=== PATIENT | female | born 1950 | race American Indian/Alaskan Native ===

== ENCOUNTER 2016-05-05 10:00 | Emergency (ER) | payer MEDICARE ==
[2016-05-05] MEDS ORDERED: ZOFRAN IV ONE (10:46)
[2016-05-05] MEDS ORDERED: MORPHINE IV ONE ×2 (10:46→13:53)
--- NOTE | 2016-05-05 11:06 | Emergency Department Report ---
ED Chest Pain HPI - General Chief Complaint: Chest Pain Stated Complaint: CHEST PAIN Time Seen by Provider: 05/05/16 10:38 Source: patient, EMS Mode of arrival: Stretcher Limitations: No Limitations - History of Present Illness Initial Comments: 65-year-old female with a past medical history of end-stage renal disease on dialysis, hypertension, CAD with stent 1 presents to the hospital complains of chest pain started during dialysis. Patient states first she had a punching sensation chest followed by intermittent crushing sensation lasting for about 5 minutes at a time. Pain rated 7/10 in intensity without aggravating. Some improvement with nitroglycerin prior to arrival. Patient continues to have intermittent chest pain with associated nausea. No complaints of shortness of breath, vomiting, or diaphoresis. Also complains of associated right arm numbness. Patient had 2.5 hours of dialysis and typically goes for 3.5 hours. Similar pain in the past that was not diagnosed as a heart attack as per patient. Previous medical record review. Patient was admitted here October 2015 and had negative serial enzymes and a negative stress test performed by [facility] July 2015. Aspirin given prior to arrival. 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 Complaint: chest pain - Related Data Home Medications Medication Instructions Recorded Confirmed Last Taken ALPRAZolam [Xanax TAB] 0.5 mg PO DAILY 11/10/15 05/05/16 05/04/16 FLUoxetine HCL [PROzac] 60 mg PO QDAY 11/10/15 05/05/16 05/04/16 Ferric Citrate (Nf) [Auryxia (Nf)] 210 mg PO DAILY 11/10/15 05/05/16 05/04/16 Lisinopril [Zestril TAB] 10 mg PO QDAY 11/10/15 05/05/16 05/04/16 Omeprazole [PriLOSEC] 30 mg PO QDAY 11/10/15 05/05/16 05/05/16 traZODone [Desyrel] 100 mg PO QHS 11/10/15 05/05/16 11/09/15 09:00 Previous Rx's Medication Instructions Recorded Last Taken Type Cinacalcet [Sensipar] 30 mg PO QDAY tablet 11/13/15 05/04/16 Rx HYDROcodone/APAP 5-325 [[place]vance 1 each PO Q6HR PRN #20 tablet 05/05/16 Unknown Rx 5/325] ISOSORBIDE MONOnitrate [Imdur ER] 30 mg PO DAILY #30 tab.er.24h 05/05/16 Unknown Rx Allergies Allergy/AdvReac Type Severity Reaction Status Date / Time iodine Allergy Hives Verified 05/18/14 16:07 Sulfa (Sulfonamide Allergy Hives Verified 05/18/14 16:07 Antibiotics) GABRIELLE score - Gabrielle Score Age > 65: (0) No Aspirin use within the Past 7 Days: (0) No 3 or more CAD Risk Factors: (1) Yes 2 or more Angina events in past 24 hrs: (1) Yes Known CAD with more than 50% Stenosis: (1) Yes Elevated Cardiac Markers: (0) No ST Deviation Greater than 0.5mm: (0) No GABRIELLE Score: 3 ED Review of Systems ROS: Stated complaint: CHEST PAIN Other details as noted in HPI Comment: All other systems reviewed and negative Other: Constitutional: No fevers chills Eyes: No eye pain visual changes ENT: No ear pain or throat pain Neck: Denies pain Respiratory: Denies cough wheezing shortness of breath Cardiovascular: Denies chest pain, palpitations, syncope GI: Denies abdominal pain, vomiting, diarrhea : Denies dysuria, urinary frequency, or urgency Musculoskeletal: Denies back pain, joint swelling Skin: Denies rash, lesions, erythema Neurologic: Denies headache, numbness, weakness Psychiatric: Denies suicidal ideation, hallucinations ED Past Medical Hx - Past Medical History Previous Medical History?: Yes Hx Hypertension: Yes Hx Congestive Heart Failure: No Hx Diabetes: No Hx GERD: Yes Hx Renal Disease: Yes (ESRD/dialysis M,W,F) Hx Arthritis: Yes (hands) Hx Psychiatric Treatment: Yes (depression) Hx Asthma: No Hx COPD: No Additional medical history: membreno's palsy-right side - Surgical History Past Surgical History?: Yes Hx Coronary Stent: Yes (1) Additional Surgical History: left A/V graft - Social History Smoking Status: Never Smoker Substance Use Type: None - Medications Home Medications: Home Medications Medication Instructions Recorded Confirmed Last Taken Type ALPRAZolam [Xanax TAB] 0.5 mg PO DAILY 11/10/15 05/05/16 05/04/16 History FLUoxetine HCL [PROzac] 60 mg PO QDAY 07/03/1705/05/16 05/04/16 History Ferric Citrate (Nf) [Auryxia (Nf)] 210 mg PO DAILY 11/10/15 05/05/16 05/04/16 History Lisinopril [Zestril TAB] 10 mg PO QDAY 11/10/15 05/05/16 05/04/16 History Omeprazole [PriLOSEC] 30 mg PO QDAY 11/10/15 05/05/16 05/05/16 History traZODone [Desyrel] 100 mg PO QHS 11/10/15 05/05/16 11/09/15 09:00 History Cinacalcet [Sensipar] 30 mg PO QDAY tablet 11/13/15 05/05/16 05/04/16 Rx HYDROcodone/APAP 5-325 [[place] 1 each PO Q6HR PRN #20 tablet 05/05/16 Unknown Rx 5/325] ISOSORBIDE MONOnitrate [Imdur ER] 30 mg PO DAILY #30 tab.er.24h 05/05/16 Unknown Rx ED Physical Exam - General Limitations: No Limitations - Other Other exam information: General: No limitations, patient is alert in no acute distress Head exam: Atraumatic, normocephalic Eyes exam: Normal appearance, pupils equal reactive to light, extraocular movements intact ENT: Moist mucous membrane, normal oropharynx Neck exam: Normal inspection, full range of motion, no meningismus nontender Respiratory exam: Clear to auscultation bilateral, no wheezes, rales, crackles, sternal chest tenderness Cardiovascular: Normal rate and rhythm Abdomen: Soft, nondistended, and nontender, with normal bowel sounds, no rebound, or guarding Extremity: Full range of motion normal inspection no deformity, no calf tenderness or edema Back: Normal Inspection, full range of motion, no tenderness Neurologic: Alert, oriented x3, cranial nerves intact, no motor or sensory deficit Psychiatric: normal affect, normal mood Skin: Warm, dry, intact ED Course Vital Signs 05/05/16 05/05/16 05/05/16 10:37 10:39 10:41 Temperature Pulse Rate 58 L 59 L Respiratory 14 12 Rate Blood Pressure 131/73 131/73 Blood Pressure [Left] O2 Sat by Pulse 99 95 99 Oximetry 05/05/16 05/05/16 05/05/16 10:45 11:00 11:29 Temperature 98.7 F Pulse Rate 63 Respiratory 13 18 Rate Blood Pressure 141/72 Blood Pressure [Left] O2 Sat by Pulse 98 99 Oximetry 05/05/16 05/05/16 15:31 15:32 Temperature Pulse Rate 80 88 Respiratory 16 Rate Blood Pressure 126/69 Blood Pressure 126/69 [Left] O2 Sat by Pulse 98 Oximetry - Reevaluation(s) Reevaluation #1: 05/05/16 11:06 Morphine and Zofran ordered for pain - Consultations Consultation #1: 05/05/16 11:[address] Floyd cardiology and patient was evaluated in the ED. Negative cardiac cath this past summer and recommended Imdur 30 mg daily and discharge if cardiac enzymes negative 05/05/16 14:49 ED Medical Decision Making - Lab Data Result diagrams: 05/05/16 11:15 05/05/16 11:15 Lab Results 05/05/16 05/05/16 05/05/16 Range/Units 10:54 11:15 11:15 WBC 11.2 H (4.5-11.0) K/mm3 RBC 3.24 L (3.65-5.03) M/mm3 Hgb 10.9 (10.1-14.3) gm/dl Hct 32.6 (30.3-42.9) % MCV 101 H (79-97) fl MCH 34 H (28-32) pg MCHC 33 (30-34) % RDW 14.2 (13.2-15.2) % Plt Count 215 (140-440) K/mm3 Lymph % (Auto) 9.0 L (13.4-35.0) % [place] % (Auto) 10.3 H (0.0-7.3) % Eos % (Auto) 1.1 (0.0-4.3) % Baso % (Auto) 0.6 (0.0-1.8) % Lymph # 1.0 L (1.2-5.4) K/mm3 [place] # 1.1 H (0.0-0.8) K/mm3 Eos # 0.1 (0.0-0.4) K/mm3 Baso # 0.1 (0.0-0.1) K/mm3 Seg Neutrophils % 79.0 H (40.0-70.0) % Seg Neutrophils # 8.8 H (1.8-7.7) K/mm3 Sodium 139 (137-145) mmol/L Potassium 3.6 (3.6-5.0) mmol/L Chloride 97.0 L (98-107) mmol/L Carbon Dioxide 28 (22-30) mmol/L Anion Gap 18 mmol/L BUN 22 H (7-17) mg/dL Creatinine 5.5 H (0.7-1.2) mg/dL Estimated GFR 9 ml/min BUN/Creatinine Ratio 4.00 % Glucose 62 L (65-100) mg/dL POC Glucose 64 L (70-105) Calcium 9.3 (8.4-10.2) mg/dL Troponin T < 0.010 (0.00-0.029) ng/mL 05/05/16 Range/Units 13:27 WBC (4.5-11.0) K/mm3 RBC (3.65-5.03) M/mm3 Hgb (10.1-14.3) gm/dl Hct (30.3-42.9) % MCV (79-97) fl MCH (28-32) pg MCHC (30-34) % RDW (13.2-15.2) % Plt Count (140-440) K/mm3 Lymph % (Auto) (13.4-35.0) % [place] % (Auto) (0.0-7.3) % Eos % (Auto) (0.0-4.3) % Baso % (Auto) (0.0-1.8) % Lymph # (1.2-5.4) K/mm3 [place] # (0.0-0.8) K/mm3 Eos # (0.0-0.4) K/mm3 Baso # (0.0-0.1) K/mm3 Seg Neutrophils % (40.0-70.0) % Seg Neutrophils # (1.8-7.7) K/mm3 Sodium (137-145) mmol/L Potassium (3.6-5.0) mmol/L Chloride (98-107) mmol/L Carbon Dioxide (22-30) mmol/L Anion Gap mmol/L BUN (7-17) mg/dL Creatinine (0.7-1.2) mg/dL Estimated GFR ml/min BUN/Creatinine Ratio % Glucose (65-100) mg/dL POC Glucose (70-105) Calcium (8.4-10.2) mg/dL Troponin T < 0.010 (0.00-0.029) ng/mL - EKG Data -: EKG Interpreted by Me (right bundle branch block sinus bradycardia 57 LAE) - EKG Data When compared to previous EKG there are: no significant change (compared to ) - Radiology Data Radiology results: report reviewed (chest x-ray: No acute findings) - Medical Decision Making Patient got relief in the ED with morphine. Imdur initiated. Patient has 2 negative sets cardiac enzymes with a recent negative cardiac cath summer 2015. We discharged home with Imdur as recommended by cardiology. - Differential Diagnosis AL, unstable angina, atypical chest pain Critical Care Time: No Critical care attestation.: If time is entered above; I have spent that time in minutes in the direct care of this critically ill patient, excluding procedure time. ED Disposition Clinical Impression: Atypical chest pain, ESRD (end stage renal disease) on dialysis HTN (hypertension) Qualifiers: Hypertension type: essential hypertension Qualified Code(s): I10 - Essential ( primary) hypertension Disposition: DISCHARGED TO HOME OR SELFCARE Is pt being admited?: No Condition: Stable Instructions: Chest Pain (ED), Hypertension (ED) Additional Instructions: Tale the medications as prescribed. Follow-up with the informatica. Return if symptoms worsen Prescriptions: HYDROcodone/APAP 5-325 [Advance 5/325] 1 each PO Q6HR PRN #20 tablet PRN Reason: Pain ISOSORBIDE MONOnitrate [Imdur ER] 30 mg PO DAILY #30 tab.er.24h Referrals: [facility] [Provider Group] - 3-5 Days Time of Disposition: 15:39
--- NOTE | 2016-05-05 11:18 | XRay Report ---
PORTABLE CHEST INDICATION: Chest pain. COMPARISON: 11/10/2015 FINDINGS: Portable, frontal chest radiograph demonstrates stable cardiomediastinal silhouette, aortic knob calcifications, slightly elevated right hemidiaphragm, left subclavian/brachiocephalic stent medially and few bony degenerative changes with possible osteopenia. No pleural effusions or CHF. EKG leads. CONCLUSION: No acute disease in the chest, stable. Thank you for the opportunity to participate in this patient's care.
[2016-05-05 11:30] LABS: Basophils % (Auto) 0.6 % (0.0-1.8); Eosinophils % (Auto) 1.1 % (0.0-4.3); Hematocrit 32.6 % (30.3-42.9); Hemoglobin 10.9 gm/dl (10.1-14.3); Mean Corpuscular HGB Conc 33 % (30-34); Mean Corpuscular Hemoglobin 34 pg (28-32); Mean Corpuscular Volume 101 fl (79-97); Platelet Count 215 K/mm3 (140-440); Red Blood Count 3.24 M/mm3 (3.65-5.03); Red Cell Distribution Width 14.2 % (13.2-15.2); White Blood Count 11.2 K/mm3 (4.5-11.0)
[2016-05-05 11:44] LABS: Anion Gap 18 mmol/L; Blood Urea Nitrogen 22 mg/dL (7-17); Calcium 9.3 mg/dL (8.4-10.2); Carbon Dioxide 28 mmol/L (22-30); Glucose 62 mg/dL (65-100); Potassium 3.6 mmol/L (3.6-5.0); Sodium 139 mmol/L (137-145)
--- NOTE | 2016-05-05 12:42 | Consultation ---
History of Present Illness Consult date: 05/05/16 Requesting physician: CARA RIBEIRO Consult reason: chest pain History of present illness: The patient claims that upon arrival at dialysis this morning, she experienced a "crushing" substernal chest pain. After she commenced dialysis, she claims her chest pain became more prominent, feeling like a pressure sensation. Due to persistence of symptoms, she was brought to the emergency department for evaluation. She obtained partial relief with sublingual nitroglycerin. Her initial set of cardiac enzymes are negative for acute myocardial infarction. Notably, she had a negative stress test in June 2015. After presenting with chest pain again in October 2015, she underwent coronary angiography which revealed no significant disease, but mild ectasia in the RCA. Ejection fraction was 50-55 percent. Past History Past Medical History: ESRD, hypertension, other (coronary angiography in October 2015 revealed no significant disease but mild ectasia of the RCA. Ejection fraction was 5055 percent.) Past Surgical History: thyroidectomy, Other (hemorrhoidectomy and creation of AV fistula) Social history: denies: smoking, alcohol abuse Family history: denies: CAD Medications and Allergies Allergies Allergy/AdvReac Type Severity Reaction Status Date / Time iodine Allergy Hives Verified 05/18/14 16:07 Sulfa (Sulfonamide Allergy Hives Verified 05/18/14 16:07 Antibiotics) Home Medications Medication Instructions Recorded Confirmed Last Taken Type ALPRAZolam [Xanax TAB] 0.5 mg PO DAILY 11/10/15 05/05/16 05/04/16 History FLUoxetine HCL [PROzac] 60 mg PO QDAY 11/10/15 05/05/16 05/04/16 History Ferric Citrate (Nf) [Auryxia (Nf)] 210 mg PO DAILY 11/10/15 05/05/16 05/04/16 History Lisinopril [Zestril TAB] 10 mg PO QDAY 11/10/15 05/05/16 05/04/16 History Omeprazole [PriLOSEC] 30 mg PO QDAY 11/10/15 05/05/16 05/05/16 History traZODone [Desyrel] 100 mg PO QHS 11/10/15 05/05/16 11/09/15 09:00 History Cinacalcet [Sensipar] 30 mg PO QDAY tablet 11/13/15 05/05/16 05/04/16 Rx Review of Systems Constitutional: no fever, no chills Ears, nose, mouth and throat: no ear pain, no ear discharge, no sore throat Cardiovascular: chest pain, no palpitations, no lightheadedness, no shortness of breath Respiratory: no cough, no hemoptysis, no shortness of breath Gastrointestinal: no nausea, no vomiting, no diarrhea, no constipation Genitourinary Female: no dysuria, no urinary frequency Rectal: no pain, no bleeding Musculoskeletal: no neck pain, no muscle weakness, no myalgias Integumentary: no rash, no pruritis Neurological: no weakness, no parathesias, no numbness, no tingling, no headaches Endocrine: no cold intolerance, no heat intolerance Hematologic/Lymphatic: no easy bruising, no easy bleeding Allergic/Immunologic: no urticaria, no wheezing Physical Examination Vital Signs Last Vital Signs Temp 98.7 F 05/05/16 10:45 Pulse 63 05/05/16 11:00 Resp 18 05/05/16 11:29 BP 141/72 05/05/16 11:00 Pulse Ox 99 05/05/16 11:29 General appearance: no acute distress HEENT: Positive: EOMI, Normocephaly, Mucus Membranes Moist Neck: Positive: neck supple, trachea midline Cardiac: Positive: Reg Rate and Rhythm, S1/S2 Lungs: Positive: clear to auscultation Neuro: Positive: Grossly Intact Abdomen: Positive: Soft, Active Bowel Sounds. Negative: Tender Skin: Positive: Clear. Negative: Rash Extremities: Present: normal. Absent: edema Results 05/05/16 11:15 05/05/16 11:15 CBC 05/05/16 Range/Units 11:15 WBC 11.2 H (4.5-11.0) K/mm3 RBC 3.24 L (3.65-5.03) M/mm3 Hgb 10.9 (10.1-14.3) gm/dl Hct 32.6 (30.3-42.9) % Plt Count 215 (140-440) K/mm3 Lymph # 1.0 L (1.2-5.4) K/mm3 [place] # 1.1 H (0.0-0.8) K/mm3 Eos # 0.1 (0.0-0.4) K/mm3 Baso # 0.1 (0.0-0.1) K/mm3 Comprehensive Metabolic Panel 05/05/16 Range/Units 11:15 Sodium 139 (137-145) mmol/L Potassium 3.6 (3.6-5.0) mmol/L Chloride 97.0 L (98-107) mmol/L Carbon Dioxide 28 (22-30) mmol/L BUN 22 H (7-17) mg/dL Creatinine 5.5 H (0.7-1.2) mg/dL Glucose 62 L (65-100) mg/dL Calcium 9.3 (8.4-10.2) mg/dL - Imaging and Cardiology EKG: image reviewed EKG interpretations - Telemetry EKG Rhythm: Sinus Bradycardia AV and intraventricular conduction: right bundle branch block Chamber hypertrophy or enlargement: left atrial enlargement Assessment and Plan Initiate Imdur 30 mg daily. If her cardiac enzymes are negative, she may be discharged home on Imdur. She is to follow-up at my office in one week. - Patient Problems (1) Atypical chest pain Current Visit: Yes Status: Acute (2) Normal coronary arteries Current Visit: Yes Status: Chronic (3) HTN (hypertension) Current Visit: Yes Status: Chronic Qualifiers: Hypertension type: essential hypertension Qualified Code(s): I10 - Essential (primary) hypertension (4) ESRD (end stage renal disease) on dialysis Current Visit: Yes Status: Chronic
[2016-05-05] MEDS ORDERED: IMDUR PO SCH (15:00)
[2016-05-05 15:32] VITALS: BP 126/69
== END 2016-05-05 15:54 | disposition home or self-care (01) ==
LOC: ED 10:00
DX: I12.0 Hypertensive chronic kidney disease with stage 5 chronic kidney disease or end stage renal disease (principal); E11.22 Type 2 diabetes mellitus with diabetic chronic kidney disease; N18.6 End stage renal disease; Z99.2 Dependence on renal dialysis; R07.89 Other chest pain; K21.9 Gastro-esophageal reflux disease without esophagitis; M19.90 Unspecified osteoarthritis, unspecified site; Z88.2 Allergy status to sulfonamides
CPT/HCPCS: 36415; 71010; 80048; 82962; 84484; 85025; 93005; 93010; 96374; 96375; 96376; 99285; J2270; J2405

== ENCOUNTER 2019-09-10 19:55 | Inpatient (IN) | payer MEDICARE ==
[2019-09-10 20:25] LABS: Basophils # (Auto) 0.1 K/mm3 (0.0-0.1); Basophils % (Auto) 1.2 % (0.0-1.8); Eosinophils % (Auto) 0.4 % (0.0-4.3); Hematocrit 33.9 % (30.3-42.9); Hemoglobin 11.6 gm/dl (10.1-14.3); Lymphocytes # (Auto) 1.1 K/mm3 (1.2-5.4); Lymphocytes % (Auto) 12.7 % (13.4-35.0); Mean Corpuscular HGB Conc 34 % (30-34); Mean Corpuscular Volume 99 fl (79-97); Monocytes # (Auto) 0.8 K/mm3 (0.0-0.8); Monocytes % (Auto) 8.8 % (0.0-7.3); Platelet Count 193 K/mm3 (140-440); Red Blood Count 3.44 M/mm3 (3.65-5.03); Red Cell Distribution Width 13.8 % (13.2-15.2)
[2019-09-10 20:47] LABS: Calcium 9.5 mg/dL (8.4-10.2)
[2019-09-10] MEDS ORDERED: ASPIRIN 81 MG TAB CHEW PO ONE (20:52)
[2019-09-10] MEDS ORDERED: ONDANSETRON 4 MG/2 ML INJ IV ONE (20:52)
[2019-09-10] MEDS ORDERED: MORPHINE 4 MG/1 ML INJ IV ONE (20:52)
--- NOTE | 2019-09-10 20:55 | XRay Report ---
CHEST 1 VIEW 09/10/2019 7:43 PM INDICATION / CLINICAL INFORMATION: MAIN: Chest Pain; Pseudoanyeurism progressively worse for one week. Tenderness and painful. Denies Bl eeding or dc. Had diaylis today. Nonlabored. chest tightness and cramping. COMPARISON: Chest x-ray 06/12/2018 FINDINGS: SUPPORT DEVICES: None. HEART / MEDIASTINUM: No significant abnormality. LUNGS / PLEURA: No significant pulmonary or pleural abnormality. No pneumothorax. ADDITIONAL FINDINGS: A venous stent left brachiocephalic and subclavian veins IMPRESSION: 1. No acute findings. Signer Name: Jordi Mcgowan MD Signed: 09/10/2019 8:51 PM Workstation Name: [id number]
--- NOTE | 2019-09-10 20:55 | Emergency Department Report ---
ED Chest Pain HPI - General Chief Complaint: Extremity Injury, Upper Stated Complaint: LARGE ABCESS UNDER ARM/PAINFUL Time Seen by Provider: 09/10/19 20:32 Source: patient Mode of arrival: Ambulatory Limitations: No Limitations - History of Present Illness Initial Comments: Patient is 68-year-old female with end-stage renal disease on hemodialysis. Jolie samaniego also had history of hypertension. Patient presented to the ER complaining of left sided chest pain, pressure with radiation to the left arm. Patient stated that her pain started this morning. She stated that she is unable to finish her dialysis session today. She stated that she had approximately 45 minutes left. Patient denied any fever, chills, cough or congestion. Patient also denied any abdominal pain, nausea or vomiting or diarrhea. MD Complaint: chest pain -: This morning Onset: during rest Pain Location: left chest Severity scale (0 -10): 8 Quality: pressure Consistency: constant Worsens With: nothing - Related Data Home Medications Medication Instructions Recorded Confirmed Last Taken ALPRAZolam [Xanax TAB] 0.5 mg PO DAILY 11/10/15 05/05/16 05/04/16 FLUoxetine HCL [PROzac] 60 mg PO QDAY 11/10/15 05/05/16 05/04/16 Ferric Citrate (Nf) [Auryxia] 210 mg PO DAILY 11/10/15 05/05/16 05/04/16 Omeprazole [PriLOSEC] 30 mg PO QDAY 11/10/15 05/05/16 05/05/16 lisinopriL [Zestril TAB] 10 mg PO QDAY 11/10/15 05/05/16 05/04/16 traZODone [Desyrel] 100 mg PO QHS 11/10/15 05/05/16 11/09/15 09:00 Previous Rx's Medication Instructions Recorded Last Taken Type Cinacalcet [Sensipar] 30 mg PO QDAY tablet 11/13/15 05/04/16 Rx HYDROcodone/APAP 5-325 [[place] 1 each PO Q6HR PRN #20 tablet 05/05/16 Unknown Rx 5/325] ISOSORBIDE MONOnitrate [Imdur ER] 30 mg PO DAILY #30 tab.er.24h 05/05/16 Unknown Rx Allergies Allergy/AdvReac Type Severity Reaction Status Date / Time iodine Allergy Hives Verified 05/18/14 16:07 lisinopril Allergy Angioedema Verified 09/10/19 20:05 Sulfa (Sulfonamide Allergy Hives Verified 05/18/14 16:07 Antibiotics) Heart Score - HEART Score History: Moderately suspicious EKG: Non-specific Age: > 65 Risk factors: > 3 risk factors or hx of atherosclerotic disease Troponin: < normal limit HEART Score: 6 - Critical Actions Critical Actions: 4-6 pts:12-16.6% risk of adverse cardiac event. Should be admitted ED Review of Systems ROS: Stated complaint: LARGE ABCESS UNDER ARM/PAINFUL Other details as noted in HPI Comment: All other systems reviewed and negative Constitutional: denies: chills, fever ENT: denies: congestion Respiratory: denies: cough, shortness of breath, SOB with exertion Cardiovascular: chest pain. denies: palpitations Gastrointestinal: denies: abdominal pain, nausea, vomiting Neurological: denies: headache, weakness, numbness, paresthesias, confusion, abnormal gait ED Past Medical Hx - Past Medical History Previous Medical History?: Yes Hx Hypertension: Yes Hx Congestive Heart Failure: No Hx Diabetes: No Hx GERD: Yes Hx Renal Disease: Yes (ESRD/dialysis M,W,F) Hx Arthritis: Yes (hands) Hx Psychiatric Treatment: Yes (depression) Hx Asthma: No Hx COPD: No Additional medical history: membreno's palsy-left side - Surgical History Past Surgical History?: Yes Hx Coronary Stent: Yes (4) Additional Surgical History: left A/V graft - Social History Smoking Status: Never Smoker Substance Use Type: None - Medications Home Medications: Home Medications Medication Instructions Recorded Confirmed Last Taken Type ALPRAZolam [Xanax TAB] 0.5 mg PO DAILY 11/10/15 05/05/16 05/04/16 History FLUoxetine HCL [PROzac] 60 mg PO QDAY 11/10/15 05/05/16 05/04/16 History Ferric Citrate (Nf) [Auryxia] 210 mg PO DAILY 11/10/15 05/05/16 05/04/16 History Omeprazole [PriLOSEC] 30 mg PO QDAY 11/10/15 05/05/16 05/05/16 History lisinopriL [Zestril TAB] 10 mg PO QDAY 07/11/16 01/04/17 01/03/17 History traZODone [Desyrel] 100 mg PO QHS 11/10/15 05/05/16 11/09/15 09:00 History Cinacalcet [Sensipar] 30 mg PO QDAY tablet 11/13/15 05/05/16 05/04/16 Rx HYDROcodone/APAP 5-325 [[place] 1 each PO Q6HR PRN #20 tablet 05/05/16 Unknown Rx 5/325] ISOSORBIDE MONOnitrate [Imdur ER] 30 mg PO DAILY #30 tab.er.24h 05/05/16 Unknown Rx ED Physical Exam - General Limitations: No Limitations General appearance: alert, in no apparent distress - Head Head exam: Present: atraumatic, normocephalic, normal inspection - Eye Eye exam: Present: normal appearance - ENT ENT exam: Present: normal exam, normal orophraynx, mucous membranes moist - Neck Neck exam: Present: normal inspection, full ROM. Absent: tenderness, meningismus, lymphadenopathy, thyromegaly - Respiratory Respiratory exam: Present: normal lung sounds bilaterally - Cardiovascular Cardiovascular Exam: Present: regular rate, normal rhythm, normal heart sounds - GI/Abdominal GI/Abdominal exam: Present: soft, normal bowel sounds. Absent: distended, tenderness, guarding, rebound, rigid, organomegaly, mass, bruit, pulsatile mass, hernia - Extremities Exam Extremities exam: Present: normal inspection, full ROM, normal capillary refill. Absent: tenderness, pedal edema, calf tenderness - Back Exam Back exam: Present: normal inspection, full ROM - Neurological Exam Neurological exam: Present: alert, oriented X3, CN II-XII intact. Absent: motor sensory deficit - Psychiatric Psychiatric exam: Present: normal mood - Skin Skin exam: Present: warm, intact, normal color ED Course Vital Signs 09/10/19 20:34 Respiratory 15 Rate O2 Sat by Pulse 98 Oximetry GABRIELLE score - Gabrielle Score Age > 65: (0) No Aspirin use within the Past 7 Days: (0) No 3 or more CAD Risk Factors: (1) Yes 2 or more Angina events in past 24 hrs: (1) Yes Known CAD with more than 50% Stenosis: (1) Yes Elevated Cardiac Markers: (0) No ST Deviation Greater than 0.5mm: (0) No GABRIELLE Score: 3 ED Medical Decision Making - Lab Data Result diagrams: 09/10/19 20:14 09/10/19 20:14 - EKG Data -: EKG Interpreted by Me EKG shows normal: sinus rhythm Rate: normal - EKG Data Interpretation: no acute changes - Radiology Data Radiology results: report reviewed - Medical Decision Making Patient is 68-year-old female with end-stage renal disease on hemodialysis. Patient also had history of hypertension. Patient presented to the ER complaining of left sided chest pain, pressure with radiation to the left arm. Patient stated that her pain started this morning. She stated that she is un able to finish her dialysis session today. She stated that she had approximately 45 minutes left. Patient denied any fever, chills, cough or congestion. Patient also denied any abdominal pain, nausea or vomiting or diarrhea. EKG showed no ST elevation. Labs reviewed and is unremarkable including the first set of troponin. Chest x-ray is negative for acute finding. Patient received aspirin, morphine and Zofran. I discussed the patient with Dr. Grayson, he agreed to admit the patient to hospital for further management. Critical care attestation.: If time is entered above; I have spent that time in minutes in the direct care of this critically ill patient, excluding procedure time. ED Disposition Clinical Impression: Chest pain, End stage renal disease Disposition: OP ADMIT IP TO THIS HOSP Is pt being admited?: Yes Condition: Stable Instructions: Chest Pain (ED)
[2019-09-10] MEDS ORDERED: ACETAMINOPHEN 325 MG TAB PO PRN (21:58)
[2019-09-10] MEDS ORDERED: ONDANSETRON 4 MG/2 ML INJ IV PRN (21:58)
[2019-09-10] MEDS ORDERED: NITROGLYCERIN 0.4 MG TAB SUBL SL PRN (21:58)
[2019-09-10] MEDS ORDERED: MAGNESIUM HYDROXIDE (MOM) ORAL LIQD UDC PO PRN (21:58)
[2019-09-10 22:41] LABS: Basophils # (Auto) 0.1 K/mm3 (0.0-0.1); Eosinophils # (Auto) 0.1 K/mm3 (0.0-0.4); Eosinophils % (Auto) 0.8 % (0.0-4.3); Hematocrit 34.5 % (30.3-42.9); Hemoglobin 11.7 gm/dl (10.1-14.3); Lymphocytes # (Auto) 1.6 K/mm3 (1.2-5.4); Lymphocytes % (Auto) 17.9 % (13.4-35.0); Mean Corpuscular HGB Conc 34 % (30-34); Mean Corpuscular Volume 98 fl (79-97); Monocytes # (Auto) 0.9 K/mm3 (0.0-0.8); Monocytes % (Auto) 9.8 % (0.0-7.3); Platelet Count 199 K/mm3 (140-440); Red Blood Count 3.52 M/mm3 (3.65-5.03); Red Cell Distribution Width 13.6 % (13.2-15.2)
--- NOTE | 2019-09-10 23:02 | History and Physical Report ---
History of Present Illness Date of examination: 09/10/19 Date of admission: 09/10/19 21:51 Chief complaint: Chest Pain History of present illness: 68-year-old -[place] female with known history of hypertension and end- stage renal disease on dialysis Tuesday and Tuesday presenting to the emergency room today complaining of left-sided chest pain which started during dialysis today. Patient indicates that she had about 45 minutes left for dialysis when she started having left-sided chest pain. On a scale of 10 pain was about 8/10. No known relieving or exacerbating factor. She has had chronic left upper arm pain radiating into her left axilla and indicates pain on the left has been ongoing for several weeks. She has also noticed increased swelling in the left axilla but feels it may be related to AV fistula in the left upper arm. She denies any fever or chills, no nausea vomiting, no shortness of breath, no headache or dizziness. Upon arrival in the emergency room she was given aspirin and some IV morphine with some improvement in her chest pain. Work-up so far in the emergency room has been unremarkable. Past History Past Medical History: ESRD, GERD, hypertension, other (Depression) Past Surgical History: Other (A-V graft on left arm.) Social history: no significant social history Family history: no significant family history Medications and Allergies Allergies Allergy/AdvReac Type Severity Reaction Status Date / Time iodine Allergy Hives Verified 05/18/14 16:07 lisinopril Allergy Angioedema Verified 09/10/19 20:05 Sulfa (Sulfonamide Allergy Hives Verified 05/18/14 16:07 Antibiotics) Home Medications Medication Instructions Recorded Confirmed Last Taken Type ALPRAZolam [Xanax TAB] 0.5 mg PO DAILY 11/10/15 05/05/16 05/04/16 History FLUoxetine HCL [PROzac] 60 mg PO QDAY 11/10/15 05/05/16 05/04/16 History Ferric Citrate (Nf) [Auryxia] 210 mg PO DAILY 11/10/15 05/05/16 05/04/16 History Omeprazole [PriLOSEC] 30 mg PO QDAY 11/10/15 05/05/16 05/05/16 History lisinopriL [Zestril TAB] 10 mg PO QDAY 11/10/15 05/05/1605/04/17 History traZODone [Desyrel] 100 mg PO QHS 11/10/15 05/05/16 11/09/15 09:00 History Cinacalcet [Sensipar] 30 mg PO QDAY tablet 11/13/15 05/05/16 05/04/16 Rx HYDROcodone/APAP 5-325 [[place] 1 each PO Q6HR PRN #20 tablet 05/05/16 Unknown Rx 5/325] ISOSORBIDE MONOnitrate [Imdur ER] 30 mg PO DAILY #30 tab.er.24h 05/05/16 Unknown Rx Active Meds: Active Medications Acetaminophen (Tylenol) 650 mg PO Q4H PRN PRN Reason: Pain MILD(1-3)/Fever >100.5/IZAGUIRRE Aspirin (Ecotrin) 325 mg PO QDAY [facility] Heparin Sodium (Porcine) (Heparin) 5,000 unit SUB-Q Q8HR [facility] Magnesium Hydroxide (Milk Of Magnesia) 30 ml PO Q4H PRN PRN Reason: Constipation Morphine Sulfate (Morphine) 2 mg IV Q5MIN PRN PRN Reason: Chest Pain unrelieved by NTG Nitroglycerin (Nitrostat) 0.4 mg SL Q5M PRN PRN Reason: Chest Pain Ondansetron HCl (Zofran) 4 mg IV Q8H PRN PRN Reason: Nausea And Vomiting Sodium Chloride (Sodium Chloride Flush Syringe 10 Ml) 10 ml IV BID [facility] Last Admin: 09/10/19 22:29 Dose: Not Given Documented by: Sodium Chloride (Sodium Chloride Flush Syringe 10 Ml) 10 ml IV PRN PRN PRN Reason: LINE FLUSH Review of Systems Constitutional: no fever, no chills Ears, nose, mouth and throat: no headache, no vertigo Cardiovascular: chest pain, no palpitations, no lightheadedness Respiratory: no cough, no shortness of breath Gastrointestinal: no abdominal pain, no nausea, no vomiting, no diarrhea Genitourinary Female: no flank pain, no dysuria, no hematuria Musculoskeletal: no neck pain, no low back pain Integumentary: no rash, no pruritis Neurological: no headaches, no change in mentation Exam - Constitutional Vitals: Temp Pulse Resp BP Pulse Ox 67 11 L 161/68 100 09/10/19 22:30 09/10/19 22:30 09/10/19 22:30 09/10/19 22:30 General appearance: Present: no acute distress, well-nourished - EENT Eyes: Present: PERRL, EOM intact ENT: hearing intact, clear oral mucosa, dentition normal - Neck Neck: Present: supple, normal ROM - Respiratory Respiratory effort: normal Respiratory: bilateral: CTA - Cardiovascular Rhythm: regular Heart Sounds: Present: S1 & S2, systolic murmur - Extremities Extremities: no ischemia, pulses intact, pulses symmetrical, No edema, Full ROM, abnormal (AV fistula in the left upper with palpable thrill, mildly tender.) Peripheral Pulses: abnormal (Mildly tender and pulsatile swelling in the left axilla) - Abdominal General gastrointestinal: Present: soft, non-tender, non-distended - Integumentary Integumentary: Present: clear, warm, dry - Musculoskeletal Musculoskeletal: strength equal bilaterally - Psychiatric Psychiatric: appropriate mood/affect, intact judgment & insight, cooperative - Neurologic Neurologic: CNII-XII intact, moves all extremities Results - Labs CBC & Chem 7: 09/10/19 22:28 09/10/19 22:28 Labs: Abnormal lab results 09/10/19 09/10/19 09/10/19 Range/Units 20:14 20:14 22:28 RBC 3.44 L 3.52 L (3.65-5.03) M/mm3 MCV 99 H 98 H (79-97) fl MCH 34 H 33 H (28-32) pg Lymph % (Auto) 12.7 L (13.4-35.0) % [place] % (Auto) 8.8 H 9.8 H (0.0-7.3) % Lymph # 1.1 L (1.2-5.4) K/mm3 [place] # 0.9 H (0.0-0.8) K/mm3 Seg Neutrophils % 76.9 H 70.5 H (40.0-70.0) % Chloride 95.6 L (98-107) mmol/L BUN 27 H (7-17) mg/dL Creatinine 5.1 H (0.7-1.2) mg/dL Assessment and Plan - Patient Problems (1) Chest pain Current Visit: Yes Status: Acute Plan to address problem: Patient admitted and placed on telemetry. Will check serial cardiac enzymes. Patient has been placed on daily aspirin, sublingual nitroglycerin and IV morphine as needed for chest pain. She will be scheduled for stress test in the a.m. (2) End stage renal disease Current Visit: Yes Status: Chronic Plan to address problem: Patient gets dialysis on Tuesday, Tuesday and Fridays. We require nephrology consult during this admission for possible dialysis. (3) Left upper extremity swelling Current Visit: No Status: Acute Plan to address problem: Probably related to the left AV fistula present in the left upper arm. Meanwhile will place on analgesic medication as needed. We will consider ultrasound of the left upper extremity to rule out a DVT if pain and swelling does not subside. We will also appreciate vascular surgery evaluation of AV fistula on left upper extremity. (4) DVT prophylaxis Current Visit: Yes Status: Acute Plan to address problem: Patient placed on subcutaneous heparin. (5) Full code status Current Visit: Yes Status: Acute
[2019-09-10 23:04] LABS: Calcium 9.5 mg/dL (8.4-10.2)
[2019-09-11] MEDS: MORPHINE 2 MG/1 ML INJ IV PRN ×2 (01:50→22:22)
[2019-09-11 02:16] LABS: Chol/HDL Ratio 1.98 %
[2019-09-11 05:04] LABS: Basophils % (Auto) 0.7 % (0.0-1.8); Eosinophils # (Auto) 0.1 K/mm3 (0.0-0.4); Eosinophils % (Auto) 1.3 % (0.0-4.3); Hematocrit 31.8 % (30.3-42.9); Hemoglobin 10.9 gm/dl (10.1-14.3); Lymphocytes # (Auto) 1.5 K/mm3 (1.2-5.4); Lymphocytes % (Auto) 24.5 % (13.4-35.0); Mean Corpuscular HGB Conc 34 % (30-34); Mean Corpuscular Volume 99 fl (79-97); Monocytes # (Auto) 0.7 K/mm3 (0.0-0.8); Monocytes % (Auto) 11.4 % (0.0-7.3); Platelet Count 176 K/mm3 (140-440); Red Blood Count 3.22 M/mm3 (3.65-5.03); Red Cell Distribution Width 13.7 % (13.2-15.2)
[2019-09-11 05:16] LABS: INR 1.06 (0.87-1.13)
[2019-09-11 05:24] LABS: Calcium 9.7 mg/dL (8.4-10.2)
[2019-09-11] MEDS: HEPARIN 5,000 UNIT/1 ML VIAL SUB-Q SCH ×3 (06:36→22:23)
--- NOTE | 2019-09-11 09:05 | Consultation ---
History of Present Illness - Reason for Consult Consult date: 09/11/19 end stage renal disease - History of Present Illness Patient is a 68yo with ESRD on HD MWF who presented to the ED with chest pain and left arm pain. She is followed by Dr. Floyd and is s/p recent stress test which was abnormal. Case discussed with Dr. Floyd on August 30 - as elective procedures were on hold due to COVID-19, plan was to see patient in the office and schedule LHC if patient was symptomatic. Presently, patient reports intermittent substernal pain. She denies SOB, diaphoresis, N/V. She reports that she is more concerned with left arm pain and is worried that her YANN AVF will malfunction in future. She has been seen by her vascular surgeon, Dr. Stiles, but she requests a second opinion. Her last dialysis treatment was yesterday. Past History Past Medical History: ESRD, GERD, hypertension, other (Depression) Past Surgical History: Other (A-V graft on left arm.) Social history: no significant social history Family history: no significant family history Medications and Allergies Allergies Allergy/AdvReac Type Severity Reaction Status Date / Time iodine Allergy Hives Verified 05/18/14 16:07 lisinopril Allergy Angioedema Verified 09/10/19 20:05 Sulfa (Sulfonamide Allergy Hives Verified 05/18/14 16:07 Antibiotics) Home Medications Medication Instructions Recorded Confirmed Last Taken Type ALPRAZolam [Xanax TAB] 0.5 mg PO DAILY 11/10/15 05/05/16 05/04/16 History FLUoxetine HCL [PROzac] 60 mg PO QDAY 11/10/15 05/05/16 05/04/16 History Ferric Citrate (Nf) [Auryxia] 210 mg PO DAILY 11/10/15 05/05/16 05/04/16 History Omeprazole [PriLOSEC] 30 mg PO QDAY 11/10/15 05/05/16 05/05/16 History lisinopriL [Zestril TAB] 10 mg PO QDAY 11/10/15 05/05/16 05/04/16 History traZODone [Desyrel] 100 mg PO QHS 11/10/15 05/05/16 11/09/15 09:00 History Cinacalcet [Sensipar] 30 mg PO QDAY tablet 11/13/15 05/05/16 05/04/16 Rx HYDROcodone/APAP 5-325 [[place] 1 each PO Q6HR PRN #20 tablet 05/05/16 Unknown Rx 5/325] ISOSORBIDE MONOnitrate [Imdur ER] 30 mg PO DAILY #30 tab.er.24h 05/05/16 Unknown Rx Active Meds: Active Medications Acetaminophen (Tylenol) 650 mg PO Q4H PRN PRN Reason: Pain MILD(1-3)/Fever >100.5/IZAGUIRRE Aspirin (Ecotrin) 325 mg PO QDAY [facility] Heparin Sodium (Porcine) (Heparin) 5,000 unit SUB-Q Q8HR [facility] Last Admin: 09/11/19 06:36 Dose: 5,000 unit Documented by: Magnesium Hydroxide (Milk Of Magnesia) 30 ml PO Q4H PRN PRN Reason: Constipation Morphine Sulfate (Morphine) 2 mg IV Q5MIN PRN PRN Reason: Chest Pain unrelieved by NTG Last Admin: 09/11/19 01:50 Dose: 2 mg Documented by: Nitroglycerin (Nitrostat) 0.4 mg SL Q5M PRN PRN Reason: Chest Pain Ondansetron HCl (Zofran) 4 mg IV Q8H PRN PRN Reason: Nausea And Vomiting Sodium Chloride (Sodium Chloride Flush Syringe 10 Ml) 10 ml IV BID [facility] Last Admin: 09/10/19 22:29 Dose: Not Given Documented by: Sodium Chloride (Sodium Chloride Flush Syringe 10 Ml) 10 ml IV PRN PRN PRN Reason: LINE FLUSH Review of Systems All systems: negative Exam - Vital Signs Vital signs: Vital Signs Resp Pulse Ox 15 98 09/10/19 20:34 09/10/19 20:34 - General Appearance General appearance: well-developed, well-nourished EENT: ATNC Heart: regular, S1S2 Gastrointestinal: Present: normal Integumentary: no rash, warm and dry Neurologic: alert and oriented x3 Musculoskeletal: Present: other (no edema) Psychiatric: mood/affect appropriate Results - Lab Results 09/11/19 14:30 09/11/19 04:40 Most recent lab results Calcium 9.7 mg/dL (8.4-10.2) 09/11/19 04:40 Assessment and Plan Impression: * End stage renal disease * Chest pain --Abnormal MPI * Left arm pain - r/o AVF malfunction * Hypertension * Anemia secondary to ESRD * Secondary hyperparathyroidism Plan: * No acute need for dialysis today * Continue TTS schedule * Note plans for [facility] today * Patient has requested second opinion re: AV access evaluation. IR consulted overnight * Epogen TIW prn * Renal diet * Dose medications for renal function
--- NOTE | 2019-09-11 09:37 | Consultation ---
History of Present Illness Consult date: 09/11/19 Requesting physician: ANA BRITTON Consult reason: chest pain History of present illness: The pt is a 68 YO female with a past medical history of ESRD on HD, nonobstructive CAD, recurrent chest pain, HTN, mild aortic stenosis, RBBB, scleroderma. She is followed in our office by Dr. Floyd. She presented with c/o chest pain for the past several days. She describes her chest pain as an intermittent left-sided aching pain with no clear aggravating or alleviating factors. The pain prevented her from finishing dialysis yesterday and thus she decided to seek further evaluation. She states that she has been experiencing this pain intermittently for the past few months. Pt also c/o "aneurysm" with swelling and pain around her LUE dialysis access site. She underwent lexiscan MPI stress test in our office on 07/05/2019 which showed small partially reversible anterior and anteroapical defect suggestive of prior infarction with mild to mod residual ischemia in LAD territory, EF 63%. Her anti-ischemic regimen was optimized in our office and it was recommended by Dr. Floyd that she undergo coronary angiography if chest pain persisted. LHC done 10/2015 showed minimal nonobstructive CAD (mild ectasia in the mid RCA with scattered LI, LAD with scattered LI), EF 50-55%, no evidence of aortic stenosis. Echo done 07/05/2019 showed EF 55-60%, grade I diastolic dysfunction, mild (mean gradient 17mmHg), mod TR. Past History Past Medical History: ESRD, hypertension, other (as per HPI) Past Surgical History: Other (A-V graft on left arm.) Social history: no significant social history Family history: no significant family history Medications and Allergies Allergies Allergy/AdvReac Type Severity Reaction Status Date / Time iodine Allergy Hives Verified 05/18/14 16:07 lisinopril Allergy Angioedema Verified 09/10/19 20:05 Sulfa (Sulfonamide Allergy Hives Verified 05/18/14 16:07 Antibiotics) Home Medications Medication Instructions Recorded Confirmed Last Taken Type ALPRAZolam [Xanax TAB] 0.5 mg PO DAILY 11/10/15 05/05/16 05/04/16 History FLUoxetine HCL [PROzac] 60 mg PO QDAY 11/10/15 05/05/16 05/04/16 History Ferric Citrate (Nf) [Auryxia] 210 mg PO DAILY 11/10/15 05/05/16 05/04/16 History Omeprazole [PriLOSEC] 30 mg PO QDAY 11/10/15 05/05/16 05/05/16 History lisinopriL [Zestril TAB] 10 mg PO QDAY 11/10/15 05/05/16 05/04/16 History traZODone [Desyrel] 100 mg PO QHS 11/10/15 05/05/16 11/09/15 09:00 History Cinacalcet [Sensipar] 30 mg PO QDAY tablet 11/13/15 05/05/16 05/04/16 Rx HYDROcodone/APAP 5-325 [[place] 1 each PO Q6HR PRN #20 tablet 05/05/16 Unknown Rx 5/325] ISOSORBIDE MONOnitrate [Imdur ER] 30 mg PO DAILY #30 tab.er.24h 05/05/16 Unknown Rx Active Meds: Active Medications Acetaminophen (Tylenol) 650 mg PO Q4H PRN PRN Reason: Pain MILD(1-3)/Fever >100.5/IZAGUIRRE Aspirin (Ecotrin) 325 mg PO QDAY [facility] Last Admin: 09/11/19 09:26 Dose: 325 mg Documented by: Heparin Sodium (Porcine) (Heparin) 5,000 unit SUB-Q Q8HR [facility] Last Admin: 09/11/19 06:36 Dose: 5,000 unit Documented by: Sodium Chloride (Nacl 0.9% 500 Ml) 500 mls @ 50 mls/hr IV DIRECT [facility] Stop: 09/11/19 19:59 Magnesium Hydroxide (Milk Of Magnesia) 30 ml PO Q4H PRN PRN Reason: Constipation Morphine Sulfate (Morphine) 2 mg IV Q5MIN PRN PRN Reason: Chest Pain unrelieved by NTG Last Admin: 09/11/19 01:50 Dose: 2 mg Documented by: Nitroglycerin (Nitrostat) 0.4 mg SL Q5M PRN PRN Reason: Chest Pain Ondansetron HCl (Zofran) 4 mg IV Q8H PRN PRN Reason: Nausea And Vomiting Sodium Chloride (Sodium Chloride Flush Syringe 10 Ml) 10 ml IV BID [facility] Last Admin: 09/11/19 09:27 Dose: 10 ml Documented by: Sodium Chloride (Sodium Chloride Flush Syringe 10 Ml) 10 ml IV PRN PRN PRN Reason: LINE FLUSH Review of Systems Constitutional: no weight loss, no weight gain, no fever, no chills, no sweats Ears, nose, mouth and throat: no ear pain, no nose pain, no sinus pressure, no sinus pain Cardiovascular: chest pain, no orthopnea, no palpitations, no rapid/irregular heart beat, no edema, no syncope, no lightheadedness, no shortness of breath, no dyspnea on exertion, no leg edema Respiratory: no cough, no shortness of breath, no dyspnea on exertion, no congestion, no wheezing, no pain on inspiration Gastrointestinal: no abdominal pain, no nausea, no vomiting, no diarrhea, no constipation, no change in bowel habits Genitourinary Female: no pelvic pain, no flank pain, no dysuria, no urinary frequency, no urgency Musculoskeletal: no neck stiffness, no neck pain, no shooting arm pain, no arm numbness/tingling, no low back pain, no shooting leg pain Integumentary: no rash, no pruritis, no redness, no sores, no wounds Neurological: no head injury, no paralysis, no weakness, no parathesias, no n umbness, no tingling, no seizures, no syncope Psychiatric: no anxiety Endocrine: no cold intolerance, no heat intolerance Hematologic/Lymphatic: no easy bruising, no easy bleeding Allergic/Immunologic: no urticaria Physical Examination Vital Signs Resp Pulse Ox 15 98 09/10/19 20:34 09/10/19 20:34 General appearance: no acute distress HEENT: Positive: PERRL, Normocephaly, Mucus Membranes Moist Neck: Positive: neck supple, trachea midline Cardiac: Positive: Reg Rate and Rhythm, S1/S2, Systolic Murmur Lungs: Positive: Decreased Breath Sounds Neuro: Positive: Grossly Intact Abdomen: Negative: Tender Skin: Negative: Rash Musculoskeletal: No Pain Extremities: Present: Other (LUE swelling around HD access site). Absent: edema Results 09/11/19 04:40 09/11/19 04:40 Coagulation 09/11/19 Range/Units 04:40 PT 13.6 (12.2-14.9) Sec. INR 1.06 (0.87-1.13) Lipids 09/10/19 Range/Units 22:28 Triglycerides 96 (2-149) mg/dL Cholesterol 133 (50-199) mg/dL HDL Cholesterol 67 H (40-59) mg/dL Cholesterol/HDL Ratio 1.98 % CBC 09/10/19 09/10/19 09/11/19 Range/Units 20:14 22:28 04:40 WBC 9.0 8.7 6.3 (4.5-11.0) K/mm3 RBC 3.44 L 3.52 L 3.22 L (3.65-5.03) M/mm3 Hgb 11.6 11.7 10.9 (10.1-14.3) gm/dl Hct 33.9 34.5 31.8 (30.3-42.9) % Plt Count 193 199 176 (140-440) K/mm3 Lymph # 1.1 L 1.6 1.5 (1.2-5.4) K/mm3 Price # 0.8 0.9 H 0.7 (0.0-0.8) K/mm3 Eos # 0.0 0.1 0.1 (0.0-0.4) K/mm3 Baso # 0.1 0.1 0.0 (0.0-0.1) K/mm3 Comprehensive Metabolic Panel 09/10/19 09/10/19 09/11/19 Range/Units 20:14 22:28 04:40 Sodium 139 141 140 (137-145) mmol/L Potassium 3.8 4.1 4.7 (3.6-5.0) mmol/L Chloride 95.6 L 96.7 L 96.6 L (98-107) mmol/L Carbon Dioxide 27 26 29 (22-30) mmol/L BUN 27 H 28 H 31 H (7-17) mg/dL Creatinine 5.1 H 5.7 H 6.5 H (0.7-1.2) mg/dL Glucose 92 58 L 68 (65-100) mg/dL Calcium 9.5 9.5 9.7 (8.4-10.2) mg/dL - Imaging and Cardiology Echo: report reviewed ( 07/05/2019 showed EF 55-60%, grade I diastolic dysfunction, mild (mean gradient 17mmHg), mod TR. ) Cardiac cath: report reviewed (10/2015 showed minimal nonobstructive CAD (mild e ctasia in the mid RCA with scattered LI, LAD with scattered LI), EF 50-55%, no evidence of aortic stenosis. ) EKG: report reviewed, image reviewed EKG interpretations - Telemetry EKG Rhythm: Sinus Rhythm - EKG Sinus rhythms and dysrhythmias: sinus rhythm AV and intraventricular conduction: right bundle branch block Assessment and Plan Pt presents with recurrent chest pain. She underwent lexiscan MPI stress test in our office on 07/05/2019 which showed small partially reversible anterior and anteroapical defect suggestive of prior infarction with mild to mod residual ischemia in LAD territory, EF 63%. Recommend coronary angiography for definitive diagnosis. Indications, potential risks and benefits of LHC reviewed with pt and she is agreeable to proceed with LHC today. Await findings. The patient has been seen in conjunction with Dr. Villegas who agrees with the assessment and plan of care. - Patient Problems (1) Recurrent chest pain Current Visit: Yes Status: Chronic (2) Abnormal stress test Current Visit: Yes Status: Chronic (3) ESRD on dialysis Current Visit: Yes Status: Chronic (4) Left upper extremity swelling Current Visit: Yes Status: Acute (5) Mild aortic stenosis Current Visit: Yes Status: Chronic (6) Nonobstructive atherosclerosis of coronary artery Current Visit: Yes Status: Chronic (7) HTN (hypertension) Current Visit: Yes Status: Chronic (8) RBBB Current Visit: Yes Status: Chronic
[2019-09-11] MEDS ORDERED: SODIUM CHLORIDE 0.9% 500 ML 500 ML IV SCH (10:00)
[2019-09-11] MEDS ORDERED: HYDROCORTISONE SOD SUCC 100 MG/2 ML VIAL IV ONE (10:00)
[2019-09-11] MEDS ORDERED: ASPIRIN EC 325 MG TAB PO SCH (10:00)
[2019-09-11] MEDS ORDERED: diphenhydrAMINE 50 MG/ML VIAL IV ONE (10:03)
[2019-09-11] MEDS ORDERED: diphenhydrAMINE 50 MG/ML VIAL ONE (10:03)
[2019-09-11] MEDS ORDERED: HYDROCORTISONE SOD SUCC 100 MG/2 ML VIAL ONE (10:03)
[2019-09-11] MEDS ORDERED: SODIUM CHLORIDE 0.9% 500 ML 500 ML ONE ×2 (10:42→12:48)
[2019-09-11] MEDS ORDERED: MIDAZOLAM 2 MG/2 ML INJ ONE (10:55)
[2019-09-11] MEDS ORDERED: HEPARIN 10,000 UNITS/10 ML VIAL ONE ×2 (10:55→13:18)
[2019-09-11] MEDS ORDERED: fentaNYL 100 MCG/2 ML INJ ONE (10:55)
[2019-09-11] MEDS ORDERED: HEPARIN/NS 5000 UNIT/500ML 1,000 ML IR ONE (10:55)
[2019-09-11] MEDS ORDERED: LIDOCAINE (2%) 20 MG/1 ML VIAL 20 ML MDV INFILTRATI ONE (10:55)
--- NOTE | 2019-09-11 11:52 | Event Note ---
Date: 09/11/19 Went to go see patient, but she was prepped and draped in the [employer]. Discussed with patient that she will need to be n.p.o. after midnight as she may need a fistulogram tomorrow. Further assessment tomorrow. Patient understands.
[2019-09-11] MEDS ORDERED: hydrALAZINE 20 MG/1 ML INJ ONE (12:16)
[2019-09-11] MEDS ORDERED: DOPamine/D5W 800 MG/250 ML 800 MG/250 ML BAG IV ONE (12:59)
[2019-09-11] MEDS ORDERED: SODIUM CHLORIDE 0.9% 500 ML 500 ML IV ONE (13:01)
[2019-09-11] MEDS ORDERED: VERAPAMIL 5 MG/2 ML INJ ONE (13:18)
[2019-09-11] MEDS ORDERED: LIDOCAINE 1%/EPINEPHRINE 1:100,000 VIAL (20 ML) INFILTRATI ONE (13:18)
[2019-09-11] MEDS ORDERED: NITROGLYCERIN SYRINGE 3 ML ONE (13:18)
[2019-09-11] MEDS ORDERED: HEPARIN/NS 5000 UNIT/500ML 500 ML IR ONE (13:23)
[2019-09-11] MEDS ORDERED: SODIUM CHLORIDE 0.9% 1000 ML 1,000 ML ONE ×2 (13:30→15:33)
[2019-09-11] MEDS ORDERED: PROTAMINE SULFATE 50 MG/5 ML INJ ONE (13:54)
[2019-09-11] MEDS ORDERED: DOPamine/D5W 800 MG/250 ML 800 MG/250 ML BAG IV SCH (14:00)
[2019-09-11 14:17] LABS: Hematocrit 29.8 % (30.3-42.9)
--- NOTE | 2019-09-11 14:30 | Consultation ---
History of Present Illness - Reason for Consult Consult date: 09/11/19 Hemodynamic instability after cardiac cath Requesting physician: KINGS OAKLEY - History of Present Illness 68-year-old -Cypriot female with known history of hypertension and end-stage renal disease on dialysis Tuesday and Tuesday presenting to the emergency room today complaining of left-sided chest pain which started during dialysis today. Patient indicates that she had about 45 minutes left for dialysis when she started having left-sided chest pain. On a scale of 10 pain was about 8/10. No known relieving or exacerbating factor. She has had chronic left upper arm pain radiating into her left axilla and indicates pain on the left has been ongoing for several weeks. She has also noticed increased swelling in the left axilla but feels it may be related to AV fistula in the left upper arm. She denies any fever or chills, no nausea vomiting, no shortness of breath, no headache or dizziness. Upon arrival in the emergency room she was given aspirin and some IV morphine with some improvement in her chest pain. Work-up so far in the emergency room has been unremarkable. I was contacted after cardiac catheterization due to prolonged bleeding from the right groin site with pressure held for 40 minutes with hemodynamic instability and pressors requiring initiation. Emergency consent was obtained with Dr. Villegas. Past History Past Medical History: ESRD, hypertension, other (as per HPI) Past Surgical History: Other (A-V graft on left arm.) Social history: no significant social history Family history: no significant family history Medications and Allergies Allergies Allergy/AdvReac Type Severity Reaction Status Date / Time iodine Allergy Hives Verified 05/18/14 16:07 lisinopril Allergy Angioedema Verified 09/10/19 20:05 Sulfa (Sulfonamide Allergy Hives Verified 05/18/14 16:07 Antibiotics) Home Medications Medication Instructions Recorded Confirmed Last Taken Type ALPRAZolam [Xanax TAB] 0.5 mg PO DAILY 11/10/15 05/05/16 05/04/16 History FLUoxetine HCL [PROzac] 60 mg PO QDAY 11/10/15 05/05/16 05/04/16 History Ferric Citrate (Nf) [Auryxia] 210 mg PO DAILY 11/10/15 05/05/16 05/04/16 History Omeprazole [PriLOSEC] 30 mg PO QDAY 11/10/15 05/05/16 05/05/16 History lisinopriL [Zestril TAB] 10 mg PO QDAY 11/10/15 05/05/16 05/04/16 History traZODone [Desyrel] 100 mg PO QHS 11/10/15 05/05/16 11/09/15 09:00 History Cinacalcet [Sensipar] 30 mg PO QDAY tablet 11/13/15 05/05/16 05/04/16 Rx HYDROcodone/APAP 5-325 [[place] 1 each PO Q6HR PRN #20 tablet 05/05/16 Unknown Rx 5/325] ISOSORBIDE MONOnitrate [Imdur ER] 30 mg PO DAILY #30 tab.er.24h 05/05/16 Unknown Rx Active Meds: Active Medications Acetaminophen (Tylenol) 650 mg PO Q4H PRN PRN Reason: Pain MILD(1-3)/Fever >100.5/IZAGUIRRE Aspirin (Ecotrin) 325 mg PO QDAY [facility] Last Admin: 09/11/19 09:26 Dose: 325 mg Documented by: Heparin Sodium (Porcine) (Heparin) 5,000 unit SUB-Q Q8HR MANPREET Last Admin: 09/11/19 06:36 Dose: 5,000 unit Documented by: Sodium Chloride (Nacl 0.9% 500 Ml) 500 mls @ 50 mls/hr IV DIRECT MANPREET Stop: 09/11/19 19:59 Last Admin: 09/11/19 11:10 Dose: 100 mls Documented by: Dopamine HCl/Dextrose (Intropin Drip 800 Mg/D5w 250 Ml) 800 mg in 250 mls @ 2.71 mls/hr IV TITR MANPREET; Protocol Last Admin: 09/11/19 13:04 Dose: 13.5 mls Documented by: Magnesium Hydroxide (Milk Of Magnesia) 30 ml PO Q4H PRN PRN Reason: Constipation Morphine Sulfate (Morphine) 2 mg IV Q5MIN PRN PRN Reason: Chest Pain unrelieved by NTG Last Admin: 09/11/19 01:50 Dose: 2 mg Documented by: Nitroglycerin (Nitrostat) 0.4 mg SL Q5M PRN PRN Reason: Chest Pain Ondansetron HCl (Zofran) 4 mg IV Q8H PRN PRN Reason: Nausea And Vomiting Sodium Chloride (Sodium Chloride Flush Syringe 10 Ml) 10 ml IV BID MANPREET Last Admin: 09/11/19 09:27 Dose: 10 ml Documented by: Sodium Chloride (Sodium Chloride Flush Syringe 10 Ml) 10 ml IV PRN PRN PRN Reason: LINE FLUSH Review of Systems ROS unobtainable: due to mental status Exam - Constitutional Vitals: Temp Pulse Resp BP Pulse Ox 98.6 F 54 L 18 125/59 99 09/11/19 08:36 09/11/19 08:36 09/11/19 08:36 09/11/19 08:36 09/11/19 08:36 General appearance: Present: severe distress (Hemodynamic instability with right groin pain) - EENT Eyes: Present: EOM intact ENT: hearing intact - Respiratory Respiratory effort: normal - Extremities Extremities: abnormal (Right groin painful and pressure was actively being held) - Psychiatric Psychiatric: appropriate mood/affect, cooperative Results - Labs CBC & Chem 7: 09/11/19 13:36 09/11/19 04:40 Labs: Abnormal lab results 09/10/19 09/10/19 09/10/19 Range/Units 20:14 20:14 22:28 RBC 3.44 L (3.65-5.03) M/mm3 Hgb (10.1-14.3) gm/dl Hct (30.3-42.9) % MCV 99 H (79-97) fl MCH 34 H (28-32) pg Lymph % (Auto) 12.7 L (13.4-35.0) % [place] % (Auto) 8.8 H (0.0-7.3) % Lymph # 1.1 L (1.2-5.4) K/mm3 [place] # (0.0-0.8) K/mm3 Seg Neutrophils % 76.9 H (40.0-70.0) % Chloride 95.6 L (98-107) mmol/L BUN 27 H (7-17) mg/dL Creatinine 5.1 H (0.7-1.2) mg/dL Glucose (65-100) mg/dL Troponin T 0.034 H D (0.00-0.029) ng/mL HDL Cholesterol 67 H (40-59) mg/dL Crossmatch 0509/10/19 09/11/19 Range/Units 22:28 22:28 04:40 RBC 3.52 L 3.22 L (3.65-5.03) M/mm3 Hgb (10.1-14.3) gm/dl Hct (30.3-42.9) % MCV 98 H 99 H (79-97) fl MCH 33 H 34 H (28-32) pg Lymph % (Auto) (13.4-35.0) % Dawson % (Auto) 9.8 H 11.4 H (0.0-7.3) % Lymph # (1.2-5.4) K/mm3 Dawson # 0.9 H (0.0-0.8) K/mm3 Seg Neutrophils % 70.5 H (40.0-70.0) % Chloride 96.7 L (98-107) mmol/L BUN 28 H (7-17) mg/dL Creatinine 5.7 H (0.7-1.2) mg/dL Glucose 58 L (65-100) mg/dL Troponin T (0.00-0.029) ng/mL HDL Cholesterol (40-59) mg/dL Crossmatch 09/11/19 09/11/19 09/11/19 Range/Units 04:40 04:40 13:36 RBC (3.65-5.03) M/mm3 Hgb (10.1-14.3) gm/dl Hct (30.3-42.9) % MCV (79-97) fl MCH (28-32) pg Lymph % (Auto) (13.4-35.0) % Dawson % (Auto) (0.0-7.3) % Lymph # (1.2-5.4) K/mm3 [place] # (0.0-0.8) K/mm3 Seg Neutrophils % (40.0-70.0) % Chloride 96.6 L (98-107) mmol/L BUN 31 H (7-17) mg/dL Creatinine 6.5 H (0.7-1.2) mg/dL Glucose (65-100) mg/dL Troponin T 0.033 H (0.00-0.029) ng/mL HDL Cholesterol (40-59) mg/dL Crossmatch See Detail 09/11/19 Range/Units 13:36 RBC (3.65-5.03) M/mm3 Hgb 10.0 L (10.1-14.3) gm/dl Hct 29.8 L (30.3-42.9) % MCV (79-97) fl MCH (28-32) pg Lymph % (Auto) (13.4-35.0) % [place] % (Auto) (0.0-7.3) % Lymph # (1.2-5.4) K/mm3 [place] # (0.0-0.8) K/mm3 Seg Neutrophils % (40.0-70.0) % Chloride (98-107) mmol/L BUN (7-17) mg/dL Creatinine (0.7-1.2) mg/dL Glucose (65-100) mg/dL Troponin T (0.00-0.029) ng/mL HDL Cholesterol (40-59) mg/dL Crossmatch Assessment and Plan 68-year-old female with coronary artery disease status post coronary c atheterization of the right groin complicated by prolonged bleeding from the hematoma with hemodynamic instability requiring pressor support. Emergency consent was obtained and right radial access was obtained with angiography of the right lower extremity and angioplasty was performed of the right common femoral artery for 10 minutes x 2 with resolution of pseudoaneurysm. Hemodynamic instability resolved. Patient was transfused 1 non-crossmatched unit of blood due to the hemodynamic instability. I ordered a CT of the abdomen and pelvis without contrast to assess for retroperitoneal bleeding. Ordered DDAVP. Keep right leg flat for the next 24 hours. Pressure dressing until tomorrow m orning. Arterial Doppler tomorrow morning to reassess right groin. Patient was transferred to the ICU for overnight monitoring.
[2019-09-11] MEDS ORDERED: DESMOPRESSIN ACETATE 20 MCG in SODIUM CHLORIDE 0.9% 50 ML IV ONE (14:33)
--- NOTE | 2019-09-11 14:46 | Progress Note ---
Assessment and Plan /Acute bleeding from right groin -Likely due to right femoral artery pseudoaneurysm following cardiac cath - monitor h/h, vascular consulted -status post right femoral artery angioplasty -Transfused 1 unit of packed RBC /Hypotension, on pressor - developed following cardiac cath due to femoral artery pseudoaneurysm and bleeding -Status post 1 unit packed RBC transfusion and right femoral artery angioplasty - cont to monitor at ICU, patient initiated on dopamine / Chest pain, likely nonspecific Patient admitted and placed on telemetry. Patient has been placed on daily aspirin, sublingual nitroglycerin and IV morphine as needed for chest pain. s/p cardiac cath today showed nonobstructive CAD; normal LVEF Cardiology recommended medical management for now / End stage renal disease Patient gets dialysis on Tuesday, Tuesday and Fridays. Consulted nephrology for dialysis / Left upper extremity swelling Probably related to the left AV fistula present in the left upper arm. Appreciate vascular surgery evaluation of AV fistula on left upper extremity. Plan for fistulogram before discharge / DVT prophylaxis Patient placed on subcutaneous heparin. / Full code status Current Visit: Yes Status: Acute Critical care time 35 minutes Brief history: The pt is a 68 YO female with a past medical history of ESRD on HD, nonobstructive CAD, recurrent chest pain, HTN, mild aortic stenosis, RBBB, s cleroderma. followed by Dr. Floyd presented with c/o chest pain for the past several days. Pt also c/o "aneurysm" with swelling and pain around her LUE dialysis access site. She underwent lexiscan MPI stress test outpt on 07/05/2019 which showed small partially reversible anterior and anteroapical defect suggestive of prior infarction with mild to mod residual ischemia in LAD territory, EF 63%. Echo done 07/05/2019 showed EF 55-60%, grade I diastolic dysfunction, mild (mean gradient 17mmHg), mod TR. cardiology consulted and patient had coronary angiogram today showed nonobstructive coronary artery disease and recommended medical management. Post-procedure, pt developed hypotension and further evaluation showed hematoma with oozing of blood into the thigh, no retroperitoneal hematoma. Balloon angioplasty performed per Dr. Hernandez with resolution of pseudoaneurysm, good hemostasis and improvement of BP. Pt received 1 unit PRBC and was initiated on dopamine gtt and tx to CCU. Physical exam: GENERAL: well-developed and well-nourished -Bangladeshi female lying on bed appeared to be in no discomfort. HEENT: Normocephalic. Atraumatic. No conjunctival congestion or icterus. Patient has moist mucous membranes. NECK: Supple. Trachea midline. CHEST/LUNGS: Clear to auscultated bilaterally, breathing nonlabored. No wheezes crackles or rhonchi. HEART/CARDIOVASCULAR: Regular in rate and rhythm. S1 and S2 positive. ABDOMEN: Abdomen is soft, nontender. Patient has normal bowel sounds. Wound dressing on the right growing area with sandbag SKIN: There is no rash. Warm and dry. NEURO: No focal motor deficit. Follows command. MUSCULOSKELETAL: No joint effusion or tenderness. EXTRIMITY: No edema, no cyanosis or clubbing. PSYCH: Cooperative. Subjective Date of service: 09/11/19 Interval history: Patient seen and examined Status post cardiac cath today followed by bleeding from the right groin access area Status post angioplasty by vascular Patient currently resting at the PACU Denies any chest pain, complains of back pain Objective - Constitutional Vitals: Vital Signs - 12hr 09/11/19 09/11/19 09/11/19 04:25 08:10 08:36 Temperature 98.2 F 98.6 F Pulse Rate 59 L 66 54 L Respiratory 18 18 Rate Blood Pressure 123/60 125/59 O2 Sat by Pulse 96 99 Oximetry - Labs CBC & Chem 7: 09/12/19 04:40 09/13/19 04:23 Labs: Abnormal lab results 09/10/19 09/10/19 09/10/19 Range/Units 20:14 20:14 22:28 RBC 3.44 L (3.65-5.03) M/mm3 Hgb (10.1-14.3) gm/dl Hct (30.3-42.9) % MCV 99 H (79-97) fl MCH 34 H (28-32) pg Lymph % (Auto) 12.7 L (13.4-35.0) % [place] % (Auto) 8.8 H (0.0-7.3) % Lymph # 1.1 L (1.2-5.4) K/mm3 [place] # (0.0-0.8) K/mm3 Seg Neutrophils % 76.9 H (40.0-70.0) % Chloride 95.6 L (98-107) mmol/L BUN 27 H (7-17) mg/dL Creatinine 5.1 H (0.7-1.2) mg/dL Glucose (65-100) mg/dL Troponin T 0.034 H D (0.00-0.029) ng/mL HDL Cholesterol 67 H (40-59) mg/dL Crossmatch 09/10/19 09/10/19 09/11/19 Range/Units 22:28 22:28 04:40 RBC 3.52 L 3.22 L (3.65-5.03) M/mm3 Hgb (10.1-14.3) gm/dl Hct (30.3-42.9) % MCV 98 H 99 H (79-97) fl MCH 33 H 34 H (28-32) pg Lymph % (Auto) (13.4-35.0) % [place] % (Auto) 9.8 H 11.4 H (0.0-7.3) % Lymph # (1.2-5.4) K/mm3 [place] # 0.9 H (0.0-0.8) K/mm3 Seg Neutrophils % 70.5 H (40.0-70.0) % Chloride 96.7 L (98-107) mmol/L BUN 28 H (7-17) mg/dL Creatinine 5.7 H (0.7-1.2) mg/dL Glucose 58 L (65-100) mg/dL Troponin T (0.00-0.029) ng/mL HDL Cholesterol (40-59) mg/dL Crossmatch 09/11/19 09/11/19 09/11/19 Range/Units 04:40 04:40 13:36 RBC (3.65-5.03) M/mm3 Hgb (10.1-14.3) gm/dl Hct (30.3-42.9) % MCV (79-97) fl MCH (28-32) pg Lymph % (Auto) (13.4-35.0) % [place] % (Auto) (0.0-7.3) % Lymph # (1.2-5.4) K/mm3 [place] # (0.0-0.8) K/mm3 Seg Neutrophils % (40.0-70.0) % Chloride 96.6 L (98-107) mmol/L BUN 31 H (7-17) mg/dL Creatinine 6.5 H (0.7-1.2) mg/dL Glucose (65-100) mg/dL Troponin T 0.033 H (0.00-0.029) ng/mL HDL Cholesterol (40-59) mg/dL Crossmatch See Detail 09/11/19 Range/Units 13:36 RBC (3.65-5.03) M/mm3 Hgb 10.0 L (10.1-14.3) gm/dl Hct 29.8 L (30.3-42.9) % MCV (79-97) fl MCH (28-32) pg Lymph % (Auto) (13.4-35.0) % [place] % (Auto) (0.0-7.3) % Lymph # (1.2-5.4) K/mm3 [place] # (0.0-0.8) K/mm3 Seg Neutrophils % (40.0-70.0) % Chloride (98-107) mmol/L BUN (7-17) mg/dL Creatinine (0.7-1.2) mg/dL Glucose (65-100) mg/dL Troponin T (0.00-0.029) ng/mL HDL Cholesterol (40-59) mg/dL Crossmatch
[2019-09-11 14:47] LABS: Hematocrit 34.3 % (30.3-42.9); Hemoglobin 11.5 gm/dl (10.1-14.3)
--- NOTE | 2019-09-11 15:03 | Operative Report ---
Operative Report Operative Report: EXAM: 1. Ultrasound-guided access of the right radial artery. 2. Selection of the ascending aorta, descending thoracic aorta, abdominal aorta, right common iliac artery, and right common femoral artery. 3. Angiography of the right lower extremity. 4. Angioplasty of the right common femoral artery with an 8 mm x 40 mm angioplasty balloon. 5. Ultrasound-guided access of the left common femoral vein. 6. Fluoroscopic guided placement of a left common femoral triple-lumen 7 Israeli non-tunneled non-cuffed catheter. DATE: 09/11/2019 [employer]ER PRINT TENDER: JOSETTE MENDENHALL MD INDICATION: Uncontrolled bleeding of the right groin with hemodynamic instability after cardiac catheterization MEDICATIONS: Please see nursing report for full details. DEVICES: 8 mm x 40 mm angioplasty balloon CONTRAST: Please see Director Of Student Life notes for full details PROCEDURE: I was contacted after 40 minutes of pressure could not control the right groin bleeding with hemodynamic instability starting to ensue and pressors requiring initiation. Emergency consent was obtained and I discussed the procedure preliminarily with the patient and obtained consent with Dr. Villegas. The groins and right wrist were prepped and draped in a sterile fashion. Ultrasound was used to evaluate the right radial artery which was patent. Under direct ultrasound guidance, the right radial artery was accessed with a 21-gauge micropuncture needle. 0.018 inch wire was passed into the radial artery. Needle was exchanged for a 5/6 glide sheath slender. Radial cocktail was administered without heparin. Angled catheter and wire were used to select the ascending aorta, descending thoracic aorta, abdominal aorta, right common iliac artery, right external iliac artery, and right common femoral artery. Digital subtraction angiography was performed demonstrating patency of the right external iliac artery and a focal pseudoaneurysm which was linear and narrow necked at the midportion of the right common femoral artery. No extravasation noted at this point. The right profundofemoral artery was patent. There is a plaque at the distal common femoral artery extending over the superficial femoral artery ostium which was 40 to 50% narrowed. The rest of the superficial femoral artery was patent. 8 mm x 40 mm angioplasty balloon was used to balloon tamponade the midportion of the common femoral artery. This was performed for 10 minutes. After this was performed, the balloon was deflated for a few minutes and pressure was held and then the balloon was reinflated. This was performed for 10 minutes. During the second inflation, the left groin was then evaluated. Ultrasound was used to evaluate the left common femoral vein which was patent. Under sonographic guidance, the left common femoral vein was punctured with a 21-gauge micropuncture needle and a 0.018 inch wire was advanced through the needle. Needle was exchanged for transitional dilator. The inner dilator and wire was removed and a 0.035 inch wire was advanced through the transitional dilator into the inferior vena cava. Over the 0.035 inch wire, serial dilatation was performed. The 7 Israeli triple- lumen catheter was advanced over the wire and positioned centrally under fluoroscopic guidance. 2-0 Ethilon suture was used to secure the catheter. The catheter was charged with heparinized saline The balloon was then exchanged for an angled catheter and digital subtraction angiography was performed in multiple projections demonstrating resolution of the pseudoaneurysm with no extravasation. At this point, the intervention was complete. Pressure dressing was applied to the right groin. All wires, catheters, and sheaths were removed from the right radial access and TR band was applied achieving immediate hemostasis. At the conclusion of the procedure, the patient was hemodynamically stable and without right groin pain. FINDINGS: Please see procedure note above. IMPRESSION: 1. Successful angioplasty of the right common femoral artery. 2. Successful placement of a left common femoral vein 7 Israeli triple-lumen catheter.
--- NOTE | 2019-09-11 16:33 | Cardiac Catherization Report ---
INDICATIONS FOR PROCEDURE: The patient is a 68-year-old -Thai female, being followed in our office by Dr. Floyd with a diagnosis of chest pains, was noted to have abnormal stress test done in June of this year along with the history of nonobstructive disease noted on the cardiac catheterization performed in 2015. Presently, she is on hemodialysis for her end-stage renal disease. The patient is having intermittent chest pains for last 2 days, the troponins are more or less flat; however, because of persistent chest pain and abnormal stress nuclear imaging noted in the office, it was felt that the patient would benefit from diagnostic cardiac catheterization for definitive diagnosis and treatment. The patient is aware of the procedure, potential complications, and alternatives of therapy available. Right femoral artery was used for access considering she is on hemodialysis and has AV fistula in the upper extremity. DESCRIPTION OF PROCEDURE: The patient was brought to the catheterization laboratory in a fasting condition. The patient was prepared in a standard fashion. The patient was evaluated for moderate sedation and she was felt to be appropriate candidate for moderate sedation. However, she has a history of being allergic to IVP DYE and received IV Solu-Medrol and Benadryl preprocedural in the outpatient area. The patient is somewhat drowsy from IV Benadryl and hence the patient was given a small dose of fentanyl and Versed. Subsequently, local anesthesia was given in the right groin area, and under fluoroscopy, right femoral artery puncture was made using 5-Montenegrin micropuncture needle. A 6-Montenegrin sheath was introduced. A 6-Montenegrin multipurpose catheter was used for obtaining the angiograms of the left coronary artery in multiple views followed by left ventriculogram done in RESENDEZ projection. JR4 catheter was used to obtain the angiograms of the right coronary artery. Because of the borderline 50-60% lesion in the ostial proximal circumflex area, it was felt that the patient would benefit from measurement of the IFR. Hence, a setup was made for IFR and received 70 units per kg of heparin as an anticoagulant. Friend Trusted pressure wire was used for obtaining the IFR. It was prepared in the standard fashion. Initially, EBU 3.5 and 3.0 guides were used; however, difficult to direct pressure wire into the left circumflex artery. Hence, 6-Montenegrin JL3.5 guide catheter used for engaging the left coronary artery and advancing the pressure wire into the left circumflex area. Lesion is located at the ostium and proximal part of the circumflex area. IFR was measured in a standard fashion. This was found to be not hemodynamically significant measuring 0.98-0.99. Finally angiograms were obtained and there was no evidence of any injury to the coronary arteries from manipulation of the pressure wire. Subsequently, an angiogram was performed in the right femoral area and it was felt femoral puncture was in the appropriate area. Manual pressure was applied. However, subsequently, the patient became hypotensive even in spite of prolonged pressure. Because of hypotension, the patient was started on dopamine and was given fluids without much response. Subsequently, consult was obtained from Interventional Radiology to Dr. Macario Hernandez who performed the angiograms of the right femoral artery using right radial artery. Oozing of the blood was noted in the right common femoral area. Balloon tamponade was performed for 20 minutes total. Subsequently, there was no more evidence of blood coming out of the common femoral area. The patient received 1 unit of packed red blood cells in addition to IV fluids. While in the catheterization laboratory, the patient's blood pressure improved and dopamine was discontinued. Heart rate came down from 140 to 100 and 100 to 110 beats per minute. Also, Dr. Hernandez inserted a triple-lumen catheter in the left groin. The patient was transferred to the ICU in stable condition. The patient was alert, oriented x3 at the time of transfer to the ICU. The patient's IV sedation initially for cardiac catheterization started at 10:19 a.m. and ended at 12:17 noontime. Following findings were noted. HEMODYNAMICS: 1. Opening aortic pressure 167/27. Left ventricular pressure 162/20. No gradient across the aortic valve. Estimated ejection fraction 50-55%. 2. Right coronary artery dominant vessel, shows diffuse calcification throughout the vessel with mild irregularities 20-30%. Overall, no obstructive lesions noted in the dominant right coronary artery. 3. Left coronary artery arises normally from left coronary artery. Diffuse calcifications noted throughout the LAD and circumflex artery. Left main without significant disease. LAD shows smooth 40-50% long lesion very distally prior to curving around the apex. Rest of the LAD and its diagonal branch without significant disease. Circumflex artery showed a long lesion 50% in diameter stenosis starting at the ostium into the proximal part. Rest of the circumflex artery showed mild irregularities. Collaterals none. As mentioned above, IFR of the proximal circumflex artery was obtained, which was found to be not significant, 0.98-0.99. At this time, considering the above angiographic findings and functional evaluation of the circumflex artery, it was felt that the patient can be continued on medical therapy. FINAL IMPRESSION: 1. Normal-sized left ventricle with normal contractility. Elevated end diastolic pressure of 20 mmHg noted. 2. A 50% smooth lesion in the ostial and proximal circ area and functional evaluation of this lesion with IFR was found to be nonsignificant. Also, 40-50% smooth long lesion was noted in the very distal part of the LAD where it curves around the apex. Right coronary artery shows mild disease. Considering the above, the patient will be continued on medical therapy. Post-procedure, the patient developed hypotension and further evaluation showed hematoma and oozing of blood into the thigh. No retroperitoneal hematoma noted on angiograms of the common femoral artery. Balloon tamponade was performed with good hemostasis and vital signs improved. The patient received 1 unit of packed red blood cells in addition to IV fluids. JOB# [id number] SHABBIR/LAWRENCE PETTY
[2019-09-11] MEDS ORDERED: HYDROcodone/ACETAMINOPHEN 5-325 MG TAB PO ONE (17:11)
[2019-09-11] MEDS ORDERED: HYDROcodone/ACETAMINOPHEN 5-325 MG TAB ONE (17:21)
--- NOTE | 2019-09-11 18:26 | Consultation ---
History of Present Illness Consult date: 09/11/19 Requesting physician: DAKOTA JOSEPH Reason for consult: other (Shock ? hemorhagic; CAD) History of present illness: PULMONARY/CCM CONSULT NOTE (Full dictation # [id number]) Please see dictated notes for full details Past History Past Medical History: ESRD, GERD, hypertension, other (Depression) Past Surgical History: Other (A-V graft on left arm.) Social history: no significant social history Family history: no significant family history Medications and Allergies Allergies Allergy/AdvReac Type Severity Reaction Status Date / Time iodine Allergy Hives Verified 05/18/14 16:07 lisinopril Allergy Angioedema Verified 09/10/19 20:05 Sulfa (Sulfonamide Allergy Hives Verified 05/18/14 16:07 Antibiotics) Home Medications Medication Instructions Recorded Confirmed Last Taken Type ALPRAZolam [Xanax TAB] 0.5 mg PO DAILY 11/10/15 05/05/16 05/04/16 History FLUoxetine HCL [PROzac] 60 mg PO QDAY 11/10/15 05/05/16 05/04/16 History Ferric Citrate (Nf) [Auryxia] 210 mg PO DAILY 11/10/15 05/05/16 05/04/16 History Omeprazole [PriLOSEC] 30 mg PO QDAY 11/10/15 05/05/16 05/05/16 History lisinopriL [Zestril TAB] 10 mg PO QDAY 11/10/15 05/05/16 05/04/16 History traZODone [Desyrel] 100 mg PO QHS 11/10/15 05/05/16 11/09/15 09:00 History Cinacalcet [Sensipar] 30 mg PO QDAY tablet 11/13/15 05/05/16 05/04/16 Rx HYDROcodone/APAP 5-325 [[place] 1 each PO Q6HR PRN #20 tablet 05/05/16 Unknown Rx 5/325] ISOSORBIDE MONOnitrate [Imdur ER] 30 mg PO DAILY #30 tab.er.24h 05/05/16 Unknown Rx Active Meds: Active Medications Acetaminophen (Tylenol) 650 mg PO Q4H PRN PRN Reason: Pain MILD(1-3)/Fever >100.5/IZAGUIRRE Aspirin (Halfprin Ec) 81 mg PO QDAY MANPREET Heparin Sodium (Porcine) (Heparin) 5,000 unit SUB-Q Q8HR MANPREET Last Admin: 09/11/19 06:36 Dose: 5,000 unit Documented by: Sodium Chloride (Nacl 0.9% 500 Ml) 500 mls @ 50 mls/hr IV DIRECT MANPREET Stop: 09/11/19 19:59 Last Admin: 09/11/19 11:10 Dose: 100 mls Documented by: Dopamine HCl/Dextrose (Intropin Drip 800 Mg/D5w 250 Ml) 800 mg in 250 mls @ 2.71 mls/hr IV TITR MANPREET; Protocol Last Admin: 09/11/19 13:04 Dose: 13.5 mls Documented by: Magnesium Hydroxide (Milk Of Magnesia) 30 ml PO Q4H PRN PRN Reason: Constipation Morphine Sulfate (Morphine) 2 mg IV Q5MIN PRN PRN Reason: Chest Pain unrelieved by NTG Last Admin: 09/11/19 01:50 Dose: 2 mg Documented by: Nitroglycerin (Nitrostat) 0.4 mg SL Q5M PRN PRN Reason: Chest Pain Ondansetron HCl (Zofran) 4 mg IV Q8H PRN PRN Reason: Nausea And Vomiting Sodium Chloride (Sodium Chloride Flush Syringe 10 Ml) 10 ml IV BID [facility] Last Admin: 09/11/19 09:27 Dose: 10 ml Documented by: Sodium Chloride (Sodium Chloride Flush Syringe 10 Ml) 10 ml IV PRN PRN PRN Reason: LINE FLUSH Physical Examination Vital signs: Vital Signs Resp Pulse Ox 15 98 09/10/19 20:34 09/10/19 20:34 Results - Laboratory Findings CBC and BMP: 09/12/19 04:40 09/12/19 11:33 PT/INR, D-dimer PT 13.6 Sec. (12.2-14.9) 09/11/19 04:40 INR 1.06 (0.87-1.13) 09/11/19 04:40 Abnormal lab findings: Abnormal Labs 09/10/19 09/10/19 09/10/19 20:14 20:14 22:28 RBC 3.44 L Hgb Hct MCV 99 H MCH 34 H Lymph % (Auto) 12.7 L [place] % (Auto) 8.8 H Lymph # 1.1 L [place] # Seg Neutrophils % 76.9 H Chloride 95.6 L BUN 27 H Creatinine 5.1 H Glucose Troponin T 0.034 H D HDL Cholesterol 67 H Crossmatch 09/10/19 09/10/19 09/11/19 22:28 22:28 04:40 RBC 3.52 L 3.22 L Hgb Hct MCV 98 H 99 H MCH 33 H 34 H Lymph % (Auto) [place] % (Auto) 9.8 H 11.4 H Lymph # [place] # 0.9 H Seg Neutrophils % 70.5 H Chloride 96.7 L BUN 28 H Creatinine 5.7 H Glucose 58 L Troponin T HDL Cholesterol Crossmatch 09/11/19 09/11/19 09/11/19 04:40 04:40 13:36 RBC Hgb Hct MCV MCH Lymph % (Auto) [place] % (Auto) Lymph # [place] # Seg Neutrophils % Chloride 96.6 L BUN 31 H Creatinine 6.5 H Glucose Troponin T 0.033 H HDL Cholesterol Crossmatch See Detail 09/11/19 13:36 RBC Hgb 10.0 L Hct 29.8 L MCV MCH Lymph % (Auto) [place] % (Auto) Lymph # [place] # Seg Neutrophils % Chloride BUN Creatinine Glucose Troponin T HDL Cholesterol Crossmatch
[2019-09-12] MEDS: HEPARIN 5,000 UNIT/1 ML VIAL SUB-Q SCH ×3 (05:28→21:59)
[2019-09-12] MEDS ORDERED: SODIUM CHLORIDE 0.9% 100 ML IV PRN (06:09)
[2019-09-12 06:31] LABS: Hematocrit 27.6 % (30.3-42.9); Hemoglobin 9.5 gm/dl (10.1-14.3); Mean Corpuscular HGB Conc 35 % (30-34); Mean Corpuscular Volume 98 fl (79-97); Red Blood Count 2.82 M/mm3 (3.65-5.03)
[2019-09-12 06:42] LABS: Platelet Count 136 K/mm3 (140-440)
[2019-09-12 06:49] LABS: Calcium 9.3 mg/dL (8.4-10.2)
[2019-09-12] MEDS: MORPHINE 2 MG/1 ML INJ IV PRN ×3 (08:40→22:06)
[2019-09-12] MEDS ORDERED: SODIUM BICARB 8.4% 50 MEQ/50 ML SYRINGE IV ONE (09:15)
[2019-09-12] MEDS ORDERED: SODIUM POLYSTYRENE 15 GM/60 ML ORAL LIQD PO ONE (09:15)
[2019-09-12] MEDS ORDERED: CALCIUM GLUCONATE 1,000 MG in SODIUM CHLORIDE 0.9% 100 ML IV ONE (09:30)
[2019-09-12] MEDS: ASPIRIN EC 81 MG TAB PO SCH (10:10)
--- NOTE | 2019-09-12 10:53 | Cat Scan Report ---
CT ABDOMEN AND PELVIS WITHOUT CONTRAST HISTORY: Right groin pseudoaneurysm. Check for retroperitoneal hematoma. COMPARISON: No relevant comparative imaging. TECHNIQUE: Routine abdominal and pelvic CT exam performed without contrast. Lack of intravenous cont rast limits evaluation of the vascular and solid organs. All CT scans at this location are performed using CT dose reduction for ALARA by means of automated exposure control. FINDINGS: CT ABDOMEN: Lung Bases: No significant abnormality. Liver: No significant abnormality. Biliary: No significant abnormality. The gallbladder is opacified with contrast from recent catheter procedure. Spleen: No significant abnormality. Unenlarged. Pancreas: No significant abnormality. Adrenals: No significant abnormality. Kidneys: The kidneys are small with nondilated renal collecting systems. Residual contrast in bilater al calyces. A 1.4 cm left lower pole exophytic renal cyst versus solid mass measures 57 [place] un its in density. Lymphatics: No lymphadenopathy. Vasculature: Calcifications but otherwise unremarkable. No distinct pseudoaneurysm is identified. Bowel/Peritoneum: No significant abnormality. No free air. No free fluid. Normal appendix. Retroperitoneum: Normal with no hematoma. CT PELVIC: : Small calcified uterine fibroids. The urinary bladder is opacified. Lymphatics: No lymphadenopathy. Osseous Structures: No aggressive appearing osseous lesions. Additional Findings: Stranding in the subcutaneous tissues of the right lower quadrant and right groi n. A 3 cm hematoma of the right suprapubic soft tissues is separate from the vessels. IMPRESSION: 1. No retroperitoneal hematoma. 2. A 3 cm hematoma of the subcutaneous soft tissues of the right suprapubic area. 3. Mild subcutaneous edema of the right lower quadrant and right groin. 4. A 1.4 cm exophytic left lower pole renal cyst versus solid mass. Recommend left renal ultrasound f or further evaluation. Signer Name: Reagan Starr MD Signed: 09/12/2019 10:49 AM Workstation Name: [id number]
--- NOTE | 2019-09-12 10:56 | Progress Note ---
Assessment and Plan S/p LHC yesterday which showed nonobstructive CAD (50% smooth lesion in ostial and prox circ, IFR found to be nonsignificant; 40-50% smooth long lesion in very distal part of LAD; RCA mild disease; normal LVEF). Post-procedure, pt developed hypotension and further evaluation showed hematoma with oozing of blood into the thigh, no retroperitoneal hematoma. Balloon angioplasty performed per Dr. Hernandez with resolution of pseudoaneurysm, good hemostasis and improvement of BP. Pt received 1 unit PRBC and was initiated on dopamine gtt and tx to CCU overnight. She has been weaned off dopamine with stable VS today, no current cardiac complaints. Pressure dressing removed from right groin this morning - site c/d/i, soft, no active bleeding or hematoma noted. Pt for arterial doppler today to reassess right groin per Dr. Hernandez. Pt is also pending fistulogram of LUE dialysis access per vascular team. Cont present cardiac management. The patient has been seen in conjunction with Dr. Villegas who agrees with the assessment and plan of care. - Patient Problems (1) Recurrent chest pain Current Visit: Yes Status: Resolved (2) ESRD on dialysis Current Visit: Yes Status: Chronic (3) Left upper extremity swelling Current Visit: Yes Status: Acute (4) Mild aortic stenosis Current Visit: Yes Status: Chronic (5) Nonobstructive atherosclerosis of coronary artery Current Visit: Yes Status: Chronic (6) HTN (hypertension) Current Visit: Yes Status: Chronic (7) RBBB Current Visit: Yes Status: Chronic Subjective Date of service: 09/12/19 Principal diagnosis: cp Interval history: pt resting comfortably in bed, no current complaints. in SR. Objective Last Vital Signs Temp 98.8 F 09/12/19 08:00 Pulse 75 09/12/19 10:30 Resp 22 09/12/19 10:30 BP 143/55 09/12/19 10:30 Pulse Ox 98 09/12/19 10:30 - Physical Examination General: No Apparent Distress HEENT: Positive: PERRL, Normocephaly, Mucus Membranes Moist Neck: Positive: neck supple, trachea midline Cardiac: Positive: Reg Rate and Rhythm, S1/S2 Lungs: Positive: Decreased Breath Sounds Neuro: Positive: Grossly Intact Abdomen: Negative: Tender Skin: Negative: Rash Incision: Cardiac Cath Site (right groin pressure dressing removed, site c/d/i, site soft with no bleeding or hematoma noted) Musculoskeletal: No Pain Extremities: Present: upper extr. pulses, lower extr. pulses, Other (LUE swelling around HD access site). Absent: edema - Labs and Meds CBC 09/11/19 09/11/19 09/12/19 Range/Units 13:36 14:30 04:40 WBC 9.8 (4.5-11.0) K/mm3 RBC 2.82 L (3.65-5.03) M/mm3 Hgb 10.0 L 11.5 9.5 L (10.1-14.3) gm/dl Hct 29.8 L 34.3 27.6 L D (30.3-42.9) % Plt Count 136 L (140-440) K/mm3 Comprehensive Metabolic Panel 09/12/19 Range/Units 04:40 Sodium 137 (137-145) mmol/L Potassium 6.0 H D (3.6-5.0) mmol/L Chloride 100.0 (98-107) mmol/L Carbon Dioxide 23 (22-30) mmol/L BUN 45 H (7-17) mg/dL Creatinine 8.7 H (0.7-1.2) mg/dL Glucose 70 (65-100) mg/dL Calcium 9.3 (8.4-10.2) mg/dL - Imaging and Cardiology EKG: report reviewed, image reviewed Echo: report reviewed ( 07/05/2019 showed EF 55-60%, grade I diastolic dysfunction, mild (mean gradient 17mmHg), mod TR. ) Cardiac cath: report reviewed (10/2015 showed minimal nonobstructive CAD (mild ectasia in the mid RCA with scattered LI, LAD with scattered LI), EF 50-55%, no evidence of aortic stenosis. ) - EKG Sinus rhythms and dysrhythmias: sinus rhythm AV and intraventricular conduction: right bundle branch block
--- NOTE | 2019-09-12 12:12 | Progress Note ---
Assessment and Plan Impression: * End stage renal disease * CAD --LHC (September 10): 50% smooth lesion in ostial, prox circumflex, 40-50% smooth long lesion in very distal part of LAD; RCA mild disease; normal LVEF * Right groin pseudoaneurysm s/p LHC --s/p balloon angioplasty (September 10) * Left arm pain - r/o AVF malfunction * Hypertension * Anemia secondary to ESRD * Secondary hyperparathyroidism Plan: * Hemodialysis today - UF as tolerated * Continue MWF schedule (TTS schedule in prior nephrology note is an error) * IR following * Epogen TIW prn * Renal diet * Dose medications for renal function Subjective Date of service: 09/12/19 Principal diagnosis: cp Interval history: Patient is s/p LHC yesterday which showed nonobstructive CAD. Patient transferred to ICU overnight. Post-procedure, pt developed hypotension requiring pressor and further evaluation showed hematoma. Balloon angioplasty performed per Dr. Hernandez with resolution of pseudoaneurysm. Pt received 1 unit P RBC. Objective - Vital Signs Vital signs: Vital Signs - 12hr 09/12/19 09/12/19 09/12/19 00:15 00:30 00:45 Temperature Pulse Rate 67 68 64 Pulse Rate [ From Monitor] Respiratory 19 20 19 Rate Blood Pressure 109/55 117/51 125/50 O2 Sat by Pulse Oximetry 09/12/19 09/12/19 09/12/19 01:00 01:16 01:30 Temperature Pulse Rate 64 72 71 Pulse Rate [ From Monitor] Respiratory 19 22 19 Rate Blood Pressure 123/43 132/59 131/54 O2 Sat by Pulse Oximetry 09/12/19 09/12/19 09/12/19 01:45 02:00 02:16 Temperature Pulse Rate 66 69 76 Pulse Rate [ From Monitor] Respiratory 15 18 10 L Rate Blood Pressure 120/55 120/55 108/79 O2 Sat by Pulse Oximetry 09/12/19 09/12/19 09/12/19 02:30 02:37 03:00 Temperature Pulse Rate 70 69 Pulse Rate [ 71 From Monitor] Respiratory 15 17 15 Rate Blood Pressure 132/57 134/56 O2 Sat by Pulse 100 Oximetry 09/12/19 09/12/19 09/12/19 03:30 04:00 04:30 Temperature 99.0 F Pulse Rate 69 70 65 Pulse Rate [ From Monitor] Respiratory 17 14 13 Rate Blood Pressure 139/49 128/50 127/47 O2 Sat by Pulse 100 100 100 Oximetry 09/12/19 09/12/19 09/12/19 05:00 05:30 06:00 Temperature Pulse Rate 73 69 71 Pulse Rate [ From Monitor] Respiratory 18 21 20 Rate Blood Pressure 133/57 140/53 156/65 O2 Sat by Pulse 98 96 99 Oximetry 09/12/19 09/12/19 09/12/19 06:30 07:00 07:30 Temperature Pulse Rate 68 67 76 Pulse Rate [ From Monitor] Respiratory 26 H 17 19 Rate Blood Pressure 137/54 140/53 138/57 O2 Sat by Pulse 98 100 91 Oximetry 09/12/19 09/12/19 09/12/19 08:00 08:27 08:30 Temperature 98.8 F Pulse Rate 68 68 Pulse Rate [ 69 From Monitor] Respiratory 15 12 16 Rate Blood Pressure 137/47 151/71 O2 Sat by Pulse 97 100 99 Oximetry 09/12/19 09/12/19 09/12/19 08:40 09:00 09:30 Temperature Pulse Rate 72 73 Pulse Rate [ From Monitor] Respiratory 16 14 22 Rate Blood Pressure 130/64 169/67 O2 Sat by Pulse 99 94 Oximetry 09/12/19 09/12/19 09/12/19 10:26 10:30 11:00 Temperature Pulse Rate 71 75 75 Pulse Rate [ From Monitor] Respiratory 17 22 18 Rate Blood Pressure 143/55 143/55 143/55 O2 Sat by Pulse 100 98 97 Oximetry 09/12/19 09/12/19 09/12/19 11:08 11:45 12:00 Temperature Pulse Rate 65 63 62 Pulse Rate [ From Monitor] Respiratory Rate Blood Pressure 119/59 144/83 O2 Sat by Pulse Oximetry - General Appearance General appearance: well-developed, well-nourished EENT: ATNC Respiratory: Present: Clear to Ascultation Cardiology: regular, S1S2 Gastrointestinal: normal, no tenderness, no distended Integumentary: no rash, warm and dry Psychiatric: cooperative - Lab 09/12/19 04:40 09/12/19 11:33 Most recent lab results Calcium 9.3 mg/dL (8.4-10.2) 09/12/19 04:40 Medications & Allergies - Medications Allergies/Adverse Reactions: Allergies iodine Allergy (Verified 05/18/14 16:07) Hives lisinopril Allergy (Verified 09/10/19 20:05) Angioedema Sulfa (Sulfonamide Antibiotics) Allergy (Verified 05/18/14 16:07) Hives Home Medications: Home Medications Medication Instructions Recorded Confirmed Last Taken Type ALPRAZolam [Xanax TAB] 0.5 mg PO DAILY 11/10/15 05/05/16 05/04/16 History FLUoxetine HCL [PROzac] 60 mg PO QDAY 11/10/15 05/05/16 05/04/16 History Ferric Citrate (Nf) [Auryxia] 210 mg PO DAILY 11/10/15 05/05/16 05/04/16 History Omeprazole [PriLOSEC] 30 mg PO QDAY 11/10/15 05/05/16 05/05/16 History lisinopriL [Zestril TAB] 10 mg PO QDAY 11/10/15 05/05/16 05/04/16 History traZODone [Desyrel] 100 mg PO QHS 11/10/15 05/05/16 11/09/15 09:00 History Cinacalcet [Sensipar] 30 mg PO QDAY tablet 11/13/15 05/05/16 05/04/16 Rx HYDROcodone/APAP 5-325 [[place] 1 each PO Q6HR PRN #20 tablet 05/05/16 Unknown Rx 5/325] ISOSORBIDE MONOnitrate [Imdur ER] 30 mg PO DAILY #30 tab.er.24h 05/05/16 Unknown Rx Active Medications: Generic Name Dose Route Start Last Admin Trade Name Freq PRN Reason Stop Dose Admin Acetaminophen 650 mg 09/10/19 21:58 Tylenol PO Q4H PRN Pain MILD(1-3)/Fever >100.5/IZAGUIRRE Aspirin 81 mg 09/12/19 10:00 09/12/19 10:10 Halfprin Ec PO 81 mg QDAY MANPREET Administration Atorvastatin Calcium 80 mg 09/12/19 22:00 Lipitor PO QHS [facility] Heparin Sodium (Porcine) 5,000 unit 09/11/19 06:00 09/12/19 05:28 Heparin SUB-Q Not Given Q8HR [facility] Sodium Chloride 100 mls @ 999 mls/hr 09/12/19 06:09 Nacl 0.9% IV BUSTER PRN Hypotension Magnesium Hydroxide 30 ml 09/10/19 21:58 Milk Of Magnesia PO Q4H PRN Constipation Metoprolol Tartrate 25 mg 09/12/19 22:00 Metoprolol PO BID [facility] Morphine Sulfate 2 mg 09/10/19 21:58 09/12/19 08:40 Morphine IV 2 mg Q5MIN PRN Administration Chest Pain unrelieved by NTG Nitroglycerin 0.4 mg 09/10/19 21:58 Nitrostat SL Q5M PRN Chest Pain Ondansetron HCl 4 mg 09/10/19 21:58 Zofran IV Q8H PRN Nausea And Vomiting Sodium Chloride 10 ml 09/10/19 22:00 09/12/19 11:06 Sodium Chloride Flush Syringe 10 Ml IV Not Given BID [facility] Sodium Chloride 10 ml 09/10/19 21:58 Sodium Chloride Flush Syringe 10 Ml IV PRN PRN LINE FLUSH
[2019-09-12 12:32] LABS: Hepatitis B Surface Antigen Non-Reactive (Negative); Hepatitis C Virus Antibody Non-Reactive (NonReactive)
[2019-09-12] MEDS ORDERED: EPOETIN ALFA 10,000 UNIT/1 ML INJ IV PRN (12:35)
--- NOTE | 2019-09-12 13:15 | Event Note ---
Date: 09/12/19 Right groin is stable without evidence of active bleeding. No evidence of retroperitoneal hematoma on CT scan A/P. Will make NPO after midnight for possible Left arm FGA tomorrow if she remains stable.
--- NOTE | 2019-09-12 14:11 | Progress Note ---
Assessment and Plan Acute coronary syndrome, status post left heart catheterization. Hypovolemic shock, probably secondary to right groin bleeding post-cardiac catheterization. Right groin bleeding post-cardiac catheterization. History of hypertension. Obesity. Gastroesophageal reflux disease. End-stage renal disease, on dialysis. -Continue all current care -Supportive transfusions as indicated -HD per renal service -Discharge planning post fistulogram Subjective Date of service: 09/12/19 Principal diagnosis: ACS; Hypovolemic shock; Right groin bleeding; HTN; Obesity; ESRD on Dialysi Interval history: Patient is seen today for: Acute coronary syndrome; Hypovolemic shock; Right groin bleeding post-cardiac catheterization; HTN; Obesity; ESRD on Dialysis Seen and examined at bedside; 24hour events reviewed; nursing and respiratory care staff consulted; no adverse overnight events reported to me; resting peacefully in bed; looks and feels better; no more bleeding Objective Vital Signs - 12hr 09/12/19 09/12/19 09/12/19 02:16 02:30 02:37 Temperature Pulse Rate 76 70 Pulse Rate [ 71 From Monitor] Respiratory 10 L 15 17 Rate Blood Pressure 108/79 132/57 O2 Sat by Pulse Oximetry O2 Sat by Pulse Oximetry [ Anterior Bilateral Throughout] 09/12/19 09/12/19 09/12/19 03:00 03:30 04:00 Temperature 99.0 F Pulse Rate 69 69 70 Pulse Rate [ From Monitor] Respiratory 15 17 14 Rate Blood Pressure 134/56 139/49 128/50 O2 Sat by Pulse 100 100 100 Oximetry O2 Sat by Pulse Oximetry [ Anterior Bilateral Throughout] 09/12/19 09/12/19 09/12/19 04:30 05:00 05:30 Temperature Pulse Rate 65 73 69 Pulse Rate [ From Monitor] Respiratory 13 18 21 Rate Blood Pressure 127/47 133/57 140/53 O2 Sat by Pulse 100 98 96 Oximetry O2 Sat by Pulse Oximetry [ Anterior Bilateral Throughout] 09/12/19 09/12/19 09/12/19 06:00 06:30 07:00 Temperature Pulse Rate 71 68 67 Pulse Rate [ From Monitor] Respiratory 20 26 H 17 Rate Blood Pressure 156/65 137/54 140/53 O2 Sat by Pulse 99 98 100 Oximetry O2 Sat by Pulse Oximetry [ Anterior Bilateral Throughout] 09/12/19 09/12/19 09/12/19 07:30 08:00 08:27 Temperature 98.8 F Pulse Rate 76 68 Pulse Rate [ 69 From Monitor] Respiratory 19 15 12 Rate Blood Pressure 138/57 137/47 O2 Sat by Pulse 91 97 100 Oximetry O2 Sat by Pulse Oximetry [ Anterior Bilateral Throughout] 09/12/19 09/12/19 09/12/19 08:30 08:40 09:00 Temperature Pulse Rate 68 72 Pulse Rate [ From Monitor] Respiratory 16 16 14 Rate Blood Pressure 151/71 130/64 O2 Sat by Pulse 99 99 Oximetry O2 Sat by Pulse Oximetry [ Anterior Bilateral Throughout] 09/12/19 09/12/19 09/12/19 09:30 10:26 10:30 Temperature Pulse Rate 73 71 75 Pulse Rate [ From Monitor] Respiratory 22 17 22 Rate Blood Pressure 169/67 143/55 143/55 O2 Sat by Pulse 94 100 98 Oximetry O2 Sat by Pulse Oximetry [ Anterior Bilateral Throughout] 09/12/19 09/12/19 09/12/19 11:00 11:08 11:30 Temperature Pulse Rate 75 65 72 Pulse Rate [ From Monitor] Respiratory 18 12 Rate Blood Pressure 143/55 145/46 O2 Sat by Pulse 97 99 Oximetry O2 Sat by Pulse Oximetry [ Anterior Bilateral Throughout] 09/12/19 09/12/19 09/12/19 11:31 11:33 11:45 Temperature 98.1 F Pulse Rate 70 68 63 Pulse Rate [ From Monitor] Respiratory 14 Rate Blood Pressure 134/47 121/52 119/59 O2 Sat by Pulse Oximetry O2 Sat by Pulse 98 Oximetry [ Anterior Bilateral Throughout] 09/12/19 09/12/19 09/12/19 12:00 12:15 12:30 Temperature 98.2 F Pulse Rate 63 63 65 Pulse Rate [ 68 From Monitor] Respiratory 12 20 Rate Blood Pressure 144/83 151/61 151/61 O2 Sat by Pulse 100 99 Oximetry O2 Sat by Pulse Oximetry [ Anterior Bilateral Throughout] 09/12/19 09/12/19 09/12/19 12:45 13:00 13:15 Temperature Pulse Rate 67 67 71 Pulse Rate [ From Monitor] Respiratory 18 Rate Blood Pressure 149/55 149/55 136/48 O2 Sat by Pulse 99 Oximetry O2 Sat by Pulse Oximetry [ Anterior Bilateral Throughout] 09/12/19 09/12/19 13:30 13:45 Temperature Pulse Rate 68 73 Pulse Rate [ From Monitor] Respiratory Rate Blood Pressure 132/51 148/63 O2 Sat by Pulse Oximetry O2 Sat by Pulse Oximetry [ Anterior Bilateral Throughout] Constitutional: no acute distress Eyes: non-icteric ENT: oropharynx moist Neck: supple, no lymphadenopathy Effort: mildly labored Ascultation: Bilateral: rales Percussion: Bilateral: not dull Cardiovascular: regular rate and rhythm Gastrointestinal: normoactive bowel sounds, soft, non-tender, non-distended Integumentary: rash Extremities: no cyanosis, pulses normal, no ischemia or petechiae Neurologic: non-focal exam, pupils equal and round, CN II-XII normal Psychiatric: mood appropriate, affect normal CBC and BMP: 09/12/19 04:40 09/13/19 04:23 ABG, PT/INR, D-dimer: PT/INR, D-dimer PT 13.6 Sec. (12.2-14.9) 09/11/19 04:40 INR 1.06 (0.87-1.13) 09/11/19 04:40 Abnormal lab findings: Abnormal Labs 09/10/19 09/10/19 09/10/19 20:14 20:14 22:28 RBC 3.44 L Hgb Hct MCV 99 H MCH 34 H MCHC Plt Count Lymph % (Auto) 12.7 L [place] % (Auto) 8.8 H Lymph # 1.1 L [place] # Seg Neutrophils % 76.9 H Potassium Chloride 95.6 L BUN 27 H Creatinine 5.1 H Glucose POC Glucose Troponin T 0.034 H D HDL Cholesterol 67 H Crossmatch 09/10/19 09/10/19 09/11/19 22:28 22:28 04:40 RBC 3.52 L 3.22 L Hgb Hct MCV 98 H 99 H MCH 33 H 34 H MCHC Plt Count Lymph % (Auto) [place] % (Auto) 9.8 H 11.4 H Lymph # [place] # 0.9 H Seg Neutrophils % 70.5 H Potassium Chloride 96.7 L BUN 28 H Creatinine 5.7 H Glucose 58 L POC Glucose Troponin T HDL Cholesterol Crossmatch 09/11/19 09/11/19 09/11/19 04:40 04:40 13:36 RBC Hgb Hct MCV MCH MCHC Plt Count Lymph % (Auto) [place] % (Auto) Lymph # [place] # Seg Neutrophils % Potassium Chloride 96.6 L BUN 31 H Creatinine 6.5 H Glucose POC Glucose Troponin T 0.033 H HDL Cholesterol Crossmatch See Detail 09/11/19 09/11/19 09/11/19 13:36 21:19 22:27 RBC Hgb 10.0 L Hct 29.8 L MCV MCH MCHC Plt Count Lymph % (Auto) [place] % (Auto) Lymph # [place] # Seg Neutrophils % Potassium Chloride BUN Creatinine Glucose POC Glucose 57 L 130 H Troponin T HDL Cholesterol Crossmatch 09/12/19 09/12/19 09/12/19 02:24 04:40 04:40 RBC 2.82 L Hgb 9.5 L Hct 27.6 L D MCV 98 H MCH 34 H MCHC 35 H Plt Count 136 L Lymph % (Auto) [place] % (Auto) Lymph # [place] # Seg Neutrophils % Potassium 6.0 H D Chloride BUN 45 H Creatinine 8.7 H Glucose POC Glucose 67 L Troponin T HDL Cholesterol Crossmatch Chest x-ray: image reviewed Allied health notes reviewed: nursing
--- NOTE | 2019-09-12 14:20 | Progress Note ---
Assessment and Plan / Chest pain, likely nonspecific Patient admitted and placed on telemetry. Patient has been placed on daily aspirin, sublingual nitroglycerin and IV morphine as needed for chest pain. s/p cardiac cath 09/10 showed nonobstructive CAD; normal LVEF Cardiology recommended medical management for now /Acute bleeding from right groin -resolved -Likely due to right femoral artery pseudoaneurysm following cardiac cath - monitor h/h, vascular consulted -status post right femoral artery angioplasty -Transfused 1 unit of packed RBC /Hypotension, s/p pressor - developed following cardiac cath due to femoral artery pseudoaneurysm and bleeding -Status post 1 unit packed RBC transfusion and right femoral artery angioplasty -Patient weaned off from dopamine. BP currently stable / End stage renal disease Patient gets dialysis on Tuesday, Tuesday and Fridays. Consulted nephrology for dialysis / Left upper extremity swelling Probably related to the left AV fistula present in the left upper arm. Appreciate vascular surgery evaluation of AV fistula on left upper extremity. Plan for fistulogram tomorrow / DVT prophylaxis Patient placed on subcutaneous heparin. / Full code status Current Visit: Yes Status: Acute 09/10: Status post left heart catheterization showed nonobstructive coronary artery disease. Post-procedure, pt developed hypotension and further evaluation showed hematoma with oozing of blood into the thigh, no retroperitoneal hematoma. Balloon angioplasty performed per Dr. Hernandez with resolution of pseudoaneurysm, good hemostasis and improvement of BP. Pt received 1 unit PRBC and was initiated on dopamine gtt and tx to CCU 09/11; getting HD at the bedside, weaned off from dopamine overnight. Transfer to telemetry. Plan for fistulogram tomorrow. Brief history: The pt is a 68 YO female with a past medical history of ESRD on HD, nonobstructive CAD, recurrent chest pain, HTN, mild aortic stenosis, RBBB, scleroderma. followed by Dr. Floyd presented with c/o chest pain for the past several days. Pt also c/o "aneurysm" with swelling and pain around her LUE dialysis access site. She underwent lexiscan MPI stress test outpt on 07/05/2019 which showed small partially reversible anterior and anteroapical defect suggestive of prior infarction with mild to mod residual ischemia in LAD territory, EF 63%. Echo done 07/05/2019 showed EF 55-60%, grade I diastolic dysfunction, mild (mean gradient 17mmHg), mod TR. Cardiology consulted and patient had coronary angiogram 09/10 showed nonobstructive coronary artery disease and recommended medical management. Post-procedure, pt developed hypotension and further evaluation showed hematoma with oozing of blood into the thigh, no retroperitoneal hematoma. Balloon angioplasty performed per Dr. Hernandez with resolution of pseudoaneurysm, good hemostasis and improvement of BP. Pt received 1 unit PRBC and was initiated on dopamine gtt and tx to CCU. Patient now weaned off from the dopamine drip, transfer out to telemetry, plan for fistulogram tomorrow. Physical exam: GENERAL: well-developed and well-nourished -[place] female lying on bed appeared to be in no discomfort. HEENT: Normocephalic. Atraumatic. No conjunctival congestion or icterus. Patient has moist mucous membranes. NECK: Supple. Trachea midline. CHEST/LUNGS: Clear to auscultated bilaterally, breathing nonlabored. No wheezes crackles or rhonchi. HEART/CARDIOVASCULAR: Regular in rate and rhythm. S1 and S2 positive. ABDOMEN: Abdomen is soft, nontender. Patient has normal bowel sounds. Wound dressing on the right growing area intact SKIN: There is no rash. Warm and dry. NEURO: No focal motor deficit. Follows command. MUSCULOSKELETAL: No joint effusion or tenderness. EXTRIMITY: No edema, no cyanosis or clubbing. PSYCH: Cooperative. Subjective Date of service: 09/12/19 Principal diagnosis: cp Interval history: Patient seen and examined Patient getting dialysis at the bedside, weaned off from dopamine Tolerating diet, denies any chest pain Continue to complains of left arm fistula swelling and pain Objective - Constitutional Vitals: Vital Signs - 12hr 09/12/19 09/12/19 09/12/19 02:30 02:37 03:00 Temperature Pulse Rate 70 69 Pulse Rate [ 71 From Monitor] Respiratory 15 17 15 Rate Blood Pressure 132/57 134/56 O2 Sat by Pulse 100 Oximetry O2 Sat by Pulse Oximetry [ Anterior Bilateral Throughout] 09/12/19 09/12/19 09/12/19 03:30 04:00 04:30 Temperature 99.0 F Pulse Rate 69 70 65 Pulse Rate [ From Monitor] Respiratory 17 14 13 Rate Blood Pressure 139/49 128/50 127/47 O2 Sat by Pulse 100 100 100 Oximetry O2 Sat by Pulse Oximetry [ Anterior Bilateral Throughout] 09/12/19 09/12/19 09/12/19 05:00 05:30 06:00 Temperature Pulse Rate 73 69 71 Pulse Rate [ From Monitor] Respiratory 18 21 20 Rate Blood Pressure 133/57 140/53 156/65 O2 Sat by Pulse 98 96 99 Oximetry O2 Sat by Pulse Oximetry [ Anterior Bilateral Throughout] 09/12/19 09/12/19 09/12/19 06:30 07:00 07:30 Temperature Pulse Rate 68 67 76 Pulse Rate [ From Monitor] Respiratory 26 H 17 19 Rate Blood Pressure 137/54 140/53 138/57 O2 Sat by Pulse 98 100 91 Oximetry O2 Sat by Pulse Oximetry [ Anterior Bilateral Throughout] 09/12/19 09/12/19 09/12/19 08:00 08:27 08:30 Temperature 98.8 F Pulse Rate 68 68 Pulse Rate [ 69 From Monitor] Respiratory 15 12 16 Rate Blood Pressure 137/47 151/71 O2 Sat by Pulse 97 100 99 Oximetry O2 Sat by Pulse Oximetry [ Anterior Bilateral Throughout] 09/12/19 09/12/19 09/12/19 08:40 09:00 09:30 Temperature Pulse Rate 72 73 Pulse Rate [ From Monitor] Respiratory 16 14 22 Rate Blood Pressure 130/64 169/67 O2 Sat by Pulse 99 94 Oximetry O2 Sat by Pulse Oximetry [ Anterior Bilateral Throughout] 09/12/19 09/12/19 09/12/19 10:26 10:30 11:00 Temperature Pulse Rate 71 75 75 Pulse Rate [ From Monitor] Respiratory 17 22 18 Rate Blood Pressure 143/55 143/55 143/55 O2 Sat by Pulse 100 98 97 Oximetry O2 Sat by Pulse Oximetry [ Anterior Bilateral Throughout] 09/12/19 09/12/19 09/12/19 11:08 11:30 11:31 Temperature 98.1 F Pulse Rate 65 72 70 Pulse Rate [ From Monitor] Respiratory 12 14 Rate Blood Pressure 145/46 134/47 O2 Sat by Pulse 99 Oximetry O2 Sat by Pulse 98 Oximetry [ Anterior Bilateral Throughout] 09/12/19 09/12/19 09/12/19 11:33 11:45 12:00 Temperature 98.2 F Pulse Rate 68 63 63 Pulse Rate [ 68 From Monitor] Respiratory 12 Rate Blood Pressure 121/52 119/59 144/83 O2 Sat by Pulse 100 Oximetry O2 Sat by Pulse Oximetry [ Anterior Bilateral Throughout] 09/12/19 09/12/19 09/12/19 12:15 12:30 12:45 Temperature Pulse Rate 63 65 67 Pulse Rate [ From Monitor] Respiratory 20 Rate Blood Pressure 151/61 151/61 149/55 O2 Sat by Pulse 99 Oximetry O2 Sat by Pulse Oximetry [ Anterior Bilateral Throughout] 09/12/19 09/12/19 09/12/19 13:00 13:15 13:30 Temperature Pulse Rate 67 71 68 Pulse Rate [ From Monitor] Respiratory 18 Rate Blood Pressure 149/55 136/48 132/51 O2 Sat by Pulse 99 Oximetry O2 Sat by Pulse Oximetry [ Anterior Bilateral Throughout] 09/12/19 09/12/19 09/12/19 13:45 14:00 14:15 Temperature Pulse Rate 73 71 77 Pulse Rate [ From Monitor] Respiratory Rate Blood Pressure 148/63 134/41 138/57 O2 Sat by Pulse Oximetry O2 Sat by Pulse Oximetry [ Anterior Bilateral Throughout] - Labs CBC & Chem 7: 09/12/19 04:40 09/13/19 04:23 Labs: Abnormal lab results 09/11/19 09/11/19 09/11/19 Range/Units 13:36 21:19 22:27 RBC (3.65-5.03) M/mm3 Hgb (10.1-14.3) gm/dl Hct (30.3-42.9) % MCV (79-97) fl MCH (28-32) pg MCHC (30-34) % Plt Count (140-440) K/mm3 Potassium (3.6-5.0) mmol/L BUN (7-17) mg/dL Creatinine (0.7-1.2) mg/dL POC Glucose 57 L 130 H (70-105) Crossmatch See Detail 09/12/19 09/12/19 09/12/19 Range/Units 02:24 04:40 04:40 RBC 2.82 L (3.65-5.03) M/mm3 Hgb 9.5 L (10.1-14.3) gm/dl Hct 27.6 L D (30.3-42.9) % MCV 98 H (79-97) fl MCH 34 H (28-32) pg MCHC 35 H (30-34) % Plt Count 136 L (140-440) K/mm3 Potassium 6.0 H D (3.6-5.0) mmol/L BUN 45 H (7-17) mg/dL Creatinine 8.7 H (0.7-1.2) mg/dL POC Glucose 67 L (70-105) Crossmatch
[2019-09-12] MEDS: PANTOPRAZOLE 40 MG TAB PO SCH (15:25)
--- NOTE | 2019-09-12 16:47 | Consultation ---
PULMONARY CRITICAL CARE CONSULTATION NOTE CONSULTING PHYSICIAN: Dr. Macario Hernandez. REASON FOR CONSULTATION: Need for ICU transfer status post right groin pseudoaneurysm intervention. 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 According to the records, the patient underwent a Lexiscan MPI stress test at the office in 07/05/2019. It showed a small partially reversible anterior and anterior apical defect suggestive of a prior infarction with [id number] residual ischemia in the left anterior descending territory. EF was 63% at that time. When she came into the Emergency Room this time, she was complaining of chest pain radiating to her left shoulder and some shortness of breath. She denied any vomiting or overt aspiration. She had some nausea. She denied any cough. She denied any hemoptysis. She denied abdominal pain. She was evaluated in the Emergency Room and after Cardiology evaluation, it was felt that proceeding to a left heart catheterization was the appropriate thing to do. Alicja-procedurally, it seems like the patient developed uncontrolled bleeding of the right groin with hemodynamic instability, requiring dopamine and volume resuscitation. This was post-cardiac catheterization. Interventional Radiology was consulted. They did an ultrasound-guided access of the right radial artery. They selected the ascending aorta, descending thoracic aorta, abdominal aorta, right common femoral artery. Angiography was done of the right lower extremity then they had angioplasty of the right common femoral artery with 8 mm x 40 mm angioplasty balloon. That was then ultrasound-guided access of the left common femoral vein and femoral triple lumen catheter was placed. Post-procedurally, ICU admission was requested for observation and to continue dopamine drip. When I stopped by to see her, she was resting in bed. She denied any acute chest pains at that time, just complaint of groin pains. With regard to tobacco use/abuse history, she describes a less than 5-pack-year tobacco smoking history and tells me she quit smoking many years ago. This really is as much of the history of presentation as I have. PAST MEDICAL HISTORY: Again, significant for end-stage renal disease on dialysis, history of hypertension, history of coronary artery disease. She is obese. History of gastroesophageal reflux disease, and depression. PAST SURGICAL HISTORY: She has an AV graft to the left upper extremity. MEDICATIONS: She was on at the time I stopped by to see were reviewed, pertinent medications include the following: Tylenol 650 mg p.o. q.4 hours p.r.n. mild pain or fevers, aspirin 81 mg p.o. daily, heparin 5000 units subcutaneous q.8 hours, dopamine drip was going at 5 mcg per kilogram per minute, morphine 2 mg IV q.4 hours p.r.n., Zofran 4 mg IV q.8 hours p.r.n. nausea and vomiting. ALLERGIES: IODINE, TO LISINOPRIL, TO SULFA ANTIBIOTICS, NATURE OF THIS ALLERGY IS UNKNOWN. DIET: Obese lady. Denies acute weight loss or gain in the preceding few weeks to months. FAMILY AND SOCIAL HISTORY: Lives in the community. Denies current alcohol, tobacco, or illicit drug use or abuse. Family history, otherwise significant for hypertension. REVIEW OF SYSTEMS: No loss of consciousness. No new onset seizures. No new onset focal weakness. Denies gross hematochezia or melena. Denies gross hematuria or dysuria. No hematemesis. No hemoptysis. Denies heat or cold intolerance. Denies polydipsia or polyuria. Complete 13-system review of systems was obtained. Pertinent positives and/or negatives as in body of history above, otherwise are noncontributory. PHYSICAL EXAMINATION: VITAL SIGNS: On examination at presentation in the Emergency Room revealed vital signs shows that she was afebrile. Temperature at presentation was 98.3 degrees Fahrenheit, pulse was 59, respiratory rate was 18, blood pressure was 139/70, O2 sats were 98%, inspired oxygen concentration at that time was not recorded. When I stopped by to see her, O2 sats were 97% that was on room air. GENERAL: She is an elderly looking, slightly obese -[place] female, normocephalic, atraumatic, talking to me with slightly interrupted sentences with mildly increased respiratory effort at rest. HEAD, EYES, EARS, NOSE AND THROAT: She was anicteric, no conjunctival erythema. Oropharynx is moist. Mallampati #3 oropharynx. No gross jugular venous distention, no thyromegaly. NECK: Grossly, there were no palpable lymph nodes in the supraclavicular or submandibular lymph node chains. LUNGS: Auscultation of both lung carpenter, slightly diminished breath sounds, but clear otherwise no wheezing. HEART: Heart sounds 1 and 2 are heard at the time of my evaluation, regular rate and rhythm without overt rubs or murmurs. ABDOMEN: Soft, full, bowel sounds are positive, nontender, no palpable hepatosplenomegaly. She had a dressing to the right groin. She was tender to palpation around the dressing. There was no obvious hematoma formation that I could see over there. She had a left groin triple lumen CVL. EXTREMITIES: Without overt digital clubbing or cyanosis and no pedal edema. Pedal pulses are 2+ bilaterally. NEUROLOGIC: Pupils are equal, round about 4 mm, reactive to light. Extraocular muscle movements were intact. She moves all 4 extremities spontaneously. SKIN: Normal turgor. She had the post-procedure changes to the right and left groin and she had a left upper extremity AV graft. PSYCHIATRIC: Her mood was depressed. Affect was a little anxious. LABORATORY DATA: From my review as follows: Admission white cell count 8700, hemoglobin was 11.7, hematocrit 34.5, platelet count was 199. No manual differential. INR 1.06. Serum sodium was 141, potassium 4.1, chloride 97, bicarbonate 26, BUN 28, creatinine 5.7, glucose 58. Troponin was 0.034 at presentation. LDL 57. Hemoglobin at the time of my evaluation was still 11.5. No microbiology studies. IMAGING: A chest x-ray was done. I have reviewed the chest x-ray as well as the radiographic interpretation. I agree no acute findings, just gross cardiomegaly. A CT of the abdomen and pelvis has been ordered. She also had a left heart catheterization done, I should say. She had an echocardiogram, limited views, excellent left ventricular systolic function. I do not have the catheterization report. ASSESSMENT: 1. Acute coronary syndrome, status post left heart catheterization. 2. Hypovolemic shock, probably secondary to right groin bleeding post-cardiac catheterization. 3. Right groin bleeding post-cardiac catheterization. 4. History of hypertension. 5. Obesity. 6. Gastroesophageal reflux disease. 7. End-stage renal disease, on dialysis. PLAN: I will follow the interventional radiologists recommendations with regard to further intervention to the groin. No obvious pseudoaneurysm as far as I could tell from the records. Oxygen will be offered as necessary to keep sats greater than or equal to about 92%. Aspiration precautions will be maintained. P.r.n. analgesia will be given to control the pain in the groin. She will be weaned off the dopamine drip as long as mean arterial pressures are greater than or equal to about 65 mmHg. She is going to be continued on DVT prophylaxis while we will watch her H and H. I will also be continuing her on GI prophylaxis with Protonix. Hopefully, she does not decompensate. She will be observed in the intensive care unit, continuous telemetry and continuous hemodynamic monitoring. Nephrology consultation will be placed. We will defer to them in terms of hemodialysis prescription, but we will look to them for control of toxins and volume. Flu and pneumonia vaccination will be addressed per protocol. Continued tobacco abstinence has been counseled. Thank you very much for the consult Dr. Hernandez. We will follow along and make further recommendations as picture progresses/becomes clearer. She is critically ill on life-sustaining interventions including the vasopressor support at risk of from cardiopulmonary and vascular system decompensation. At this time, I spent about 35-40 minutes of critical care time without overlap and excluding any procedural time that may be necessary. JOB# [id number] JUAN/LAWRENCE PETTY
--- NOTE | 2019-09-12 18:05 | Vascular Lab Report ---
Bilateral lower extremity arterial Doppler. HISTORY: Right groin pain. Recent heart catheterization. Findings: Duplex Doppler evaluation of the arterial system of both lower extremities was performed wi th spectral waveform analysis. Evaluation of the right groin demonstrates no pseudoaneurysm or large hematoma. The arterial systems of both lower extremities are patent throughout. Negative for signific ant waveform for velocity abnormality. IMPRESSION: 1. Negative for pseudoaneurysm. 2. No flow limiting stenosis identified.. Signer Name: Roland Phillips MD Signed: 09/12/2019 6:00 PM Workstation Name: [id number]
[2019-09-12] MEDS: METOPROLOL TARTRATE 25 MG TAB PO SCH (21:59)
[2019-09-13 05:05] LABS: Calcium 8.9 mg/dL (8.4-10.2)
[2019-09-13] MEDS: HEPARIN 5,000 UNIT/1 ML VIAL SUB-Q SCH ×2 (06:06→15:00)
[2019-09-13] MEDS: MORPHINE 2 MG/1 ML INJ IV PRN (06:09)
--- NOTE | 2019-09-13 09:09 | Progress Note ---
Assessment and Plan Hemorrhagic shock s/p cardiac cath required vasopressor support CAD s/p LHC (September 10): 50% smooth lesion in ostial, prox circumflex, 40-50% smooth long lesion in very distal part of LAD; RCA mild disease; normal LVEF Right groin pseudoaneurysm s/p C--s/p balloon angioplasty (September 10) Acute bleeding from right groin Hypotension,s/p vasopressor support Chest pain End stage renal disease Left upper extremity swelling -Continue all current care -Supportive transfusions as indicated -HD per renal service -Discharge planning post fistulogram today Subjective Date of service: 09/13/19 Principal diagnosis: cp Interval history: Brief history: The pt is a 68 YO female with a past medical history of ESRD on HD, nonobstructive CAD, recurrent chest pain, HTN, mild aortic stenosis, RBBB, scleroderma. followed by Dr. Floyd presented with c/o chest pain for the past several days. Pt also c/o "aneurysm" with swelling and pain around her LUE dialysis access site. She underwent lexiscan MPI stress test outpt on 07/05/2019 which showed small partially reversible anterior and anteroapical defect suggestive of prior infarction with mild to mod residual ischemia in LAD territory, EF 63%. Echo done 07/05/2019 showed EF 55-60%, grade I diastolic dysfunction, mild (mean gradient 17mmHg), mod TR. Cardiology consulted and patient had coronary angiogram 09/10 showed nonobstructive coronary artery disease and recommended medical management. Post-procedure, pt developed hypotension and further evaluation showed hematoma with oozing of blood into the thigh, no retroperitoneal hematoma. Balloon angioplasty performed per Dr. Hernandez with resolution of pseudoaneurysm, good hemostasis and improvement of BP. Pt r eceived 1 unit PRBC and was initiated on dopamine gtt and tx to CCU. Patient now weaned off from the dopamine drip, transfer out to telemetry, plan for fistulogram tomorrow. Patient is seen today for: hemorrhagic shock Seen and examined at bedside; 24hour events reviewed; nursing and respiratory care staff consulted; no adverse overnight events reported to me;off vasopressor support, s/p PRBC with acceptable hemodynamics No fevers, no nausea or vomiting, no active bleeding Plan for Left upper extremity fistulogram, central and peripheral venoplasty by vascular today Objective - Exam Narrative Exam: Physical exam: GENERAL: well-developed and well-nourished -[place] female lying on bed appeared to be in no discomfort. HEENT: Normocephalic. Atraumatic. No conjunctival congestion or icterus. Patient has moist mucous membranes. NECK: Supple. Trachea midline. CHEST/LUNGS: Clear to auscultated bilaterally, breathing nonlabored. No wheezes crackles or rhonchi. HEART/CARDIOVASCULAR: Regular in rate and rhythm. S1 and S2 positive. ABDOMEN: Abdomen is soft, nontender. Patient has normal bowel sounds. Wound dressing on the right growing area intact SKIN: There is no rash. Warm and dry. NEURO: No focal motor deficit. Follows command. MUSCULOSKELETAL: No joint effusion or tenderness. EXTRIMITY: No edema, no cyanosis or clubbing. PSYCH: Cooperative. Vital Signs - 12hr 09/12/19 09/13/19 09/13/19 23:41 00:00 03:16 Temperature 99.4 F 99.7 F H Pulse Rate 72 Pulse Rate [ 68 From Monitor] Respiratory 18 17 18 Rate Blood Pressure 122/43 103/28 O2 Sat by Pulse 98 100 Oximetry 09/13/19 09/13/19 04:00 08:21 Temperature 99.5 F Pulse Rate 86 63 Pulse Rate [ From Monitor] Respiratory 22 Rate Blood Pressure 115/58 O2 Sat by Pulse 98 96 Oximetry CBC and BMP: 09/12/19 04:40 09/13/19 04:23 ABG, PT/INR, D-dimer: PT/INR, D-dimer PT 13.6 Sec. (12.2-14.9) 09/11/19 04:40 INR 1.06 (0.87-1.13) 09/11/19 04:40 Abnormal lab findings: Abnormal Labs 09/10/19 09/10/19 09/10/19 20:14 20:14 22:28 RBC 3.44 L Hgb Hct MCV 99 H MCH 34 H MCHC Plt Count Lymph % (Auto) 12.7 L [place] % (Auto) 8.8 H Lymph # 1.1 L [place] # Seg Neutrophils % 76.9 H Potassium Chloride 95.6 L BUN 27 H Creatinine 5.1 H Glucose POC Glucose Troponin T 0.034 H D HDL Cholesterol 67 H Crossmatch 09/10/19 09/10/19 09/11/19 22:28 22:28 04:40 RBC 3.52 L 3.22 L Hgb Hct MCV 98 H 99 H MCH 33 H 34 H MCHC Plt Count Lymph % (Auto) [place] % (Auto) 9.8 H 11.4 H Lymph # [place] # 0.9 H Seg Neutrophils % 70.5 H Potassium Chloride 96.7 L BUN 28 H Creatinine 5.7 H Glucose 58 L POC Glucose Troponin T HDL Cholesterol Crossmatch 09/11/19 09/11/19 09/11/19 04:40 04:40 13:36 RBC Hgb Hct MCV MCH MCHC Plt Count Lymph % (Auto) [place] % (Auto) Lymph # [place] # Seg Neutrophils % Potassium Chloride 96.6 L BUN 31 H Creatinine 6.5 H Glucose POC Glucose Troponin T 0.033 H HDL Cholesterol Crossmatch See Detail 09/11/19 09/11/19 09/11/19 13:36 21:19 22:27 RBC Hgb 10.0 L Hct 29.8 L MCV MCH MCHC Plt Count Lymph % (Auto) [place] % (Auto) Lymph # [place] # Seg Neutrophils % Potassium Chloride BUN Creatinine Glucose POC Glucose 57 L 130 H Troponin T HDL Cholesterol Crossmatch 09/12/19 09/12/19 09/12/19 02:24 04:40 04:40 RBC 2.82 L Hgb 9.5 L Hct 27.6 L D MCV 98 H MCH 34 H MCHC 35 H Plt Count 136 L Lymph % (Auto) [place] % (Auto) Lymph # [place] # Seg Neutrophils % Potassium 6.0 H D Chloride BUN 45 H Creatinine 8.7 H Glucose POC Glucose 67 L Troponin T HDL Cholesterol Crossmatch 09/13/19 04:23 RBC Hgb Hct MCV MCH MCHC Plt Count Lymph % (Auto) [place] % (Auto) Lymph # [place] # Seg Neutrophils % Potassium Chloride 96.5 L BUN 18 H Creatinine 5.4 H Glucose POC Glucose Troponin T HDL Cholesterol Crossmatch Allied health notes reviewed: nursing
[2019-09-13] MEDS: ASPIRIN EC 81 MG TAB PO SCH (09:57)
[2019-09-13] MEDS: PANTOPRAZOLE 40 MG TAB PO SCH (09:57)
[2019-09-13] MEDS: METOPROLOL TARTRATE 25 MG TAB PO SCH (09:58)
--- NOTE | 2019-09-13 10:40 | Progress Note ---
Assessment and Plan Pt is for fistulogram of LUE dialysis access per vascular team. Currently stable cardiac status. Cont present cardiac management. Pt may discharge from cardiology standpoint. Follow up telehealth appt with Dr. Floyd on 09/27/2019 @ 1:00PM. The patient has been seen in conjunction with Dr. Villegas who agrees with the assessment and plan of care. - Patient Problems (1) Recurrent chest pain Current Visit: Yes Status: Resolved (2) ESRD on dialysis Current Visit: Yes Status: Chronic (3) Left upper extremity swelling Current Visit: Yes Status: Acute (4) Mild aortic stenosis Current Visit: Yes Status: Chronic (5) Nonobstructive atherosclerosis of coronary artery Current Visit: Yes Status: Chronic (6) HTN (hypertension) Current Visit: Yes Status: Chronic (7) RBBB Current Visit: Yes Status: Chronic Subjective Date of service: 09/13/19 Principal diagnosis: cp Interval history: pt resting up in chair, no current complaints. in SR. Objective Last Vital Signs Temp 99.5 F 09/13/19 08:21 Pulse 63 09/13/19 09:58 Resp 22 09/13/19 08:21 BP 115/58 09/13/19 09:58 Pulse Ox 96 09/13/19 08:21 - Physical Examination General: No Apparent Distress HEENT: Positive: PERRL, Normocephaly, Mucus Membranes Moist Neck: Positive: neck supple, trachea midline Cardiac: Positive: Reg Rate and Rhythm, S1/S2 Lungs: Positive: Decreased Breath Sounds Neuro: Positive: Grossly Intact Abdomen: Negative: Tender Skin: Negative: Rash Incision: Cardiac Cath Site (right groin site c/d/i, soft with no bleeding or hematoma noted) Musculoskeletal: No Pain Extremities: Present: upper extr. pulses, lower extr. pulses, Other (LUE swelling around HD access site). Absent: edema - Labs and Meds Comprehensive Metabolic Panel 09/12/19 09/13/19 Range/Units 11:33 04:23 Sodium 139 (137-145) mmol/L Potassium 4.6 D 4.5 (3.6-5.0) mmol/L Chloride 96.5 L (98-107) mmol/L Carbon Dioxide 28 (22-30) mmol/L BUN 18 H (7-17) mg/dL Creatinine 5.4 H (0.7-1.2) mg/dL Glucose 82 (65-100) mg/dL Calcium 8.9 (8.4-10.2) mg/dL - Imaging and Cardiology EKG: report reviewed, image reviewed Echo: report reviewed ( 07/05/2019 showed EF 55-60%, grade I diastolic dysfunction, mild (mean gradient 17mmHg), mod TR. ) Cardiac cath: report reviewed (10/2015 showed minimal nonobstructive CAD (mild ectasia in the mid RCA with scattered LI, LAD with scattered LI), EF 50-55%, no evidence of aortic stenosis. ) - EKG Sinus rhythms and dysrhythmias: sinus rhythm AV and intraventricular conduction: right bundle branch block
--- NOTE | 2019-09-13 12:23 | Progress Note ---
Assessment and Plan Impression: * End stage renal disease * CAD --LHC (September 10): 50% smooth lesion in ostial, prox circumflex, 40-50% smooth long lesion in very distal part of LAD; RCA mild disease; normal LVEF * Right groin pseudoaneurysm s/p LHC --s/p balloon angioplasty (September 10) * Left arm pain - r/o AVF malfunction * Hypertension * Anemia secondary to ESRD * Secondary hyperparathyroidism Plan: * Patient is s/p HD yesterday. No acute need for HD today * Continue hemodialysis MWF * UF as tolerated * IR following * Epogen TIW prn * Renal diet * Dose medications for renal function Subjective Date of service: 09/13/19 Principal diagnosis: cp Interval history: Patient reports left arm pain continues - concerned about her access Objective - Vital Signs Vital signs: Vital Signs - 12hr 09/13/19 09/13/19 09/13/19 03:16 04:00 08:21 Temperature 99.7 F H 99.5 F Pulse Rate 86 63 Respiratory 18 22 Rate Blood Pressure 103/28 115/58 O2 Sat by Pulse 98 96 Oximetry 09/13/19 09:58 Temperature Pulse Rate 63 Respiratory Rate Blood Pressure 115/58 O2 Sat by Pulse Oximetry - General Appearance General appearance: well-developed, well-nourished EENT: ATNC Respiratory: Present: Clear to Ascultation Cardiology: regular, S1S2 Gastrointestinal: normal Integumentary: no rash, warm and dry Musculoskeletal: other (no edema) Psychiatric: cooperative - Lab 09/12/19 04:40 09/13/19 04:23 Most recent lab results Calcium 8.9 mg/dL (8.4-10.2) 09/13/19 04:23 Medications & Allergies - Medications Allergies/Adverse Reactions: Allergies iodine Allergy (Verified 05/18/14 16:07) Hives lisinopril Allergy (Verified 09/10/19 20:05) Angioedema Sulfa (Sulfonamide Antibiotics) Allergy (Verified 05/18/14 16:07) Hives Home Medications: Home Medications Medication Instructions Recorded Confirmed Last Taken Type ALPRAZolam [Xanax TAB] 0.5 mg PO DAILY 11/10/15 05/05/16 05/04/16 History FLUoxetine HCL [PROzac] 60 mg PO QDAY 11/10/15 05/05/16 05/04/16 History Ferric Citrate (Nf) [Auryxia] 210 mg PO DAILY 11/10/15 05/05/16 05/04/16 History Omeprazole [PriLOSEC] 30 mg PO QDAY 11/10/15 05/05/16 05/05/16 History lisinopriL [Zestril TAB] 10 mg PO QDAY 11/10/15 05/05/16 05/04/16 History traZODone [Desyrel] 100 mg PO QHS 11/10/15 05/05/16 11/09/15 09:00 History Cinacalcet [Sensipar] 30 mg PO QDAY tablet 11/13/15 05/05/16 05/04/16 Rx HYDROcodone/APAP 5-325 [[place] 1 each PO Q6HR PRN #20 tablet 05/05/16 Unknown Rx 5/325] ISOSORBIDE MONOnitrate [Imdur ER] 30 mg PO DAILY #30 tab.er.24h 05/05/16 Unknown Rx Active Medications: Generic Name Dose Route Start Last Admin Trade Name Freq PRN Reason Stop Dose Admin Acetaminophen 650 mg 09/10/19 21:58 Tylenol PO Q4H PRN Pain MILD(1-3)/Fever >100.5/IZAGUIRRE Aspirin 81 mg 09/12/19 10:00 09/13/19 09:57 Halfprin Ec PO 81 mg QDAY MANPREET Administration Atorvastatin Calcium 80 mg 09/12/19 22:00 09/12/19 21:59 Lipitor PO 80 mg QHS MANPREET Administration Epoetin Shubham 10,000 unit 09/12/19 12:35 Procrit IV BUSTER PRN hemodialysis Heparin Sodium (Porcine) 5,000 unit 09/11/19 06:00 09/13/19 06:06 Heparin SUB-Q 5,000 unit Q8HR MANPREET Administration Sodium Chloride 100 mls @ 999 mls/hr 09/12/19 06:09 Nacl 0.9% IV BUSTER PRN Hypotension Magnesium Hydroxide 30 ml 09/10/19 21:58 Milk Of Magnesia PO Q4H PRN Constipation Metoprolol Tartrate 25 mg 09/12/19 22:00 09/13/19 09:58 Metoprolol PO 25 mg BID MANPREET Administration Morphine Sulfate 2 mg 09/10/19 21:58 09/13/19 06:09 Morphine IV 2 mg Q5MIN PRN Administration Chest Pain unrelieved by NTG Nitroglycerin 0.4 mg 09/10/19 21:58 Nitrostat SL Q5M PRN Chest Pain Ondansetron HCl 4 mg 09/10/19 21:58 09/12/19 22:06 Zofran IV 4 mg Q8H PRN Administration Nausea And Vomiting Pantoprazole Sodium 40 mg 09/12/19 15:00 09/13/19 09:57 Protonix PO 40 mg QDAY MANPREET Administration Sodium Chloride 10 ml 09/10/19 22:00 09/13/19 09:58 Sodium Chloride Flush Syringe 10 Ml IV 10 ml BID MANPREET Administration Sodium Chloride 10 ml 09/10/19 21:58 Sodium Chloride Flush Syringe 10 Ml IV PRN PRN LINE FLUSH
[2019-09-13] MEDS ORDERED: SODIUM CHLORIDE 0.9% 500 ML 500 ML ONE (12:27)
[2019-09-13] MEDS ORDERED: methylPREDNISolone Sod Succinate 125 MG/2 ML INJ IV ONE (12:32)
[2019-09-13] MEDS ORDERED: diphenhydrAMINE 50 MG/ML VIAL IV ONE (12:32)
[2019-09-13] MEDS ORDERED: HEPARIN/NS 5000 UNIT/500ML 1,000 ML IR ONE (12:35)
[2019-09-13] MEDS ORDERED: HEPARIN 10,000 UNITS/10 ML VIAL ONE (12:35)
[2019-09-13] MEDS: fentaNYL 100 MCG/2 ML INJ ONE ×2 (13:26→13:33)
[2019-09-13] MEDS: LIDOCAINE 1%/EPINEPHRINE 1:100,000 VIAL (20 ML) INFILTRATI ONE ×2 (13:27→13:35)
[2019-09-13] MEDS: MIDAZOLAM 2 MG/2 ML INJ ONE ×2 (13:27→13:33)
--- NOTE | 2019-09-13 13:58 | Operative Report ---
Operative Report Operative Report: Exam: Left upper extremity fistulogram, central and peripheral venoplasty Clinical indication: Patient with a history of left upper extremity graft with pseudoaneurysmal degeneration and a 7 mm area of scabbing along the lateral aspect of the pseudoaneurysm. Patient also describes pain in her arm. Date: 09/13/2019 Procedure: Following an explanation of the risks, benefits and alternatives; written informed consent was obtained. The patient was brought to the angiographic suite and placed in supine position on the examination table. Initial ultrasound evaluation of the graft demonstrated multifocal areas of stenosis with a large pseudoaneurysm with mural thrombus. The patient's left upper arm was prepped and draped in the usual sterile fashion. 1% lidocaine was used for anesthesia. Under ultrasound guidance, the graft was cannulated towards the venous outflow using a 7 cm 21-gauge needle. A 0.018 guidewire was advanced centrally. The needle was removed and a micro-sheath placed. The 0.018 guidewire was exchanged for a 0.035 guidewire and the micro sheath exchanged for a 7 Persian vascular sheath. Contrast was injected through the sheath and imaging obtained at multiple locations. There is a focal area of 70% stenosis in the venous outflow just distal to the sheath insertion site. Distal to the pseudoaneurysm, there is an additional focal 80% stenosis. Centrally, there is a stent in the innominate vein on the left with inflow and outflow stenoses of approximately 50%. Venoplasty was initially performed of the innominate vein and subclavian vein using an 8 mm x 80 mm balloon insufflated to 7 ciera for 30 seconds. Venoplasty of the peripheral stenoses were was performed using an 8 mm x 80 mm balloon insufflated to 7 ciera for 30 seconds. The peripheral stenoses would not reduce and additional venoplasty was performed using an 8 mm x 40 mm conquest balloon insufflated to 24 ciera for 30 seconds at multiple locations. Post venoplasty imaging demonstrated reduction of the venous outflow stenoses to 30 to 40%. Brisk flow was present throughout the graft. The guidewire and sheath was removed and hemostasis achieved using 4-0 Vicryl suture and Dermabond. A sterile dressing was applied. The patient tolerated the procedure well. There were no immediate postprocedure complications. A minimal amount of sedation was utilized. Continuous cardiopulmonary monitoring was utilized. Impression: !) Left upper extremity fistulogram demonstrating multifocal peripheral and central stenoses. 2) Venoplasty as described with reduction of the peripheral and central stenoses and brisk flow throughout the graft. 3) Given the large pseudoaneurysm and small area of scabbing along the lateral aspect, patient will need to be evaluated for possible surgical revision/placement of an interposition graft.
--- NOTE | 2019-09-13 14:00 | Progress Note ---
Assessment and Plan Patient with pseudoaneurysm following cardiac catheterization now resolved. Patient with end-stage renal disease on hemodialysis with left upper arm AV graft malfunction. The patient was taken to the [facility] for venoplasty of peripheral and central venous stenoses. The patient does have a stent in her innominate vein. There is pseudoaneurysmal degeneration of the peripheral aspect of the graft with multifocal areas of stenosis. From a vascular standpoint, the patient may be discharged home however, she will need outpatient surgical evaluation for possible graft revision versus placement of an interposition graft. Subjective Date of service: 09/13/19 Principal diagnosis: cp Interval history: Patient with a history of end-stage renal disease on hemodialysis and chest pain who underwent a cardiac cath with postprocedure pseudoaneurysm which is now been treated and resolved. The patient is now complaining of left arm pain. On exa mination, the patient has a left upper arm AV graft with pseudoaneurysmal degeneration and scabbing along the lateral aspect. Patient has prominent chest wall collaterals. There is asymmetric enlargement of the left arm. Objective - Constitutional Vitals: Vital Signs - 12hr 09/13/19 09/13/19 09/13/19 03:16 04:00 08:21 Temperature 99.7 F H 99.5 F Pulse Rate 86 63 Respiratory 18 22 Rate Blood Pressure 103/28 115/58 O2 Sat by Pulse 98 96 Oximetry 09/13/19 09/13/19 09:58 11:44 Temperature 99.5 F Pulse Rate 63 60 Respiratory 20 Rate Blood Pressure 115/58 101/47 O2 Sat by Pulse 97 Oximetry General appearance: Present: no acute distress - EENT Eyes: EOM intact ENT: hearing intact - Neck Neck: supple, normal ROM - Respiratory Respiratory effort: normal Extremities: abnormal Extremity abnormal: edema - Gastrointestinal General gastrointestinal: Present: deferred Rectal Exam: deferred - Genitourinary Female genitourinary: deferred - Psychiatric Psychiatric: appropriate mood/affect, cooperative - Labs CBC & Chem 7: 09/12/19 04:40 09/13/19 04:23 Labs: Abnormal lab results 09/13/19 Range/Units 04:23 Chloride 96.5 L (98-107) mmol/L BUN 18 H (7-17) mg/dL Creatinine 5.4 H (0.7-1.2) mg/dL Medications & Allergies - Medications Allergies/Adverse Reactions: Allergies iodine Allergy (Verified 05/18/14 16:07) Hives lisinopril Allergy (Verified 09/10/19 20:05) Angioedema Sulfa (Sulfonamide Antibiotics) Allergy (Verified 05/18/14 16:07) Hives Home Medications: Home Medications Medication Instructions Recorded Confirmed Last Taken Type ALPRAZolam [Xanax TAB] 0.5 mg PO DAILY 11/10/15 05/05/16 05/04/16 History FLUoxetine HCL [PROzac] 60 mg PO QDAY 11/10/15 05/05/16 05/04/16 History Ferric Citrate (Nf) [Auryxia] 210 mg PO DAILY 11/10/15 05/05/16 05/04/16 History Omeprazole [PriLOSEC] 30 mg PO QDAY 11/10/15 05/05/16 05/05/16 History lisinopriL [Zestril TAB] 10 mg PO QDAY 11/10/15 05/05/16 05/04/16 History traZODone [Desyrel] 100 mg PO QHS 11/10/15 05/05/16 11/09/15 09:00 History Cinacalcet [Sensipar] 30 mg PO QDAY tablet 11/13/15 05/05/16 05/04/16 Rx HYDROcodone/APAP 5-325 [[place] 1 each PO Q6HR PRN #20 tablet 05/05/16 Unknown Rx 5/325] ISOSORBIDE MONOnitrate [Imdur ER] 30 mg PO DAILY #30 tab.er.24h 05/05/16 Unknown Rx Active Medications: Generic Name Dose Route Start Last Admin Trade Name Freq PRN Reason Stop Dose Admin Acetaminophen 650 mg 09/10/19 21:58 Tylenol PO Q4H PRN Pain MILD(1-3)/Fever >100.5/IZAGUIRRE Aspirin 81 mg 09/12/19 10:00 09/13/19 09:57 Halfprin Ec PO 81 mg QDAY MANPREET Administration Atorvastatin Calcium 80 mg 09/12/19 22:00 09/12/19 21:59 Lipitor PO 80 mg QHS MANPREET Administration Epoetin Shubham 10,000 unit 09/12/19 12:35 Procrit IV BUSTER PRN hemodialysis Heparin Sodium (Porcine) 5,000 unit 09/11/19 06:00 09/13/19 06:06 Heparin SUB-Q 5,000 unit Q8HR MANPREET Administration Sodium Chloride 100 mls @ 999 mls/hr 09/12/19 06:09 Nacl 0.9% IV BUSTER PRN Hypotension Magnesium Hydroxide 30 ml 09/10/19 21:58 Milk Of Magnesia PO Q4H PRN Constipation Metoprolol Tartrate 25 mg 09/12/19 22:00 09/13/19 09:58 Metoprolol PO 25 mg BID MANPREET Administration Morphine Sulfate 2 mg 09/10/19 21:58 09/13/19 06:09 Morphine IV 2 mg Q5MIN PRN Administration Chest Pain unrelieved by NTG Nitroglycerin 0.4 mg 09/10/19 21:58 Nitrostat SL Q5M PRN Chest Pain Ondansetron HCl 4 mg 09/10/19 21:58 09/12/19 22:06 Zofran IV 4 mg Q8H PRN Administration Nausea And Vomiting Pantoprazole Sodium 40 mg 09/12/19 15:00 09/13/19 09:57 Protonix PO 40 mg QDAY MANPREET Administration Sodium Chloride 10 ml 09/10/19 22:00 09/13/19 09:58 Sodium Chloride Flush Syringe 10 Ml IV 10 ml BID MANPREET Administration Sodium Chloride 10 ml 09/10/19 21:58 Sodium Chloride Flush Syringe 10 Ml IV PRN PRN LINE FLUSH HEART Score - HEART Score EKG: Non-specific Age: > 65 Risk factors: > 3 risk factors or hx of atherosclerotic disease Troponin: Troponin T 0.033 ng/mL (0.00-0.029) H 09/11/19 04:40 Troponin: < normal limit - Critical Actions Critical Actions: 4-6 pts:12-16.6% risk of adverse cardiac event. Should be admitted
--- NOTE | 2019-09-13 15:07 | Discharge Summary ---
Providers - Providers Date of Admission: 09/10/19 21:51 Date of discharge: 09/13/19 Attending physician: DAKOTA JOSEPH 09/10/19 Consult to Cardiac Rehabilitation [CONS] Routine Reason For Exam: Phase I 09/11/19 01:37 Consult to Physician [CONS] Routine Comment: Consulting Provider: WES HILL Physician Instructions: Reason For Exam: Swelling/pain on left upper extremity AV fistula 09/11/19 07:06 Consult to Physician [CONS] Routine Comment: Consulting Provider: DENNY MENG Physician Instructions: Reason For Exam: chest pain 09/11/19 16:40 Consult to Physician [CONS] Routine Comment: Consulting Provider: STORM GIMENEZ Physician Instructions: Reason For Exam: transfer to ICU 09/11/19 16:42 Consult to Physician [CONS] Urgent Comment: Consulting Provider: STORM GIMENEZ Physician Instructions: Reason For Exam: critical care management 09/11/19 18:35 Consult to Physician [CONS] Routine Comment: Consulting Provider: STORM GIMENEZ Physician Instructions: Reason For Exam: hypotension Primary care physician: [facility] [employer] Hospitalization Condition: Stable Pertinent studies: Chest x-ray Abdominal pelvis CT Lower extremity arterial Doppler/angiogram Cardiac cath Fistulogram Hospital course: The pt is a 68 YO female with a past medical history of ESRD on HD, nonobstructive CAD, recurrent chest pain, HTN, mild aortic stenosis, RBBB, scleroderma. followed by Dr. Meng presented with c/o chest pain for the past several days. Pt also c/o "aneurysm" with swelling and pain around her LUE dialysis access site. She underwent lexiscan MPI stress test outpt on 07/05/2019 which showed small partially reversible anterior and anteroapical defect suggestive of prior infarction with mild to mod residual ischemia in LAD territory, EF 63%. Echo done 07/05/2019 showed EF 55-60%, grade I diastolic dysfunction, mild (mean gradient 17mmHg), mod TR. Cardiology consulted and patient had coronary angiogram 09/10 showed nonobstructive coronary artery disease and recommended medical management. Post-procedure, pt developed hypote nsion and further evaluation showed hematoma with oozing of blood into the thigh, no retroperitoneal hematoma. Balloon angioplasty performed per Dr. Mendenhall with resolution of pseudoaneurysm, good hemostasis and improvement of BP. Pt received 1 unit PRBC and was initiated on dopamine gtt and tx to CCU. Patient now weaned off from the dopamine drip, transfer out to telemetry. S/p fistulogram today with venoplasty of peripheral and central venous stenoses. Per vascular there is pseudoaneurysmal degeneration of the peripheral aspect of the graft with multifocal areas of stenosis. Patient was recommended to discharge home however, she will need outpatient surgical evaluation for possible graft revision versus placement of an interposition graft. 09/10: Status post left heart catheterization showed nonobstructive coronary artery disease. Post-procedure, pt developed hypotension and further evaluation showed hematoma with oozing of blood into the thigh, no retroperitoneal hematoma. Balloon angioplasty performed per Dr. Mendenhall with resolution of pseudoaneurysm, good hemostasis and improvement of BP. Pt received 1 unit PRBC and was initiated on dopamine gtt and tx to CCU 09/11; getting HD at the bedside, weaned off from dopamine overnight. Transfer to telemetry. Plan for fistulogram tomorrow. 09/12: S/p fistulogram today with venoplasty of peripheral and central venous stenoses. Patient cleared for discharge, but will need further follow-up outpatient with the vascular surgeon and cardiology. Discharge diagnosis and management / Chest pain, likely nonspecific Patient admitted and placed on telemetry. Patient has been placed on daily aspirin, sublingual nitroglycerin and IV morphine as needed for chest pain. s/p cardiac cath 09/10 showed nonobstructive CAD; normal LVEF Cardiology recommended medical management for now /Elevated troponin, likely NSTEMI type 2 from ESRD - cardiac cath negative for any obstructive CAD /Acute bleeding from right groin -resolved -Likely due to right femoral artery pseudoaneurysm following cardiac cath - monitor h/h, vascular consulted -status post right femoral artery angioplasty -Transfused 1 unit of packed RBC /Hypotension, s/p pressor - developed following cardiac cath due to femoral artery pseudoaneurysm and bleeding -Status post 1 unit packed RBC transfusion and right femoral artery angioplasty -Patient weaned off from dopamine. BP currently stable / End stage renal disease Patient gets dialysis on Tuesday, Tuesday and Fridays. Consulted nephrology for dialysis / Left upper extremity swelling Probably related to the left AV fistula present in the left upper arm. Appreciate vascular surgery evaluation of AV fistula on left upper extremity. s/p fistulogram with venoplasty of the peripheral and central venous stenosis Need further outpatient follow-up for graft revision / DVT prophylaxis Patient placed on subcutaneous heparin. / Full code status Current Visit: Yes Status: Acute Physical exam: GENERAL: well-developed and well-nourished -[place] female lying on bed appeared to be in no discomfort. HEENT: Normocephalic. Atraumatic. No conjunctival congestion or icterus. Patient has moist mucous membranes. NECK: Supple. Trachea midline. CHEST/LUNGS: Clear to auscultated bilaterally, breathing nonlabored. No wheezes crackles or rhonchi. HEART/CARDIOVASCULAR: Regular in rate and rhythm. S1 and S2 positive. ABDOMEN: Abdomen is soft, nontender. Patient has normal bowel sounds. Wound dressing on the right growing area intact SKIN: There is no rash. Warm and dry. NEURO: No focal motor deficit. Follows command. MUSCULOSKELETAL: No joint effusion or tenderness. EXTRIMITY: No edema, no cyanosis or clubbing. PSYCH: Cooperative. Disposition: - TO HOME OR SELFCARE Time spent for discharge: 34 minutes Core Measure Documentation - Palliative Care Palliative Care/ Comfort Measures: Not Applicable - Core Measures Any of the following diagnoses?: none Exam - Constitutional Vitals: Temp Pulse Resp BP Pulse Ox 99.5 F 60 20 101/47 97 09/13/19 11:44 09/13/19 11:44 09/13/19 11:44 09/13/19 11:44 09/13/19 11:44 Plan Activity: advance as tolerated Weight Bearing Status: Non-Weight Bearing Diet: renal Special Instructions: restrict fluid intake to (1.2L per day) Follow up with: DENNY MENG MD [Staff Physician] - 7 Days (Follow up telehealth appt with Dr. Meng on 09/27/2019 @ 1:00PM. ) PRIMARY CAREMD [Primary Care Provider] - 3-5 Days JOSETTE MENDENHALL MD [Staff Physician] - 7 Days Prescriptions: AtorvaSTATin [Lipitor] 40 mg PO QHS #30 tablet Aspirin EC [Halfprin EC] 81 mg PO QDAY #30 tablet Metoprolol [Lopressor TAB] 25 mg PO BID #60 tablet
[2019-09-13 18:15] VITALS: BP 116/51
== END 2019-09-13 19:11 | disposition home or self-care (01) | DRG 252 ==
LOC: ED 19:55 → 4A 21:51 → CC1 09-11 17:14 → 4A 09-12 18:11
PROVIDERS: ADMIT Internal Medicine Geriatric Medicine; ATTEND Internal Medicine
PROC: 047K3ZZ Dilation of Right Femoral Artery, Percutaneous Approach (ICD-10-PCS; principal; 2019-09-11)
PROC: 30233N1 Transfusion of Nonautologous Red Blood Cells into Peripheral Vein, Percutaneous Approach (ICD-10-PCS; 2019-09-11)
PROC: 4A023N7 Measurement of Cardiac Sampling and Pressure, Left Heart, Percutaneous Approach (ICD-10-PCS; 2019-09-11)
PROC: B2111ZZ Fluoroscopy of Multiple Coronary Arteries using Low Osmolar Contrast (ICD-10-PCS; 2019-09-11)
PROC: B2151ZZ Fluoroscopy of Left Heart using Low Osmolar Contrast (ICD-10-PCS; 2019-09-11)
PROC: B41F1ZZ Fluoroscopy of Right Lower Extremity Arteries using Low Osmolar Contrast (ICD-10-PCS; 2019-09-11)
PROC: B51N1ZZ Fluoroscopy of Left Upper Extremity Veins using Low Osmolar Contrast (ICD-10-PCS; 2019-09-11)
PROC: 06HY33Z Insertion of Infusion Device into Lower Vein, Percutaneous Approach (ICD-10-PCS; 2019-09-11)
PROC: 5A1D70Z Performance of Urinary Filtration, Intermittent, Less than 6 Hours Per Day (ICD-10-PCS; 2019-09-12)
PROC: 05743ZZ Dilation of Left Innominate Vein, Percutaneous Approach (ICD-10-PCS; 2019-09-13)
PROC: 027V3ZZ Dilation of Superior Vena Cava, Percutaneous Approach (ICD-10-PCS; 2019-09-13)
DX: R07.9 Chest pain, unspecified (principal); N18.6 End stage renal disease; I13.2 Hypertensive heart and chronic kidney disease with heart failure and with stage 5 chronic kidney disease, or end stage renal disease; N25.81 Secondary hyperparathyroidism of renal origin; I95.9 Hypotension, unspecified; Z88.2 Allergy status to sulfonamides; Z91.041 Radiographic dye allergy status; Z88.8 Allergy status to other drugs, medicaments and biological substances; M19.90 Unspecified osteoarthritis, unspecified site; Z79.4 Long term (current) use of insulin; K21.9 Gastro-esophageal reflux disease without esophagitis; F32.9 Major depressive disorder, single episode, unspecified; G51.0 Bell's palsy; Z95.5 Presence of coronary angioplasty implant and graft; D63.1 Anemia in chronic kidney disease; I25.10 Atherosclerotic heart disease of native coronary artery without angina pectoris; I45.10 Unspecified right bundle-branch block; I35.0 Nonrheumatic aortic (valve) stenosis; I50.9 Heart failure, unspecified; Z99.2 Dependence on renal dialysis; R22.32 Localized swelling, mass and lump, left upper limb
CPT/HCPCS: 36415; 36556; 36902; 37224; 71045; 74176; 75710; 80048; 80061; 80074; 82962; 84132; 84484; 85014; 85018; 85025; 85027; 85347; 85610; 86850; 86900; 86901; 86920; 93005; 93308; 93321; 93325; 93458; 93571; 93925; 96374; 96375; G0378; A9270-GY; C1725; C1751; C1769; C1887; C1894; J0360; J0610; J0885; J1200; J1265; J1644; J1720; J2250; J2270; J2405; J2597; J2720; J2930; J3010; J7030; J7040; P9016; Q9967

== ENCOUNTER 2020-02-27 09:52 | Emergency (ER) | payer MEDICARE ==
--- NOTE | 2020-02-27 11:36 | Emergency Department Report ---
ED General Adult HPI - General Chief complaint: Weakness Stated complaint: GENERAL WEAKNESS/LHR Time Seen by Provider: 02/27/20 11:04 Source: patient, EMS Mode of arrival: Stretcher Limitations: No Limitations - History of Present Illness Initial comments: This is a 69-year-old female who was sent from her dialysis clinic for evaluation of a heart rate (53-57) and a low blood pressure (100/60). Patient told the nurse that she has been feeling weak for several days. She states that she has had some fluid buildup but does not complain of shortness of breath. Her last dialysis was 2 days ago on Tuesday. She does not complain of fever or chills. 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 She does not describe any acute numbness or weakness on a focal basis. -: Gradual, days(s) Location: left, upper extremity (Chronic left hand left arm pain) Severity scale (0 -10): 0 Associated Symptoms: denies other symptoms - Related Data Home Medications Medication Instructions Recorded Confirmed Last Taken ALPRAZolam [Xanax TAB] 0.5 mg PO DAILY 11/10/15 05/05/16 05/04/16 FLUoxetine HCL [PROzac] 60 mg PO QDAY 11/10/15 05/05/16 05/04/16 Ferric Citrate (Nf) [Auryxia] 210 mg PO DAILY 11/10/15 05/05/16 05/04/16 Omeprazole [PriLOSEC] 30 mg PO QDAY 11/10/15 05/05/16 05/05/16 traZODone [Desyrel] 100 mg PO QHS 11/10/15 05/05/16 11/09/15 09:00 Previous Rx's Medication Instructions Recorded Last Taken Type Cinacalcet [Sensipar] 30 mg PO QDAY tablet 11/13/15 05/04/16 Rx HYDROcodone/APAP 5-325 [[place] 1 each PO Q6HR PRN #20 tablet 05/05/16 Unknown Rx 5-325 mg TAB] ISOSORBIDE MONOnitrate [Imdur ER] 30 mg PO DAILY #30 tab.er.24h 05/05/16 Unknown Rx Aspirin EC [Halfprin EC] 81 mg PO QDAY #30 tablet 09/13/19 Unknown Rx AtorvaSTATin [Lipitor] 40 mg PO QHS #30 tablet 09/13/19 Unknown Rx Metoprolol [Lopressor TAB] 25 mg PO BID #60 tablet 09/13/19 Unknown Rx Allergies Allergy/AdvReac Type Severity Reaction Status Date / Time iodine Allergy Hives Verified 05/18/14 16:07 lisinopril Allergy Angioedema Verified 09/10/19 20:05 Sulfa (Sulfonamide Allergy Hives Verified 05/18/14 16:07 Antibiotics) ED Review of Systems ROS: Stated complaint: GENERAL WEAKNESS/LHR Other details as noted in HPI Constitutional: denies: chills, fever Eyes: denies: eye pain, vision change ENT: denies: ear pain, throat pain Respiratory: denies: cough, shortness of breath Cardiovascular: denies: chest pain, palpitations Endocrine: no symptoms reported Gastrointestinal: denies: abdominal pain, nausea Genitourinary: denies: urgency, dysuria, discharge Musculoskeletal: denies: back pain, arthralgia Skin: denies: rash, lesions Neurological: denies: headache, weakness, paresthesias Psychiatric: denies: anxiety, depression Hematological/Lymphatic: denies: easy bleeding, easy bruising ED Past Medical Hx - Past Medical History Previous Medical History?: Yes Hx Hypertension: Yes Hx Congestive Heart Failure: No Hx Diabetes: No Hx GERD: Yes Hx Renal Disease: Yes (ESRD/dialysis M,W,F) Hx Arthritis: Yes (hands) Hx Psychiatric Treatment: Yes (depression) Hx Asthma: No Hx COPD: No Additional medical history: membreno's palsy-right side - Surgical History Past Surgical History?: Yes Hx Coronary Stent: Yes (1) Additional Surgical History: left A/V graft - Social History Smoking Status: Never Smoker Substance Use Type: None - Medications Home Medications: Home Medications Medication Instructions Recorded Confirmed Last Taken Type ALPRAZolam [Xanax TAB] 0.5 mg PO DAILY 11/10/15 05/05/16 05/04/16 History FLUoxetine HCL [PROzac] 60 mg PO QDAY 11/10/15 05/05/16 05/04/16 History Ferric Citrate (Nf) [Auryxia] 210 mg PO DAILY 11/10/15 05/05/16 05/04/16 History Omeprazole [PriLOSEC] 30 mg PO QDAY 11/10/15 05/05/1605/05/17 History traZODone [Desyrel] 100 mg PO QHS 11/10/15 05/05/16 11/09/15 09:00 History Cinacalcet [Sensipar] 30 mg PO QDAY tablet 11/13/15 05/05/16 05/04/16 Rx HYDROcodone/APAP 5-325 [[place] 1 each PO Q6HR PRN #20 tablet 05/05/16 Unknown Rx 5-325 mg TAB] ISOSORBIDE MONOnitrate [Imdur ER] 30 mg PO DAILY #30 tab.er.24h 05/05/16 Unknown Rx Aspirin EC [Halfprin EC] 81 mg PO QDAY #30 tablet 09/13/19 Unknown Rx AtorvaSTATin [Lipitor] 40 mg PO QHS #30 tablet 09/13/19 Unknown Rx Metoprolol [Lopressor TAB] 25 mg PO BID #60 tablet 09/13/19 Unknown Rx ED Physical Exam - General Limitations: No Limitations General appearance: alert, in no apparent distress - Head Head exam: Present: atraumatic, normocephalic - Eye Eye exam: Present: normal appearance. Absent: scleral icterus - ENT ENT exam: Present: mucous membranes moist - Neck Neck exam: Present: normal inspection - Respiratory Respiratory exam: Present: normal lung sounds bilaterally. Absent: respiratory distress - Cardiovascular Cardiovascular Exam: Present: regular rate, normal rhythm. Absent: systolic murmur, diastolic murmur, rubs, gallop - GI/Abdominal GI/Abdominal exam: Present: soft, normal bowel sounds. Absent: distended, tenderness, guarding, rebound - Extremities Exam Extremities exam: Present: normal inspection - Back Exam Back exam: Present: normal inspection - Neurological Exam Neurological exam: Present: CN II-XII intact. Absent: motor sensory deficit - Psychiatric Psychiatric exam: Present: normal affect, normal mood - Skin Skin exam: Present: warm, dry, intact, normal color. Absent: rash ED Course Vital Signs 02/27/20 02/27/20 02/27/20 10:06 10:30 10:52 Temperature 97.7 F Pulse Rate 55 L Respiratory 14 14 Rate Blood Pressure 123/75 123/75 O2 Sat by Pulse 98 100 Oximetry 02/27/20 11:00 Temperature Pulse Rate 53 L Respiratory 14 Rate Blood Pressure 112/61 O2 Sat by Pulse 97 Oximetry - Reevaluation(s) Reevaluation #1: Patient complains of chronic left hand tingling. Otherwise she is without complaint. Her heart rate is in the mid 50s. She is normotensive. Blood pressure was 110/70 when I just took it. She does not meet criteria for emerge ncy dialysis. Her medications are listed as including metoprolol twice daily. I will instruct her to discontinue that for now pending monitoring and dialysis. She should be able to go to dialysis tomorrow. She is appropriate for outpatient disposition. 02/27/20 14:23 ED Medical Decision Making - Lab Data Result diagrams: 02/27/20 11:25 02/27/20 11:25 Laboratory Results - last 24 hr 02/27/20 02/27/20 02/27/20 11:25 11:25 11:25 WBC 6.3 RBC 3.24 L Hgb 11.4 Hct 33.3 MCV 103 H MCH 35 H MCHC 34 RDW 14.3 Plt Count 165 Lymph % (Auto) 22.3 [place] % (Auto) 13.5 H Eos % (Auto) 2.2 Baso % (Auto) 0.7 Lymph # (Auto) 1.4 [place] # (Auto) 0.8 Eos # (Auto) 0.1 Baso # (Auto) 0.0 Seg Neutrophils % 61.3 Seg Neutrophils # 3.8 Sodium 141 Potassium 4.8 Chloride 98.0 Carbon Dioxide 22 Anion Gap 26 BUN 74 H Creatinine 10.5 H Estimated GFR 4 BUN/Creatinine Ratio 7 Glucose 69 Calcium 9.1 Phosphorus 5.40 H Total Bilirubin 0.30 Direct Bilirubin < 0.2 Indirect Bilirubin 0.1 AST 12 ALT 8 Alkaline Phosphatase 85 NT-Pro-B Natriuret Pep 911.8 H Total Protein 6.9 Albumin 3.7 L Albumin/Globulin Ratio 1.2 Critical care attestation.: If time is entered above; I have spent that time in minutes in the direct care of this critically ill patient, excluding procedure time. ED Disposition Clinical Impression: Bradycardia, End stage renal disease on dialysis, Hyperphosphatemia Adverse effects of medication Qualifiers: Encounter type: initial encounter Qualified Code(s): T50.905A - Adverse effect of unspecified drugs, medicaments and biological substances, initial encounter Disposition: -01 TO HOME OR SELFCARE Is pt being admited?: No Does the pt Need Aspirin: No Condition: Stable Instructions: Chronic Kidney Disease (ED) Additional Instructions: See your paper cutter at dialysis tomorrow. Call the dialysis center today. Return any acute change or problem. For now hold your metoprolol medicine. Do not take it until advised otherwise by the paper cutter or slurry blender. Referrals: PRIMARY CARE, [Primary Care Provider] - 3-5 Days [facility] [Provider Group] - 24 Hours Time of Disposition: 14:26
[2020-02-27 11:49] LABS: Basophils % (Auto) 0.7 % (0.0-1.8); Eosinophils # (Auto) 0.1 K/mm3 (0.0-0.4); Eosinophils % (Auto) 2.2 % (0.0-4.3); Hematocrit 33.3 % (30.3-42.9); Hemoglobin 11.4 gm/dl (10.1-14.3); Lymphocytes # (Auto) 1.4 K/mm3 (1.2-5.4); Lymphocytes % (Auto) 22.3 % (13.4-35.0); Mean Corpuscular HGB Conc 34 % (30-34); Mean Corpuscular Volume 103 fl (79-97); Monocytes # (Auto) 0.8 K/mm3 (0.0-0.8); Monocytes % (Auto) 13.5 % (0.0-7.3); Platelet Count 165 K/mm3 (140-440); Red Blood Count 3.24 M/mm3 (3.65-5.03); Red Cell Distribution Width 14.3 % (13.2-15.2)
--- NOTE | 2020-02-27 11:52 | XRay Report ---
CHEST 1 VIEW 02/27/2020 11:08 AM INDICATION / CLINICAL INFORMATION: hypertension. COMPARISON: 09/10/19 FINDINGS: SUPPORT DEVICES: None. HEART / MEDIASTINUM: Heart is upper normal size and stable. Left brachiocephalic/subclavian vein sten ts are unchanged. LUNGS / PLEURA: No significant pulmonary or pleural abnormality. No pneumothorax. ADDITIONAL FINDINGS: No significant additional findings. IMPRESSION: 1. No acute findings. No change. Signer Name: Alexander Vazquez MD Signed: 02/27/2020 11:47 AM Workstation Name: [id number]
[2020-02-27 12:00] LABS: Alanine Aminotransferase 8 units/L (7-56); Albumin 3.7 g/dL (3.9-5); BUN/Creatinine Ratio 7; Bilirubin,Direct < 0.2 mg/dL (0-0.2); Blood Urea Nitrogen 74 mg/dL (7-17); Calcium 9.1 mg/dL (8.4-10.2); Hemolysis Index 5
[2020-02-27] MEDS ORDERED: traMADol 50 MG TAB PO ONE (14:27)
[2020-02-27 14:38] VITALS: BP 110/55
== END 2020-02-27 15:06 | disposition home or self-care (01) ==
LOC: ED 09:52
DX: R00.1 Bradycardia, unspecified (principal); T50.905A Adverse effect of unspecified drugs, medicaments and biological substances, initial encounter; E83.39 Other disorders of phosphorus metabolism; I12.0 Hypertensive chronic kidney disease with stage 5 chronic kidney disease or end stage renal disease; N18.6 End stage renal disease; Z99.2 Dependence on renal dialysis; K21.9 Gastro-esophageal reflux disease without esophagitis; M19.91 Primary osteoarthritis, unspecified site; F32.9 Major depressive disorder, single episode, unspecified; Z98.890 Other specified postprocedural states; Z79.899 Other long term (current) drug therapy; Z88.2 Allergy status to sulfonamides; Z88.8 Allergy status to other drugs, medicaments and biological substances; Y92.89 Other specified places as the place of occurrence of the external cause
CPT/HCPCS: 36415; 71045; 80048; 80076; 83880; 84100; 85025; 93005

== ENCOUNTER 2020-03-28 11:02 | Emergency (ER) | payer MEDICARE ==
[2020-03-28 14:12] LABS: Basophils # (Auto) 0.1 K/mm3 (0.0-0.1); Basophils % (Auto) 0.6 % (0.0-1.8); Eosinophils # (Auto) 0.1 K/mm3 (0.0-0.4); Eosinophils % (Auto) 0.6 % (0.0-4.3); Hematocrit 32.5 % (30.3-42.9); Hemoglobin 11.7 gm/dl (10.1-14.3); Lymphocytes # (Auto) 1.6 K/mm3 (1.2-5.4); Lymphocytes % (Auto) 16.3 % (13.4-35.0); Mean Corpuscular HGB Conc 36 % (30-34); Mean Corpuscular Volume 102 fl (79-97); Monocytes # (Auto) 1.4 K/mm3 (0.0-0.8); Monocytes % (Auto) 14.7 % (0.0-7.3); Platelet Count 181 K/mm3 (140-440); Red Cell Distribution Width 13.7 % (13.2-15.2)
--- NOTE | 2020-03-28 14:20 | Emergency Department Report ---
ED Chest Pain HPI - General Chief Complaint: Dizziness Stated Complaint: SHOULDER/HAND PAIN/BLURRY VISION Time Seen by Provider: 03/28/20 13:12 Source: EMS Mode of arrival: Wheelchair Limitations: No Limitations - History of Present Illness Initial Comments: Chief complaint "something has to be done. My blood pressure keeps going low with dialysis." HPI: This is a 69-year-old female with history of end-stage renal disease on hemodialysis for 9 years. She receives dialysis Tuesday. Nephrology group [facility]. Patient also has a history of depression, GERD, hypertension, Strange's palsy. For several weeks patient has had hypotension during dialysis. She has been unable to have complete dialysis sessions due to hypotension. She has not had any changes in her medication. She takes amlodipine daily. She does not take any other antihypertensive medications. She was asked to stop her mood stabilizing medications. She stopped taking mirtazapine and Lexapro 2 weeks ago. Consequently she has had worsening depression. She has developed foggy blurry vision when the blood pressure occurs. She also has cramping in her chest during these moments. Chest cramping mild in nature. Persist for several minutes. No radiation. No associated palpitations shortness of breath nausea. Patient denies paralysis in arms or legs. She denies trouble with speech. Patient is extremely upset frustrated. She feels as if she has too much fluid on her body. She states that she will feel much better she could complete dialy sis. Patient denies suicidal ideation MD Complaint: chest pain -: Gradual (During dialysis) Onset: other (During dialysis) Pain Location: substernal Pain Radiation: none Severity: mild Quality: other (Crampy pain during dialysis) Consistency: now resolved Improves With: nothing, other (Time) Worsens With: nothing (Nothing) Context: other (Patient has had hypotension dizziness blurry vision chest pain over the past several weeks during dialysis) re: other (Hypotension dizziness blurry vision for several weeks during dialysis) Treatments Prior to Arrival: other (Patient received 2 hours of dialysis treatment today) - Related Data Home Medications Medication Instructions Recorded Confirmed Last Taken ALPRAZolam [Xanax TAB] 0.5 mg PO DAILY 11/10/15 05/05/16 05/04/16 FLUoxetine HCL [PROzac] 60 mg PO QDAY 07/03/1705/05/16 05/04/16 Ferric Citrate (Nf) [Auryxia] 210 mg PO DAILY 11/10/15 05/05/16 05/04/16 Omeprazole [PriLOSEC] 30 mg PO QDAY 11/10/15 05/05/16 05/05/16 traZODone [Desyrel] 100 mg PO QHS 11/10/15 05/05/16 11/09/15 09:00 Previous Rx's Medication Instructions Recorded Last Taken Type Cinacalcet [Sensipar] 30 mg PO QDAY tablet 11/13/15 05/04/16 Rx HYDROcodone/APAP 5-325 [[place] 1 each PO Q6HR PRN #20 tablet 05/05/16 Unknown Rx 5-325 mg TAB] ISOSORBIDE MONOnitrate [Imdur ER] 30 mg PO DAILY #30 tab.er.24h 05/05/16 Unknown Rx Aspirin EC [Halfprin EC] 81 mg PO QDAY #30 tablet 09/13/19 Unknown Rx AtorvaSTATin [Lipitor] 40 mg PO QHS #30 tablet 09/13/19 Unknown Rx Metoprolol [Lopressor TAB] 25 mg PO BID #60 tablet 09/13/19 Unknown Rx Allergies Allergy/AdvReac Type Severity Reaction Status Date / Time iodine Allergy Hives Verified 03/28/20 11:04 lisinopril Allergy Angioedema Verified 03/28/20 11:04 Sulfa (Sulfonamide Allergy Hives Verified 03/28/20 11:04 Antibiotics) Heart Score - HEART Score History: Slightly suspicious EKG: Non-specific Age: > 65 Risk factors: No known risk factors Troponin: 1-3x normal limit HEART Score: 4 ED Review of Systems ROS: Stated complaint: SHOULDER/HAND PAIN/BLURRY VISION Other details as noted in HPI Comment: All other systems reviewed and negative Constitutional: denies: fever, malaise Eyes: vision change Respiratory: denies: cough, shortness of breath Cardiovascular: chest pain Neurological: numbness. denies: headache ED Past Medical Hx - Past Medical History Previous Medical History?: Yes Hx Hypertension: Yes Hx Congestive Heart Failure: No Hx Diabetes: No Hx GERD: Yes Hx Renal Disease: Yes (ESRD/dialysis M,W,F) Hx Arthritis: Yes (hands) Hx Psychiatric Treatment: Yes (depression) Hx Asthma: No Hx COPD: No Additional medical history: strange's palsy-right side - Surgical History Past Surgical History?: Yes Hx Coronary Stent: Yes (1) Additional Surgical History: left A/V graft - Social History Smoking Status: Never Smoker Substance Use Type: None - Medications Home Medications: Home Medications Medication Instructions Recorded Confirmed Last Taken Type ALPRAZolam [Xanax TAB] 0.5 mg PO DAILY 11/10/15 05/05/16 05/04/16 History FLUoxetine HCL [PROzac] 60 mg PO QDAY 11/10/15 05/05/16 05/04/16 History Ferric Citrate (Nf) [Auryxia] 210 mg PO DAILY 11/10/15 05/05/16 05/04/16 History Omeprazole [PriLOSEC] 30 mg PO QDAY 11/10/15 05/05/16 05/05/16 History traZODone [Desyrel] 100 mg PO QHS 11/10/15 05/05/16 11/09/15 09:00 History Cinacalcet [Sensipar] 30 mg PO QDAY tablet 11/13/15 05/05/16 05/04/16 Rx HYDROcodone/APAP 5-325 [[place] 1 each PO Q6HR PRN #20 tablet 05/05/16 Unknown Rx 5-325 mg TAB] ISOSORBIDE MONOnitrate [Imdur ER] 30 mg PO DAILY #30 tab.er.24h 05/05/16 Unknown Rx Aspirin EC [Halfprin EC] 81 mg PO QDAY #30 tablet 09/13/19 Unknown Rx AtorvaSTATin [Lipitor] 40 mg PO QHS #30 tablet 09/13/19 Unknown Rx Metoprolol [Lopressor TAB] 25 mg PO BID #60 tablet 09/13/19 Unknown Rx ED Physical Exam - General Limitations: No Limitations General appearance: alert, in no apparent distress, other (Tearful obviously upset, no acute distress) - Head Head exam: Present: atraumatic, normocephalic - Eye Eye exam: Present: normal appearance - ENT ENT exam: Present: mucous membranes moist - Neck Neck exam: Present: normal inspection, full ROM - Respiratory Respiratory exam: Present: normal lung sounds bilaterally. Absent: respiratory distress, wheezes, rales, rhonchi - Cardiovascular Cardiovascular Exam: Present: regular rate, normal rhythm, normal heart sounds. Absent: systolic murmur, diastolic murmur, rubs, gallop - GI/Abdominal GI/Abdominal exam: Present: soft, normal bowel sounds. Absent: distended, tenderness, guarding, rebound - Extremities Exam Extremities exam: Present: other (Left bicep AV fistula present positive thrill positive bruit) - Neurological Exam Neurological exam: Present: alert, oriented X3 - Psychiatric Psychiatric exam: Present: normal affect, depressed, other (Tearful upset) - Skin Skin exam: Present: warm, dry, intact, normal color. Absent: rash ED Course Vital Signs 03/28/20 11:07 Temperature 98.5 F Pulse Rate 66 Respiratory 18 Rate Blood Pressure 138/68 O2 Sat by Pulse 97 Oximetry GABRIELLE score - Gabrielle Score Age > 65: (0) No Aspirin use within the Past 7 Days: (0) No 3 or more CAD Risk Factors: (1) Yes 2 or more Angina events in past 24 hrs: (1) Yes Known CAD with more than 50% Stenosis: (1) Yes Elevated Cardiac Markers: (0) No ST Deviation Greater than 0.5mm: (0) No GABRIELLE Score: 3 ED Medical Decision Making - Lab Data Result diagrams: 03/28/20 13:24 03/28/20 13:24 - EKG Data When compared to previous EKG there are: no significant change 03/28/20 14:29 EKG obtained 1407 EKG interpreted by me Normal sinus rhythm rate 70 bpm rightward axis deviation right bundle branch block no ST elevation normal QTC for gender EKG unchanged from 09/10/2019 - Radiology Data Radiology results: report reviewed Radiology impressions: CT head without contrast: No acute intracranial abnormality, no evidence of recent infarct, no intracranial hemorrhage. There is chronic small vessel ischemic changes in the white matter Chest radiograph: No acute findings, - Medical Decision Making 1. Hypotension during dialysis: Medication changes have been made by dyeing machine tender. I have spoken with Dr. Ge who is well aware of the phenomenon. Dr. Ge recommended holding morning amlodipine unless blood pressure systolic is over 160 mmHg 2. Blurry vision, foggy vision: I do not suspect acute CVA. Patient has recurrent symptoms associated with hypotension. 3. Recurrent chest pain: Patient has had previous normal cardiac evaluation at this hospital. Recently august 2019: Patient has mild disease of the right coronary artery, nonsignificant stenosis of LAD circumflex mild coronary artery disease, according to cardiology patient has nonobstructive coronary artery disease. She is followed by . Heart score 4. Patient has had recent left heart catheterization. She has nonobstructive CAD. Troponin equivocal levels in setting of end-stage renal disease I do not suspect acute HI. 4. Depression: No current SI, I have asked patient to resume taking Lexapro mirtazapine Critical care attestation.: If time is entered above; I have spent that time in minutes in the direct care of this critically ill patient, excluding procedure time. ED Disposition Clinical Impression: Hypotension, Chest pain, End stage renal disease Disposition: - TO HOME OR SELFCARE Is pt being admited?: No Does the pt Need Aspirin: No Condition: Stable Instructions: Chest Pain (ED) Additional Instructions: Please do not take your blood pressure medicine before dialysis unless the top number is greater than 160. Referrals: CHITO GE MD [Staff Physician] - 3-5 Days
[2020-03-28 14:34] LABS: Albumin 3.8 g/dL (3.9-5); Calcium 9.3 mg/dL (8.4-10.2)
--- NOTE | 2020-03-28 14:35 | XRay Report ---
XR chest 1V ap INDICATION / CLINICAL INFORMATION: Lightheadedness/Dizziness. COMPARISON: 02/27/2020 FINDINGS: SUPPORT DEVICES: None. HEART /PULMONARY VASCULATURE: Heart is upper normal in size, unchanged. Left brachiocephalic/subclavi an vein stents again noted. LUNGS / PLEURA: No significant pulmonary or pleural abnormality. No pneumothorax. ADDITIONAL FINDINGS: No significant additional findings. IMPRESSION: 1. No acute findings. No change Signer Name: Delmer Gardner MD Signed: 03/28/2020 2:31 PM Workstation Name: [id number]
--- NOTE | 2020-03-28 14:37 | Cat Scan Report ---
CT HEAD WITHOUT CONTRAST INDICATION / CLINICAL INFORMATION: Blurry vision. TECHNIQUE: All CT scans at this location are performed using CT dose reduction for ALARA by means of automated exposure control. COMPARISON: CT head from 06/12/2018. FINDINGS: BRAIN PARENCHYMA: No acute intracranial hemorrhage. No evidence of recent infarct. No mass effect or midline shift. White matter chronic small vessel ischemic changes. VENTRICULAR SYSTEM/EXTRA-AXIAL SPACES: Ventricles are normal for age. No extra-axial fluid collection . ORBITS: Left lens is absent. Right orbit is unremarkable. SKELETAL SYSTEM/SOFT TISSUES: Normal bones and soft tissues. PARANASAL SINUSES/MASTOID AIR CELLS: No significant abnormality. ADDITIONAL FINDINGS: None. IMPRESSION: No acute intracranial abnormality. Signer Name: Delmer Gardner MD Signed: 03/28/2020 2:33 PM Workstation Name: [id number]
[2020-03-28 16:26] LABS: Chol/HDL Ratio 2.61 %
[2020-03-28 17:24] VITALS: BP 104/68
== END 2020-03-28 17:24 | disposition home or self-care (01) ==
LOC: ED 11:02
DX: I95.9 Hypotension, unspecified (principal); I12.0 Hypertensive chronic kidney disease with stage 5 chronic kidney disease or end stage renal disease; N18.6 End stage renal disease; K21.9 Gastro-esophageal reflux disease without esophagitis; F32.9 Major depressive disorder, single episode, unspecified; M19.90 Unspecified osteoarthritis, unspecified site; Z98.890 Other specified postprocedural states; Z79.899 Other long term (current) drug therapy; Z88.2 Allergy status to sulfonamides; Z88.8 Allergy status to other drugs, medicaments and biological substances
CPT/HCPCS: 36415; 70450; 71045; 80053; 80061; 84484; 85025; 93005

== ENCOUNTER 2020-10-07 10:58 | Outpatient (CLI) | payer MEDICARE ==
--- NOTE | 2020-10-07 14:32 | Vascular Lab Report ---
VL hemodialysis access INDICATION: Left shoulder pain. Evaluate left upper extremity AV fistula. COMPARISON: None available. FINDINGS: A left upper extremity AV fistula is patent with volume flow ranging from 732-988 mL/m. Peak systolic velocity at the arterial inflow measures 456 cm/s. Venous outflow peak systolic velocity measures 29 9 cm/s. Generalized atherosclerosis is noted without visualization of an associated site of significa nt obstruction. The included surrounding soft tissues are unremarkable. IMPRESSION: Patent left upper extremity AV fistula as above without identification of an acute sonographic abnorm ality. Signer Name: Jay Raya MD Signed: 10/07/2020 2:27 PM Workstation Name: [id number]
== END 2020-10-07 10:59 | disposition home or self-care (01) ==
LOC: VAS 10:58
PROVIDERS: ATTEND Radiology Diagnostic Radiology
DX: M25.512 Pain in left shoulder (principal); Z99.2 Dependence on renal dialysis
CPT/HCPCS: 93990

== ENCOUNTER 2020-12-20 12:23 | Emergency (ER) | payer MEDICARE ==
--- NOTE | 2020-12-20 15:41 | Emergency Department Report ---
Upper Extremity - HPI Upper Extremity: Left Shoulder, Left Arm Occurred When: 2 Days Severity: moderate Symptoms: Yes Pain with Movement, Yes Swelling, No Deformity, No Limited Range of Movement, No Numbness, No Weakness Other History: 70-year-old -Eth[place] female presents to the emergency room complaining of left upper arm shoulder and forearm pain and swelling for the last 2 days. Patient is a dialysis patient and reports that she was not able to complete her dialysis yesterday secondary to pain and swelling. Patient states that she was able to get access at dialysis. Patient reports she had about 45 minutes left on the machine. 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 Patient reports that she has increased swelling and pain from her normal. Patient states that she has pain in her left shoulder and feels like her left breast is swollen as well. Patient is followed by Dr. Bismark lentz nephrology and Dr. Josette Hernandez vascular. <CHARLI COVARRUBIAS - Last Filed: 12/20/20 19:44> <CARA HAQUE - Last Filed: 12/21/20 06:26> - HPI Chief Complaint: Extremity Problem,Nontraumatic Stated Complaint: LT ARM PAIN/SWELLING ON LT SIDE ED Review of Systems ROS: Stated complaint: LT ARM PAIN/SWELLING ON LT SIDE Other details as noted in HPI Comment: All other systems reviewed and negative <CHARLI COVARRUBIAS - Last Filed: 12/20/20 19:44> ROS: Stated complaint: LT ARM PAIN/SWELLING ON LT SIDE Other details as noted in HPI <CARA HAQUE - Last Filed: 12/21/20 06:26> ED Past Medical Hx - Past Medical History Previous Medical History?: Yes Hx Hypertension: Yes Hx Congestive Heart Failure: No Hx Diabetes: No Hx GERD: Yes Hx Renal Disease: Yes (ESRD/dialysis M,W,F) Hx Arthritis: Yes (hands) Hx Psychiatric Treatment: Yes (depression) Hx Asthma: No Hx COPD: No Additional medical history: membreno's palsy-right side - Surgical History Past Surgical History?: Yes Hx Coronary Stent: Yes (1) Additional Surgical History: left A/V graft - Social History Smoking Status: Never Smoker Substance Use Type: None <CHARLI COVARRUBIAS - Last Filed: 12/20/20 19:44> <CARA HAQUE Last Filed: 12/21/20 06:26> - Medications Home Medications: Home Medications Medication Instructions Recorded Confirmed Last Taken Type ALPRAZolam [Xanax TAB] 0.5 mg PO DAILY 11/10/15 05/05/16 05/04/16 History FLUoxetine HCL [PROzac] 60 mg PO QDAY 11/10/15 05/05/16 05/04/16 History Ferric Citrate (Nf) [Auryxia] 210 mg PO DAILY 11/10/15 05/05/16 05/04/16 History Omeprazole [PriLOSEC] 30 mg PO QDAY 11/10/15 05/05/16 05/05/16 History traZODone [Desyrel] 100 mg PO QHS 11/10/15 05/05/16 11/09/15 09:00 History Cinacalcet [Sensipar] 30 mg PO QDAY tablet 11/13/15 05/05/16 05/04/16 Rx HYDROcodone/APAP 5-325 [[place] 1 each PO Q6HR PRN #20 tablet 05/05/16 Unknown Rx 5-325 mg TAB] ISOSORBIDE MONOnitrate [Imdur ER] 30 mg PO DAILY #30 tab.er.24h 05/05/16 Unknown Rx Aspirin EC [Halfprin EC] 81 mg PO QDAY #30 tablet 09/13/19 Unknown Rx AtorvaSTATin [Lipitor] 40 mg PO QHS #30 tablet 09/13/19 Unknown Rx Metoprolol [Lopressor TAB] 25 mg PO BID #60 tablet 09/13/19 Unknown Rx traMADoL [Ultram 50 MG tab] 50 mg PO Q6HR PRN #12 tablet 12/20/20 Unknown Rx Upper Extremity Exam - Exam General: Vital signs noted. No distress. Alert and acting appropriately. Head and Torso: No HEENT Abnormality, No Neck Tenderness, No Chest/Lungs Abnormality, No Abdominal Tenderness, No Back Tenderness Shoulder Exam: Yes Shoulder Tenderness (Sternocleidomastoid), Yes Normal Range of Motion in Shoulder, No Clavicle Tenderness, No Shoulder Deformity, No AC Joint Tenderness Arm Exam: Yes Arm/Humerus Tenderness (Left Swelling graft has a thrill) Elbow: No Elbow Tenderness (Mild swelling), No Normal Range of Motion in Elbow, No Elbow Deformity Forearm: No Forearm Tenderness (Mild swelling), No Forearm Deformity, No Pain with Pronation, No Pain with Supination Wrist: Yes Normal ROM in Wrist, No Wrist Tenderness, No Wrist Deformity, No Snuffbox Tenderness, No Pain with Axial Thumb Compression Hand: Yes Normal ROM in Digit(s), No Hand Tenderness, No Hand Deformity, No Digit Tenderness, No Digit(s) Deformity, No Tendon Dysfunction CMS Exam: No Broken Skin, No Normal Distal Pulses, No Normal Capillary Refill, No Normal Distal Sensation <CHARLI COVARRUBIAS - Last Filed: 12/20/20 19:44> - Exam General: Vital signs noted. No distress. Alert and acting appropriately. <CARA HAQUE - Last Filed: 12/21/20 06:26> ED Course Vital Signs 12/20/20 12/20/20 14:51 14:52 Temperature 98.2 F Pulse Rate 68 Respiratory 18 Rate Blood Pressure 185/80 [Right] O2 Sat by Pulse 98 Oximetry - Consultations Consultation #1: 12/20/20 19:00 Call was made out to ultrasound for vascular study they report that they have no one in house to do study. [place] called conversion developer biosolids management technician they told they are not on-call and they will not come in until tomorrow afternoon noon. supervisor blooming mill was notified regards to needing vascular to come in to do study she states that she would get in contact with their refuse collector supervisor 3 hours later statistical secretary called back to clinical nursing director and they informed her that there is no one conversion developer today and that they will be in tomorrow evening. Refined Syrup Operator informed oil house attendant that we already knew that and that we were having her to inform the need for vascular. Consultation #2: 12/20/20 19:15 Dr. Oneil from vascular call back informed him of the case states that he will call back after he reviews her file. Consultation #3: 12/20/20 19:[address] Oneil vascular surgeon. He recommends that the patient elevate arm above heart. He would like for patient to be seen in his clinic at 830 on Tuesday morning. Patient is to be n.p.o. after midnight on Tuesday night. <CHARLI COVARRUBIAS - Last Filed: 12/20/20 19:44> Vital Signs 12/20/20 12/20/20 12/20/20 14:51 14:52 18:34 Temperature 98.2 F Pulse Rate 68 Respiratory 18 18 Rate Blood Pressure 185/80 [Right] O2 Sat by Pulse 98 100 Oximetry 12/20/20 12/20/20 18:59 20:09 Temperature 98.1 F Pulse Rate 96 H Respiratory 16 14 Rate Blood Pressure 163/89 [Right] O2 Sat by Pulse 96 Oximetry <CARA HAQUE - Last Filed: 12/21/20 06:26> ED Medical Decision Making - Lab Data Result diagrams: 12/20/20 17:09 12/20/20 17:09 - Medical Decision Making 70-year-old -Eth[place]ian female presents to the emergency room complaining of left upper arm shoulder and forearm pain and swelling for the last 2 days. Patient is a dialysis patient and reports that she was not able to complete her dialysis yesterday secondary to pain and swelling. Patient states that she was able to get access at dialysis. Patient reports she had about 45 minutes left on the machine. 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 Patient reports that she has increased swelling and pain from her normal. Patient states that she has pain in her left shoulder and feels like her left breast is swollen as well. Patient is followed by Dr. Ge nephrology and Dr. Josette Hernandez vascular. Dodge 7.5 mg for pain management. Discussed case with Dr. Stephanie Haque ER attending. We have called vascular ultrasound in 4 upper extremity arterial versus venous Doppler. Dr. 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 Spoke to Dr. Oneil vascular surgeon. He recommends that the patient elevate arm above heart. He would like for patient to be seen in his clinic at 830 on Tuesday morning. Patient is to be n.p.o. after midnight on Tuesday night. Patient be discharged home with tramadol instructions not to operate heavy machinery. <CHARLI COVARRUBIAS - Last Filed: 12/20/20 19:44> - Lab Data Result diagrams: 12/20/20 17:09 12/20/20 17:09 <CARA HAQUE - Last Filed: 12/21/20 06:26> Critical care attestation.: If time is entered above; I have spent that time in minutes in the direct care of this critically ill patient, excluding procedure time. <CHARLI COVARRUBIAS - Last Filed: 12/20/20 19:44> Critical care attestation.: If time is entered above; I have spent that time in minutes in the direct care of this critically ill patient, excluding procedure time. <CARA HAQUE - Last Filed: 12/21/20 06:26> ED Disposition Is pt being admited?: No Does the pt Need Aspirin: No <CHARLI COVARRUBIAS - Last Filed: 12/20/20 19:44> <CARA HAQUE - Last Filed: 12/21/20 06:26> Clinical Impression: Left upper extremity swelling, Aneurysm of arteriovenous fistula Disposition: 01 HOME / SELF CARE / HOMELESS Condition: Stable Additional Instructions: Please elevated arm above heart. Please report to Dr. Oneil or Dr. Hernandez on Tuesday 0830 am. You are not able to eat after midnight on Tuesday. Take pain medication as needed. Do not operate heavy machinery while taking pain medicine. Prescriptions: traMADoL [Ultram 50 MG tab] 50 mg PO Q6HR PRN #12 tablet PRN Reason: Pain Referrals: PRIMARY CAREMD [Primary Care Provider] - 3-5 Days JOSETTE ONEIL MD [Staff Physician] - 3-5 Days
[2020-12-20 17:44] LABS: Basophils # (Auto) 0.1 K/mm3 (0.0-0.1); Basophils % (Auto) 0.7 % (0.0-1.8); Calcium 8.7 mg/dL (8.4-10.2); Eosinophils # (Auto) 0.1 K/mm3 (0.0-0.4); Eosinophils % (Auto) 0.8 % (0.0-4.3); Hematocrit 32.5 % (30.3-42.9); Hemoglobin 11.2 gm/dl (10.1-14.3); Lymphocytes # (Auto) 1.9 K/mm3 (1.2-5.4); Lymphocytes % (Auto) 23.2 % (13.4-35.0); Mean Corpuscular HGB Conc 35 % (30-34); Mean Corpuscular Volume 102 fl (79-97); Monocytes # (Auto) 0.7 K/mm3 (0.0-0.8); Monocytes % (Auto) 8.3 % (0.0-7.3); Platelet Count 154 K/mm3 (140-440); Red Blood Count 3.19 M/mm3 (3.65-5.03); Red Cell Distribution Width 13.8 % (13.2-15.2)
[2020-12-20] MEDS: HYDROcodone/ACETAMINOPHEN 7.5-325MG TAB PO ONE ×2 (18:04→18:59)
[2020-12-20] MEDS ORDERED: HYDROcodone/ACETAMINOPHEN 7.5-325MG TAB PO ONE (18:41)
[2020-12-20 20:10] VITALS: BP 163/89
== END 2020-12-20 20:10 | disposition home or self-care (01) ==
LOC: ED 12:23
DX: Q27.30 Arteriovenous malformation, site unspecified (principal); R22.31 Localized swelling, mass and lump, right upper limb; I10 Essential (primary) hypertension; K21.9 Gastro-esophageal reflux disease without esophagitis; M19.90 Unspecified osteoarthritis, unspecified site; F32.9 Major depressive disorder, single episode, unspecified; Z88.6 Allergy status to analgesic agent; Z88.2 Allergy status to sulfonamides; Z88.8 Allergy status to other drugs, medicaments and biological substances; Z79.899 Other long term (current) drug therapy
CPT/HCPCS: 36415; 80048; 85025; 99283

== ENCOUNTER 2021-01-06 10:20 | Day surgery (SDC) | payer MEDICARE ==
[~2021-01-06 10:20] MED LIST: ceFAZolin/STERILE WATER 2 GM/20 ML SYRINGE IV NR
[2021-01-06] MEDS ORDERED: SODIUM CHLORIDE 0.9% 1000 ML 1,000 ML IV SCH (12:00)
--- NOTE | 2021-01-06 12:16 | Anesthesia Day of Surgery ---
Anesthesia Day of Surgery - Day of Surgery Patient Examined: Yes Patient H&P Reviewed: Yes Patient is NPO: Yes Beta Blockers: Yes
--- NOTE | 2021-01-06 12:20 | Anesthesia Consultation ---
Anesthesia Consult and Med Hx Date of service: 01/06/21 - Airway Anesthetic Teeth Evaluation: Poor (Missing) ROM Head & Neck: Adequate Mental/Hyoid Distance: Adequate Mallampati Class: Class III Intubation Access Assessment: Probably Good - Pre-Operative Health Status ASA Pre-Surgery Classification: ASA3 Proposed Anesthetic Plan: General - Pulmonary Hx Smoking: Yes (QUIT 2008) Hx Asthma: No Hx Respiratory Symptoms: No (+2FS) COPD: No Hx Pneumonia: No Hx Sleep Apnea: No (HIGH RADHA ON PRESCREEN- SNORES) - Cardiovascular System Hx Hypertension: Yes Hx Heart Attack/AMI: No Hx Cardia Arrhythmia: Yes (RBBB) Hx Valvular Heart Disease: Yes (Mild ) Hx Heart Murmur: Yes - Central Nervous System Hx Neuromuscular Disorder: Yes (Strange's palsy) Hx Back Pain: Yes Hx Psychiatric Problems: Yes (Anxiety/Depression) - Gastrointestinal Hx Ulcer: Yes Hx Gastroesophageal Reflux Disease: Yes - Endocrine Hx Renal Disease: Yes (ESRD/dialysis M,W,F; last HD yesterday) Hx End Stage Renal Disease: Yes (ON H-DIALYSIS SINCE 2009) Hx Hyperthyroidism: Yes - Hematic Hx Anemia: Yes Hx Sickle Cell Disease: No - Other Systems Hx Alcohol Use: No Hx Substance Use: No Hx Cancer: No - Additional Comments Anesthesia Medical History Comments: Echo: ( 07/05/2019 showed EF 55-60%, grade I diastolic dysfunction, mild (mean gradient 17mmHg), mod TR. ). Cardiac cath: report reviewed (10/2015 showed minimal nonobstructive CAD (mild ectasia in the mid RCA with scattered LI, LAD with scattered LI), EF 50-55%, no evidence of aortic stenosis. ). CAD s/p LHC (September 11, 2019): 50% smooth lesion in ostial, prox circumflex, 40-50% smooth long lesion in very distal part of LAD; RCA mild disease; normal LVEF
[2021-01-06 12:24] LABS: Calcium 9.1 mg/dL (8.4-10.2)
[2021-01-06] MEDS ORDERED: MIDAZOLAM 2 MG/2 ML INJ IV NR (12:31)
[2021-01-06 12:38] LABS: Hematocrit 30.4 % (30.3-42.9); Hemoglobin 10.3 gm/dl (10.1-14.3); Mean Corpuscular HGB Conc 34 % (30-34); Mean Corpuscular Volume 101 fl (79-97); Red Blood Count 3.01 M/mm3 (3.65-5.03); Red Cell Distribution Width 13.5 % (13.2-15.2)
[2021-01-06] MEDS ORDERED: fentaNYL 100 MCG/2 ML INJ ONE ×2 (13:37→16:37)
[2021-01-06] MEDS ORDERED: propofoL 200 MG/20 ML VIAL IV ONE (13:37)
[2021-01-06] MEDS ORDERED: ROCURONIUM 50 MG/5 ML INJ IV ONE (13:37)
[2021-01-06] MEDS ORDERED: LIDOCAINE PF 100 MG/5 ML (CARDIAC SYRINGE) IV ONE (13:37)
[2021-01-06] MEDS ORDERED: HEPARIN 10,000 UNITS/10 ML VIAL ONE ×2 (13:41→14:20)
[2021-01-06] MEDS ORDERED: BUPIVACAINE/PF (0.5%) 5 MG/1 ML 30 ML VIAL INFILTRATI ONE ×2 (13:41→15:54)
[2021-01-06] MEDS ORDERED: SODIUM CHLORIDE 0.9% 250ML 250 ML ONE (13:41)
[2021-01-06] MEDS ORDERED: LIDOCAINE (1%) 10 MG/1 ML VIAL 20 ML MDV ONE (13:41)
[2021-01-06 13:44] LABS: Platelet Count 192 K/mm3 (140-440)
--- NOTE | 2021-01-06 13:54 | Short Stay Summary ---
Short Stay Documentation Date of service: 01/06/21 Narrative H&P: The patient is a 70-year old female with a history of end-stage renal disease who is on hemodialysis through a left arm AVG. She has a known central stenosis that has been treated with stenting. She developed a pseudoaneurysm of the cannulation zone of the graft that has thin skin overlying. I am concerned that this may ulcerate and bleed at some point so I offered her a revision with an interposition graft. She will also require a femoral permacath until the graft has healed for 2 weeks and is ready for use. She was given the risk, benefits, and alternative procedures and consented to the procedure. - History Past Medical History: anemia, arthritis, ESRD, hypertension, hyperlipidemia, pulmonary embolism Past Surgical History: Other (creation of left arm AVG, fistulagrams) - Allergies and Medications Current Medications: Allergies iodine Allergy (Verified 03/28/20 11:04) Hives lisinopril Allergy (Verified 03/28/20 11:04) Angioedema Sulfa (Sulfonamide Antibiotics) Allergy (Verified 03/28/20 11:04) Hives Home Medications Medication Instructions Recorded Confirmed Last Taken Type ALPRAZolam [Xanax TAB] 0.5 mg PO 3XW 11/10/15 01/06/21 01/05/21 History Omeprazole [PriLOSEC] 30 mg PO QDAY 11/10/15 01/06/21 01/05/21 History Cinacalcet [Sensipar] 30 mg PO QDAY tablet 11/13/15 01/06/21 01/05/21 Rx AtorvaSTATin [Lipitor] 40 mg PO QHS #30 tablet 09/13/19 01/06/21 01/05/21 Rx Metoprolol [Lopressor TAB] 25 mg PO BID #60 tablet 09/13/19 01/06/21 01/06/21 07:00 Rx Renvela 1 tab PO DAILY 12/29/20 12/29/20 01/05/21 History Vitamin D (Nf) 1 dose PO DAILY 12/29/20 12/29/20 01/05/21 History amLODIPine [Norvasc] 10 mg PO DAILY 01/06/21 01/06/21 01/06/21 07:00 History Active Medications Cefazolin Sodium (Cefazolin/Sterile Water 2 Gm/20 Ml Syringe) 2 gm IV PREOP NR Stop: 01/06/21 21:00 Sodium Chloride (Nacl 0.9% 1000 Ml) 1,000 mls @ 42 mls/hr IV DIRECT MANPREET Last Admin: 01/06/21 11:55 Dose: 42 mls/hr Documented by: Midazolam HCl (Midazolam 2 Mg/2 Ml Inj) 1 mg IV PREOP NR Stop: 01/06/21 16:00 Last Admin: 01/06/21 12:41 Dose: 1 mg Documented by: - Physical exam General appearance: no acute distress Lungs: Normal air movement Breasts: deferred Heart: Regular rate Extremities: abnormal (left arm AVG with with palpable thrill, pseudoaneurysm without bleeding) - Brief post op/procedure progress note Date of procedure: 01/06/21 Pre-op diagnosis: Complications of Dialysis Access Post-op diagnosis: same Procedure: 1. Revision of Left Arm Arteriovenous Access with Excision of Pseudoaneurysm and Repair with Interposition 7 mm Bovine Artegraft 2. Ultrasound-Guided Access Right Common Femoral Vein 3. Placement of 44 cm Palindrome Permacath 4. Radiologic Supervision with Interpretation Anesthesia: LIN Surgeon: MATEUS LEZAMA Estimated blood loss: 50-100ml Pathology: list (Left arm AV access pseudoaneurysm was sent to pathology) Condition: stable - Disposition Condition at discharge: Good Disposition: 01 HOME / SELF CARE / HOMELESS Short Stay Discharge Plan Activity: other (No heavy lifting with left arm for 2 weeks. Do not use left arm AV access until cleared by vascular surgery.) Wound: open to air, keep clean and dry, other (Okay to wash the left arm wound with soap and water but do not soak in water for 2 weeks.) Follow up with: MATEUS LEZAMA MD [Staff Physician] - 14 Days Prescriptions: HYDROcodone/APAP 5-325 [[place] 5/325] 1 each PO Q4HR PRN #40 tablet PRN Reason: Pain
[2021-01-06] MEDS ORDERED: rifAMPin 600 MG VIAL ONE (14:20)
[2021-01-06] MEDS ORDERED: BUPIVACAINE/PF (0.5%) 5 MG/1 ML 10 ML VIAL INFILTRATI ONE (14:20)
[2021-01-06] MEDS ORDERED: SODIUM CHLORIDE 0.9% 500 ML 500 ML ONE ×3 (14:21→15:44)
[2021-01-06] MEDS ORDERED: SODIUM CHLORIDE P/F VIAL 10 ML 10 ML ONE (14:21)
[2021-01-06] MEDS ORDERED: dexAMETHasone 20 MG/5 ML VIAL ONE (15:03)
[2021-01-06] MEDS ORDERED: ONDANSETRON 4 MG/2 ML INJ ONE ×2 (15:03→18:34)
[2021-01-06] MEDS ORDERED: HEPARIN 10,000 UNIT/1 ML VIAL ONE (15:21)
[2021-01-06] MEDS ORDERED: HEPARIN 5,000 UNIT/1 ML VIAL ONE (15:21)
[2021-01-06] MEDS ORDERED: HEPARIN 1,000 UNIT in SODIUM CHLORIDE 0.9% 250ML 250 ML IR ONE (15:54)
[2021-01-06] MEDS ORDERED: SODIUM CHLORIDE 0.9% IRR 1,000 ML BOTTLE IR ONE (15:54)
[2021-01-06] MEDS ORDERED: SODIUM CHLORIDE 0.9% IR ONE ×2 (15:55)
[2021-01-06] MEDS ORDERED: HEPARIN IR ONE ×2 (15:55)
[2021-01-06] MEDS ORDERED: rifAMPin 600 MG in SODIUM CHLORIDE 0.9% 50 ML IR ONE (15:55)
[2021-01-06] MEDS ORDERED: GLYCOPYRROLATE 0.4 MG/2 ML INJ ONE (17:30)
[2021-01-06] MEDS ORDERED: PHENYLEPHRINE/NS 1,000 MCG/10 ML SYRINGE (OR USE) IV ONE (17:30)
[2021-01-06] MEDS ORDERED: NEOSTIGMINE 10MG/10 ML INJ MDV ONE (17:30)
--- NOTE | 2021-01-06 18:30 | Operative Report ---
Operative Report Operative Report: Date of Procedure: 01/06/2021 Pre-operative Diagnosis: Complications of Dialysis Access Post-operative Diagnosis: Same Procedure(s): 1. Revision of Left Arm Arteriovenous Access with Excision of Pseudoaneurysm and Repair with Interposition 7 mm Bovine Artegraft 2. Ultrasound-Guided Access Right Common Femoral Vein 3. Placement of 44 cm Palindrome Permacath 4. Radiologic Supervision with Interpretation Surgeon: Ty Kim M.D. Densitometrist: None Anesthesia: General Endotracheal Anesthesia EBL: 75 mL Counts: Correct Complications: None Condition: Stable Findings: Left arm AV access Had a palpable thrill at the completion of the case. Specimen: Left arm AV access pseudoaneurysm was sent to pathology. Indication: The patient is a 70-year-old female with a history of end-stage renal disease who is on hemodialysis through a left arm AV graft. She has a history of central venous stenosis that has been treated with stents. She has developed a large pseudoaneurysm on the AV graft with thinning of the skin that is concerning for possible ulceration and hemorrhage. She is in need of revision of the graft to prevent hemorrhage. She has been given the risk, benefits, and alternative procedures and consented to the procedure. Description of Procedure: The patient was brought to the operating room and laid in supine position. After general endotracheal anesthesia was achieved her left arm was prepped and draped in normal sterile fashion. A longitudinal incision was created just medial to the normal part of the venous outflow of the graft and continued over the pseudoaneurysm and continued distally to just medial of the normal transition of the arterial inflow the graft. Sharp dissection was then used to carry the incision down to the arterial inflow graft and the graft was dissected circumferentially controlled with a vessel loop. I then used sharp dissection to dissect the venous outflow of the graft circumferentially and controlled with a vessel loop. I then used curved Mayos to dissect around the pseudoaneurysm circumferentially. Once I had the entire length of the diseased portion of the graft dissected circumferentially I used a Niharika-Wick tunneler to tunnel along the lateral aspect of the incision and then pull a 7 mm Bovine Artegraft through the tunnel. I infused with heparinized saline to ensure that it was not kinked or twisted. I then systemically heparinized the patient with 3000 units of heparin IV and then used an angled DeBakey clamp to clamp both the arterial inflow of the graft as well as the venous outflow of the graft and then transected the diseased portion of the graft and passed this off the specimen. I beveled the inflow the graft as well as the inflow of the new graft and created an end-to-end anastomosis using two 5-0 Prolene's in running fashion. I placed an angled DeBakey clamp just distal to the arterial anastomosis and released the clamp from the arterial inflow of the indwelling graft. There was adequate hemostasis at the anastomosis so I cut the graft to length and beveled the venous outflow end of the graft and created an end-to-end anastomosis between the new graft and the indwelling graft using two 5-0 Prolene's in running fashion. Prior to completing the anastomosis I flashed the venous outflow of the indwelling graft as well as the arterial inflow and reclamped both grafts. I flushed the graft with heparinized saline to remove any thrombus and then completed the anastomosis. I removed all clamps allowing flow in the graft which had a palpable thrill. I then achieved hemostasis within the wound with a combination of quick clot and cautery. Once hemostasis had been achieved I trimmed the excess skin that had been overlying the pseudoaneurysm and then anesthetized the wound using 0.5% Marcaine. I then closed the wound in 2 layers using 3-0 Vicryl running fashion the deep dermal layer and 4-0 Monocryl in running fashion the subcuticular layer and then dressed the wound with Dermabond. I then brought the sterile field and evaluated the patient is right femoral vein with ultrasound. This confirmed that the right femoral vein was patent. The right leg was then prepped and draped in normal sterile fashion. We made a small stab incision with an 11 blade I then used an 18-gauge access needle with ultrasound guidance to enter the right femoral vein. A 0.035 J-wire was advanced into the vein and the tract was serially dilated. I then advanced the peel-away SafeSheath into the vein by Seldinger technique. I advanced the 44 cm Palindrome Permacath into the peel-away SafeSheath and into position with the distal tip in the right atrium. Once this was in position I peeled away the SafeSheath. I then made a small stab incision with an 11 blade in the proximal thigh and then used a tunneler to tunnel from the stab incision to the entry site near the femoral access site. I clamped the catheter and then cut the permacath and connected it to the tunnel. I pulled the catheter through the tunnel after removing the clamp and then reclamped the distal catheter and cut the catheter position to and connected the hub. I removed the clamp and then aspirated both ports which easily aspirated. I then flushed both ports which easily flushed. I then primed both ports with 5000 units of heparin. I closed the groin incision with 4-0 Monocryl in interrupted fashion and then dressed with Dermabond. I secured the catheter in position with a 2-0 Ethilon and then dressed with a sterile dressing. The final fluoroscopy demonstrated the catheter was in adequate position with the distal tip in the right atrium. The patient tolerated both procedures well. All sponge, needle, and instrument counts were correct. The patient was transported to the recovery area in stable condition.
--- NOTE | 2021-01-06 18:32 | Fluoroscopy Report ---
Abdominal fluoroscopy INDICATION: Abdominal pain IMPRESSION: Right femoral PermCath placement terminates just below the right atrium. Fluoroscopy time: 23 seconds. Fluoroscopic images: 4. Signer Name: Georges Barrientos MD Signed: 01/06/2021 6:28 PM Workstation Name: [id number]
[2021-01-06] MEDS ORDERED: HYDROmorphone 1 MG/1 ML INJ ONE (18:34)
[2021-01-06] MEDS ORDERED: HYDROmorphone 1 MG/1 ML INJ IV PRN (19:00)
[2021-01-06] MEDS ORDERED: ONDANSETRON 4 MG/2 ML INJ IV PRN (19:00)
[2021-01-06] MEDS ORDERED: HYDROcodone/ACETAMINOPHEN 5-325 MG TAB ONE (19:38)
[2021-01-06] MEDS ORDERED: HYDROcodone/ACETAMINOPHEN 5-325 MG TAB PO ONE (19:47)
--- NOTE | 2021-01-06 20:17 | Post Anesthesia Evaluation ---
- Post Anesthesia Evaluation Patient Participated: Yes Airway Patent: Yes Stable Respiratory Function: Yes Nausea/Vomiting: No Temp > 96.8F: Yes Pain Manageable: Yes Adequeate Hydration: Yes Anesthesia Complications: No Block Receding Appropriately: Not Applicable Patient on Ventilator: No
[2021-01-06 20:34] VITALS: BP 157/65
== END 2021-01-06 10:21 | disposition home or self-care (01) ==
LOC: OR 10:20
PROVIDERS: ATTEND Surgery Vascular Surgery
DX: I12.0 Hypertensive chronic kidney disease with stage 5 chronic kidney disease or end stage renal disease (principal); N18.6 End stage renal disease; I25.10 Atherosclerotic heart disease of native coronary artery without angina pectoris; I45.10 Unspecified right bundle-branch block; E78.00 Pure hypercholesterolemia, unspecified; G47.30 Sleep apnea, unspecified; K21.9 Gastro-esophageal reflux disease without esophagitis; E03.9 Hypothyroidism, unspecified; M19.90 Unspecified osteoarthritis, unspecified site; F41.9 Anxiety disorder, unspecified; F32.9 Major depressive disorder, single episode, unspecified; Z87.891 Personal history of nicotine dependence; Z79.899 Other long term (current) drug therapy; Z98.890 Other specified postprocedural states; Z91.041 Radiographic dye allergy status; Z88.8 Allergy status to other drugs, medicaments and biological substances
CPT/HCPCS: 36415; 36832; 77001; 80048; 84132; 85027; 88304; C1750; C1768; J0690; J1100; J1170; J1644; J2001; J2250; J2370; J2405; J2704; J2710; J3010; J3490; J7030; J7040; J7050

== ENCOUNTER 2021-02-13 12:51 | Inpatient (IN) | payer MEDICARE ==
--- NOTE | 2021-02-13 13:21 | Event Note ---
ED Screening Note Date of service: 02/13/21 Time: 13:20 ED Screening Note: Patient presents for weakness x3 weeks and possible infection to her dialysis access in the left arm States was sent here from [facility] to assess for possible infection Last dialysis was Tuesday Denies fever This initial assessment/diagnostic orders/clinical plan/treatment(s) is/are subject to change based on patients health status, clinical progression and re- assessment by fellow clinical providers in the ED. Further treatment and workup at subsequent clinical providers discretion. Patient/guardian urged not to elope from the ED as their condition may be serious if not clinically assessed and managed. Initial orders include: Labs EKG
[2021-02-13 16:03] LABS: Calcium 8.9 mg/dL (8.4-10.2)
[2021-02-13 17:32] LABS: Basophils # (Auto) 0.1 K/mm3 (0.0-0.1); Eosinophils % (Auto) 0.5 % (0.0-4.3); Hematocrit 24.6 % (30.3-42.9); Hemoglobin 8.4 gm/dl (10.1-14.3); Lymphocytes # (Auto) 1.4 K/mm3 (1.2-5.4); Lymphocytes % (Auto) 14.7 % (13.4-35.0); Mean Corpuscular HGB Conc 34 % (30-34); Mean Corpuscular Volume 101 fl (79-97); Monocytes # (Auto) 0.8 K/mm3 (0.0-0.8); Monocytes % (Auto) 8.9 % (0.0-7.3); Platelet Count 185 K/mm3 (140-440); Red Blood Count 2.43 M/mm3 (3.65-5.03); Red Cell Distribution Width 14.4 % (13.2-15.2)
[2021-02-13] MEDS ORDERED: CLINDAMYCIN 600 MG/50 mL 600 MG/50 ML BAG IV ONE ×2 (17:54→20:15)
--- NOTE | 2021-02-13 18:05 | Emergency Department Report ---
ED General Adult HPI - General Chief complaint: Weakness Stated complaint: SOB/POSS INFECTED LFT ARM Time Seen by Provider: 02/13/21 13:09 Source: patient Mode of arrival: Ambulatory Limitations: No Limitations - History of Present Illness Initial comments: Patient is a 70-year-old F F[place]ian female with a past medical history of end- stage renal disease who is presenting with issue with her AV graft. Patient recently had a surgery to revise her left AV graft secondary to a pseudoaneurysm.on 01/06/[address] Kim. Please see note below. Patient's last dialysis was 4 days ago. The femoral line that she had been receiving her dialysis through came out and there was an attempt to use her AV graft today and the dialysis clinic stated that there was some purulent drainage at the wound before they accessed the graft. Stitches are still in place. The area surrounding the AV graft is swollen warm and tender. Patient denies any fevers chills nausea vomiting diarrhea. Patient has no access for dialysis at this time. Operative Report Operative Report: Date of Procedure: 01/06/2021 Pre-operative Diagnosis: Complications of Dialysis Access Post-operative Diagnosis: Same Procedure(s): 1. Revision of Left Arm Arteriovenous Access with Excision of Pseudoaneurysm and Repair with Interposition 7 mm Bovine Artegraft 2. Ultrasound-Guided Access Right Common Femoral Vein 3. Placement of 44 cm Palindrome Permacath 4. Radiologic Supervision with Interpretation Surgeon: Ty Kim M.D. - Related Data Home Medications Medication Instructions Recorded Confirmed Last Taken ALPRAZolam [Xanax TAB] 0.5 mg PO 3XW 11/10/15 01/06/21 01/05/21 Omeprazole [PriLOSEC] 30 mg PO QDAY 11/10/15 01/06/21 01/05/21 Renvela 1 tab PO DAILY 12/29/20 12/29/20 01/05/21 Vitamin D (Nf) 1 dose PO DAILY 12/29/20 12/29/20 01/05/21 amLODIPine 10 mg PO DAILY 01/06/21 01/06/21 01/06/21 07:00 Previous Rx's Medication Instructions Recorded Last Taken Type Cinacalcet [Sensipar] 30 mg PO QDAY tablet 11/13/15 01/05/21 Rx AtorvaSTATin [Lipitor] 40 mg PO QHS #30 tablet 09/13/19 01/05/21 Rx Metoprolol [Lopressor TAB] 25 mg PO BID #60 tablet 09/13/19 01/06/21 07:00 Rx HYDROcodone/APAP 5-325 [[place] 1 each PO Q4HR PRN #40 tablet 01/06/21 Unknown Rx 5/325] Allergies Allergy/AdvReac Type Severity Reaction Status Date / Time iodine Allergy Hives Verified 03/28/20 11:04 lisinopril Allergy Angioedema Verified 03/28/20 11:04 Sulfa (Sulfonamide Allergy Hives Verified 03/28/20 11:04 Antibiotics) ED Review of Systems ROS: Stated complaint: SOB/POSS INFECTED LFT ARM Other details as noted in HPI Comment: All other systems reviewed and negative ED Past Medical Hx - Past Medical History Previous Medical History?: Yes Hx Hypertension: Yes Hx Heart Attack/AMI: No Hx Congestive Heart Failure: No Hx Diabetes: No Hx GERD: Yes Hx Renal Disease: Yes (ESRD/dialysis M,W,F; last HD yesterday) Hx Sickle Cell Disease: No Hx Arthritis: Yes (hands) Hx Headaches / Migraines: Yes (MIGRAINES) Hx Psychiatric Treatment: Yes (depression) Hx Asthma: No Hx COPD: No Hx HIV: No Additional medical history: membreno's palsy-right side - Surgical History Past Surgical History?: Yes Hx Coronary Stent: Yes (1 ? PT SAID NO) Additional Surgical History: left A/V graft - Social History Smoking Status: Former Smoker - Medications Home Medications: Home Medications Medication Instructions Recorded Confirmed Last Taken Type ALPRAZolam [Xanax TAB] 0.5 mg PO 3XW 11/10/15 01/06/21 01/05/21 History Omeprazole [PriLOSEC] 30 mg PO QDAY 11/10/15 01/06/21 01/05/21 History Cinacalcet [Sensipar] 30 mg PO QDAY tablet 11/13/15 01/06/21 01/05/21 Rx AtorvaSTATin [Lipitor] 40 mg PO QHS #30 tablet 09/13/19 01/06/21 01/05/21 Rx Metoprolol [Lopressor TAB] 25 mg PO BID #60 tablet 09/13/19 01/06/21 01/06/21 07:00 Rx Renvela 1 tab PO DAILY 12/29/20 12/29/20 01/05/21 History Vitamin D (Nf) 1 dose PO DAILY 12/29/20 12/29/20 01/05/21 History HYDROcodone/APAP 5-325 [[place] 1 each PO Q4HR PRN #40 tablet 01/06/21 Unknown Rx 5/325] amLODIPine 10 mg PO DAILY 01/06/21 01/06/21 01/06/21 07:00 History ED Physical Exam - General Limitations: No Limitations General appearance: alert, in no apparent distress - Head Head exam: Present: atraumatic, normocephalic - Eye Eye exam: Present: normal appearance - ENT ENT exam: Present: mucous membranes moist - Neck Neck exam: Present: normal inspection - Respiratory Respiratory exam: Present: normal lung sounds bilaterally. Absent: respiratory distress, wheezes, rales, rhonchi - Cardiovascular Cardiovascular Exam: Present: regular rate, normal rhythm, normal heart sounds. Absent: systolic murmur, diastolic murmur, rubs, gallop - GI/Abdominal GI/Abdominal exam: Present: soft, normal bowel sounds. Absent: distended, tenderness, guarding, rebound - Extremities Exam Extremities exam: Present: normal inspection, other (Patient is left upper arm has a wound with some drainage covered in the gauze. Does not appear to be a foul odor or any obvious purulence on the gauze. The surrounding area around the wound is warm erythematous and tender consistent with cellulitis.) - Back Exam Back exam: Present: normal inspection - Neurological Exam Neurological exam: Present: alert, oriented X3 - Psychiatric Psychiatric exam: Present: normal affect, normal mood - Skin Skin exam: Present: warm, dry, intact, normal color. Absent: rash ED Course Vital Signs 02/13/21 02/13/21 12:59 15:40 Temperature 98.2 F Pulse Rate 77 70 Respiratory 16 Rate Blood Pressure 187/69 [Left] O2 Sat by Pulse 99 Oximetry ED Medical Decision Making - Lab Data Result diagrams: 02/13/21 15:15 02/13/21 15:15 Lab Results 02/13/21 02/13/21 Range/Units 15:15 15:15 WBC 9.5 (4.5-11.0) K/mm3 RBC 2.43 L (3.65-5.03) M/mm3 Hgb 8.4 L (10.1-14.3) gm/dl Hct 24.6 L (30.3-42.9) % MCV 101 H (79-97) fl MCH 35 H (28-32) pg MCHC 34 (30-34) % RDW 14.4 (13.2-15.2) % Plt Count 185 (140-440) K/mm3 Lymph % (Auto) 14.7 (13.4-35.0) % [place] % (Auto) 8.9 H (0.0-7.3) % Eos % (Auto) 0.5 (0.0-4.3) % Baso % (Auto) Ops Manager Lymph # (Auto) 1.4 (1.2-5.4) K/mm3 [place] # (Auto) 0.8 (0.0-0.8) K/mm3 Eos # (Auto) 0.0 (0.0-0.4) K/mm3 Baso # (Auto) 0.1 (0.0-0.1) K/mm3 Seg Neutrophils % 75.3 H (40.0-70.0) % Seg Neutrophils # 7.2 (1.8-7.7) K/mm3 Sodium 147 H (137-145) mmol/L Potassium 4.7 (3.6-5.0) mmol/L Chloride 108.1 H (98-107) mmol/L Carbon Dioxide 21 L (22-30) mmol/L Anion Gap 23 mmol/L BUN 61 H (7-17) mg/dL Creatinine 12.6 H (0.6-1.2) mg/dL Estimated GFR 4 ml/min BUN/Creatinine Ratio 5 % Glucose 81 (65-100) mg/dL Calcium 8.9 (8.4-10.2) mg/dL - Medical Decision Making Patient is a 70-year-old F F[place]ian female who is presenting with need for access for dialysis. It appears as though her AV graft which had a revision several weeks ago is infected. Patient is afebrile and white count is within normal limits. Patient is not meeting sepsis criteria however with does appear to be significant infection. Patient started on IV antibiotics. Patient will be admitted. Vascular surgeons been consulted. Critical care attestation.: If time is entered above; I have spent that time in minutes in the direct care of this critically ill patient, excluding procedure time. ED Disposition Clinical Impression: ESRD needing dialysis Dialysis AV fistula infection Qualifiers: Encounter type: initial encounter Qualified Code(s): T82.7XXA - Infection and inflammatory reaction due to other cardiac and vascular devices, implants and grafts, initial encounter Cellulitis Qualifiers: Site of cellulitis: extremity Site of cellulitis of extremity: upper extremity Disposition: 09 ADMITTED INPATIENT Is pt being admited?: No Does the pt Need Aspirin: No Condition: Stable Time of Disposition: 18:10
--- NOTE | 2021-02-13 18:24 | History and Physical Report ---
History of Present Illness Chief complaint: I need dialysis History of present illness: 70 YO Female with ESRD on HD(M,W,F) patient last dialyzed 4 days ago, CAD S/P Stent Placement, HTN, GERD, HLD, Obesity presents to ED for evaluation. Patient states that she was in her usual state of health and presented to her routine outpatient dialysis clinic today for dialysis. Patient dialysis access was found to have purulent discharge as well as being nonfunctional and unable to access. Patient transported to [facility] via private vehicle for further care and evaluation of the aforementioned symptoms. The patient was seen and evaluated in the emergency department. All lab and imaging studies reviewed. Patient found to have left upper extremity cellulitis in the area of the AV graft, end- stage renal disease in need of dialysis. Patient admitted to medical floor and initiated on IV antibiotic therapy due to increased risk of worsening symptoms. Nephrology team consulted in ED. Vascular surgery service consulted in ED. Patient denies fever, chills, chest pain, palpitation, productive cough, skin rash, recent contact, or known exposure to COVID-19. Prior admission on 09/10/2019 reviewed. All medication listed at time of admission has been reconciled. Advanced care planning conducted in ED. Past History Past Medical History: CAD, ESRD, GERD, hypertension, hyperlipidemia Past Surgical History: Other (Dialysis access, cardiac stent placement) Social history: . denies: smoking, alcohol abuse Family history: diabetes, hypertension Medications and Allergies Allergies Allergy/AdvReac Type Severity Reaction Status Date / Time iodine Allergy Hives Verified 03/28/20 11:04 lisinopril Allergy Angioedema Verified 03/28/20 11:04 Sulfa (Sulfonamide Allergy Hives Verified 03/28/20 11:04 Antibiotics) Home Medications Medication Instructions Recorded Confirmed Last Taken Type ALPRAZolam [Xanax TAB] 0.5 mg PO 3XW 11/10/15 01/06/21 01/05/21 History Omeprazole [PriLOSEC] 30 mg PO QDAY 11/10/15 01/06/21 01/05/21 History Cinacalcet [Sensipar] 30 mg PO QDAY tablet 11/13/15 01/06/21 01/05/21 Rx AtorvaSTATin [Lipitor] 40 mg PO QHS #30 tablet 09/13/19 01/06/21 01/05/21 Rx Metoprolol [Lopressor TAB] 25 mg PO BID #60 tablet 09/13/19 01/06/21 01/06/21 07:00 Rx Renvela 1 tab PO DAILY 12/29/20 12/29/20 01/05/21 History Vitamin D (Nf) 1 dose PO DAILY 12/29/20 12/29/20 01/05/21 History HYDROcodone/APAP 5-325 [[place] 1 each PO Q4HR PRN #40 tablet 01/06/21 Unknown Rx 5/325] amLODIPine 10 mg PO DAILY 01/06/21 01/06/21 01/06/21 07:00 History Review of Systems Constitutional: no weight loss, no weight gain, no chills, no sweats Ears, nose, mouth and throat: no ear pain, no tinnitis, no decreased hearing, no nasal congestion, no nasal discharge Breasts: no change in shape, no swelling, no mass Cardiovascular: no chest pain, no orthopnea, no palpitations, no edema, no lightheadedness Respiratory: no cough, no excessive sputum, no shortness of breath Gastrointestinal: no abdominal pain, no nausea, no vomiting, no constipation, no coffee ground emesis Genitourinary Female: no pelvic pain, no flank pain Musculoskeletal: no neck stiffness, no neck pain, no shooting arm pain, no low back pain, no shooting leg pain Integumentary: redness, other (Left upper extremity) Neurological: no head injury, no paralysis, no parathesias, no numbness, no tingling, no seizures Psychiatric: no anxiety, no change in sleep habits, no insomnia, no suicidal ideation Endocrine: no cold intolerance, no excessive thirst, no polydipsia, no polyuria Hematologic/Lymphatic: no easy bruising, no easy bleeding Allergic/Immunologic: no urticaria, no allergic rhinitis, no wheezing Exam - Constitutional Vitals: Temp Pulse Resp BP Pulse Ox 98.2 F 70 16 187/69 99 02/13/21 12:59 02/13/21 15:40 02/13/21 12:59 02/13/21 12:59 02/13/21 12:59 General appearance: Present: mild distress, obese - EENT Eyes: Present: PERRL ENT: hearing intact, clear oral mucosa - Neck Neck: Present: supple, normal ROM - Respiratory Respiratory effort: normal Respiratory: bilateral: CTA - Cardiovascular Heart Sounds: Present: S1 & S2. Absent: rub, click - Extremities Extremities: pulses symmetrical, No edema Extremity abnormal: erythema (Left upper extremity) Peripheral Pulses: within normal limits - Abdominal General gastrointestinal: Present: soft, non-tender, non-distended, normal bowel sounds Female genitourinary: Present: normal - Integumentary Integumentary: Present: clear, warm, dry - Musculoskeletal Musculoskeletal: gait normal, strength equal bilaterally - Psychiatric Psychiatric: appropriate mood/affect, intact judgment & insight - Neurologic Neurologic: CNII-XII intact, moves all extremities Results - Labs CBC & Chem 7: 02/13/21 15:15 10 15:15 Labs: Abnormal lab results 02/13/21 02/13/21 Range/Units 15:15 15:15 RBC 2.43 L (3.65-5.03) M/mm3 Hgb 8.4 L (10.1-14.3) gm/dl Hct 24.6 L (30.3-42.9) % MCV 101 H (79-97) fl MCH 35 H (28-32) pg [place] % (Auto) 8.9 H (0.0-7.3) % Seg Neutrophils % 75.3 H (40.0-70.0) % Sodium 147 H (137-145) mmol/L Chloride 108.1 H (98-107) mmol/L Carbon Dioxide 21 L (22-30) mmol/L BUN 61 H (7-17) mg/dL Creatinine 12.6 H (0.6-1.2) mg/dL Assessment and Plan - Patient Problems (1) Dialysis AV fistula infection Status: Acute Qualifiers: Encounter type: initial encounter Qualified Code(s): T82.7XXA - Infection and inflammatory reaction due to other cardiac and vascular devices, implants and grafts, initial encounter Plan to address problem: CBC, CMP, IV antibiotic therapy,'s pain control, vascular surgery service consulted. Surgical intervention as per vascular surgery team. (2) ESRD needing dialysis Status: Acute Plan to address problem: Nephrology consulted in ED. (3) Cellulitis Status: Acute Qualifiers: Site of cellulitis: extremity Site of cellulitis of extremity: upper extremity Plan to address problem: CBC, CMP, IV antibiotic therapy, wound evaluation. (4) DVT prophylaxis Status: Acute Plan to address problem: SCD to bilateral lower extremities while in bed, patient is ambulatory (5) Advance care planning Status: Acute Plan to address problem: Disease education conducted, care plan discussed, diagnoses discussed, care plan discussed, patient is full code, patient knowledges understanding and agreement with care plan, +30 minutes.
[2021-02-14] MEDS ORDERED: SENNOSIDES 8.6 MG TAB PO PRN (00:22)
[2021-02-14] MEDS ORDERED: MAGNESIUM HYDROXIDE (MOM) ORAL LIQD UDC PO PRN (00:22)
[2021-02-14] MEDS ORDERED: oxyCODONE /ACETAMINOPHEN 5-325MG TAB PO PRN (00:22)
[2021-02-14] MEDS ORDERED: ALUM-MAG HYDROXIDE-SIMETHICONE 200-200-20MG/5ML ORAL LIQD 30 ML PO PRN (00:22)
[2021-02-14] MEDS ORDERED: METOCLOPRAMIDE 10 MG/2 ML INJ IV PRN (00:22)
[2021-02-14] MEDS ORDERED: ONDANSETRON 4 MG/2 ML INJ IV PRN (00:22)
[2021-02-14] MEDS ORDERED: ACETAMINOPHEN 325 MG TAB PO PRN (00:22)
[2021-02-14] MEDS ORDERED: MORPHINE 4 MG/1 ML INJ IV PRN (00:22)
[2021-02-14] MEDS: CLINDAMYCIN 600 MG/50 mL 600 MG/50 ML BAG IV SCH ×3 (04:59→21:55)
[2021-02-14] MEDS: SEVELAMER CARBONATE 800 MG TAB PO SCH ×4 (08:00→17:00)
--- NOTE | 2021-02-14 08:08 | Progress Note ---
Assessment and Plan Assessment and plan: 70-year-old female history of ESRD on HD, CAD, hypertension and obesity who presented after having discharge from her AV fistula at outpatient dialysis. Currently being treated for left upper extremity cellulitis. Vascular surgery has been consulted for intervention on AV fistula. #ESRD on HD -MWF schedule, last dialyzed Sunday 02/11 -Nephrology following, assistance appreciated -Plan for HD after PermCath insertion #AV fistula complication -Management per Vascular surgery -Plan for fistulogram and permacath placement tomorrow #Cellulitis -Continue clindamycin for now #Hypertension -Continue home blood pressure meds #Coronary artery disease -Continue statin and beta-guillermo Disposition Plan: Home Total Time Spent with Patient (Minutes): 20 minutes History Interval history: No acute events overnight. No complaints at this time. Hospitalist Physical - Physical exam Narrative exam: GENERAL: Well-developed well-nourished. Sitting on the side of the bed in no acute distress. HEENT: Normocephalic. Atraumatic. NECK: Supple. CHEST/LUNGS: CTAB on room air HEART/CARDIOVASCULAR: RRR. No murmur, rubs or gallops appreciated. ABDOMEN: +BS. NT/ND. NEURO: No focal motor deficit. Follows all commands and is ambulatory. EXTREMITIES: Left AV fistula dressed with drainage. PSYCH: Cooperative. - Constitutional Vitals: Temp Pulse Resp BP Pulse Ox 98.5 F 68 25 H 168/70 94 02/13/21 19:40 02/14/21 06:00 02/14/21 06:00 02/14/21 07:30 02/14/21 07:30 General appearance: Present: mild distress, obese Results - Labs CBC & Chem 7: 02/15/21 03:43 02/15/21 03:43 Labs: Laboratory Last Values WBC 9.5 K/mm3 (4.5-11.0) 02/13/21 15:15 RBC 2.43 M/mm3 (3.65-5.03) L 02/13/21 15:15 Hgb 8.4 gm/dl (10.1-14.3) L 02/13/21 15:15 Hct 24.6 % (30.3-42.9) L 02/13/21 15:15 MCV 101 fl (79-97) H 02/13/21 15:15 MCH 35 pg (28-32) H 02/13/21 15:15 MCHC 34 % (30-34) 02/13/21 15:15 RDW 14.4 % (13.2-15.2) 02/13/21 15:15 Plt Count 185 K/mm3 (140-440) 02/13/21 15:15 Lymph % (Auto) 14.7 % (13.4-35.0) 02/13/21 15:15 [place] % (Auto) 8.9 % (0.0-7.3) H 02/13/21 15:15 Eos % (Auto) 0.5 % (0.0-4.3) 02/13/21 15:15 Baso % (Auto) Professional Development Instructor 02/13/21 15:15 Lymph # (Auto) 1.4 K/mm3 (1.2-5.4) 02/13/21 15:15 [place] # (Auto) 0.8 K/mm3 (0.0-0.8) 02/13/21 15:15 Eos # (Auto) 0.0 K/mm3 (0.0-0.4) 02/13/21 15:15 Baso # (Auto) 0.1 K/mm3 (0.0-0.1) 02/13/21 15:15 Seg Neutrophils % 75.3 % (40.0-70.0) H 02/13/21 15:15 Seg Neutrophils # 7.2 K/mm3 (1.8-7.7) 02/13/21 15:15 Sodium 147 mmol/L (137-145) H 02/13/21 15:15 Potassium 4.7 mmol/L (3.6-5.0) 02/13/21 15:15 Chloride 108.1 mmol/L (98-107) H 02/13/21 15:15 Carbon Dioxide 21 mmol/L (22-30) L 02/13/21 15:15 Anion Gap 23 mmol/L 02/13/21 15:15 BUN 61 mg/dL (7-17) H 02/13/21 15:15 Creatinine 12.6 mg/dL (0.6-1.2) H 02/13/21 15:15 Estimated GFR 4 ml/min 02/13/21 15:15 BUN/Creatinine Ratio 5 % 02/13/21 15:15 Glucose 81 mg/dL (65-100) 02/13/21 15:15 Calcium 8.9 mg/dL (8.4-10.2) 02/13/21 15:15 Microbiology: Microbiology 02/13/21 15:52 Peripheral/Venous Blood Culture - Preliminary Culture in Progress 02/13/21 15:52 Peripheral/Venous Blood Culture - Preliminary Culture in Progress Active Medications - Current Medications Current Medications: Generic Name Dose Route Start Last Admin Trade Name Freq PRN Reason Stop Dose Admin Acetaminophen 650 mg 02/14/21 00:22 Acetaminophen 325 Mg Tab PO Q4H PRN Pain MILD(1-3)/Fever >100.5/IZAGUIRRE Al Hydrox/Mg Hydrox/Simethicone 30 ml 02/14/21 00:22 Alum-Mag Hydroxide-Simethicone [id number]/5ml Oral Liqd 30 Ml PO Q4H PRN Indigestion Alprazolam 0.5 mg 02/20/21 08:00 Alprazolam 0.5 Mg Tab PO Fr MANPREET Alprazolam 0.5 mg 02/18/21 08:00 Alprazolam 0.5 Mg Tab PO We MANPREET Alprazolam 0.5 mg 02/16/21 08:00 Alprazolam 0.5 Mg Tab PO Mo MANPREET Amlodipine Besylate 10 mg 02/14/21 10:00 Amlodipine 10 Mg Tab PO DAILY MANPREET Atorvastatin Calcium 40 mg 02/14/21 22:00 Atorvastatin 40 Mg Tab PO QHS MANPREET Cinacalcet 30 mg 02/14/21 10:00 Cinacalcet 30 Mg Tab PO QDAY MANRPEET Famotidine 20 mg 02/14/21 10:00 Famotidine 20 Mg/2 Ml Inj IV QAM [facility] Heparin Sodium (Porcine) 5,000 unit 02/14/21 10:00 Heparin 5,000 Unit/1 Ml Vial SUB-Q Q12HR MANPREET Clindamycin HCl 600 mg in 50 mls @ 100 mls/hr 02/14/21 04:00 02/14/21 04:59 Cleocin 600 Mg/50 Ml IV 100 mls/hr Q8H MANPREET Administration Protocol Magnesium Hydroxide 30 ml 02/14/21 00:22 Magnesium Hydroxide (Mom) Oral Liqd Udc PO Q4H PRN Constipation Metoclopramide HCl 5 mg 02/14/21 00:22 Metoclopramide 10 Mg/2 Ml Inj IV Q6H PRN Nausea And Vomiting Metoprolol Tartrate 25 mg 02/14/21 08:00 Metoprolol Tartrate 25 Mg Tab PO BID@0800,1700 [facility] Miscellaneous Medication 1 dose 02/14/21 10:00 Vitamin D (Nf) PO DAILY [facility] Morphine Sulfate 2 mg 02/14/21 00:22 Morphine 2 Mg/1 Ml Inj IV Q4H PRN Pain, Moderate (4-6) Morphine Sulfate 4 mg 02/14/21 00:22 Morphine 4 Mg/1 Ml Inj IV Q4H PRN Pain , Severe (7-10) Ondansetron HCl 4 mg 02/14/21 00:22 Ondansetron 4 Mg/2 Ml Inj IV Q8H PRN Nausea And Vomiting Oxycodone/Acetaminophen 1 tab 02/14/21 00:22 Oxycodone /Acetaminophen 5-325mg Tab PO Q6H PRN Pain, Moderate (4-6) Senna 8.6 mg 02/14/21 00:22 Sennosides 8.6 Mg Tab PO Q12HR PRN Constipation Sevelamer Carbonate 800 mg 02/14/21 08:00 Sevelamer Carbonate 800 Mg Tab PO TIDWM [facility] Sodium Chloride 10 ml 02/14/21 10:00 Sodium Chloride 0.9% 10 Ml Flush Syringe IV BID [facility]
[2021-02-14] MEDS ORDERED: VITAMIN D PO SCH (10:00)
[2021-02-14 10:18] LABS: Hematocrit 23.9 % (30.3-42.9); Hemoglobin 8.2 gm/dl (10.1-14.3); Mean Corpuscular HGB Conc 35 % (30-34); Mean Corpuscular Volume 101 fl (79-97); Platelet Count 190 K/mm3 (140-440); Red Blood Count 2.37 M/mm3 (3.65-5.03); Red Cell Distribution Width 14.5 % (13.2-15.2)
[2021-02-14 10:33] LABS: Calcium 9.1 mg/dL (8.4-10.2)
[2021-02-14] MEDS: HEPARIN 5,000 UNIT/1 ML VIAL SUB-Q SCH ×2 (10:33→21:54)
[2021-02-14] MEDS: FAMOTIDINE 20 MG/2 ML INJ IV SCH (10:33)
[2021-02-14] MEDS ORDERED: EPOETIN ALFA-EPBX 20,000 UNIT/1 ML VIAL IV PRN (11:25)
[2021-02-14] MEDS ORDERED: SODIUM CHLORIDE 0.9% 100 ML IV PRN (11:25)
--- NOTE | 2021-02-14 11:25 | Consultation ---
History of Present Illness - Reason for Consult Consult date: 02/14/21 end stage renal disease Requesting physician: KAREN DIAS - History of Present Illness 70 YO Female with ESRD on HD(M,W,F) patient last dialyzed 5 days ago, CAD S/P Stent Placement, HTN, GERD, HLD, Obesity presents to ED for evaluation. Patient states that she was in her usual state of health and presented to her routine outpatient dialysis clinic today for dialysis. Patient dialysis access was found to have purulent discharge as well as being nonfunctional and unable to access. Patient transported to [facility] via private vehicle for further care and evaluation of the aforementioned symptoms. The patient was seen and evaluated in the emergency department. All lab and imaging studies reviewed. Patient found to have left upper extremity cellulitis in the area of the AV graft, end- stage renal disease in need of dialysis. Patient admitted to medical floor and initiated on IV antibiotic therapy due to increased risk of worsening symptoms. Nephrology team consulted in ED. Vascular surgery service consulted in ED. Patient denies fever, chills, chest pain, palpitation, productive cough, skin rash, recent contact, or known exposure to COVID-19. Prior admission on 09/10/2019 reviewed. All medication listed at time of admission has been reconciled. Advanced care planning conducted in ED. Patient states that she had a femoral PermCath in place which fell out on Tuesday. Her AV access could not be used on Tuesday. She was noted to have drainage from her AV access site yesterday and was sent over to the emergency room. She undergoes dialysis at [facility] under our care on MWF schedule Past History Past Medical History: CAD, ESRD, GERD, hypertension, hyperlipidemia Past Surgical History: Other (Dialysis access, cardiac stent placement) Social history: . denies: smoking, alcohol abuse Family history: diabetes, hypertension Medications and Allergies Allergies Allergy/AdvReac Type Severity Reaction Status Date / Time iodine Allergy Hives Verified 03/28/20 11:04 lisinopril Allergy Angioedema Verified 03/28/20 11:04 Sulfa (Sulfonamide Allergy Hives Verified 03/28/20 11:04 Antibiotics) Home Medications Medication Instructions Recorded Confirmed Last Taken Type ALPRAZolam [Xanax TAB] 0.5 mg PO 3XW 11/10/15 02/14/21 01/05/21 History Omeprazole [PriLOSEC] 30 mg PO QDAY 11/10/15 02/14/21 01/05/21 History Cinacalcet [Sensipar] 30 mg PO QDAY tablet 11/13/15 02/14/21 01/05/21 Rx Metoprolol [Lopressor TAB] 25 mg PO BID #60 tablet 09/13/19 02/14/21 01/06/21 07:00 Rx amLODIPine 10 mg PO DAILY 01/06/21 02/14/21 01/06/21 07:00 History Escitalopram [Lexapro] 10 mg PO DAILY 02/14/21 02/14/21 Unknown History Active Meds: Active Medications Acetaminophen (Acetaminophen 325 Mg Tab) 650 mg PO Q4H PRN PRN Reason: Pain MILD(1-3)/Fever >100.5/IZAGUIRRE Al Hydrox/Mg Hydrox/Simethicone (Alum-Mag Hydroxide-Simethicone [phone]/5ml Oral Liqd 30 Ml) 30 ml PO Q4H PRN PRN Reason: Indigestion Alprazolam (Alprazolam 0.5 Mg Tab) 0.5 mg PO Fr MANPREET Alprazolam (Alprazolam 0.5 Mg Tab) 0.5 mg PO We MANPREET Alprazolam (Alprazolam 0.5 Mg Tab) 0.5 mg PO Mo MANPREET Amlodipine Besylate (Amlodipine 10 Mg Tab) 10 mg PO DAILY MANPREET Atorvastatin Calcium (Atorvastatin 40 Mg Tab) 40 mg PO QHS MANPREET Cinacalcet (Cinacalcet 30 Mg Tab) 30 mg PO QDAY MANPREET Famotidine (Famotidine 20 Mg/2 Ml Inj) 20 mg IV QAM MANPREET Last Admin: 02/14/21 10:33 Dose: 20 mg Documented by: Heparin Sodium (Porcine) (Heparin 5,000 Unit/1 Ml Vial) 5,000 unit SUB-Q Q12HR MANPREET Last Admin: 02/14/21 10:33 Dose: 5,000 unit Documented by: Clindamycin HCl (Cleocin 600 Mg/50 Ml) 600 mg in 50 mls @ 100 mls/hr IV Q8H MANPREET; Protocol Last Admin: 02/14/21 04:59 Dose: 100 mls/hr Documented by: Magnesium Hydroxide (Magnesium Hydroxide (Mom) Oral Liqd Udc) 30 ml PO Q4H PRN PRN Reason: Constipation Metoclopramide HCl (Metoclopramide 10 Mg/2 Ml Inj) 5 mg IV Q6H PRN PRN Reason: Nausea And Vomiting Metoprolol Tartrate (Metoprolol Tartrate 25 Mg Tab) 25 mg PO BID@0800,1700 [facility] Miscellaneous Medication (Vitamin D (Nf)) 1 dose PO DAILY [facility] Morphine Sulfate (Morphine 2 Mg/1 Ml Inj) 2 mg IV Q4H PRN PRN Reason: Pain, Moderate (4-6) Morphine Sulfate (Morphine 4 Mg/1 Ml Inj) 4 mg IV Q4H PRN PRN Reason: Pain , Severe (7-10) Ondansetron HCl (Ondansetron 4 Mg/2 Ml Inj) 4 mg IV Q8H PRN PRN Reason: Nausea And Vomiting Oxycodone/Acetaminophen (Oxycodone /Acetaminophen 5-325mg Tab) 1 tab PO Q6H PRN PRN Reason: Pain, Moderate (4-6) Senna (Sennosides 8.6 Mg Tab) 8.6 mg PO Q12HR PRN PRN Reason: Constipation Sevelamer Carbonate (Sevelamer Carbonate 800 Mg Tab) 800 mg PO TIDWM [facility] Sodium Chloride (Sodium Chloride 0.9% 10 Ml Flush Syringe) 10 ml IV BID [facility] Review of Systems All systems: negative (Negative except as noted above) Exam - Vital Signs Vital signs: Vital Signs Temp Pulse Resp BP Pulse Ox 98.2 F 77 16 187/69 99 02/13/21 12:59 02/13/21 12:59 02/13/21 12:59 02/13/21 12:59 02/13/21 12:59 - General Appearance General appearance: well-developed, well-nourished, appears stated age EENT: PERRL, mucous membranes moist Neck: Present: neck supple, trachea midline. Absent: JVD/HJR, Masses Respiratory: Clear to Ascultation Heart: regular, normal heart rate Gastrointestinal: Present: normal, normoactive bowel sounds Integumentary: no rash, other (No edema. AV fistula left upper arm. Covered with dressing. Dressing noted to be saturated with some brownish material) Results - Lab Results 02/14/21 09:36 02/14/21 09:36 Most recent lab results Calcium 9.1 mg/dL (8.4-10.2) 02/14/21 09:36 Assessment and Plan Impression * End-stage renal disease on maintenance hemodialysis * Drainage from AV fistula site * Hypertension * Anemia secondary to ESRD * Hyperparathyroidism Recommendations * Vascular surgery has been consulted for evaluation for AV fistula * Shall plan to dialyze her today after vascular surgery evaluation. Discussed with Dr. Kim. Patient had surgery for aneurysm recently. She was seen by Dr. Kim earlier this week and apparently the drainage is serosanguineous. Patient had a femoral PermCath which fell out on Tuesday. Her last dialysis treatment was on Tuesday * Epogen with dialysis * Continue Sensipar * Binders with meals * Adjust diet and meds for ESRD state * No IV, BP or venipuncture in access arm * Thank you very much for the consultation. Shall follow along with you
[2021-02-14] MEDS: CINACALCET 30 MG TAB PO SCH (11:46)
[2021-02-14] MEDS: amLODIPine 10 MG TAB PO SCH (11:46)
[2021-02-14] MEDS: METOPROLOL TARTRATE 25 MG TAB PO SCH ×2 (11:47→16:37)
--- NOTE | 2021-02-14 16:46 | Consultation ---
History of Present Illness - Reason for Consult Consult date: 02/14/21 Evaluate Left Arm AV Access Requesting physician: SHAYLEE NUNEZ - History of Present Illness The patient is a 70 year old female with a history of end-stage renal disease who recently underwent a revision of her left arm arteriovenous access secondary to pseudoaneurysm formation. She had a right femoral permacath that has been replaced once since its initial placement, secondary to dislodgement. She was recently evaluated in the office, by myself, for partial wound dehiscence with serous drainage. At that time I evaluated the incision and determined that the access was not infected as the incision involved the previous area of the pseudoaneurysm however the graft was tunnelled lateral to the incision. I cleaned the area with Betadine and reapproximated the incision to prevent fu rther drainage. She was sent to her dialysis center where they refused to cannulate the access stating that the incision may be infected and accessing the graft may make the infection spread throughout her body. She was sent to the emergency department for further evaluation. She has no new complaints at this time. Past History Past Medical History: CAD, dialysis, ESRD, GERD, hypertension, hyperlipidemia Past Surgical History: Other (Dialysis access, cardiac stent placement, revision of left arm AV Access) Social history: . denies: smoking, alcohol abuse Family history: diabetes, hypertension Medications and Allergies Allergies Allergy/AdvReac Type Severity Reaction Status Date / Time iodine Allergy Hives Verified 03/28/20 11:04 lisinopril Allergy Angioedema Verified 03/28/20 11:04 Sulfa (Sulfonamide Allergy Hives Verified 03/28/20 11:04 Antibiotics) Home Medications Medication Instructions Recorded Confirmed Last Taken Type ALPRAZolam [Xanax TAB] 0.5 mg PO 3XW 11/10/15 02/14/21 01/05/21 History Omeprazole [PriLOSEC] 30 mg PO QDAY 11/10/15 02/14/21 01/05/21 History Cinacalcet [Sensipar] 30 mg PO QDAY tablet 11/13/15 02/14/21 01/05/21 Rx Metoprolol [Lopressor TAB] 25 mg PO BID #60 tablet 09/13/19 02/14/21 01/06/21 07:00 Rx amLODIPine 10 mg PO DAILY 09/11/1902/14/21 01/06/21 07:00 History Escitalopram [Lexapro] 10 mg PO DAILY 02/14/21 02/14/21 Unknown History Active Meds: Active Medications Acetaminophen (Acetaminophen 325 Mg Tab) 650 mg PO Q4H PRN PRN Reason: Pain MILD(1-3)/Fever >100.5/IZAGUIRRE Al Hydrox/Mg Hydrox/Simethicone (Alum-Mag Hydroxide-Simethicone [phone]/5ml Oral Liqd 30 Ml) 30 ml PO Q4H PRN PRN Reason: Indigestion Alprazolam (Alprazolam 0.5 Mg Tab) 0.5 mg PO Fr MANPREET Alprazolam (Alprazolam 0.5 Mg Tab) 0.5 mg PO We MANPREET Alprazolam (Alprazolam 0.5 Mg Tab) 0.5 mg PO Mo MANPREET Amlodipine Besylate (Amlodipine 10 Mg Tab) 10 mg PO DAILY [facility] Last Admin: 02/14/21 11:46 Dose: 10 mg Documented by: Atorvastatin Calcium (Atorvastatin 40 Mg Tab) 40 mg PO QHS MANPREET Cinacalcet (Cinacalcet 30 Mg Tab) 30 mg PO QDAY [facility] Last Admin: 02/14/21 11:46 Dose: 30 mg Documented by: Famotidine (Famotidine 20 Mg/2 Ml Inj) 20 mg IV QAM [facility] Last Admin: 02/14/21 10:33 Dose: 20 mg Documented by: Heparin Sodium (Porcine) (Heparin 5,000 Unit/1 Ml Vial) 5,000 unit SUB-Q Q12HR [facility] Last Admin: 02/14/21 10:33 Dose: 5,000 unit Documented by: Clindamycin HCl (Cleocin 600 Mg/50 Ml) 600 mg in 50 mls @ 100 mls/hr IV Q8H MANPREET; Protocol Last Admin: 02/14/21 13:56 Dose: 100 mls/hr Documented by: Sodium Chloride (Nacl 0.9%) 100 mls @ 999 mls/hr IV BUSTER PRN PRN Reason: Hypotension Magnesium Hydroxide (Magnesium Hydroxide (Mom) Oral Liqd Udc) 30 ml PO Q4H PRN PRN Reason: Constipation Metoclopramide HCl (Metoclopramide 10 Mg/2 Ml Inj) 5 mg IV Q6H PRN PRN Reason: Nausea And Vomiting Metoprolol Tartrate (Metoprolol Tartrate 25 Mg Tab) 25 mg PO BID@0800,1700 [facility] Last Admin: 02/14/21 11:47 Dose: 25 mg Documented by: Morphine Sulfate (Morphine 2 Mg/1 Ml Inj) 2 mg IV Q4H PRN PRN Reason: Pain, Moderate (4-6) Morphine Sulfate (Morphine 4 Mg/1 Ml Inj) 4 mg IV Q4H PRN PRN Reason: Pain , Severe (7-10) Ondansetron HCl (Ondansetron 4 Mg/2 Ml Inj) 4 mg IV Q8H PRN PRN Reason: Nausea And Vomiting Oxycodone/Acetaminophen (Oxycodone /Acetaminophen 5-325mg Tab) 1 tab PO Q6H PRN PRN Reason: Pain, Moderate (4-6) Senna (Sennosides 8.6 Mg Tab) 8.6 mg PO Q12HR PRN PRN Reason: Constipation Sevelamer Carbonate (Sevelamer Carbonate 800 Mg Tab) 800 mg PO TIDWM [facility] Last Admin: 02/14/21 11:46 Dose: 800 mg Documented by: Sodium Chloride (Sodium Chloride 0.9% 10 Ml Flush Syringe) 10 ml IV BID [facility] Last Admin: 02/14/21 13:56 Dose: 10 ml Documented by: Review of Systems All systems: negative Exam - Constitutional Vitals: Temp Pulse Resp BP Pulse Ox 97.9 F 63 18 136/63 99 02/14/21 15:45 02/14/21 15:45 02/14/21 15:45 02/14/21 15:45 02/14/21 15:45 General appearance: Present: no acute distress - Respiratory Respiratory effort: normal - Extremities Extremities: abnormal (left arm AV Access with palpable thrill, minimal serous drainage from upper portion of incision, no erythema or purulence noted, some edema of arm) Results - Labs CBC & Chem 7: 02/14/21 09:36 02/14/21 09:36 Labs: Abnormal lab results 02/13/21 02/14/21 02/14/21 Range/Units 15:15 09:36 09:36 RBC 2.43 L 2.37 L (3.65-5.03) M/mm3 Hgb 8.4 L 8.2 L (10.1-14.3) gm/dl Hct 24.6 L 23.9 L (30.3-42.9) % MCV 101 H 101 H (79-97) fl MCH 35 H 35 H (28-32) pg MCHC 35 H (30-34) % [place] % (Auto) 8.9 H (0.0-7.3) % Seg Neutrophils % 75.3 H (40.0-70.0) % Carbon Dioxide 21 L (22-30) mmol/L BUN 66 H (7-17) mg/dL Creatinine 14.5 H (0.6-1.2) mg/dL Assessment and Plan The patient is a 70 year old female with a partial dehiscence of her left arm incision. She has serous drainage from the wound without purulence or overt signs of infection. The graft has been tunneled lateral to the incision and is not involved with the area. I removed the sutures and packed the wound with Iodoform gauze to decrease the drainage and assist with wound healing. The patient will require replacement of her right femoral permacath for dialysis access. She has a known central occlusion, with stents, and liban has stenosis requiring a fistulagram with angioplasty to reduce her left arm swelling. I plan to perform the procedures tomorrow as she does not require emergent dialysis at this time. I discussed this with the patient who expressed understanding and agrees with the plan.
[2021-02-15 04:11] LABS: Basophils # (Auto) 0.1 K/mm3 (0.0-0.1); Basophils % (Auto) 1.1 % (0.0-1.8); Eosinophils # (Auto) 0.2 K/mm3 (0.0-0.4); Eosinophils % (Auto) 2.9 % (0.0-4.3); Hematocrit 23.4 % (30.3-42.9); Hemoglobin 8.1 gm/dl (10.1-14.3); Lymphocytes # (Auto) 1.4 K/mm3 (1.2-5.4); Mean Corpuscular HGB Conc 35 % (30-34); Mean Corpuscular Volume 101 fl (79-97); Monocytes # (Auto) 0.9 K/mm3 (0.0-0.8); Platelet Count 172 K/mm3 (140-440); Red Blood Count 2.32 M/mm3 (3.65-5.03); Red Cell Distribution Width 14.1 % (13.2-15.2)
[2021-02-15 04:35] LABS: Albumin 3.5 g/dL (3.9-5); Calcium 8.5 mg/dL (8.4-10.2)
[2021-02-15] MEDS: CLINDAMYCIN 600 MG/50 mL 600 MG/50 ML BAG IV SCH ×2 (05:30→13:50)
[2021-02-15] MEDS: SEVELAMER CARBONATE 800 MG TAB PO SCH ×3 (09:35→17:42)
[2021-02-15] MEDS: METOPROLOL TARTRATE 25 MG TAB PO SCH ×2 (09:35→17:43)
[2021-02-15] MEDS: FAMOTIDINE 20 MG/2 ML INJ IV SCH ×2 (09:42→10:00)
[2021-02-15] MEDS ORDERED: methylPREDNISolone Sod Succinate 125 MG/2 ML INJ ONE (09:47)
[2021-02-15] MEDS ORDERED: HEPARIN 10,000 UNITS/10 ML VIAL ONE (09:47)
[2021-02-15] MEDS ORDERED: diphenhydrAMINE 50 MG/ML VIAL ONE (09:47)
[2021-02-15] MEDS ORDERED: HEPARIN/NS 5000 UNIT/500ML 1,000 ML IR ONE (09:47)
[2021-02-15] MEDS ORDERED: SODIUM CHLORIDE 0.9% 250ML 250 ML ONE (09:48)
[2021-02-15] MEDS ORDERED: ceFAZolin/Water 2 GM/20 ML 2 GM/20 ML SYRINGE IV ONE (09:49)
[2021-02-15] MEDS: fentaNYL 100 MCG/2 ML INJ ONE ×2 (09:52→10:23)
[2021-02-15] MEDS: MIDAZOLAM 2 MG/2 ML INJ ONE ×2 (09:52→10:23)
[2021-02-15] MEDS: LIDOCAINE (2%) 20 MG/1 ML VIAL 20 ML MDV INFILTRATI ONE ×2 (09:55→10:23)
[2021-02-15] MEDS ORDERED: LIDOCAINE (2%) 20 MG/1 ML VIAL 20 ML MDV INFILTRATI ONE (10:44)
--- NOTE | 2021-02-15 11:28 | Operative Report ---
Operative Report Operative Report: Date of Procedure: 02/15/2021 Pre-operative Diagnosis: Complications of Dialysis Access Post-operative Diagnosis: Same Procedure(s): 1. Ultrasound-Guided Access Right Common Femoral Vein 2. Placement of 44 cm Palindrome Permacath 3. Left Arm Diagnostic Fistulogram with Central Venogram 4. Angioplasty of Left Arm AV Graft with 8 x 10 cm [place] Balloon 5. Radiologic Supervision with Interpretation 6. Monitored Moderate Sedation (Total Anesthesia Time: 70 Minutes) Surgeon: Ty Kim M.D. Component Inspector: None Anesthesia: Local/Monitored Moderate Sedation Total Anesthesia Time: 70 Minutes EBL: Minimal Counts: Correct Complications: None Condition: Stable Specimen: None Indication: The patient is a 70-year-old female with a history of end-stage renal disease who underwent revision of her left arm arteriovenous access. She also had placement of a right femoral permacath however that was inadvertently dislodged. Her dialysis center refused to access her left arm AV graft secondary to partial dehiscence of her left arm incision so she will require replacement of her right femoral permacath for dialysis access. In addition to replacement of the permacath the patient has swelling in her left arm with a known history of central stenosis. She is in need of a left arm fistulogram with possible intervention to reduce swelling. She has been given the risk, benefits, and alternative procedures and consented to the procedure. Angiographic Findings: The right femoral permacath was placed with the distal tip at the cavoatrial junction. The diagnostic fistulogram revealed 80% stenosis of the venous anastomosis. The axillary vein and the central venous system were patent without significant flow-limiting stenosis. After intervention there was less than 20% residual stenosis. Description of Procedure: The patient was brought to the [facility] and laid in supine position. After timeout was performed she was adequately sedated and her right groin and left arm were prepped and draped in normal sterile fashion. Ultrasound was used to identify the right common femoral vein and confirm patency. Once patency was confirmed the overlying skin and soft tissue were anesthetized with lidocaine. An 11 blade was used to make a small stab incision and an 18-gauge access needle was used with ultrasound guidance to access the right common femoral vein. A 0.035 J-wire was advanced to the central venous system under fluoroscopy. The needle was removed and the tract was serially dilated until the 15 Nepali peel- away SafeSheath was able to be advanced into the vein by Seldinger technique. The dilator and wire were removed and a 44 cm Palindrome Permacath was advanced into the SafeSheath. The SafeSheath was then peeled away while applying for pressure on the catheter. An exit site was then chosen on the lateral right thigh and anesthetized with lidocaine. The tract was then left-sided lidocaine. A small stab incision was made with an 11 blade and the tunneler was used to tunnel from the exit site on the thigh to the entry site near the groin. The permacath was clamped and then cut at position #1. The permacath was connected to the tunneler and pulled through the tunnel, after removing the clamp. The permacath was then reclamped and cut at position #2. The hub and ports were then connected and the permacath was positioned with the distal tip at the cavoatrial junction. Both ports easily aspirated and flushed and were then primed with the appropriate amount heparin. The entry site was then closed with 4-0 Monocryl and dressed with Dermabond. The catheter was secured in position with 2-0 Ethilon in interrupted fashion. The catheter was then dressed with a sterile dressing. My attention was then turned to the fistulogram. Lidocaine was used to anesthetize the skin and soft tissue overlying the graft near the arterial inflow. A 21-gauge micropuncture needle was used access the graft towards the venous outflow and a 0.018 micropuncture wire was advanced to the graft. The needle was removed and a 7 Nepali sheath was placed by Seldinger technique. A diagnostic fistulogram with central venogram was performed with the previously described findings. I advanced a 0.035 J-wire into the central venous system and then performed angioplasty of the area of stenosis using an 8 x 10 cm [place] Balloon which resulted in less than 20% residual stenosis. At that point the balloon and wire were removed and a 2-0 Ethilon in slipknot fashion was used to close the entry site after removing the sheath. A sterile dressing was then applied to the entry site and the patient was transported back to her room in stable condition.
--- NOTE | 2021-02-15 13:28 | Progress Note ---
Assessment and Plan Assessment and plan: 70-year-old female history of ESRD on HD, CAD, hypertension and obesity who presented after having discharge from her AV fistula at outpatient dialysis. Currently being treated for left upper extremity cellulitis. Vascular surgery has been consulted for intervention on AV fistula. #ESRD on HD -MWF schedule, last dialyzed Sunday 02/11 -Nephrology following, assistance appreciated -Permacath placed today in right femoral area -Plan for HD today or tomorrow #AV fistula complication -Management per Vascular surgery -Fistulogram performed #Cellulitis -Clindamycin discontinued, vancomycin started -ID following, recs appreciated #Hypertension -Continue home blood pressure meds #Coronary artery disease -Continue statin and beta-guillermo Disposition Plan: Home Total Time Spent with Patient (Minutes): 20 minutes History Interval history: No acute meds overnight. Patient returned from fistulogram and femoral Vas-Cath placement. No complaints at this time. Hospitalist Physical - Physical exam Narrative exam: GENERAL: Well-developed well-nourished. Sitting on the side of the bed in no acute distress. CHEST/LUNGS: CTAB on room air HEART/CARDIOVASCULAR: RRR. No murmur, rubs or gallops appreciated. ABDOMEN: +BS. NT/ND. : Right femoral permacath. EXTREMITIES: Left AV fistula with bandages C/D/I PSYCH: Cooperative. - Constitutional Vitals: Temp Pulse Resp BP Pulse Ox 99.1 F 60 20 143/70 94 02/15/21 08:12 02/15/21 08:12 02/15/21 08:12 02/15/21 08:12 02/15/21 08:12 General appearance: Present: no acute distress Results - Labs CBC & Chem 7: 02/15/21 03:43 02/15/21 03:43 Labs: Laboratory Last Values WBC 5.9 K/mm3 (4.5-11.0) 02/15/21 03:43 RBC 2.32 M/mm3 (3.65-5.03) L 02/15/21 03:43 Hgb 8.1 gm/dl (10.1-14.3) L 02/15/21 03:43 Hct 23.4 % (30.3-42.9) L 02/15/21 03:43 MCV 101 fl (79-97) H 02/15/21 03:43 MCH 35 pg (28-32) H 02/15/21 03:43 MCHC 35 % (30-34) H 02/15/21 03:43 RDW 14.1 % (13.2-15.2) 02/15/21 03:43 Plt Count 172 K/mm3 (140-440) 02/15/21 03:43 Lymph % (Auto) 23.0 % (13.4-35.0) 02/15/21 03:43 [place] % (Auto) 15.0 % (0.0-7.3) H 02/15/21 03:43 Eos % (Auto) 2.9 % (0.0-4.3) 02/15/21 03:43 Baso % (Auto) 1.1 % (0.0-1.8) 02/15/21 03:43 Lymph # (Auto) 1.4 K/mm3 (1.2-5.4) 02/15/21 03:43 [place] # (Auto) 0.9 K/mm3 (0.0-0.8) H 02/15/21 03:43 Eos # (Auto) 0.2 K/mm3 (0.0-0.4) 02/15/21 03:43 Baso # (Auto) 0.1 K/mm3 (0.0-0.1) 02/15/21 03:43 Seg Neutrophils % 58.0 % (40.0-70.0) 02/15/21 03:43 Seg Neutrophils # 3.4 K/mm3 (1.8-7.7) 02/15/21 03:43 Sodium 141 mmol/L (137-145) 02/15/21 03:43 Potassium 4.7 mmol/L (3.6-5.0) 02/15/21 03:43 Chloride 104.2 mmol/L (98-107) 02/15/21 03:43 Carbon Dioxide 19 mmol/L (22-30) L 02/15/21 03:43 Anion Gap 23 mmol/L 02/15/21 03:43 BUN 71 mg/dL (7-17) H 02/15/21 03:43 Creatinine 15.8 mg/dL (0.6-1.2) H 02/15/21 03:43 Estimated GFR 3 ml/min 02/15/21 03:43 BUN/Creatinine Ratio 4 % 02/15/21 03:43 Glucose 79 mg/dL (65-100) 02/15/21 03:43 Calcium 8.5 mg/dL (8.4-10.2) 02/15/21 03:43 Total Bilirubin 0.30 mg/dL (0.1-1.2) 02/15/21 03:43 AST 13 units/L (5-40) 02/15/21 03:43 ALT 9 units/L (7-56) 02/15/21 03:43 Alkaline Phosphatase 86 units/L (35-129) 02/15/21 03:43 Total Protein 6.8 g/dL (6.3-8.2) 02/15/21 03:43 Albumin 3.5 g/dL (3.9-5) L 02/15/21 03:43 Albumin/Globulin Ratio 1.1 % 02/15/21 03:43 Microbiology: Microbiology 02/13/21 15:52 Peripheral/Venous Blood Culture - Preliminary NO GROWTH AFTER 24 HOURS 02/13/21 15:52 Peripheral/Venous Blood Culture - Preliminary NO GROWTH AFTER 24 HOURS [place]/IV: Voiding Method Toilet Active Medications - Current Medications Current Medications: Generic Name Dose Route Start Last Admin Trade Name Freq PRN Reason Stop Dose Admin Acetaminophen 650 mg 02/14/21 00:22 Acetaminophen 325 Mg Tab PO Q4H PRN Pain MILD(1-3)/Fever >100.5/IZAGUIRRE Al Hydrox/Mg Hydrox/Simethicone 30 ml 02/14/21 00:22 Alum-Mag Hydroxide-Simethicone [phone]/5ml Oral Liqd 30 Ml PO Q4H PRN Indigestion Alprazolam 0.5 mg 02/20/21 08:00 Alprazolam 0.5 Mg Tab PO Fr MANPREET Alprazolam 0.5 mg 02/18/21 08:00 Alprazolam 0.5 Mg Tab PO We MANPREET Alprazolam 0.5 mg 02/16/21 08:00 Alprazolam 0.5 Mg Tab PO Mo MANPREET Amlodipine Besylate 10 mg 02/14/21 10:00 02/14/21 11:46 Amlodipine 10 Mg Tab PO 10 mg DAILY MANPREET Administration Atorvastatin Calcium 40 mg 02/14/21 22:00 02/14/21 21:54 Atorvastatin 40 Mg Tab PO 40 mg QHS MANPREET Administration Cinacalcet 30 mg 02/14/21 10:00 02/14/21 11:46 Cinacalcet 30 Mg Tab PO 30 mg QDAY MANPREET Administration Famotidine 20 mg 02/14/21 10:00 02/15/21 09:42 Famotidine 20 Mg/2 Ml Inj IV 20 mg QAM MANPREET Administration Heparin Sodium (Porcine) 5,000 unit 02/14/21 10:00 02/14/21 21:54 Heparin 5,000 Unit/1 Ml Vial SUB-Q 5,000 unit Q12HR MANPREET Administration Clindamycin HCl 600 mg in 50 mls @ 100 mls/hr 02/14/21 04:00 02/15/21 05:30 Cleocin 600 Mg/50 Ml IV 100 mls/hr Q8H MANPREET Administration Protocol Sodium Chloride 100 mls @ 999 mls/hr 02/14/21 11:25 Nacl 0.9% IV BUTSER PRN Hypotension Magnesium Hydroxide 30 ml 02/14/21 00:22 Magnesium Hydroxide (Mom) Oral Liqd Udc PO Q4H PRN Constipation Metoclopramide HCl 5 mg 02/14/21 00:22 Metoclopramide 10 Mg/2 Ml Inj IV Q6H PRN Nausea And Vomiting Metoprolol Tartrate 25 mg 02/14/21 08:00 02/15/21 09:35 Metoprolol Tartrate 25 Mg Tab PO Not Given BID@0800,1700 [facility] Morphine Sulfate 2 mg 02/14/21 00:22 Morphine 2 Mg/1 Ml Inj IV Q4H PRN Pain, Moderate (4-6) Morphine Sulfate 4 mg 02/14/21 00:22 Morphine 4 Mg/1 Ml Inj IV Q4H PRN Pain , Severe (7-10) Ondansetron HCl 4 mg 02/14/21 00:22 02/14/21 16:37 Ondansetron 4 Mg/2 Ml Inj IV 4 mg Q8H PRN Administration Nausea And Vomiting Oxycodone/Acetaminophen 1 tab 02/14/21 00:22 Oxycodone /Acetaminophen 5-325mg Tab PO Q6H PRN Pain, Moderate (4-6) Senna 8.6 mg 02/14/21 00:22 Sennosides 8.6 Mg Tab PO Q12HR PRN Constipation Sevelamer Carbonate 800 mg 02/14/21 08:00 02/15/21 09:35 Sevelamer Carbonate 800 Mg Tab PO Not Given TIDWM MANPREET Sodium Chloride 10 ml 02/14/21 10:00 02/14/21 22:30 Sodium Chloride 0.9% 10 Ml Flush Syringe IV 10 ml BID MANPREET Administration Nutrition/Malnutrition Assess - Dietary Evaluation Nutrition/Malnutrition Findings: Nutrition Notes Start: 02/14/21 13:36 Freq: Status: Active Protocol: Document 02/14/21 13:37 CHRISTIAN (Rec: 02/14/21 13:37 NHSHAMAR [id number]) Nutrition Notes Need for Assessment generated from: sisal picker,MST Initial or Follow up Brief Note Current Diagnosis CKD (stage V CKD),Coronary Artery Disease,Hypertension, Hyperlipidemia Other Pertinent Diagnosis Infected dialysis AV fistula, Cellulitis Current Diet Renal Labs/Tests BUN 66 Cr 14.5 Pertinent Medications Sensipar, Renvela Height 5 ft 3 in Weight 81 kg [place] Body Weight (kg) 52.27 BMI 31.6 Weight Status Obese Subjective/Other Information Pt screened for malnutrition risk. She was admitted for dialysis and placement of a new dialysis access; she hadn' t received HD since 02/16. Pt sleeping soundly at time of visit (14:12). Burn Absent Trauma Absent Minimum of two criteria No Is patient on ventilator? No Is Patient Ambulatory and/or Out of Bed Yes [facility] [ 1701.869 NUTR.MSJOOB] Kcal/Kg value to use for calculation 15 Approximate Energy Requirements Using 1215 kcal/Kg Calculation Used for Recommendations Kcal/kg Additional Notes Pro needs >1.2g/kg adjBW: >80g /day Fluid needs 1-1.5L/day Nutrition Intervention Follow-Up By: 02/17/21 Additional Comments F/U: wt assessment, intakes
[2021-02-15] MEDS: amLODIPine 10 MG TAB PO SCH (13:36)
[2021-02-15] MEDS: CINACALCET 30 MG TAB PO SCH (13:36)
--- NOTE | 2021-02-15 13:42 | Progress Note ---
Assessment and Plan Impression * End-stage renal disease on maintenance hemodialysis * Drainage from AV fistula site * Hypertension * Anemia secondary to ESRD * Hyperparathyroidism Recommendations * Vascular surgery consultation appreciated. * Patient had a femoral PermCath placed this morning. * Her electrolytes and volume status are acceptable. No urgent need for dialysis today. She will plan to dialyze her tomorrow morning * Epogen with dialysis * Continue Sensipar * Binders with meals * Adjust diet and meds for ESRD state * No IV, BP or venipuncture in access arm * Awaiting ID evaluation Subjective Date of service: 02/15/21 Interval history: Patient is comfortable this morning. Femoral PermCath placed by Dr. Kim this morning. Patient denies any shortness of breath. No nausea vomiting or diarrhea. Objective - Vital Signs Vital signs: Vital Signs - 12hr 02/15/21 02/15/21 02/15/21 03:29 06:00 08:12 Temperature 98.3 F 99.1 F Pulse Rate 59 L 59 L 60 Respiratory 18 20 Rate Blood Pressure 134/60 Blood Pressure 143/70 [Left] O2 Sat by Pulse 93 94 Oximetry 02/15/21 13:36 Temperature Pulse Rate 58 L Respiratory Rate Blood Pressure 155/64 Blood Pressure [Left] O2 Sat by Pulse Oximetry - General Appearance General appearance: well-developed, well-nourished, appears stated age EENT: PERRL, mucous membranes moist Neck: no JVD, no thyromegaly, no carotid bruit, supple Respiratory: Present: Clear to Ascultation Cardiology: regular, normal heart rate, S1S2, no murmurs Gastrointestinal: normal, normoactive bowel sounds Integumentary: no rash, other (Femoral PermCath in place. AV fistula in her upper arm. Good bruit and thrill. Covered with dressing.) - Lab 02/15/21 03:43 02/15/21 03:43 Most recent lab results Calcium 8.5 mg/dL (8.4-10.2) 02/15/21 03:43 Medications & Allergies - Medications Allergies/Adverse Reactions: Allergies iodine Allergy (Verified 03/28/20 11:04) Hives lisinopril Allergy (Verified 03/28/20 11:04) Angioedema Sulfa (Sulfonamide Antibiotics) Allergy (Verified 03/28/20 11:04) Hives Home Medications: Home Medications Medication Instructions Recorded Confirmed Last Taken Type ALPRAZolam [Xanax TAB] 0.5 mg PO 3XW 11/10/15 02/14/21 01/05/21 History Omeprazole [PriLOSEC] 30 mg PO QDAY 11/10/15 02/14/21 01/05/21 History Cinacalcet [Sensipar] 30 mg PO QDAY tablet 11/13/15 02/14/21 01/05/21 Rx Metoprolol [Lopressor TAB] 25 mg PO BID #60 tablet 09/13/19 02/14/21 01/06/21 07:00 Rx amLODIPine 10 mg PO DAILY 01/06/21 02/14/21 01/06/21 07:00 History Escitalopram [Lexapro] 10 mg PO DAILY 02/14/21 02/14/21 Unknown History Active Medications: Generic Name Dose Route Start Last Admin Trade Name Freq PRN Reason Stop Dose Admin Acetaminophen 650 mg 02/14/21 00:22 Acetaminophen 325 Mg Tab PO Q4H PRN Pain MILD(1-3)/Fever >100.5/IZAGUIRRE Al Hydrox/Mg Hydrox/Simethicone 30 ml 02/14/21 00:22 Alum-Mag Hydroxide-Simethicone [phone]/5ml Oral Liqd 30 Ml PO Q4H PRN Indigestion Alprazolam 0.5 mg 02/20/21 08:00 Alprazolam 0.5 Mg Tab PO Fr MANPREET Alprazolam 0.5 mg 02/18/21 08:00 Alprazolam 0.5 Mg Tab PO We MANPREET Alprazolam 0.5 mg 02/16/21 08:00 Alprazolam 0.5 Mg Tab PO Mo MANPREET Amlodipine Besylate 10 mg 02/14/21 10:00 02/15/21 13:36 Amlodipine 10 Mg Tab PO 10 mg DAILY MANPREET Administration Atorvastatin Calcium 40 mg 02/14/21 22:00 02/14/21 21:54 Atorvastatin 40 Mg Tab PO 40 mg QHS MANPREET Administration Cinacalcet 30 mg 02/14/21 10:00 02/15/21 13:36 Cinacalcet 30 Mg Tab PO 30 mg QDAY MANPREET Administration Famotidine 20 mg 02/14/21 10:00 02/15/21 09:42 Famotidine 20 Mg/2 Ml Inj IV 20 mg QAM MANPREET Administration Heparin Sodium (Porcine) 5,000 unit 02/14/21 10:00 02/14/21 21:54 Heparin 5,000 Unit/1 Ml Vial SUB-Q 5,000 unit Q12HR MANPREET Administration Clindamycin HCl 600 mg in 50 mls @ 100 mls/hr 02/14/21 04:00 02/15/21 05:30 Cleocin 600 Mg/50 Ml IV 100 mls/hr Q8H MANPREET Administration Protocol Sodium Chloride 100 mls @ 999 mls/hr 02/14/21 11:25 Nacl 0.9% IV BUSTER PRN Hypotension Magnesium Hydroxide 30 ml 02/14/21 00:22 Magnesium Hydroxide (Mom) Oral Liqd Udc PO Q4H PRN Constipation Metoclopramide HCl 5 mg 02/14/21 00:22 Metoclopramide 10 Mg/2 Ml Inj IV Q6H PRN Nausea And Vomiting Metoprolol Tartrate 25 mg 02/14/21 08:00 02/15/21 09:35 Metoprolol Tartrate 25 Mg Tab PO Not Given BID@0800,1700 [facility] Morphine Sulfate 2 mg 02/14/21 00:22 Morphine 2 Mg/1 Ml Inj IV Q4H PRN Pain, Moderate (4-6) Morphine Sulfate 4 mg 02/14/21 00:22 Morphine 4 Mg/1 Ml Inj IV Q4H PRN Pain , Severe (7-10) Ondansetron HCl 4 mg 02/14/21 00:22 02/14/21 16:37 Ondansetron 4 Mg/2 Ml Inj IV 4 mg Q8H PRN Administration Nausea And Vomiting Oxycodone/Acetaminophen 1 tab 02/14/21 00:22 Oxycodone /Acetaminophen 5-325mg Tab PO Q6H PRN Pain, Moderate (4-6) Senna 8.6 mg 02/14/21 00:22 Sennosides 8.6 Mg Tab PO Q12HR PRN Constipation Sevelamer Carbonate 800 mg 02/14/21 08:00 02/15/21 13:36 Sevelamer Carbonate 800 Mg Tab PO 800 mg TIDWM MANPREET Administration Sodium Chloride 10 ml 02/14/21 10:00 02/14/21 22:30 Sodium Chloride 0.9% 10 Ml Flush Syringe IV 10 ml BID MANPREET Administration
[2021-02-15] MEDS: MORPHINE 2 MG/1 ML INJ IV PRN ×2 (13:44→20:28)
[2021-02-15] MEDS: HEPARIN 5,000 UNIT/1 ML VIAL SUB-Q SCH ×2 (13:48→21:56)
--- NOTE | 2021-02-15 15:53 | Consultation ---
History of Present Illness - Reason for Consult Consult date: 02/15/21 - History of Present Illness 70-year-old female past medical history ESRD on HD, CAD, hypertension, GERD, obesity presented to the hospital after being found to have purulent discharge from her dialysis access. She was found to have cellulitis in the area of the left arm AV graft. She was taken to the OR yesterday for angioplasty of the AV graft. Afebrile since admission with a white count of 5.9. Blood cultures no growth so far. Currently on clindamycin. Review of Systems: Bold if positive, otherwise negative General: fevers, chills, rigors HEENT: visual disturbance, diplopia, eye pain Respiratory: cough, sputum, hemoptysis, shortness of breath Cardiovascular: chest pain, syncope Gastrointestinal: nausea, vomiting, diarrhea, abdominal pain Genitourinary: dysuria, hematuria, flank pain Musculoskeletal: neck pain, back pain, joint pain, edema Neurologic: headaches, seizures Hematologic: easy bruising or bleeding Endocrine: night sweats, acute weight loss Skin: rash, jaundice, redness Psychiatric: suicidal, homicidal ideation Past History Past Medical History: CAD, dialysis, ESRD, GERD, hypertension, hyperlipidemia Past Surgical History: Other (Dialysis access, cardiac stent placement, revision of left arm AV Access) Social history: . denies: smoking, alcohol abuse Family history: diabetes, hypertension Medications and Allergies Allergies Allergy/AdvReac Type Severity Reaction Status Date / Time iodine Allergy Hives Verified 03/28/20 11:04 lisinopril Allergy Angioedema Verified 03/28/20 11:04 Sulfa (Sulfonamide Allergy Hives Verified 03/28/20 11:04 Antibiotics) Home Medications Medication Instructions Recorded Confirmed Last Taken Type ALPRAZolam [Xanax TAB] 0.5 mg PO 3XW 11/10/15 02/14/21 01/05/21 History Omeprazole [PriLOSEC] 30 mg PO QDAY 11/10/15 02/14/21 01/05/21 History Cinacalcet [Sensipar] 30 mg PO QDAY tablet 11/13/15 02/14/21 01/05/21 Rx Metoprolol [Lopressor TAB] 25 mg PO BID #60 tablet 09/13/19 02/14/21 01/06/21 07:00 Rx amLODIPine 10 mg PO DAILY 01/06/21 02/14/21 01/06/21 07:00 History Escitalopram [Lexapro] 10 mg PO DAILY 02/14/21 02/14/21 Unknown History Active Meds: Active Medications Acetaminophen (Acetaminophen 325 Mg Tab) 650 mg PO Q4H PRN PRN Reason: Pain MILD(1-3)/Fever >100.5/IZAGUIRRE Al Hydrox/Mg Hydrox/Simethicone (Alum-Mag Hydroxide-Simethicone [phone]/5ml Oral Liqd 30 Ml) 30 ml PO Q4H PRN PRN Reason: Indigestion Alprazolam (Alprazolam 0.5 Mg Tab) 0.5 mg PO Fr MANPREET Alprazolam (Alprazolam 0.5 Mg Tab) 0.5 mg PO We MANPREET Alprazolam (Alprazolam 0.5 Mg Tab) 0.5 mg PO Mo MANPREET Amlodipine Besylate (Amlodipine 10 Mg Tab) 10 mg PO DAILY [facility]END[facility] S[facility] TO [facility] Last Admin: 02/15/21 13:36 Dose: 10 mg Documented by: Atorvastatin Calcium (Atorvastatin 40 Mg Tab) 40 mg PO QHS [facility]END[facility] S[facility] Last Admin: 02/14/21 21:54 Dose: 40 mg Documented by: Cinacalcet (Cinacalcet 30 Mg Tab) 30 mg PO QDAY [facility]ENDING S[facility] Last Admin: 02/15/21 13:36 Dose: 30 mg Documented by: Famotidine (Famotidine 20 Mg/2 Ml Inj) 20 mg IV QAM [facility]END[facility] S[facility] Last Admin: 02/15/21 10:00 Dose: Not Given Documented by: Heparin Sodium (Porcine) (Heparin 5,000 Unit/1 Ml Vial) 5,000 unit SUB-Q Q12HR PENDING S[facility] TO [facility] Last Admin: 02/15/21 13:48 Dose: 5,000 unit Documented by: Clindamycin HCl (Cleocin 600 Mg/50 Ml) 600 mg in 50 mls @ 100 mls/hr IV Q8H PENDING SALE TO [facility]; Protocol Last Admin: 02/15/21 13:50 Dose: 100 mls/hr Documented by: Sodium Chloride (Nacl 0.9%) 100 mls @ 999 mls/hr IV BUSTER PRN PRN Reason: Hypotension Magnesium Hydroxide (Magnesium Hydroxide (Mom) Oral Liqd Udc) 30 ml PO Q4H PRN PRN Reason: Constipation Metoclopramide HCl (Metoclopramide 10 Mg/2 Ml Inj) 5 mg IV Q6H PRN PRN Reason: Nausea And Vomiting Metoprolol Tartrate (Metoprolol Tartrate 25 Mg Tab) 25 mg PO BID@0800,1700 [facility] Last Admin: 02/15/21 09:35 Dose: Not Given Documented by: Morphine Sulfate (Morphine 2 Mg/1 Ml Inj) 2 mg IV Q4H PRN PRN Reason: Pain, Moderate (4-6) Last Admin: 02/15/21 13:44 Dose: 2 mg Documented by: Morphine Sulfate (Morphine 4 Mg/1 Ml Inj) 4 mg IV Q4H PRN PRN Reason: Pain , Severe (7-10) Ondansetron HCl (Ondansetron 4 Mg/2 Ml Inj) 4 mg IV Q8H PRN PRN Reason: Nausea And Vomiting Last Admin: 02/14/21 16:37 Dose: 4 mg Documented by: Oxycodone/Acetaminophen (Oxycodone /Acetaminophen 5-325mg Tab) 1 tab PO Q6H PRN PRN Reason: Pain, Moderate (4-6) Senna (Sennosides 8.6 Mg Tab) 8.6 mg PO Q12HR PRN PRN Reason: Constipation Sevelamer Carbonate (Sevelamer Carbonate 800 Mg Tab) 800 mg PO TIDWM PENDING SALE [facility] Last Admin: 02/15/21 13:36 Dose: 800 mg Documented by: Sodium Chloride (Sodium Chloride 0.9% 10 Ml Flush Syringe) 10 ml IV BID [facility]END[facility] Last Admin: 02/15/21 13:45 Dose: 10 ml Documented by: Physical Examination - Physical Exam Narrative exam: Physical Exam: Constitutional: Alert, cooperative. No acute distress Head, Ears, Nose: Normocephalic, atraumatic. External ears, nose normal Eyes: Conjunctivae/corneas clear. No icterus. No ptosis. Neck: Supple, no meningeal signs Oral: dentition fair, no thrush Cardiovascular: S1, S2 normal. Respiratory: Good air entry, clear to auscultation bilaterally GI: Soft, non-tender; bowel sounds normal. No peritoneal signs. Musculoskeletal: Left arm AV graft dressed Skin: No rash or abscess Hem/Lymphatic: No palpable cervical or supraclavicular nodes. No lymphangitis Psych: Mood ok. Affect normal Neurological: Awake, alert, oriented. No gross abnormality - Constitutional Vitals: Vital Signs Temp Pulse Resp BP Pulse Ox 99.1 F 58 L 20 155/64 95 02/15/21 08:12 02/15/21 13:36 02/15/21 08:12 02/15/21 13:36 02/15/21 13:12 Temperature -Last 24 Hours Temperature 99.1 F Temperature 98.3 F Temperature 98.4 F Temperature 98.2 F Results - Labs CBC & Chem 7: 02/15/21 03:43 02/15/21 03:43 Labs: Abnormal lab results 02/15/21 02/15/21 Range/Units 03:43 03:43 RBC 2.32 L (3.65-5.03) M/mm3 Hgb 8.1 L (10.1-14.3) gm/dl Hct 23.4 L (30.3-42.9) % MCV 101 H (79-97) fl MCH 35 H (28-32) pg MCHC 35 H (30-34) % [place] % (Auto) 15.0 H (0.0-7.3) % [place] # (Auto) 0.9 H (0.0-0.8) K/mm3 Carbon Dioxide 19 L (22-30) mmol/L BUN 71 H (7-17) mg/dL Creatinine 15.8 H (0.6-1.2) mg/dL Albumin 3.5 L (3.9-5) g/dL Assessment and Plan Cultures: Blood culture no growth so far A/P: 70-year-old female past medical history ESRD on HD, CAD, hypertension, GERD, obesity admitted with cellulitis of the left AVG #Left arm cellulitis: Reportedly with drainage during dialysis. No purulence seen during revision of graft. Blood cultures no growth so far. Afebrile with a normal white count. #ESRD on HD: Renally dose antibiotics. Recs: -Stop clindamycin -Started vancomycin dosed per pharmacy, goal trough 10-20 -Follow blood cultures to ensure no bacteremia Thank you for the consult, we will continue to follow. Dr. Kim taking over tomorrow MD Sab[facility] O: [phone] F: [phone]
[2021-02-15] MEDS ORDERED: VANCOMYCIN PHARMACY TO DOSE IV SCH (16:00)
[2021-02-15] MEDS ORDERED: VANCOMYCIN 1,250 MG in SODIUM CHLORIDE 0.9% 250ML 250 ML IV ONE (18:00)
[2021-02-16] MEDS ORDERED: ALPRAZolam 0.5 MG TAB PO SCH (08:00)
[2021-02-16] MEDS: CINACALCET 30 MG TAB PO SCH (10:00)
[2021-02-16] MEDS: METOPROLOL TARTRATE 25 MG TAB PO SCH (10:00)
[2021-02-16] MEDS: amLODIPine 10 MG TAB PO SCH (10:00)
[2021-02-16] MEDS: FAMOTIDINE 20 MG/2 ML INJ IV SCH (10:01)
[2021-02-16] MEDS: SEVELAMER CARBONATE 800 MG TAB PO SCH ×2 (10:01→14:04)
[2021-02-16] MEDS: HEPARIN 5,000 UNIT/1 ML VIAL SUB-Q SCH (10:01)
[2021-02-16 11:26] LABS: Hepatitis C Virus Antibody Non-Reactive (NonReactive)
[2021-02-16 11:50] LABS: Hepatitis B Surface Antigen Nonreactive (Negative)
--- NOTE | 2021-02-16 12:01 | Progress Note ---
Assessment and Plan Cultures: Blood culture no growth so far A/P: 70-year-old female past medical history ESRD on HD, CAD, hypertension, GERD, obesity admitted with cellulitis of the left AVG #Left arm cellulitis: Reportedly with ?drainage during dialysis. No purulence seen during revision of graft. Blood cultures no growth so far. Afebrile with a normal white count. #ESRD on HD: Renally dose antibiotics. Recs: -continue IV vancomycin while inpatient, upon discharge, can switch to PO Keflex 500 mg BID + PO doxycycline 100 mg BID (end date: 02/22/2021) Cristal Kim MD, FACP [facility] O: [phone] F: [phone] Subjective Date of service: 02/16/21 Interval history: No fever. No new complaints. No left arm pain. Objective - Exam Narrative Exam: Physical Exam: Constitutional: Alert, cooperative. No acute distress Head, Ears, Nose: Normocephalic, atraumatic. External ears, nose normal Eyes: Conjunctivae/corneas clear. No icterus. No ptosis. Neck: Supple, no meningeal signs Cardiovascular: S1, S2 + Respiratory: Good air entry, clear to auscultation bilaterally GI: Soft, non-tender; bowel sounds normal. No peritoneal signs Musculoskeletal: No pedal edema, no cyanosis. Left arm dressing, no tenderness or warmth Skin: No rash or abscess Hem/Lymphatic: No palpable cervical or supraclavicular nodes. No lymphangitis Psych: Mood ok. Affect normal Neurological: Awake, alert, oriented. No gross abnormality - Constitutional Vitals: Vital Signs Temp Pulse Resp BP Pulse Ox 98.4 F 58 L 18 122/59 95 02/16/21 04:09 02/16/21 04:09 02/16/21 04:09 02/16/21 04:09 02/16/21 07:34 Temperature -Last 24 Hours Temperature 98.4 F Temperature 98.2 F Temperature 98.5 F Temperature 98.2 F - Labs CBC & Chem 7: 02/15/21 03:43 02/15/21 03:43
--- NOTE | 2021-02-16 13:18 | Discharge Summary ---
Providers - Providers Date of Admission: 02/14/21 02:14 Date of discharge: 02/16/21 Attending physician: KAREN DIAS MD 02/14/21 00:22 Consult to Physician [CONS] Stat Comment: Consulting Provider: CLINTON LEGER Physician Instructions: Reason For Exam: cellulites Consult to Physician [CONS] Stat Comment: Consulting Provider: MALKA MURRY Physician Instructions: Reason For Exam: renal failure 02/14/21 10:56 Consult to Physician [CONS] Urgent Comment: Consulting Provider: MATEUS LEZAMA Physician Instructions: Reason For Exam: evaluate AVF 02/14/21 16:58 Consult to Case Management [CONS] Routine Services Needed at Discharge: Home Health Services Notified:: CASE MANAGEMENT Additional Physician Instructions: For dressing changes to left arm wound Primary care physician: SHAKIRA NELSON Hospitalization Reason for admission: AV fistula infection Condition: Stable Hospital course: 62-year-old female history of ESRD on HD, coronary artery disease status post stent placement and hypertension who presented to the ED with AV fistula infection. Vascular surgery was consulted and permacath was placed. She was started on empiric antibiotics. Nephrology was consulted for dialysis. She was discharged after dialysis. Disposition: 01 HOME / SELF CARE / HOMELESS Final Discharge Diagnosis (Prints w/discharge instructions): AV fistula dehiscence. Cellulitis. ESRD Time spent for discharge: 10 minutes Core Measure Documentation - Palliative Care Palliative Care/ Comfort Measures: Not Applicable - Core Measures Any of the following diagnoses?: none Exam - Physical Exam Narrative exam: GENERAL: Well-developed well-nourished. Sitting on the side of the bed in no acute distress. CHEST/LUNGS: CTAB on room air HEART/CARDIOVASCULAR: RRR. No murmur, rubs or gallops appreciated. ABDOMEN: +BS. NT/ND. : Right femoral permacath. EXTREMITIES: Left AV fistula with bandages C/D/I PSYCH: Cooperative. - Constitutional Vitals: Temp Pulse Resp BP Pulse Ox 98.4 F 58 L 18 122/59 95 02/16/21 04:09 02/16/21 04:09 02/16/21 04:09 02/16/21 04:09 02/16/21 07:34 Plan Care Plan Goals: Please follow-up with vascular surgery at discharge. Resume hemodialysis on Tuesday,Tuesday, Tuesday schedule. Assessment: Clinically improved. Patient underwent fistulogram and angioplasty of left AV fistula. Permacath was placed as temporary access. Infectious disease changed antibiotic from clindamycin to vancomycin. After dialysis, the patient was discharged home with a total 7-day course of antibiotics. Follow up with: SHAKIRA NELSON MD [Primary Care Provider] - 7 Days Prescriptions: Doxycycline Monohydrate 100 mg PO Q12H 7 Days #14 tablet cephALEXin [Keflex] 500 mg PO Q12HR 7 Days #14 cap
--- NOTE | 2021-02-16 14:39 | Progress Note ---
Assessment and Plan 70-year-old female with end-stage renal disease and left upper extremity AV graft with a dehiscence of an adjacent incision (not at new AV graft site, but at old AV access site which was explanted) Needs home health with home wound care. If she will be staying then she will also need wound care consult while inpatient. Needs to be dialyzed before discharge to ensure catheter is functioning well. Discussed with hospitalist taking care of patient. Subjective Date of service: 02/16/21 Interval history: Doing well. Thrill in left upper extremity. Some serous drainage on the bandage on the right groin PermCath. Not had dialysis. Objective - Constitutional Vitals: Vital Signs - 12hr 02/16/21 02/16/21 04:09 07:34 Temperature 98.4 F Pulse Rate 58 L Respiratory 18 Rate Blood Pressure 122/59 O2 Sat by Pulse 90 95 Oximetry General appearance: Present: no acute distress - EENT Eyes: EOM intact ENT: hearing intact - Respiratory Respiratory effort: normal Extremities: normal temperature, normal color, abnormal (see subjective) - Gastrointestinal General gastrointestinal: Present: soft, non-tender - Psychiatric Psychiatric: appropriate mood/affect, cooperative - Labs CBC & Chem 7: 02/15/21 03:43 02/15/21 03:43 Medications & Allergies - Medications Allergies/Adverse Reactions: Allergies iodine Allergy (Verified 02/16/21 09:43) HIVES AND VOMITING lisinopril Allergy (Verified 02/16/21 09:44) Angioedema Sulfa (Sulfonamide Antibiotics) Allergy (Verified 02/16/21 09:43) HIVES AND FACIAL SWELLING Home Medications: Home Medications Medication Instructions Recorded Confirmed Last Taken Type ALPRAZolam [Xanax TAB] 0.5 mg PO 3XW 11/10/15 02/16/21 02/13/21 History Omeprazole [PriLOSEC] 40 mg PO QDAY 11/10/15 02/16/21 02/13/21 History Cinacalcet [Sensipar] 30 mg PO QDAY tablet 11/13/15 02/16/21 02/13/21 Rx Metoprolol [Lopressor TAB] 25 mg PO BID #60 tablet 09/13/19 02/16/21 02/13/21 Rx amLODIPine 10 mg PO DAILY 01/06/21 02/16/21 02/13/21 History Escitalopram [Lexapro] 10 mg PO DAILY 02/14/21 02/16/21 02/13/21 History AtorvaSTATin [Lipitor] 40 mg PO QHS 02/16/21 02/16/21 02/13/21 History Doxycycline Monohydrate 100 mg PO Q12H 7 Days #14 tablet 02/16/21 Unknown Rx Neomy/Polymy/Dexa Opth Oint(Nf 1 inch OP BID 02/16/21 02/16/21 02/13/21 History [Maxitrol (Nf)] Sevelamer Carbonate [Renvela] 2,400 mg PO TIDWM 02/16/21 02/16/21 02/13/21 History Sevelamer Carbonate [Renvela] 800 mg PO TIDWM tablet 02/16/21 Unknown Rx cephALEXin [Keflex] 500 mg PO Q12HR 7 Days #14 cap 02/16/21 Unknown Rx Active Medications: Generic Name Dose Route Start Last Admin Trade Name Freq PRN Reason Stop Dose Admin Acetaminophen 650 mg 02/14/21 00:22 Acetaminophen 325 Mg Tab PO Q4H PRN Pain MILD(1-3)/Fever >100.5/IZAGUIRRE Al Hydrox/Mg Hydrox/Simethicone 30 ml 02/14/21 00:22 Alum-Mag Hydroxide-Simethicone [id number]/5ml Oral Liqd 30 Ml PO Q4H PRN Indigestion Alprazolam 0.5 mg 02/20/21 08:00 Alprazolam 0.5 Mg Tab PO Fr MANPREET Alprazolam 0.5 mg 02/18/21 08:00 Alprazolam 0.5 Mg Tab PO We MANPREET Alprazolam 0.5 mg 02/16/21 08:00 02/16/21 10:00 Alprazolam 0.5 Mg Tab PO 0.5 mg Mo MANPREET Administration Amlodipine Besylate 10 mg 02/14/21 10:00 02/16/21 10:00 Amlodipine 10 Mg Tab PO 10 mg DAILY MANPREET Administration Atorvastatin Calcium 40 mg 02/14/21 22:00 02/15/21 21:56 Atorvastatin 40 Mg Tab PO 40 mg QHS MANPREET Administration Cinacalcet 30 mg 02/14/21 10:00 02/16/21 10:00 Cinacalcet 30 Mg Tab PO 30 mg QDAY MANPREET Administration Famotidine 10 mg 02/17/21 10:00 Famotidine 10 Mg Tab PO BID [facility] Heparin Sodium (Porcine) 5,000 unit 02/14/21 10:00 02/16/21 10:01 Heparin 5,000 Unit/1 Ml Vial SUB-Q 5,000 unit Q12HR MANPREET Administration Sodium Chloride 100 mls @ 999 mls/hr 02/14/21 11:25 Nacl 0.9% IV BUSTER PRN Hypotension Magnesium Hydroxide 30 ml 02/14/21 00:22 Magnesium Hydroxide (Mom) Oral Liqd Udc PO Q4H PRN Constipation Metoclopramide HCl 5 mg 02/14/21 00:22 Metoclopramide 10 Mg/2 Ml Inj IV Q6H PRN Nausea And Vomiting Metoprolol Tartrate 25 mg 02/14/21 08:00 02/16/21 10:00 Metoprolol Tartrate 25 Mg Tab PO 25 mg BID@0800,1700 MANPREET Administration Morphine Sulfate 2 mg 02/14/21 00:22 02/15/21 20:28 Morphine 2 Mg/1 Ml Inj IV 2 mg Q4H PRN Administration Pain, Moderate (4-6) Morphine Sulfate 4 mg 02/14/21 00:22 Morphine 4 Mg/1 Ml Inj IV Q4H PRN Pain , Severe (7-10) Ondansetron HCl 4 mg 02/14/21 00:22 02/14/21 16:37 Ondansetron 4 Mg/2 Ml Inj IV 4 mg Q8H PRN Administration Nausea And Vomiting Oxycodone/Acetaminophen 1 tab 02/14/21 00:22 Oxycodone /Acetaminophen 5-325mg Tab PO Q6H PRN Pain, Moderate (4-6) Senna 8.6 mg 02/14/21 00:22 Sennosides 8.6 Mg Tab PO Q12HR PRN Constipation Sevelamer Carbonate 800 mg 02/14/21 08:00 02/16/21 14:04 Sevelamer Carbonate 800 Mg Tab PO Not Given TIDWM MANPREET Sodium Chloride 10 ml 02/14/21 10:00 02/16/21 10:01 Sodium Chloride 0.9% 10 Ml Flush Syringe IV 10 ml BID MANPREET Administration
--- NOTE | 2021-02-16 17:52 | Progress Note ---
Assessment and Plan Impression * End-stage renal disease on maintenance hemodialysis * Drainage from AV fistula site * Hypertension * Anemia secondary to ESRD * Hyperparathyroidism * Recommendations * Continue HD MWF * Epogen with dialysis * Continue Sensipar * Binders with meals * Adjust diet and meds for ESRD state * No IV, BP or venipuncture in access arm * ID evaluation noted Subjective Date of service: 02/16/21 Principal diagnosis: Left arm cellulitis Interval history: Sitting up in chair in room Waiting for dialysis today Objective - Vital Signs Vital signs: Vital Signs - 12hr 02/16/21 02/16/21 02/16/21 07:34 14:30 14:45 Temperature 98.4 F Pulse Rate 57 L 53 L Respiratory 18 Rate Blood Pressure 128/71 127/58 O2 Sat by Pulse 95 Oximetry O2 Sat by Pulse 100 Oximetry [ Throughout] 02/16/21 02/16/21 02/16/21 15:00 15:15 15:30 Temperature Pulse Rate 52 L 50 L 51 L Respiratory Rate Blood Pressure 105/55 104/53 99/52 O2 Sat by Pulse Oximetry O2 Sat by Pulse Oximetry [ Throughout] - Lab 02/15/21 03:43 02/15/21 03:43 Most recent lab results Calcium 8.5 mg/dL (8.4-10.2) 02/15/21 03:43 Medications & Allergies - Medications Allergies/Adverse Reactions: Allergies iodine Allergy (Verified 02/16/21 09:43) HIVES AND VOMITING lisinopril Allergy (Verified 02/16/21 09:44) Angioedema Sulfa (Sulfonamide Antibiotics) Allergy (Verified 02/16/21 09:43) HIVES AND FACIAL SWELLING Home Medications: Home Medications Medication Instructions Recorded Confirmed Last Taken Type ALPRAZolam [Xanax TAB] 0.5 mg PO 3XW 11/10/15 02/16/21 02/13/21 History Omeprazole [PriLOSEC] 40 mg PO QDAY 11/10/15 02/16/21 02/13/21 History Cinacalcet [Sensipar] 30 mg PO QDAY tablet 11/13/15 02/16/21 02/13/21 Rx Metoprolol [Lopressor TAB] 25 mg PO BID #60 tablet 09/13/19 02/16/21 02/13/21 Rx amLODIPine 10 mg PO DAILY 09/11/1902/16/21 02/13/21 History Escitalopram [Lexapro] 10 mg PO DAILY 02/14/21 02/16/21 02/13/21 History AtorvaSTATin [Lipitor] 40 mg PO QHS 02/16/21 02/16/21 02/13/21 History Doxycycline Monohydrate 100 mg PO Q12H 7 Days #14 tablet 02/16/21 Unknown Rx Neomy/Polymy/Dexa Opth Oint(Nf 1 inch OP BID 02/16/21 02/16/21 02/13/21 History [Maxitrol (Nf)] Sevelamer Carbonate [Renvela] 2,400 mg PO TIDWM 02/16/21 02/16/21 02/13/21 Hi story Sevelamer Carbonate [Renvela] 800 mg PO TIDWM tablet 02/16/21 Unknown Rx cephALEXin [Keflex] 500 mg PO Q12HR 7 Days #14 cap 02/16/21 Unknown Rx Active Medications: Generic Name Dose Route Start Last Admin Trade Name Freq PRN Reason Stop Dose Admin Acetaminophen 650 mg 02/14/21 00:22 Acetaminophen 325 Mg Tab PO Q4H PRN Pain MILD(1-3)/Fever >100.5/IZAGUIRRE Al Hydrox/Mg Hydrox/Simethicone 30 ml 02/14/21 00:22 Alum-Mag Hydroxide-Simethicone 165-266-67bk/5ml Oral Liqd 30 Ml PO Q4H PRN Indigestion Alprazolam 0.5 mg 02/20/21 08:00 Alprazolam 0.5 Mg Tab PO Fr MANPREET Alprazolam 0.5 mg 02/18/21 08:00 Alprazolam 0.5 Mg Tab PO We MANPREET Alprazolam 0.5 mg 02/16/21 08:00 02/16/21 10:00 Alprazolam 0.5 Mg Tab PO 0.5 mg Mo MANPREET Administration Amlodipine Besylate 10 mg 02/14/21 10:00 02/16/21 10:00 Amlodipine 10 Mg Tab PO 10 mg DAILY MANPREET Administration Atorvastatin Calcium 40 mg 02/14/21 22:00 02/15/21 21:56 Atorvastatin 40 Mg Tab PO 40 mg QHS MANPREET Administration Cinacalcet 30 mg 02/14/21 10:00 02/16/21 10:00 Cinacalcet 30 Mg Tab PO 30 mg QDAY MANPREET Administration Famotidine 10 mg 02/17/21 10:00 Famotidine 10 Mg Tab PO BID REPLACED BY [facility] Heparin Sodium (Porcine) 5,000 unit 02/14/21 10:00 02/16/21 10:01 Heparin 5,000 Unit/1 Ml Vial SUB-Q 5,000 unit Q12HR MANPREET Administration Sodium Chloride 100 mls @ 999 mls/hr 02/14/21 11:25 Nacl 0.9% IV BUSTER PRN Hypotension Magnesium Hydroxide 30 ml 02/14/21 00:22 Magnesium Hydroxide (Mom) Oral Liqd Udc PO Q4H PRN Constipation Metoclopramide HCl 5 mg 02/14/21 00:22 Metoclopramide 10 Mg/2 Ml Inj IV Q6H PRN Nausea And Vomiting Metoprolol Tartrate 25 mg 02/14/21 08:00 02/16/21 10:00 Metoprolol Tartrate 25 Mg Tab PO 25 mg BID@0800,1700 MANPREET Administration Morphine Sulfate 2 mg 02/14/21 00:22 02/15/21 20:28 Morphine 2 Mg/1 Ml Inj IV 2 mg Q4H PRN Administration Pain, Moderate (4-6) Morphine Sulfate 4 mg 02/14/21 00:22 Morphine 4 Mg/1 Ml Inj IV Q4H PRN Pain , Severe (7-10) Ondansetron HCl 4 mg 02/14/21 00:22 02/14/21 16:37 Ondansetron 4 Mg/2 Ml Inj IV 4 mg Q8H PRN Administration Nausea And Vomiting Oxycodone/Acetaminophen 1 tab 02/14/21 00:22 Oxycodone /Acetaminophen 5-325mg Tab PO Q6H PRN Pain, Moderate (4-6) Senna 8.6 mg 02/14/21 00:22 Sennosides 8.6 Mg Tab PO Q12HR PRN Constipation Sevelamer Carbonate 800 mg 02/14/21 08:00 02/16/21 14:04 Sevelamer Carbonate 800 Mg Tab PO Not Given TIDWM REPLACED BY [facility] Sodium Chloride 10 ml 02/14/21 10:00 02/16/21 10:01 Sodium Chloride 0.9% 10 Ml Flush Syringe IV 10 ml BID MANPREET Administration
[2021-02-16 18:34] VITALS: BP 139/53
[2021-02-17] MEDS ORDERED: FAMOTIDINE 10 MG TAB PO SCH (10:00)
[2021-02-18] MEDS ORDERED: ALPRAZolam 0.5 MG TAB PO SCH (08:00)
--- NOTE | 2021-02-19 09:50 | Electrocardiograph Report ---
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
--- NOTE | 2021-02-19 09:53 | Electrocardiograph Report ---
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
[2021-02-20] MEDS ORDERED: ALPRAZolam 0.5 MG TAB PO SCH (08:00)
== END 2021-02-16 20:26 | disposition home health service (06) | DRG 252 ==
LOC: ED 12:51 → 4A 02-14 02:14 → OBSVTOIN 02-14 02:14 → 4A 02-14 07:09
PROVIDERS: ADMIT Internal Medicine; ATTEND Student in an Organized Health Care Education/Training Program
PROC: 05783ZZ Dilation of Left Axillary Vein, Percutaneous Approach (ICD-10-PCS; principal; 2021-02-15)
PROC: B51W1ZZ Fluoroscopy of Dialysis Shunt/Fistula using Low Osmolar Contrast (ICD-10-PCS; 2021-02-15)
PROC: 5A1D70Z Performance of Urinary Filtration, Intermittent, Less than 6 Hours Per Day (ICD-10-PCS; 2021-02-16)
DX: T82.7XXA Infection and inflammatory reaction due to other cardiac and vascular devices, implants and grafts, initial encounter (principal); N18.6 End stage renal disease; L03.114 Cellulitis of left upper limb; I12.0 Hypertensive chronic kidney disease with stage 5 chronic kidney disease or end stage renal disease; D63.1 Anemia in chronic kidney disease; Z20.822 Contact with and (suspected) exposure to COVID-19; K21.9 Gastro-esophageal reflux disease without esophagitis; M19.90 Unspecified osteoarthritis, unspecified site; G43.909 Migraine, unspecified, not intractable, without status migrainosus; F32.9 Major depressive disorder, single episode, unspecified; Z87.891 Personal history of nicotine dependence; Y83.8 Other surgical procedures as the cause of abnormal reaction of the patient, or of later complication, without mention of misadventure at the time of the procedure; Y92.89 Other specified places as the place of occurrence of the external cause; Z88.3 Allergy status to other anti-infective agents; Z88.2 Allergy status to sulfonamides; Z88.8 Allergy status to other drugs, medicaments and biological substances; E78.5 Hyperlipidemia, unspecified; E66.9 Obesity, unspecified; Z68.30 Body mass index [BMI] 30.0-30.9, adult; Z83.3 Family history of diabetes mellitus; Z82.49 Family history of ischemic heart disease and other diseases of the circulatory system; I25.10 Atherosclerotic heart disease of native coronary artery without angina pectoris; E21.3 Hyperparathyroidism, unspecified
CPT/HCPCS: 36415; 36558; 36902; 76937; 77001; 80048; 80053; 80074; 85025; 85027; 87040; 93005; G0378; C1725; C1750; C1751; C1769; C1894; J0690; J0885; J1200; J1644; J2250; J2270; J2405; J2930; J3010; J3370; J7050; Q9967; U0003

== ENCOUNTER 2021-04-03 09:48 | Emergency (ER) | payer MEDICARE ==
--- NOTE | 2021-04-03 12:10 | Event Note ---
ED Screening Note Date of service: 04/03/21 Time: 12:10 ED Screening Note: This initial assessment/diagnostic orders/clinical plan/treatment(s) is/are subject to change based on patients health status, clinical progression and re- assessment by fellow clinical providers in the ED. Further treatment and workup at subsequent clinical providers discretion. Patient/guardian urged not to elope from the ED as their condition may be serious if not clinically assessed and managed. Initial orders include:
[2021-04-03] MEDS ORDERED: MORPHINE 4 MG/1 ML INJ IV ONE (12:20)
--- NOTE | 2021-04-03 12:26 | Emergency Department Report ---
HPI - General Chief Complaint: Pain General Time Seen by Provider: 04/03/21 12:09 - HPI HPI: 70-year-old -[place] female presents to the emergency department with a complaint of chills, left-sided body pain, abdominal pain, generalized back pain. The patient was getting dialysis today and started getting chills and all of these pains just before completing about half of her dialysis session. Patient has a past medical history of end-stage renal disease on hemodialysis on Tuesday/Tuesday/Tuesday, tricuspid regurgitation, mild aortic stenosis, hypertension. She did not take anything, nor was given anything, for her symptoms prior to presentation today. Her earth observations chief scientist is Dr. Murry. No recent travel or sick contacts at home. ED Past Medical Hx - Past Medical History Previous Medical History?: Yes Hx Hypertension: Yes Hx Heart Attack/AMI: No Hx Congestive Heart Failure: Yes Hx Diabetes: No Hx GERD: Yes Hx Renal Disease: Yes (ESRD/dialysis M,W,F; last HD yesterday) Hx Sickle Cell Disease: No Hx Arthritis: Yes (hands) Hx Headaches / Migraines: Yes (MIGRAINES) Hx Psychiatric Treatment: Yes (depression) Hx Asthma: No Hx COPD: No Hx HIV: No Additional medical history: membreno's palsy-right side - Surgical History Hx Coronary Stent: Yes (1) Additional Surgical History: left A/V graft - Social History Smoking Status: Never Smoker - Medications Home Medications: Home Medications Medication Instructions Recorded Confirmed Last Taken Type ALPRAZolam [Xanax TAB] 0.5 mg PO DAILY 11/10/15 03/09/21 03/08/21 History Omeprazole [PriLOSEC] 40 mg PO QDAY 11/10/15 03/09/21 03/08/21 History Cinacalcet [Sensipar] 30 mg PO QDAY tablet 11/13/15 03/09/21 03/08/21 Rx Metoprolol [Lopressor TAB] 25 mg PO BID #60 tablet 09/13/19 03/09/21 03/08/21 Rx amLODIPine 10 mg PO DAILY 01/06/21 03/09/21 03/08/21 History AtorvaSTATin [Lipitor] 40 mg PO QHS 02/16/21 03/09/21 03/08/21 History Sevelamer Carbonate [Renvela] 2,400 mg PO TIDWM 02/16/21 03/09/21 03/06/21 History Sevelamer Carbonate [Renvela] 800 mg PO DAILY PRN 03/12/21 03/12/21 03/06/21 History HYDROcodone/APAP 5-325 [[place] 1 each PO Q6HR PRN #10 tablet 04/03/21 Unknown Rx 5/325] ED Review of Systems ROS: Stated complaint: Chills Other details as noted in HPI Comment: All other systems reviewed and negative Constitutional: chills. denies: fever Eyes: denies: eye pain, vision change ENT: denies: ear pain, throat pain Respiratory: denies: cough, shortness of breath Cardiovascular: denies: chest pain, palpitations Gastrointestinal: abdominal pain. denies: vomiting Genitourinary: denies: dysuria, discharge Musculoskeletal: back pain. denies: joint swelling Skin: denies: rash, lesions Neurological: denies: headache, numbness Physical Exam - Physical Exam Vital Signs: Vital Signs 04/03/21 09:50 Temperature 98.0 F Pulse Rate 78 Respiratory 18 Rate Blood Pressure 140/79 [Right] O2 Sat by Pulse 98 Oximetry Physical Exam: GENERAL: The patient is well-developed well-nourished. HENT: Normocephalic. Atraumatic. Patient has moist mucous membranes. EYES: Extraocular motions are intact. NECK: Supple. Trachea is midline. CHEST/LUNGS: Clear to auscultation. There is no respiratory distress noted. HEART/CARDIOVASCULAR: Regular. There is no tachycardia. There is no murmur. ABDOMEN: Abdomen is soft. Mild generalized abdominal tenderness to palpation. Patient has normal bowel sounds. There is no abdominal distention. SKIN: Skin is warm and dry. NEURO: The patient is awake, alert, and oriented. The patient is cooperative. The patient has no focal neurologic deficits. Normal speech. MUSCULOSKELETAL: There is no tenderness or deformity. There is no limitation range of motion. BACK: No midline thoracic or lumbar tenderness to palpation. There is bilateral lumbar paraspinal tenderness to palpation. ED Course Vital Signs 04/03/21 09:50 Temperature 98.0 F Pulse Rate 78 Respiratory 18 Rate Blood Pressure 140/79 [Right] O2 Sat by Pulse 98 Oximetry - Consultations Consultation #1: 04/03/21 15:[address] Murry, on-call for the patient's nephrology group. We discussed the patient's presentation, lab and imaging results. She is asked for the patient to receive a gram of vancomycin and blood cultures. She does not feel that the patient requires admission and she will follow up over the weekend with the blood culture results. The patient can otherwise follow-up at her next dialysis appointment. ED Medical Decision Making - Lab Data Result diagrams: 04/03/21 12:56 04/03/21 12:56 Lab Results 04/03/21 04/03/21 04/03/21 Range/Units 12:56 12:56 12:56 WBC 6.5 (4.5-11.0) K/mm3 RBC 3.41 L (3.65-5.03) M/mm3 Hgb 11.1 (10.1-14.3) gm/dl Hct 34.1 (30.3-42.9) % MCV 100 H (79-97) fl MCH 33 H (28-32) pg MCHC 33 (30-34) % RDW 15.6 H (13.2-15.2) % Plt Count 163 (140-440) K/mm3 Add Manual Diff Complete Total Counted 100 Seg Neutrophils % Reordering Clerk Seg Neuts % (Manual) 76.0 H (40.0-70.0) % Band Neutrophils % 18.0 % Eosinophils % (Manual) 1.0 (0.0-4.3) % Myelocytes % 5.0 % Nucleated RBC % Not Reportable Seg Neutrophils # Man 4.9 (1.8-7.7) K/mm3 Band Neutrophils # 1.2 K/mm3 Lymphocytes # (Manual) 0.0 L (1.2-5.4) K/mm3 Abs React Lymphs (Man) 0.0 K/mm3 Monocytes # (Manual) 0.0 (0.0-0.8) K/mm3 Eosinophils # (Manual) 0.1 (0.0-0.4) K/mm3 Basophils # (Manual) 0.0 (0.0-0.1) K/mm3 Metamyelocytes # 0.0 K/mm3 Myelocytes # 0.3 K/mm3 Promyelocytes # 0.0 K/mm3 Blast Cells # 0.0 K/mm3 WBC Morphology Not Reportable Hypersegmented Neuts Not Reportable Hyposegmented Neuts Not Reportable Hypogranular Neuts Not Reportable Smudge Cells Not Reportable Toxic Granulation Not Reportable Toxic Vacuolation Not Reportable Dohle Bodies Not Reportable Pelger-Huet Anomaly Not Reportable Bobby Rods Not Reportable Platelet Estimate Consistent w auto Clumped Platelets Not Reportable Plt Clumps, EDTA Not Reportable Large Platelets Not Reportable Giant Platelets Not Reportable Platelet Satelliting Not Reportable Plt Morphology Comment Not Reportable RBC Morphology Not Reportable Dimorphic RBCs Not Reportable Polychromasia Not Reportable Hypochromasia Not Reportable Poikilocytosis Not Reportable Anisocytosis Not Reportable Microcytosis Not Reportable Macrocytosis Not Reportable Spherocytes Not Reportable Pappenheimer Bodies Not Reportable Sickle Cells Not Reportable Target Cells Not Reportable Tear Drop Cells Not Reportable Ovalocytes Not Reportable Helmet Cells Not Reportable [place] Bodies Not Reportable [place] Rings Not Reportable Stephane Cells Not Reportable Bite Cells Not Reportable Crenated Cell Not Reportable Elliptocytes Not Reportable Acanthocytes (Spur) Not Reportable Rouleaux Not Reportable Hemoglobin C Crystals Not Reportable Schistocytes Not Reportable Malaria parasites Not Reportable Shawn Bodies Not Reportable Hem Pathologist Commnt No Sodium 139 (137-145) mmol/L Potassium 4.8 (3.6-5.0) mmol/L Chloride 98.2 (98-107) mmol/L Carbon Dioxide 22 (22-30) mmol/L Anion Gap 24 mmol/L BUN 28 H (7-17) mg/dL Creatinine 6.0 H (0.6-1.2) mg/dL Estimated GFR 8 ml/min BUN/Creatinine Ratio 5 % Glucose 71 (65-100) mg/dL Calcium 8.7 (8.4-10.2) mg/dL Total Bilirubin 0.50 (0.1-1.2) mg/dL AST 25 (5-40) units/L ALT 19 (7-56) units/L Alkaline Phosphatase 114 (35-129) units/L Total Protein 7.1 (6.3-8.2) g/dL Albumin 4.2 (3.9-5) g/dL Albumin/Globulin Ratio 1.4 % Lipase 25 (13-60) units/L - Radiology Data Radiology results: report reviewed, image reviewed interpreted by me: Chest x-ray does not show any acute process. There are no pleural effusions, obvious pneumonia and there is no pneumothorax. No widened mediastinum. Abdominal x-ray shows nonspecific nonobstructive bowel gas. CT ABDOMEN AND PELVIS WITHOUT CONTRAST INDICATION / CLINICAL INFORMATION: Abd pain. TECHNIQUE: Axial CT images were obtained through the abdomen and pelvis without IV contrast. All CT scans at this location are performed using CT dose reduction for ALARA by means of automated exposure control. COMPARISON: CT abdomen and pelvis 09/12/2019 FINDINGS: LOWER CHEST: No significant abnormality. LIVER: No significant abnormality. GALLBLADDER: No significant abnormality. BILE DUCTS: No significant abnormality. PANCREAS: No significant abnormality. SPLEEN: No significant abnormality. ADRENALS: No significant abnormality. RIGHT KIDNEY / URETER: Chronic atrophy. LEFT KIDNEY / URETER: Chronic atrophy. Posterior lesion measuring 1.3 cm without significant change. STOMACH / SMALL BOWEL: No significant abnormality. COLON: No significant abnormality. APPENDIX: No significant abnormality. PERITONEUM: No free fluid. No free air. No fluid collection. LYMPH NODES: No significant adenopathy. VASCULAR STRUCTURES: Dense atherosclerotic calcification. Right groin dialysis catheter has its tip at the intrahepatic IVC. URINARY BLADDER: No significant abnormality. REPRODUCTIVE ORGANS: Calcified uterine fibroid. ADDITIONAL FINDINGS: Mild soft tissue edema. SKELETAL SYSTEM: No significant abnormality. IMPRESSION: 1. Changes of chronic renal failure including renal atrophy indents after cirrhotic vascular calcification. Indeterminate left renal lesion without significant change. 2. IVC dialysis catheter. 3. Increasing soft tissue edema. - Medical Decision Making This patient presents to the emergency department with complaint of left-sided body pain, abdominal pain, low back pain, and chills that started about 2 hours into her dialysis session today. On examination she has some generalized abdominal tenderness to palpation but the abdomen is soft and nondistended. She has some lumbar paraspinal tenderness to palpation but no midline thoracic or lumbar tenderness to palpation. Patient does not appear in any respiratory or acute distress. Patient's labs have been unremarkable including CBC and metabolic panel other than renal insufficiency consistent with her end-stage renal disease on hemodialysis. Chest x-ray does not show any pneumonia, pleural effusions, pneumothorax, widened mediastinum, or any other acute process. Abdominal x-ray shows nonspecific nonobstructive bowel gas. No free air. CT scan of the abdomen and pelvis without contrast did not show any acute process or etiology of the patient's discomfort. She was given a dose of IM analgesia with some improvement of her Abdominal pain. Spoke to the patient's earth observations chief scientist to set that the patient was safe for discharge home in regards to missing some of her dialysis today. She did request that the patient receive a dose of vancomycin and have blood cultures. This was done. The patient did develop a low-grade fever of 101 F. I do not see any focus of infection on physical examination including the patient's right groin dialysis catheter. No signs of infection were seen on chest x-ray or CT scan of the abdomen and pelvis. The patient does not have any leukocytosis. She does not make urine. Patient continues to have some low back pain. However she does not have any problems with bowel movements, numbness or paresthesias, focal or lateralizing weakness, inability to ambulate. She does not appear to have any of the emergent back condition such as cauda equina, epidural abscess or cord compression syndrome. As a shared decision-making process, the patient has decided that she would like to be discharged home to follow-up with primary care and nephrology. She will return to the emergency department with any worsening of her symptoms or with any acute distress. Critical Care Time: No Critical care attestation.: If time is entered above; I have spent that time in minutes in the direct care of this critically ill patient, excluding procedure time. ED Disposition Clinical Impression: Back pain, Fever, ESRD on dialysis Abdominal pain Qualifiers: Abdominal location: generalized Qualified Code(s): R10.84 - Generalized abdominal pain Disposition: 01 HOME / SELF CARE / HOMELESS Is pt being admited?: No Condition: Stable Instructions: Fever, Adult, Abdominal Pain, Adult, Acute Back Pain, Adult Additional Instructions: Please follow-up with your primary care physician and earth observations chief scientist. Continue with your normal dialysis schedule. You have been prescribed a medication that is sedating and therefore should not be taken prior to driving, working, and responsible for children and in no way should be mixed with alcohol of any quantity. Return to the emergency department with any worsening of your symptoms, new or concerning symptoms not addressed during this current emergency department visit, or with any acute distress. Prescriptions: HYDROcodone/APAP 5-325 [[place] 5/325] 1 each PO Q6HR PRN #10 tablet PRN Reason: Pain Referrals: MALKA MURRY MD [Staff Physician] - 3-5 Days Time of Disposition: 20:42
--- NOTE | 2021-04-03 13:28 | XRay Report ---
ABDOMEN 3 VIEW(S) INDICATION / CLINICAL INFORMATION: Abd pain. COMPARISON: Chest radiograph dated 03/09/2021 FINDINGS: TUBES / LINES: Stents are noted in the left subclavian and brachycephalic veins. There is a perm cath eter with the tip at the level the superior aspect of the IVC near the junction with the right ventri loly. BOWEL GAS PATTERN: There is a paucity of gas in the abdomen. No acute abnormality is identified. FREE AIR / EXTRALUMINAL GAS: None seen. ADDITIONAL FINDINGS: No significant additional findings. CHEST: Visualized chest shows no significant abnormality. The previously noted nodular density projec ting over the left midlung zone is no longer seen. I suspect this was artifact from oxygen tubing. IMPRESSION: 1. No acute abnormality. Signer Name: Ananda Sanchez MD Signed: 04/03/2021 1:24 PM Workstation Name: [id number]
[2021-04-03 13:43] LABS: Hematocrit 34.1 % (30.3-42.9); Hemoglobin 11.1 gm/dl (10.1-14.3); Mean Corpuscular HGB Conc 33 % (30-34); Mean Corpuscular Volume 100 fl (79-97); Platelet Count 163 K/mm3 (140-440); Red Blood Count 3.41 M/mm3 (3.65-5.03); Red Cell Distribution Width 15.6 % (13.2-15.2)
[2021-04-03 13:59] LABS: Albumin 4.2 g/dL (3.9-5); Calcium 8.7 mg/dL (8.4-10.2)
[2021-04-03] MEDS ORDERED: VANCOMYCIN/NS 1 GM/250 ML 1 GM/250 ML BAG IV ONE (15:22)
[2021-04-03 16:11] LABS: Band Neutrophils # (Manual) 1.2 K/mm3; Myelocytes # (Manual) 0.3 K/mm3; Platelet Estimate Consistent w Auto; Total Cells Counted 100
--- NOTE | 2021-04-03 16:41 | Cat Scan Report ---
CT ABDOMEN AND PELVIS WITHOUT CONTRAST INDICATION / CLINICAL INFORMATION: Abd pain. TECHNIQUE: Axial CT images were obtained through the abdomen and pelvis without IV contrast. All CT scans at this location are performed using CT dose reduction for ALARA by means of automated exposure control. COMPARISON: CT abdomen and pelvis 09/12/2019 FINDINGS: LOWER CHEST: No significant abnormality. LIVER: No significant abnormality. GALLBLADDER: No significant abnormality. BILE DUCTS: No significant abnormality. PANCREAS: No significant abnormality. SPLEEN: No significant abnormality. ADRENALS: No significant abnormality. RIGHT KIDNEY / URETER: Chronic atrophy. LEFT KIDNEY / URETER: Chronic atrophy. Posterior lesion measuring 1.3 cm without significant change. STOMACH / SMALL BOWEL: No significant abnormality. COLON: No significant abnormality. APPENDIX: No significant abnormality. PERITONEUM: No free fluid. No free air. No fluid collection. LYMPH NODES: No significant adenopathy. VASCULAR STRUCTURES: Dense atherosclerotic calcification. Right groin dialysis catheter has its tip a t the intrahepatic IVC. URINARY BLADDER: No significant abnormality. REPRODUCTIVE ORGANS: Calcified uterine fibroid. ADDITIONAL FINDINGS: Mild soft tissue edema. SKELETAL SYSTEM: No significant abnormality. IMPRESSION: 1. Changes of chronic renal failure including renal atrophy indents after cirrhotic vascular calcific ation. Indeterminate left renal lesion without significant change. 2. IVC dialysis catheter. 3. Increasing soft tissue edema. Signer Name: Roland Phillips MD Signed: 04/03/2021 4:37 PM Workstation Name: [id number]
[2021-04-03] MEDS ORDERED: VANCOMYCIN 250 MG/10 ML ORAL LIQD PO ONE (18:50)
[2021-04-03] MEDS ORDERED: ACETAMINOPHEN 325 MG TAB PO ONE (19:56)
[2021-04-03] MEDS ORDERED: oxyCODONE /ACETAMINOPHEN 5-325MG TAB PO ONE (19:56)
[2021-04-03 20:54] VITALS: BP 128/68
--- NOTE | 2021-04-05 11:20 | Event Note ---
Received critical value from nurse that patient has blood cultures that are positive for gram-negative rods. Discussed case with Dr. Nguyen who agrees patient needs to be called back to the hospital for admission and IV antibiotics. I attempted to call the number on file which is not in service. I called patient's next of kin contact which is her Sister Selma Guerrero and left a message. I requested that she have her sister call the ER to discuss her need to come to the ER to continue her treatment. I will also recontact Dr. Nguyen to inform her that we were unable to get a hold. She will also attempt to reach out to the patient
== END 2021-04-03 21:15 | disposition home or self-care (01) ==
LOC: ED 09:48
DX: I12.0 Hypertensive chronic kidney disease with stage 5 chronic kidney disease or end stage renal disease (principal); N18.6 End stage renal disease; Z99.2 Dependence on renal dialysis; K21.9 Gastro-esophageal reflux disease without esophagitis; G43.909 Migraine, unspecified, not intractable, without status migrainosus; F32.9 Major depressive disorder, single episode, unspecified
CPT/HCPCS: 36415; 74022; 74176; 80053; 83690; 85007; 85025; 87040; 87076; 87186; 96374; 99285; J2270; J3370

== ENCOUNTER 2021-07-02 10:40 | Inpatient (IN) | payer MEDICARE ==
--- NOTE | 2021-07-02 11:18 | Event Note ---
ED Screening Note ED Screening Note: LAST HD 1 WEEK AGO DUE TO MIX UP AT CLINIC CO SOB This initial assessment/diagnostic orders/clinical plan/treatment(s) is/are subject to change based on patients health status, clinical progression and re- assessment by fellow clinical providers in the ED. Further treatment and workup at subsequent clinical providers discretion. Patient/guardian urged not to elope from the ED as their condition may be serious if not clinically assessed and managed. Initial orders include: LABS EKG XRAY [facility]
[2021-07-02 11:24] LABS: Hematocrit 24.6 % (30.3-42.9); Hemoglobin 8.4 gm/dl (10.1-14.3); Mean Corpuscular HGB Conc 34 % (30-34); Mean Corpuscular Volume 97 fl (79-97); Platelet Count 196 K/mm3 (140-440); Red Blood Count 2.54 M/mm3 (3.65-5.03)
[2021-07-02 11:49] LABS: Calcium 7.6 mg/dL (8.4-10.2)
--- NOTE | 2021-07-02 11:50 | XRay Report ---
CHEST 2 VIEWS INDICATION: SOB. COMPARISON: 06/06/2021 FINDINGS: Support devices: None. Heart: Within normal limits. Lungs/pleura: Bilateral pulmonary opacities have decreased by at least 50%. No consolidation, pleural effusion or pneumothorax. No pneumothorax. Additional findings: Stent in the left brachiocephalic and left subclavian veins is again noted. IMPRESSION: Improvement in the bilateral lung opacities or congestive changes. Signer Name: Carlos Muller Jr, MD Signed: 07/02/2021 11:45 AM Workstation Name: [id number]
--- NOTE | 2021-07-02 12:16 | Emergency Department Report ---
ED General Adult HPI - General Chief complaint: Dyspnea/Respdistress Stated complaint: DAILYSIS PUI?: No Time Seen by Provider: 07/02/21 11:17 Source: patient Mode of arrival: Ambulatory Limitations: No Limitations - History of Present Illness Initial comments: 70 YO COMES TO ER WITH SOB. SENT BY DR MURRY DUE TO CONFUSION AT HER HD CLINIC AND HER NOT BEING DIALYZED SINCE LAST WEEK. AMBULATORY AND IN NAD ON TRIAGE EXAM DENIES CP ENDORSES INC SOB BUT VS ARE STABLE AND SAT ON ROOM AIR IS 99 -: Gradual, days(s) Associated Symptoms: denies other symptoms, shortness of breath, other. denies: confusion, chest pain, cough, diaphoresis, fever/chills, headaches, loss of appetite, malaise, nausea/vomiting, rash, seizure, syncope, weakness Treatments Prior to Arrival: none - Related Data Home Medications Medication Instructions Recorded Confirmed Last Taken ALPRAZolam [Xanax TAB] 0.5 mg PO TID 11/10/15 06/08/21 03/08/21 Omeprazole [PriLOSEC] 40 mg PO QDAY 11/10/15 06/08/21 03/08/21 amLODIPine 10 mg PO DAILY 01/06/21 06/08/21 03/08/21 Meclizine [Antivert] 12.5 mg PO BID PRN 06/08/21 06/08/21 Unknown Previous Rx's Medication Instructions Recorded Last Taken Type Ascorbic Acid [Vitamin C] 500 mg PO BID #30 tablet 06/11/21 Unknown Rx AtorvaSTATin [Lipitor] 40 mg PO QHS #30 tablet 06/11/21 Unknown Rx Cholecalciferol Vit D3 [Vitamin D3 1,000 unit PO QDAY #15 tablet 06/11/21 Unknown Rx 400 UNIT TAB] Cinacalcet [Sensipar] 30 mg PO QDAY #60 tablet 06/11/21 Unknown Rx Sevelamer Carbonate [Renvela] 800 mg PO DAILY PRN #30 tablet 06/11/21 Unknown Rx Zinc Sulfate 220 mg PO BID #30 capsule 06/11/21 Unknown Rx guaiFENesin/CODEINE [Robitussin AC] 10 ml PO Q6H PRN #1 bottle 06/11/21 Unknown Rx Prednisone [predniSONE 10 mg 10 mg PO .TAPER #1 06/12/21 Unknown Rx (6-Day Pack, 21 Tabs)] Allergies Allergy/AdvReac Type Severity Reaction Status Date / Time iodine Allergy HIVES AND Verified 07/02/21 11:15 VOMITING lisinopril Allergy Angioedema Verified 07/02/21 11:15 shrimp Allergy Itching Verified 07/02/21 11:15 Sulfa (Sulfonamide Allergy HIVES AND Verified 07/02/21 11:15 Antibiotics) FACIAL SWELLING ED Review of Systems ROS: Stated complaint: DAILYSIS Other details as noted in HPI Comment: All other systems reviewed and negative ED Past Medical Hx - Past Medical History Previous Medical History?: Yes Hx Hypertension: Yes Hx Heart Attack/AMI: No Hx Congestive Heart Failure: Yes Hx Diabetes: No Hx GERD: Yes Hx Renal Disease: Yes Hx Sickle Cell Disease: No Hx Arthritis: Yes Hx Headaches / Migraines: Yes (MIGRAINES) Hx Psychiatric Treatment: Yes (depression) Hx Asthma: No Hx COPD: No Hx HIV: No Additional medical history: membreno's palsy-right side - Surgical History Past Surgical History?: Yes Hx Coronary Stent: Yes Additional Surgical History: left A/V graft - Family History Family history: no significant - Social History Smoking Status: Never Smoker Substance Use Type: None - Medications Home Medications: Home Medications Medication Instructions Recorded Confirmed Last Taken Type ALPRAZolam [Xanax TAB] 0.5 mg PO TID 11/10/15 06/08/21 03/08/21 History Omeprazole [PriLOSEC] 40 mg PO QDAY 11/10/15 06/08/21 03/08/21 History amLODIPine 10 mg PO DAILY 01/06/21 06/08/21 03/08/21 History Meclizine [Antivert] 12.5 mg PO BID PRN 06/08/21 06/08/21 Unknown History Ascorbic Acid [Vitamin C] 500 mg PO BID #30 tablet 06/11/21 Unknown Rx AtorvaSTATin [Lipitor] 40 mg PO QHS #30 tablet 06/11/21 Unknown Rx Cholecalciferol Vit D3 [Vitamin D3 1,000 unit PO QDAY #15 tablet 06/11/21 Unknown Rx 400 UNIT TAB] Cinacalcet [Sensipar] 30 mg PO QDAY #60 tablet 06/11/21 Unknown Rx Sevelamer Carbonate [Renvela] 800 mg PO DAILY PRN #30 tablet 06/11/21 Unknown Rx Zinc Sulfate 220 mg PO BID #30 capsule 06/11/21 Unknown Rx guaiFENesin/CODEINE [Robitussin AC] 10 ml PO Q6H PRN #1 bottle 06/11/21 Unknown Rx Prednisone [predniSONE 10 mg 10 mg PO .TAPER #1 06/12/21 Unknown Rx (6-Day Pack, 21 Tabs)] ED Physical Exam - General Limitations: No Limitations General appearance: alert, in no apparent distress - Head Head exam: Present: atraumatic, normocephalic - Eye Eye exam: Present: normal appearance - ENT ENT exam: Present: mucous membranes moist - Neck Neck exam: Present: normal inspection - Respiratory Respiratory exam: Present: normal lung sounds bilaterally. Absent: respiratory distress - Cardiovascular Cardiovascular Exam: Present: regular rate, normal rhythm. Absent: systolic murmur, diastolic murmur, rubs, gallop - GI/Abdominal GI/Abdominal exam: Present: soft, normal bowel sounds - Extremities Exam Extremities exam: Present: normal inspection - Back Exam Back exam: Present: normal inspection - Neurological Exam Neurological exam: Present: alert, oriented X3 - Psychiatric Psychiatric exam: Present: normal affect, normal mood - Skin Skin exam: Present: warm, dry, intact, normal color. Absent: rash ED Course Vital Signs 07/02/21 11:20 Temperature 98.8 F Pulse Rate 66 Respiratory 24 Rate Blood Pressure 179/80 O2 Sat by Pulse 99 Oximetry - Reevaluation(s) Reevaluation #1: 07/02/21 12:00 LABS RESULTED IN TRIAGE NEPHROLOGY CONSULTED ED Medical Decision Making - Lab Data Result diagrams: 07/02/21 11:00 07/02/21 11:00 - EKG Data EKG shows normal: sinus rhythm Rate: normal - EKG Data When compared to previous EKG there are: no significant change Interpretation: no acute changes - Radiology Data Radiology results: report reviewed, image reviewed - Medical Decision Making Lab Results 07/02/21 07/02/21 Range/Units 11:00 11:00 WBC 5.2 (4.5-11.0) K/mm3 RBC 2.54 L (3.65-5.03) M/mm3 Hgb 8.4 L (10.1-14.3) gm/dl Hct 24.6 L (30.3-42.9) % MCV 97 (79-97) fl MCH 33 H (28-32) pg MCHC 34 (30-34) % RDW 17.0 H (13.2-15.2) % Plt Count 196 (140-440) K/mm3 Sodium 145 (137-145) mmol/L Potassium 6.3 H* (3.6-5.0) mmol/L Chloride 104.2 (98-107) mmol/L Carbon Dioxide 16 L (22-30) mmol/L Anion Gap 31 mmol/L BUN 116 H (7-17) mg/dL Creatinine 14.4 H (0.6-1.2) mg/dL Estimated GFR 3 ml/min BUN/Creatinine Ratio 8 % Glucose 70 (65-100) mg/dL Calcium 7.6 L (8.4-10.2) mg/dL Phosphorus 10.80 H (2.5-4.5) mg/dL Magnesium 2.20 (1.7-2.3) mg/dL NT-Pro-B Natriuret Pep 57493 H (0-900) pg/mL Vital Signs 07/02/21 11:20 Temperature 98.8 F Pulse Rate 66 Respiratory 24 Rate Blood Pressure 179/80 O2 Sat by Pulse 99 Oximetry [address] HARRISON ALVAREZ WITH DR MURRY AWARE OF PT PRESENTATION AND WOULD LIKE HER ADMITTED TO [facility] AND THEY WILL PUT HD ORDERS IN. PT UPDATED [address] NICHOLSON; ADMIT ORDERS PLACED SO THAT HD ORDERS COULD BE INITIATED PER NEPHROLOGY. - Differential Diagnosis ? HD Critical care attestation.: If time is entered above; I have spent that time in minutes in the direct care of this critically ill patient, excluding procedure time. ED Disposition Clinical Impression: ESRD on dialysis Disposition: 02 [facility] Is pt being admited?: Yes Does the pt Need Aspirin: No Condition: Stable Time of Disposition: 12:26
--- NOTE | 2021-07-02 12:36 | History and Physical Report ---
History of Present Illness Chief complaint: It is hard to breathe and this does not feel good History of present illness: 70 YO Female with ESRD on HD(M,W,F), CAD S/P Stent Placement, HTN, GERD, HLD, MDD, Migraine Headache, Diastolic CHF presents to ED for evaluation. Patient exhibits cognitive slowing and provides minimal history. Patient reports "it is hard to breathe when I do not feel good". Patient states that she has experienced generalized weakness, and shortness of breath over the past 10 days with persistent and worsening symptoms over the same timeframe. Patient presented to her outpatient dialysis clinic for her routine dialysis. Patient was found to have confusion at her dialysis center. Patient was unable to undergo dialysis. Patient transported to [facility] via private vehicle for further care and evaluation of the aforementioned symptoms. The patient was seen and evaluated in the emergency department. All lab and imaging studies reviewed. Patient found to have end-stage renal disease and need of urgent dialysis. Patient last dialyzed 1 week ago. Patient found to have metabolic acidosis, metabolic encephalopathy, hyperkalemia, fluid overload complicated by CHF decompensation. Patient admitted to medical floor due to increased risk of worsening symptoms. Nephrology team consulted in ED for urgent dialysis. Patient denies fever, chills, chest pain, palpitation, productive cough, skin rash, recent ill contacts, or known exposure to COVID-19. Prior admission on 06/06/2021 reviewed. All medication listed at time of admission has been reconciled. Advanced care planning conducted in ED. Past History Past Medical History: CAD, ESRD, GERD, heart failure, hypertension, migraines, other (See HPI) Past Surgical History: Other (Dialysis access, cardiac stent placement) Social history: . denies: smoking, alcohol abuse, prescription drug abuse Family history: diabetes, hypertension Medications and Allergies Allergies Allergy/AdvReac Type Severity Reaction Status Date / Time iodine Allergy HIVES AND Verified 07/02/21 11:15 VOMITING lisinopril Allergy Angioedema Verified 07/02/21 11:15 shrimp Allergy Itching Verified 07/02/21 11:15 Sulfa (Sulfonamide Allergy HIVES AND Verified 07/02/21 11:15 Antibiotics) FACIAL SWELLING Home Medications Medication Instructions Recorded Confirmed Last Taken Type ALPRAZolam [Xanax TAB] 0.5 mg PO TID 11/10/15 06/08/21 03/08/21 History Omeprazole [PriLOSEC] 40 mg PO QDAY 11/10/15 06/08/21 03/08/21 History amLODIPine 10 mg PO DAILY 01/06/21 06/08/21 03/08/21 History Meclizine [Antivert] 12.5 mg PO BID PRN 06/08/21 06/08/21 Unknown History Ascorbic Acid [Vitamin C] 500 mg PO BID #30 tablet 06/11/21 Unknown Rx AtorvaSTATin [Lipitor] 40 mg PO QHS #30 tablet 06/11/21 Unknown Rx Cholecalciferol Vit D3 [Vitamin D3 1,000 unit PO QDAY #15 tablet 06/11/21 Unknown Rx 400 UNIT TAB] Cinacalcet [Sensipar] 30 mg PO QDAY #60 tablet 06/11/21 Unknown Rx Sevelamer Carbonate [Renvela] 800 mg PO DAILY PRN #30 tablet 06/11/21 Unknown Rx Zinc Sulfate 220 mg PO BID #30 capsule 06/11/21 Unknown Rx guaiFENesin/CODEINE [Robitussin AC] 10 ml PO Q6H PRN #1 bottle 06/11/21 Unknown Rx Prednisone [predniSONE 10 mg 10 mg PO .TAPER #1 06/12/21 Unknown Rx (6-Day Pack, 21 Tabs)] Review of Systems ROS unobtainable: due to mental status Exam - Constitutional Vitals: Temp Pulse Resp BP Pulse Ox 98.8 F 66 24 179/80 99 07/02/21 11:20 07/02/21 11:20 07/02/21 11:20 07/02/21 11:20 07/02/21 11:20 General appearance: Present: mild distress - EENT Eyes: Present: PERRL ENT: hearing intact, clear oral mucosa - Neck Neck: Present: supple, normal ROM - Respiratory Respiratory effort: normal Respiratory: bilateral: CTA - Cardiovascular Heart Sounds: Present: S1 & S2. Absent: rub, click - Extremities Extremities: pulses symmetrical, No edema Peripheral Pulses: within normal limits - Abdominal General gastrointestinal: Present: soft, non-tender, non-distended, normal bowel sounds Female genitourinary: Present: normal - Integumentary Integumentary: Present: clear, warm, dry - Musculoskeletal Musculoskeletal: generalized weakness - Psychiatric Psychiatric: no intact judgment & insight, memory intact - Neurologic Neurologic: CNII-XII intact, moves all extremities Results - Labs CBC & Chem 7: 07/02/21 11:00 07/02/21 11:00 Labs: Abnormal lab results 07/02/21 07/02/21 Range/Units 11:00 11:00 RBC 2.54 L (3.65-5.03) M/mm3 Hgb 8.4 L (10.1-14.3) gm/dl Hct 24.6 L (30.3-42.9) % MCH 33 H (28-32) pg RDW 17.0 H (13.2-15.2) % Potassium 6.3 H* (3.6-5.0) mmol/L Carbon Dioxide 16 L (22-30) mmol/L BUN 116 H (7-17) mg/dL Creatinine 14.4 H (0.6-1.2) mg/dL Calcium 7.6 L (8.4-10.2) mg/dL Phosphorus 10.80 H (2.5-4.5) mg/dL NT-Pro-B Natriuret Pep 53684 H (0-900) pg/mL Assessment and Plan - Patient Problems (1) End stage renal disease Current Visit: Yes Status: Acute Plan to address problem: Nephrology team consulted in ED, strict I's/O, monitor urine output every shift, monitor fluid balance, avoid nephrotoxic agents, dialysis as per renal team. (2) Diastolic CHF Current Visit: Yes Status: Acute Qualifiers: Heart failure chronicity: acute on chronic Qualified Code(s): I50.33 - Acute on chronic diastolic (congestive) heart failure Plan to address problem: Strict I/O, renal output every shift, daily weight, afterload reduction, urgent dialysis. Echocardiogram 1121 reviewed. (3) Metabolic encephalopathy Current Visit: Yes Status: Acute Plan to address problem: Neuro check, seizure precautions, fall precautions, supportive care. (4) Metabolic acidosis Current Visit: Yes Status: Acute Plan to address problem: BMP, urgent dialysis, repeat BMP in a.m., supportive care. (5) Hyperkalemia Current Visit: Yes Status: Acute Plan to address problem: No EKG changes, urgent dialysis, repeat BMP in a.m. (6) Fluid overload Current Visit: Yes Status: Acute Plan to address problem: Supportive care, monitor fluid balance, urgent dialysis, (7) DVT prophylaxis Current Visit: Yes Status: Acute Plan to address problem: SCD to bilateral lower extremities while in bed (8) Advance care planning Current Visit: Yes Status: Acute Plan to address problem: Disease education conducted, care plan discussed, diagnoses discussed, prognosis discussed, patient is full code, +30 minutes.
[2021-07-02] MEDS ORDERED: ACETAMINOPHEN 325 MG TAB PO PRN (12:56)
[2021-07-02] MEDS ORDERED: HYDROmorphone 1 MG/1 ML INJ IV PRN (12:56)
[2021-07-02] MEDS ORDERED: ONDANSETRON 4 MG/2 ML INJ IV PRN (12:56)
[2021-07-02] MEDS ORDERED: ALBUTEROL 2.5 MG/3 ML NEBU IH PRN (12:56)
--- NOTE | 2021-07-02 13:33 | Electrocardiograph Report ---
[facility] Test Date: 2021-07-02 Test Time: 11:26:42 Pat Name: PATRICIO HADLEY Department: Room: Gender: F Director Asset: AMY : 1950 Requested By: MICAH ARCOS Order Number: [id number] Reading MD: Phill Pichardo Measurements Intervals [place] Rate: 58 P: 73 UT: 172 QRS: 92 QRSD: 127 T: -4 QT: 460 QTc: 453 Interpretive Statements Sinus bradycardia Right bundle branch block Low voltage QRS Compared to ECG 06/06/2021 12:50:13 No significant change Electronically Signed On 07-02-2021 13:32:52 EST by Phill Pichardo
[2021-07-03 06:00] LABS: Calcium 7.7 mg/dL (8.4-10.2)
[2021-07-03] MEDS: oxyCODONE /ACETAMINOPHEN 5-325MG TAB PO PRN ×2 (06:29→21:03)
--- NOTE | 2021-07-03 15:59 | Progress Note ---
Assessment and Plan Assessment and plan: (1) End stage renal disease Current Visit: Yes Status: Acute Plan to address problem: Nephrology team consulted in ED, strict I's/O, monitor urine output every shift, monitor fluid balance, avoid nephrotoxic agents, dialysis as per renal team. (2) Diastolic CHF Current Visit: Yes Status: Acute Qualifiers: Heart failure chronicity: acute on chronic Qualified Code(s): I50.33 - Acute on chronic diastolic (congestive) heart failure Plan to address problem: Strict I/O, renal output every shift, daily weight, afterload reduction, urgent dialysis. Echocardiogram 1121 reviewed. (3) Metabolic encephalopathy Current Visit: Yes Status: Acute Plan to address problem: Neuro check, seizure precautions, fall precautions, supportive care. (4) Metabolic acidosis Current Visit: Yes Status: Acute Plan to address problem: BMP, urgent dialysis, repeat BMP in a.m., supportive care. (5) Hyperkalemia Current Visit: Yes Status: Acute Plan to address problem: No EKG changes, urgent dialysis, repeat BMP in a.m. (6) Fluid overload Current Visit: Yes Status: Acute Plan to address problem: Supportive care, monitor fluid balance, urgent dialysis, (7) DVT prophylaxis Current Visit: Yes Status: Acute Plan to address problem: SCD to bilateral lower extremities while in bed (8) Advance care planning Current Visit: Yes Status: Acute Plan to address problem: Disease education conducted, care plan discussed, diagnoses discussed, prognosis discussed, patient is full code, +30 minutes. Hospitalist Physical - Physical exam Narrative exam: GENERAL: Well-developed well-nourished. Sitting on the side of the bed in no acute distress. HEENT: Normocephalic. Atraumatic. NECK: Supple. CHEST/LUNGS: CTAB on room air HEART/CARDIOVASCULAR: RRR. No murmur, rubs or gallops appreciated. ABDOMEN: +BS. NT/ND. SKIN: No rashes noted. NEURO: No focal motor deficit. Follows all commands and is ambulatory. MUSCULOSKELETAL: No joint effusion noted. EXTREMITIES: Left upper extremity AV fistula with thrill. Left shoulder mildly tender to palpation. PSYCH: Cooperative. - Constitutional Vitals: Temp Pulse Resp BP Pulse Ox 350 F H 68 170 H 149/80 98 07/03/21 13:50 07/03/21 13:50 07/03/21 13:50 07/03/21 13:50 07/03/21 13:50 General appearance: Present: mild distress Results - Labs CBC & Chem 7: 07/02/21 11:00 07/03/21 05:15 Labs: Laboratory Last Values WBC 5.2 K/mm3 (4.5-11.0) 07/02/21 11:00 RBC 2.54 M/mm3 (3.65-5.03) L 07/02/21 11:00 Hgb 8.4 gm/dl (10.1-14.3) L 07/02/21 11:00 Hct 24.6 % (30.3-42.9) L 07/02/21 11:00 MCV 97 fl (79-97) 07/02/21 11:00 MCH 33 pg (28-32) H 07/02/21 11:00 MCHC 34 % (30-34) 07/02/21 11:00 RDW 17.0 % (13.2-15.2) H 07/02/21 11:00 Plt Count 196 K/mm3 (140-440) 07/02/21 11:00 Sodium 142 mmol/L (137-145) 07/03/21 05:15 Potassium 5.0 mmol/L (3.6-5.0) D 07/03/21 05:15 Chloride 100.1 mmol/L (98-107) 07/03/21 05:15 Carbon Dioxide 25 mmol/L (22-30) D 07/03/21 05:15 Anion Gap 22 mmol/L 07/03/21 05:15 BUN 57 mg/dL (7-17) H 07/03/21 05:15 Creatinine 9.4 mg/dL (0.6-1.2) H 07/03/21 05:15 Estimated GFR 5 ml/min 07/03/21 05:15 BUN/Creatinine Ratio 6 % 07/03/21 05:15 Glucose 73 mg/dL (65-100) 07/03/21 05:15 Calcium 7.7 mg/dL (8.4-10.2) L 07/03/21 05:15 Phosphorus 10.80 mg/dL (2.5-4.5) H 07/02/21 11:00 Magnesium 2.20 mg/dL (1.7-2.3) 07/02/21 11:00 NT-Pro-B Natriuret Pep 71344 pg/mL (0-900) H 07/02/21 11:00 [place]/IV: Voiding Method Toilet Active Medications - Current Medications Current Medications: Generic Name Dose Route Start Last Admin Trade Name Freq PRN Reason Stop Dose Admin Acetaminophen 650 mg 07/02/21 12:56 Acetaminophen 325 Mg Tab PO Q4H PRN Pain MILD(1-3)/Fever >100.5/IZAGUIRRE Albuterol 2.5 mg 07/02/21 12:56 Albuterol 2.5 Mg/3 Ml Nebu IH Q4HRT PRN Shortness Of Breath Hydromorphone HCl 0.5 mg 07/02/21 12:56 Hydromorphone 1 Mg/1 Ml Inj IV Q23H PRN Pain , Severe (7-10) Ondansetron HCl 4 mg 07/02/21 12:56 Ondansetron 4 Mg/2 Ml Inj IV Q8H PRN Nausea And Vomiting Oxycodone/Acetaminophen 1 tab 07/02/21 12:56 07/03/21 06:29 Oxycodone /Acetaminophen 5-325mg Tab PO 1 tab Q6H PRN Administration Pain, Moderate (4-6) Sodium Chloride 10 ml 07/02/21 22:00 07/02/21 22:00 Sodium Chloride 0.9% 10 Ml Flush Syringe IV Not Given BID MANPREET Sodium Chloride 10 ml 07/02/21 12:56 Sodium Chloride 0.9% 10 Ml Flush Syringe IV PRN PRN LINE FLUSH Nutrition/Malnutrition Assess - Dietary Evaluation Nutrition/Malnutrition Findings: Nutrition Notes Start: 07/03/21 12:39 Freq: Status: Active Protocol: Document 07/03/21 12:39 ORTIZ (Rec: 07/03/21 12:57 [email or web address] [id number]) Nutrition Notes 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 Current Diet Renal Diet (since D 07/02). Labs/Tests 07/03: BUN 57, Crea 14.4, Ca 7 .6, Phos 10.8. Pertinent Medications 03/04: Nutritionally unremarkable. Height 5 ft 3 in Weight 74 kg [place] Body Weight (kg) 52.27 BMI 28.9 Intake Prior to Admission Poor Weight change and time frame Pt states having loss unintentionally between 2 and 13 lb recently. Weight Status Overweight Subjective/Other Information RD consult for risk of malnutrition assessment. No reports available on Pt's PO intake of meals at the time . Pt missed HD for 1 week. Pt showqs no signs of concern for risk of malnutrition at the time, according to Physical Assessment History notes. Percent of energy/protein needs met: Prescribed Renal Diet provides for energy/protein needs (2, 072 Kcal/77 g) during LOS. Burn Absent Trauma Absent GI Symptoms None Food Allergy No Skin Integrity/Comment Assessment WNL. Minimum of two criteria No #1 Nutrition Diagnosis No nutrition diagnosis at this time Comments: Will reassess for PO intake of meals at F/U. Is patient on ventilator? No Is Patient Ambulatory and/or Out of Bed Yes REE-([facility]-ambulatory/OOB) [ 1610.869 [id number]] Calculation Used for Recommendations [facility] Additional Notes Protein: >1.2 g/Kg; >89 g/day. Fluids: 1 ml/Kcal, or as per MD. Nutrition Intervention Follow-Up By: 07/10/21 Additional Comments Continue monitoring food tolerance, %PO intake of meals , and BM.
[2021-07-03] MEDS ORDERED: SODIUM CHLORIDE 0.9% 100 ML IV PRN (17:23)
--- NOTE | 2021-07-03 17:25 | Consultation ---
History of Present Illness - Reason for Consult Consult date: 07/03/21 end stage renal disease Requesting physician: GLYNN MAYFIELD - History of Present Illness 70 YO Female with ESRD on HD(M,W,F), CAD S/P Stent Placement, HTN, GERD, HLD, MDD, Migraine Headache, Diastolic CHF presents to ED for evaluation. Patient exhibits cognitive slowing and provides minimal history. Patient reports "it is hard to breathe when I do not feel good". Patient states that she has experienced generalized weakness, and shortness of breath over the past 10 days with persistent and worsening symptoms over the same timeframe. Patient presented to her outpatient dialysis clinic for her routine dialysis. Patient was found to have confusion at her dialysis center. Patient was unable to undergo dialysis. Patient transported to [facility] via private vehicle for further care and evaluation of the aforementioned symptoms. The patient was seen and evaluated in the emergency department. All lab and imaging studies reviewed. Patient found to have end-stage renal disease and need of urgent dialysis. Patient last dialyzed 1 week ago. Patient found to have metabolic acidosis, metabolic encephalopathy, hyperkalemia, fluid overload complicated by CHF decompensation. Patient admitted to medical floor due to increased risk of worsening symptoms. Nephrology team consulted in ED for urgent dialysis. Patient denies fever, chills, chest pain, palpitation, productive cough, skin ra sh, recent ill contacts, or known exposure to COVID-19. Prior admission on 06/06/2021 reviewed. All medication listed at time of admission has been reconciled. Advanced care planning conducted in ED. Past History Past Medical History: CAD, ESRD, GERD, heart failure, hypertension, migraines, other (See HPI) Past Surgical History: Other (Dialysis access, cardiac stent placement) Social history: . denies: smoking, alcohol abuse, prescription drug abuse Family history: diabetes, hypertension Review of Systems ROS unobtainable: due to mental status Past History Past Medical History: CAD, ESRD, GERD, heart failure, hypertension, migraines, other (See HPI) Past Surgical History: Other (Dialysis access, cardiac stent placement) Social history: . denies: smoking, alcohol abuse, prescription drug abuse Family history: diabetes, hypertension Medications and Allergies Allergies Allergy/AdvReac Type Severity Reaction Status Date / Time iodine Allergy HIVES AND Verified 07/02/21 11:15 VOMITING lisinopril Allergy Angioedema Verified 07/02/21 11:15 shrimp Allergy Itching Verified 07/02/21 11:15 Sulfa (Sulfonamide Allergy HIVES AND Verified 07/02/21 11:15 Antibiotics) FACIAL SWELLING Home Medications Medication Instructions Recorded Confirmed Last Taken Type ALPRAZolam [Xanax TAB] 0.5 mg PO TID 11/10/15 06/08/21 03/08/21 History Omeprazole [PriLOSEC] 40 mg PO QDAY 11/10/15 06/08/21 03/08/21 History amLODIPine 10 mg PO DAILY 01/06/21 06/08/21 03/08/21 History Meclizine [Antivert] 12.5 mg PO BID PRN 06/08/21 06/08/21 Unknown History Ascorbic Acid [Vitamin C] 500 mg PO BID #30 tablet 06/11/21 Unknown Rx AtorvaSTATin [Lipitor] 40 mg PO QHS #30 tablet 06/11/21 Unknown Rx Cholecalciferol Vit D3 [Vitamin D3 1,000 unit PO QDAY #15 tablet 06/11/21 Unknown Rx 400 UNIT TAB] Cinacalcet [Sensipar] 30 mg PO QDAY #60 tablet 06/11/21 Unknown Rx Sevelamer Carbonate [Renvela] 800 mg PO DAILY PRN #30 tablet 06/11/21 Unknown Rx Zinc Sulfate 220 mg PO BID #30 capsule 06/11/21 Unknown Rx guaiFENesin/CODEINE [Robitussin AC] 10 ml PO Q6H PRN #1 bottle 06/11/21 Unknown Rx Prednisone [predniSONE 10 mg 10 mg PO .TAPER #1 06/12/21 Unknown Rx (6-Day Pack, 21 Tabs)] Active Meds: Active Medications Acetaminophen (Acetaminophen 325 Mg Tab) 650 mg PO Q4H PRN PRN Reason: Pain MILD(1-3)/Fever >100.5/IZAGUIRRE Albuterol (Albuterol 2.5 Mg/3 Ml Nebu) 2.5 mg IH Q4HRT PRN PRN Reason: Shortness Of Breath Hydromorphone HCl (Hydromorphone 1 Mg/1 Ml Inj) 0.5 mg IV Q23H PRN PRN Reason: Pain , Severe (7-10) Sodium Chloride (Nacl 0.9%) 100 mls @ 999 mls/hr IV BUSTER PRN PRN Reason: Hypotension Ondansetron HCl (Ondansetron 4 Mg/2 Ml Inj) 4 mg IV Q8H PRN PRN Reason: Nausea And Vomiting Oxycodone/Acetaminophen (Oxycodone /Acetaminophen 5-325mg Tab) 1 tab PO Q6H PRN PRN Reason: Pain, Moderate (4-6) Last Admin: 07/03/21 06:29 Dose: 1 tab Sodium Chloride (Sodium Chloride 0.9% 10 Ml Flush Syringe) 10 ml IV BID MANPREET Last Admin: 07/02/21 22:00 Dose: Not Given Sodium Chloride (Sodium Chloride 0.9% 10 Ml Flush Syringe) 10 ml IV PRN PRN PRN Reason: LINE FLUSH Exam - Vital Signs Vital signs: Vital Signs Temp Pulse Resp BP Pulse Ox 98.8 F 66 24 179/80 99 07/02/21 11:20 07/02/21 11:20 07/02/21 11:20 07/02/21 11:20 07/02/21 11:20 - Physical Exam Narrative exam: General appearance: Present: mild distress - EENT Eyes: Present: PERRL ENT: hearing intact, clear oral mucosa - Neck Neck: Present: supple, normal ROM - Respiratory Respiratory effort: normal Respiratory: bilateral: CTA - Cardiovascular Heart Sounds: Present: S1 & S2. Absent: rub, click - Extremities Extremities: pulses symmetrical, No edema Peripheral Pulses: within normal limits - Abdominal General gastrointestinal: Present: soft, non-tender, non-distended, normal bowel sounds Female genitourinary: Present: normal - Integumentary Integumentary: Present: clear, warm, dry - Musculoskeletal Musculoskeletal: generalized weakness - Psychiatric Psychiatric: no intact judgment & insight, memory intact - Neurologic Neurologic: CNII-XII intact, moves all extremities Results - Lab Results 07/02/21 11:00 07/03/21 05:15 Most recent lab results Calcium 7.7 mg/dL (8.4-10.2) L 07/03/21 05:15 Phosphorus 10.80 mg/dL (2.5-4.5) H 07/02/21 11:00 Magnesium 2.20 mg/dL (1.7-2.3) 07/02/21 11:00 Assessment and Plan Assessment * End-stage renal disease on maintenance hemodialysis * uremia * recent COVID-19 pneumonia * Anemia secondary to ESRD * Metabolic acidosis * Hyperparathyroidism * Accelerated hypertension * Noncompliance with dialysis Recommendations * Continue HD in am and qWMF starting first of week * Monitor labs and volume status daily and assess need for additional dialysis session * Epogen with HD * Continue phosphorus binders * ESRD diet with 1.4 g/kg per day protein * Renally dose medication for creatinine clearance less than 15 cc/min * outpatient dialysis [facility] [place] [facility], ok to dc once mentation improves
[2021-07-04 07:13] LABS: Calcium 8.2 mg/dL (8.4-10.2)
--- NOTE | 2021-07-04 08:46 | Discharge Summary ---
Providers - Providers Date of Admission: 07/02/21 12:56 Attending physician: KAREN DIAS MD 07/02/21 12:28 Consult to Physician [CONS] Stat Comment: Consulting Provider: MALKA MURRY Physician Instructions: Reason For Exam: HD Primary care physician: SHAWNA METZGER MD Hospitalization Condition: Stable Disposition: 30 STILL A PATIENT Exam - Constitutional Vitals: Temp Pulse Resp BP Pulse Ox 99.1 F 83 18 141/66 99 07/03/21 22:03 07/03/21 22:03 07/03/21 22:03 07/03/21 22:03 07/04/21 07:05 Plan Care Plan Goals: Please follow-up with your primary care provider. Make sure you are not over consuming fluids and salt in between dialysis sessions. Follow up with: SHAWNA METZGER MD [Primary Care Provider] - 7 Days
--- NOTE | 2021-07-04 11:18 | Progress Note ---
Assessment and Plan Assessment * End-stage renal disease on maintenance hemodialysis * uremia * recent COVID-19 pneumonia * Anemia secondary to ESRD * Metabolic acidosis * Hyperparathyroidism * Accelerated hypertension * Noncompliance with dialysis Recommendations * Continue HD today and qWMF starting first of week * Monitor labs and volume status daily and assess need for additional dialysis session * Epogen with HD * Continue phosphorus binders * ESRD diet with 1.4 g/kg per day protein * Renally dose medication for creatinine clearance less than 15 cc/min * outpatient dialysis [facility], [place] to ri after hd today Subjective Date of service: 07/04/21 Principal diagnosis: esrd Interval history: labs and chart reviewed no acute events Objective - Exam Narrative Exam: General appearance: Present: mild distress - EENT Eyes: Present: PERRL ENT: hearing intact, clear oral mucosa - Neck Neck: Present: supple, normal ROM - Respiratory Respiratory effort: normal Respiratory: bilateral: CTA - Cardiovascular Heart Sounds: Present: S1 & S2. Absent: rub, click - Extremities Extremities: pulses symmetrical, No edema Peripheral Pulses: within normal limits - Abdominal General gastrointestinal: Present: soft, non-tender, non-distended, normal bowel sounds Female genitourinary: Present: normal - Integumentary Integumentary: Present: clear, warm, dry - Musculoskeletal Musculoskeletal: generalized weakness - Psychiatric Psychiatric: no intact judgment & insight, memory intact - Neurologic Neurologic: CNII-XII intact, moves all extremities - Vital Signs Vital signs: Vital Signs - 12hr 07/04/21 07:05 O2 Sat by Pulse 99 Oximetry - Lab 07/02/21 11:00 07/04/21 05:58 Most recent lab results Calcium 8.2 mg/dL (8.4-10.2) L 07/04/21 05:58 Phosphorus 10.80 mg/dL (2.5-4.5) H 07/02/21 11:00 Magnesium 2.20 mg/dL (1.7-2.3) 07/02/21 11:00 Medications & Allergies - Medications Allergies/Adverse Reactions: Allergies iodine Allergy (Verified 07/02/21 11:15) HIVES AND VOMITING lisinopril Allergy (Verified 07/02/21 11:15) Angioedema shrimp Allergy (Verified 07/02/21 11:15) Itching Sulfa (Sulfonamide Antibiotics) Allergy (Verified 07/02/21 11:15) HIVES AND FACIAL SWELLING Home Medications: Home Medications Medication Instructions Recorded Confirmed Last Taken Type ALPRAZolam [Xanax TAB] 0.5 mg PO TID 11/10/15 06/08/21 03/08/21 History Omeprazole [PriLOSEC] 40 mg PO QDAY 11/10/15 06/08/21 03/08/21 History amLODIPine 10 mg PO DAILY 01/06/21 06/08/21 03/08/21 History Meclizine [Antivert] 12.5 mg PO BID PRN 06/08/21 06/08/21 Unknown History AtorvaSTATin [Lipitor] 40 mg PO QHS #30 tablet 06/11/21 Unknown Rx Cinacalcet [Sensipar] 30 mg PO QDAY #60 tablet 06/11/21 Unknown Rx Sevelamer Carbonate [Renvela] 800 mg PO DAILY PRN #30 tablet 06/11/21 Unknown Rx Active Medications: Generic Name Dose Route Start Last Admin Trade Name Freq PRN Reason Stop Dose Admin Acetaminophen 650 mg 07/02/21 12:56 07/03/21 21:03 Acetaminophen 325 Mg Tab PO 650 mg Q4H PRN Administration Pain MILD(1-3)/Fever >100.5/IZAGUIRRE Albuterol 2.5 mg 07/02/21 12:56 Albuterol 2.5 Mg/3 Ml Nebu IH Q4HRT PRN Shortness Of Breath Hydromorphone HCl 0.5 mg 07/02/21 12:56 Hydromorphone 1 Mg/1 Ml Inj IV Q23H PRN Pain , Severe (7-10) Sodium Chloride 100 mls @ 999 mls/hr 07/03/21 17:23 Nacl 0.9% IV BUSTER PRN Hypotension Ondansetron HCl 4 mg 07/02/21 12:56 Ondansetron 4 Mg/2 Ml Inj IV Q8H PRN Nausea And Vomiting Oxycodone/Acetaminophen 1 tab 07/02/21 12:56 07/03/21 21:03 Oxycodone /Acetaminophen 5-325mg Tab PO 1 tab Q6H PRN Administration Pain, Moderate (4-6) Sodium Chloride 10 ml 07/02/21 22:00 07/04/21 09:01 Sodium Chloride 0.9% 10 Ml Flush Syringe IV Not Given BID MANPREET Sodium Chloride 10 ml 07/02/21 12:56 Sodium Chloride 0.9% 10 Ml Flush Syringe IV PRN PRN LINE FLUSH
[2021-07-04] MEDS: oxyCODONE /ACETAMINOPHEN 5-325MG TAB PO PRN (12:09)
[2021-07-04 19:59] VITALS: BP 144/69
== END 2021-07-04 20:03 | disposition home health service (06) | DRG 291 ==
LOC: ED 10:40 → 3A 12:56
PROVIDERS: ADMIT Internal Medicine; ATTEND Student in an Organized Health Care Education/Training Program
PROC: 5A1D70Z Performance of Urinary Filtration, Intermittent, Less than 6 Hours Per Day (ICD-10-PCS; principal; 2021-07-02)
PROC: 5A1D70Z Performance of Urinary Filtration, Intermittent, Less than 6 Hours Per Day (ICD-10-PCS; 2021-07-03)
PROC: 5A1D70Z Performance of Urinary Filtration, Intermittent, Less than 6 Hours Per Day (ICD-10-PCS; 2021-07-04)
DX: I13.2 Hypertensive heart and chronic kidney disease with heart failure and with stage 5 chronic kidney disease, or end stage renal disease (principal); G93.41 Metabolic encephalopathy; N18.6 End stage renal disease; I50.33 Acute on chronic diastolic (congestive) heart failure; E87.2 Acidosis; K21.9 Gastro-esophageal reflux disease without esophagitis; F32.9 Major depressive disorder, single episode, unspecified; G43.909 Migraine, unspecified, not intractable, without status migrainosus; E21.3 Hyperparathyroidism, unspecified; M19.90 Unspecified osteoarthritis, unspecified site; D63.1 Anemia in chronic kidney disease; G51.0 Bell's palsy; I25.10 Atherosclerotic heart disease of native coronary artery without angina pectoris; E87.5 Hyperkalemia; Z83.3 Family history of diabetes mellitus; Z82.49 Family history of ischemic heart disease and other diseases of the circulatory system; Z88.2 Allergy status to sulfonamides; Z88.8 Allergy status to other drugs, medicaments and biological substances; Z88.3 Allergy status to other anti-infective agents; Z91.013 Allergy to seafood; Z91.15 Patient's noncompliance with renal dialysis; Z86.16 Personal history of COVID-19
CPT/HCPCS: 36415; 71046; 80048; 83735; 83880; 84100; 85027; 93005; 93010; G0378

== ENCOUNTER 2021-08-04 10:05 | Day surgery (SDC) | payer MEDICARE ==
[2021-08-04 11:40] LABS: Hematocrit 33.1 % (30.3-42.9); Hemoglobin 10.9 gm/dl (10.1-14.3); Mean Corpuscular HGB Conc 33 % (30-34); Mean Corpuscular Volume 102 fl (79-97); Platelet Count 221 K/mm3 (140-440); Red Blood Count 3.26 M/mm3 (3.65-5.03); Red Cell Distribution Width 17.7 % (13.2-15.2)
[2021-08-04 11:46] LABS: Calcium 9.8 mg/dL (8.4-10.2)
[2021-08-04 11:48] LABS: INR 0.93 (0.87-1.13)
[2021-08-04 11:49] LABS: Partial Thromboplastin Time 35.4 Sec. (24.2-36.6)
[2021-08-04] MEDS ORDERED: diphenhydrAMINE 50 MG/ML VIAL IV NR (12:06)
[2021-08-04] MEDS ORDERED: FAMOTIDINE 20 MG/2 ML INJ IV NR (12:30)
[2021-08-04] MEDS ORDERED: methylPREDNISolone Sod Succinate 125 MG/2 ML INJ IV NR (13:00)
[2021-08-04] MEDS ORDERED: HEPARIN 10,000 UNITS/10 ML VIAL ONE (13:33)
[2021-08-04] MEDS ORDERED: MIDAZOLAM 2 MG/2 ML INJ ONE (13:34)
[2021-08-04] MEDS ORDERED: LIDOCAINE (1%) 10 MG/1 ML VIAL 20 ML MDV ONE (13:35)
[2021-08-04] MEDS: SODIUM CHLORIDE 0.9% 500 ML 500 ML IV SCH ×2 (13:40→14:27)
[2021-08-04] MEDS ORDERED: ceFAZolin/STERILE WATER 2 GM/20 ML SYRINGE IV ONE (13:43)
[2021-08-04] MEDS: ceFAZolin/Water 2 GM/20 ML 2 GM/20 ML SYRINGE IV ONE ×2 (13:43→14:26)
[2021-08-04] MEDS: fentaNYL 100 MCG/2 ML INJ ONE ×2 (13:47→14:00)
[2021-08-04] MEDS: HEPARIN/NS 5000 UNIT/500ML 500 ML IR ONE ×2 (13:47→14:27)
--- NOTE | 2021-08-04 14:20 | Short Stay Summary ---
Short Stay Documentation Date of service: 08/04/21 Narrative H&P: See H&P - History H&P: obtained from office - Allergies and Medications Current Medications: Allergies iodine Allergy (Verified 07/02/21 11:15) HIVES AND VOMITING lisinopril Allergy (Verified 07/02/21 11:15) Angioedema shrimp Allergy (Verified 07/02/21 11:15) Itching Sulfa (Sulfonamide Antibiotics) Allergy (Verified 07/02/21 11:15) HIVES AND FACIAL SWELLING Home Medications Medication Instructions Recorded Confirmed Last Taken Type ALPRAZolam [Xanax TAB] 0.5 mg PO TID 11/10/15 08/04/21 1 Month Ago History ~07/04/21 Omeprazole [PriLOSEC] 40 mg PO QDAY 11/10/15 08/04/21 08/04/21 06:00 History amLODIPine 10 mg PO DAILY 01/06/21 08/04/21 08/04/21 06:00 History Meclizine [Antivert] 12.5 mg PO BID PRN 06/08/21 08/04/21 1 Week Ago History ~07/28/21 Cinacalcet [Sensipar] 30 mg PO QDAY #60 tablet 06/11/21 08/04/21 08/03/21 19:00 Rx Sevelamer Carbonate [Renvela] 800 mg PO DAILY PRN #30 tablet 06/11/21 08/04/21 08/03/21 19:00 Rx Active Medications Sodium Chloride (Nacl 0.9% 500 Ml) 500 mls @ 50 mls/hr IV DIRECT MANPREET - Brief post op/procedure progress note Date of procedure: 08/04/21 Pre-op diagnosis: Complications of Dialysis Access Post-op diagnosis: same Procedure: 1. Access Left Arm AV Graft with 7 Amharic Sheath Venous 2. Diagnostic Fistulogram with Central Venogram 3. Angioplasty of Left Subclavian Vein and Innominate Vein with a 10 x 40 [place] ang Balloon 4. Angioplasty of Left Arm AV Graft with 8 x 40 [place] Balloon 5. Radiologic Supervision with Interpretation 6. Monitored Moderate Sedation (Total Anesthesia Time: 16 Minutes) Anesthesia: local, other (Monitored Moderate Sedation) Surgeon: MATEUS LEZAMA Estimated blood loss: minimal Pathology: none Condition: stable - Disposition Condition at discharge: Good Disposition: 01 HOME / SELF CARE / HOMELESS Short Stay Discharge Plan Activity: other (Okay to use the left arm arteriovenous access and dialysis tomorrow.) Wound: remove dressing (Okay to remove the dressing during dialysis tomorrow. Remove the sutures by pulling the longer of the 2 strings.)
--- NOTE | 2021-08-04 14:31 | Operative Report ---
Operative Report Operative Report: Date of Procedure: 08/04/2021 Pre-operative Diagnosis: Complications of Dialysis Access Post-operative Diagnosis: Same Procedure(s): 1. Access Left Arm AV Graft with 7 [place] Sheath Venous 2. Diagnostic Fistulogram with Central Venogram 3. Angioplasty of Left Subclavian Vein and Innominate Vein with a 10 x 40 [place] Balloon 4. Angioplasty of Left Arm AV Graft with 8 x 40 [place] Balloon 5. Radiologic Supervision with Interpretation 6. Monitored Moderate Sedation (Total Anesthesia Time: 16 Minutes) Surgeon: Ty Kim M.D. Type Caster: None Anesthesia: Local/Monitored Moderate Sedation Total Anesthesia Time: 16 Minutes EBL: Minimal Counts: Correct Complications: None Condition: Stable Specimen: None Indication: The patient is a 70-year-old female with a history of end-stage renal disease who is on hemodialysis through left arm arteriovenous graft. She presents with complaints of poor clearance as well as pain and swelling in the left upper extremity. She is in need of a diagnostic fistulogram with central venogram and possible intervention. She was given the risk, benefits, and alternative procedures and consented to the procedure. Angiographic Findings: The diagnostic fistulogram revealed no flow-limiting stenosis or pseudoaneurysm formation within the cannulation zone of the graft. There is approximately 75% stenosis of the venous outflow of the graft. The axillary vein is patent without evidence of flow-limiting stenosis. The subclavian vein and innominate vein both have stents within the veins. There is approximately 70% stenosis in the subclavian vein and approximately 50% stenosis of the innominate vein. After intervention the venous outflow of the graft is patent with approximately 25% residual stenosis. The innominate vein and subclavian veins are both patent with less than 15% residual stenosis. Description of Procedure: The patient was brought to the Compliance Manager and laid in supine position. After a timeout was performed her left arm was prepped and draped in normal sterile fashion. Lidocaine was used to anesthetize the skin and soft tissue overlying the graft, near the arterial inflow, and a 21-gauge micropuncture needle was used to access the graft was venous outflow. A 0.018 micropuncture wire was advanced into the graft and after removing the needle a 7 [place] sheath was placed by Seldinger technique. A diagnostic fistulogram with central venogram was then performed with the previously described findings. I used a vertebral catheter and 0.035 Bentson wire and advanced the catheter and wire into the inferior vena cava to anchor the wire. I then performed angioplasty of the subclavian vein and innominate vein using a 10 x 40 [place] Balloon which resulted in less than 15% residual stenosis. I performed angioplasty of the venous outflow and anastomosis using an 8 x 40 [place] Balloon which resulted in approximately 25% residual stenosis however this was not flow-limiting. At that point the balloon and wire were removed and a 2-0 Ethilon slipknot fashion was used to close the entry site after removing the sheath. A sterile pressure dressing was then applied to the entry site and the patient was transported to the recovery area in stable condition.
[2021-08-04 17:21] VITALS: BP 155/64
== END 2021-08-04 10:06 | disposition home or self-care (01) ==
LOC: CATHLABREC 10:05
PROVIDERS: ATTEND Surgery Vascular Surgery
DX: T82.590A Other mechanical complication of surgically created arteriovenous fistula, initial encounter (principal); I13.2 Hypertensive heart and chronic kidney disease with heart failure and with stage 5 chronic kidney disease, or end stage renal disease; N18.6 End stage renal disease; I50.9 Heart failure, unspecified; G43.909 Migraine, unspecified, not intractable, without status migrainosus; E78.00 Pure hypercholesterolemia, unspecified; G47.30 Sleep apnea, unspecified; M06.9 Rheumatoid arthritis, unspecified; F32.9 Major depressive disorder, single episode, unspecified; F41.9 Anxiety disorder, unspecified; D64.9 Anemia, unspecified; E05.90 Thyrotoxicosis, unspecified without thyrotoxic crisis or storm; K21.9 Gastro-esophageal reflux disease without esophagitis; Z91.041 Radiographic dye allergy status; Z88.8 Allergy status to other drugs, medicaments and biological substances; Z88.2 Allergy status to sulfonamides; Z79.899 Other long term (current) drug therapy; Z87.891 Personal history of nicotine dependence; Z98.42 Cataract extraction status, left eye; Z98.890 Other specified postprocedural states; Z87.01 Personal history of pneumonia (recurrent); Z91.81 History of falling; Z82.49 Family history of ischemic heart disease and other diseases of the circulatory system; Z86.73 Personal history of transient ischemic attack (TIA), and cerebral infarction without residual deficits; Y92.89 Other specified places as the place of occurrence of the external cause; Y82.8 Other medical devices associated with adverse incidents
CPT/HCPCS: 36415; 36902; 36907; 80048; 85027; 85610; 85730; 99156; C1725; C1751; C1769; C1894; J0690; J1200; J1644; J2250; J2930; J3010; J3490; J7040; Q9967

== ENCOUNTER 2022-01-10 22:44 | Inpatient (IN) | payer MEDICARE ==
[2022-01-11 02:37] LABS: Basophils # (Auto) 0.1 K/mm3 (0.0-0.1); Basophils % (Auto) 0.8 % (0.0-1.8); Eosinophils # (Auto) 0.1 K/mm3 (0.0-0.4); Eosinophils % (Auto) 1.6 % (0.0-4.3); Hematocrit 31.3 % (30.3-42.9); Hemoglobin 10.3 gm/dl (10.1-14.3); Lymphocytes # (Auto) 1.2 K/mm3 (1.2-5.4); Lymphocytes % (Auto) 16.4 % (13.4-35.0); Mean Corpuscular HGB Conc 33 % (30-34); Mean Corpuscular Volume 101 fl (79-97); Monocytes # (Auto) 0.9 K/mm3 (0.0-0.8); Monocytes % (Auto) 12.7 % (0.0-7.3); Platelet Count 237 K/mm3 (140-440)
--- NOTE | 2022-01-11 02:45 | XRay Report ---
CHEST 2 VIEWS INDICATION / CLINICAL INFORMATION: sob. COMPARISON: Chest x-ray 07/02/2021 FINDINGS: SUPPORT DEVICES: Venous stents left subclavian vein are stable in position. HEART / MEDIASTINUM: Borderline to mild cardiomegaly. LUNGS / PLEURA: Prominent central vasculature. Lungs are otherwise clear. BONES: No significant osseous abnormality. ADDITIONAL FINDINGS: No significant additional findings. IMPRESSION: 1. Appearance of the vasculature suggests volume overload or pulmonary vascular congestion. Otherwise no evidence of active cardiopulmonary disease. Signer Name: Jesse Starks II, MD Signed: 01/11/2022 2:41 AM Workstation Name: [id number]
[2022-01-11 03:01] LABS: Albumin 4.5 g/dL (3.9-5); Calcium 9.5 mg/dL (8.4-10.2)
--- NOTE | 2022-01-11 17:48 | Emergency Department Report ---
Chief Complaint: Extremity Problem,Nontraumatic Stated Complaint: CP/LT ARM SWELLING/DIALYSIS PT Time Seen by Provider: 01/11/22 17:46 - HPI History of Present Illness: 71-year-old black female with a past medical history of end-stage renal disease on HD Tuesday presents to the emergency department for evaluation of few day history of left upper extremity swelling. She states that that is the arm that her vascular access devices in but she has not had any problems using it during dialysis. She states that she missed dialysis today. - ROS Review of Systems: Patient denies chest pain but states that she has had some intermittent shortness of breath. - Exam Vital Signs: Vital Signs 01/11/22 01/11/22 01:48 17:39 Temperature 98.7 F 98.2 F Pulse Rate 68 65 Respiratory 22 18 Rate Blood Pressure 220/88 Blood Pressure 101/65 [Right] O2 Sat by Pulse 100 100 Oximetry Physical Exam: Alert and oriented x3. Left upper arm swelling. AV fistula noted to left upper arm positive for thrill and bruit. Left radial pulse palpable. MSE screening note: Focused history and physical exam performed. Due to findings the following was ordered: Repeat BMP and venous Doppler of left upper arm. Patient will be evaluated by another provider when she gets to a room in the back. No acute distress noted. ED Medical Decision Making - Lab Data Result diagrams: 01/11/22 02:08 01/11/22 02:08 ED Disposition for MSE Condition: Stable
[2022-01-11 18:36] LABS: Calcium 8.8 mg/dL (8.4-10.2)
[2022-01-11] MEDS ORDERED: DESMOPRESSIN ACETATE 20 MCG in SODIUM CHLORIDE 0.9% 50 ML IV ONE (22:36)
[2022-01-11] MEDS ORDERED: ACETAMINOPHEN 325 MG TAB PO ONE (22:36)
--- NOTE | 2022-01-11 22:42 | Emergency Department Report ---
ED General Adult HPI - General Chief complaint: Extremity Problem,Nontraumatic Stated complaint: CP/LT ARM SWELLING/DIALYSIS PT Time Seen by Provider: 01/11/22 17:46 Source: patient, RN notes reviewed, old records reviewed Mode of arrival: Ambulatory Limitations: Physical Limitation - History of Present Illness Initial comments: The patient was evaluated in the emergency department for symptoms described in the history of present illness. He/she was evaluated in the context of the global COVID-19 pandemic, which necessitated consideration that the patient might be at risk for infection with the virus that causes COVID-19. Institutional protocols and algorithms that pertain to the evaluation of patients at risk for COVID-19 are in a state of rapid change based on information released by regulatory bodies including the CDC and federal and stat e organizations. These policies and algorithms were followed during the patient's care in the emergency department. Please note that these policies, procedures and recommendations changed on a rapid basis. Nephrology: Dr. Ge Is a pleasant and cooperative 71-year-old female who is right-hand dominant. She does not make urine, and she has a history of end-stage renal disease on hemodialysis, Tuesday, Tuesday, Tuesday. She also has a history of known torn rotator cuff in her left upper extremity. She presents to the ER today with a complaint of chronic left-sided shoulder rotator cuff pain, along with 2 weeks of swelling in her left upper extremity. She has mild chest tightness. She did not receive hemodialysis today. She thinks she might have blood in her rectum/stool, but she is not sure. Left upper extremity swelling is subacute for about 2 weeks. Left shoulder pain is subacute for a few weeks to a few months. -: week(s) Location: left, upper extremity Severity scale (0 -10): 5 Quality: aching Consistency: constant Improves with: other (Shoulder pain decreases with rest and position. Increases with palpation and range of motion. Distal left upper extremity swelling does not have exacerbating or relieving factor) - Related Data Home Medications Medication Instructions Recorded Confirmed Last Taken ALPRAZolam [Xanax TAB] 0.5 mg PO TID 11/10/15 08/04/21 1 Month Ago ~07/04/21 Omeprazole [PriLOSEC] 40 mg PO QDAY 11/10/15 08/04/21 08/04/21 06:00 amLODIPine 10 mg PO DAILY 01/06/21 08/04/21 08/04/21 06:00 Meclizine [Antivert] 12.5 mg PO BID PRN 06/08/21 08/04/21 1 Week Ago ~07/28/21 Previous Rx's Medication Instructions Recorded Last Taken Type Cinacalcet [Sensipar] 30 mg PO QDAY #60 tablet 06/11/21 08/03/21 19:00 Rx Sevelamer Carbonate [Renvela] 800 mg PO DAILY PRN #30 tablet 06/11/21 08/03/21 19:00 Rx Allergies Allergy/AdvReac Type Severity Reaction Status Date / Time iodine Allergy HIVES AND Verified 07/02/21 11:15 VOMITING lisinopril Allergy Angioedema Verified 07/02/21 11:15 shrimp Allergy Itching Verified 07/02/21 11:15 Sulfa (Sulfonamide Allergy HIVES AND Verified 07/02/21 11:15 Antibiotics) FACIAL SWELLING ED Review of Systems ROS: Stated complaint: CP/LT ARM SWELLING/DIALYSIS PT Other details as noted in HPI Constitutional: denies: fever Eyes: denies: eye discharge ENT: denies: epistaxis Respiratory: denies: cough Cardiovascular: edema. denies: chest pain Gastrointestinal: hematochezia. denies: nausea, vomiting, hematemesis, melena Genitourinary: denies: dysuria Musculoskeletal: joint swelling, arthralgia, myalgia Skin: denies: lesions Neurological: denies: weakness Hematological/Lymphatic: denies: easy bleeding ED Past Medical Hx - Past Medical History Hx Hypertension: Yes Hx Heart Attack/AMI: No Hx Congestive Heart Failure: Yes Hx Diabetes: No Hx GERD: Yes Hx Renal Disease: Yes Hx Sickle Cell Disease: No Hx Arthritis: Yes Hx Headaches / Migraines: Yes (MIGRAINES) Hx Psychiatric Treatment: Yes (depression) Hx Asthma: No Hx COPD: No Hx HIV: No Additional medical history: membreno's palsy-right side - Surgical History Hx Coronary Stent: Yes Additional Surgical History: left A/V graft - Social History Smoking Status: Never Smoker Substance Use Type: None - Medications Home Medications: Home Medications Medication Instructions Recorded Confirmed Last Taken Type ALPRAZolam [Xanax TAB] 0.5 mg PO TID 11/10/15 08/04/21 1 Month Ago History ~07/04/21 Omeprazole [PriLOSEC] 40 mg PO QDAY 11/10/15 08/04/21 08/04/21 06:00 History amLODIPine 10 mg PO DAILY 01/06/21 08/04/21 08/04/21 06:00 History Meclizine [Antivert] 12.5 mg PO BID PRN 06/08/21 08/04/21 1 Week Ago History ~07/28/21 Cinacalcet [Sensipar] 30 mg PO QDAY #60 tablet 06/11/21 08/04/21 08/03/21 19:00 Rx Sevelamer Carbonate [Renvela] 800 mg PO DAILY PRN #30 tablet 06/11/21 08/04/21 08/03/21 19:00 Rx ED Physical Exam - General Limitations: No Limitations General appearance: alert, in no apparent distress - Head Head exam: Present: atraumatic, normocephalic - Eye Eye exam: Present: normal appearance, EOMI. Absent: nystagmus - ENT ENT exam: Present: normal exam, normal orophraynx, mucous membranes moist, normal external ear exam - Neck Neck exam: Present: normal inspection, full ROM. Absent: tenderness, meningismus - Respiratory Respiratory exam: Present: rales. Absent: respiratory distress, rhonchi, stridor - Cardiovascular Cardiovascular Exam: Present: regular rate, normal rhythm, systolic murmur, JVD. Absent: bradycardia, tachycardia, irregular rhythm, diastolic murmur, rubs, gallop - GI/Abdominal GI/Abdominal exam: Present: soft. Absent: distended, tenderness, guarding, rebound, rigid, pulsatile mass - Rectal Rectal exam: Present: normal inspection (Patient provides consent for digital rectal examination. Chaperoned by Carito Duffy). Absent: black stool, bloody stool - Extremities Exam Extremities exam: Present: full ROM, tenderness (There is proximal left shoulder tenderness. There is no redness, pus or streaking. There is no warmth), pedal edema, other (2+ pulses noted in the bilateral upper and lower extremities. There is normal bony tenderness. The muscular compartments are soft. The pelvis is stable. There is point tenderness to the left shoulder). Absent: n ormal inspection (The distal left upper extremity is swollen), calf tenderness - Back Exam Back exam: Present: normal inspection. Absent: tenderness, CVA tenderness (R), CVA tenderness (L), paraspinal tenderness, vertebral tenderness - Neurological Exam Neurological exam: Present: alert, oriented X3, other (No facial droop. Tongue midline. Extraocular movements intact bilaterally. Facial sensation intact to light touch in V1, V2, V3 distribution bilaterally. 5 and a 5 strength in 4 extremities. Sensation intact to light touch in 4 extremities.). Absent: motor sensory deficit - Psychiatric Psychiatric exam: Present: normal affect, normal mood - Skin Skin exam: Present: warm, dry, intact, normal color. Absent: rash ED Course Vital Signs 01/11/22 01/11/22 01:48 17:39 Temperature 98.7 F 98.2 F Pulse Rate 68 65 Respiratory 22 18 Rate Blood Pressure 220/88 Blood Pressure 101/65 [Right] O2 Sat by Pulse 100 100 Oximetry - Reevaluation(s) Reevaluation #1: 01/11/22 22:42 Differential diagnosis, include but not limited to: Left shoulder rotator cuff injury, subacute, dialysis stenosis, end-stage renal disease requiring hemodialysis Assessment and plan: 71-year-old female who is right-hand dominant, who has miss ed hemodialysis, presenting with JVD, mild crackles and rales, chest x-ray showing pulmonary vascular congestion, essentially unremarkable laboratory studies, but physical exam evidence that is suggestive of dialysis access stenosis. Currently, orders are in from the vascular surgery team for Online Merchandising Specialist procedure in the morning, as well as n.p.o. after midnight. Contacted covering nephrology on-call, Dr. Demetria Newell Discussed the patient's history, physical, laboratory studies and imaging studies and clinical impression. The nephrology group will follow in consultation. Hospital physician, Dr. Demetria Mcgarry to admit to IMS Treat with Tylenol for rotator cuff pain. There is no redness, warmth, pus or streaking of the left shoulder. She has a known history of rotator cuff injury and tear.. Joint examination is not suggestive of septic joint. Brown stool on rectal examination. Cover empirically with desmopressin. Hemoglobin, hematocrit unremarkable. Hold anticoagulants and NSAIDs. Reevaluation #2: 01/11/22 22:55 Stool occult guaiac is negative for blood ED Medical Decision Making - Lab Data Result diagrams: 01/11/22 02:08 01/11/22 17:50 Vital Signs 01/11/22 01/11/22 01:48 17:39 Temperature 98.7 F 98.2 F Pulse Rate 68 65 Respiratory 22 18 Rate Blood Pressure 220/88 Blood Pressure 101/65 [Right] O2 Sat by Pulse 100 100 Oximetry Lab Results 01/11/22 01/11/22 01/11/22 Range/Units 02:08 02:08 17:50 WBC 7.3 (4.5-11.0) K/mm3 RBC 3.10 L (3.65-5.03) M/mm3 Hgb 10.3 (10.1-14.3) gm/dl Hct 31.3 (30.3-42.9) % MCV 101 H (79-97) fl MCH 33 H (28-32) pg MCHC 33 (30-34) % RDW 16.0 H (13.2-15.2) % Plt Count 237 (140-440) K/mm3 Lymph % (Auto) 16.4 (13.4-35.0) % [place] % (Auto) 12.7 H (0.0-7.3) % Eos % (Auto) 1.6 (0.0-4.3) % Baso % (Auto) 0.8 (0.0-1.8) % Lymph # (Auto) 1.2 (1.2-5.4) K/mm3 [place] # (Auto) 0.9 H (0.0-0.8) K/mm3 Eos # (Auto) 0.1 (0.0-0.4) K/mm3 Baso # (Auto) 0.1 (0.0-0.1) K/mm3 Seg Neutrophils % 68.5 (40.0-70.0) % Seg Neutrophils # 5.0 (1.8-7.7) K/mm3 Sodium 145 143 (137-145) mmol/L Potassium 4.7 4.8 (3.6-5.0) mmol/L Chloride 104.2 100.6 (98-107) mmol/L Carbon Dioxide 24 23 (22-30) mmol/L Anion Gap 22 24 mmol/L BUN 50 H 55 H (7-17) mg/dL Creatinine 8.4 H 9.1 H (0.6-1.2) mg/dL Estimated GFR 6 5 ml/min BUN/Creatinine Ratio 6 6 % Glucose 78 71 (65-100) mg/dL Calcium 9.5 8.8 (8.4-10.2) mg/dL Total Bilirubin 0.30 (0.1-1.2) mg/dL AST 13 (5-40) units/L ALT 9 (7-56) units/L Alkaline Phosphatase 83 (35-129) units/L Total Protein 6.8 (6.3-8.2) g/dL Albumin 4.5 (3.9-5) g/dL Albumin/Globulin Ratio 2.0 % - EKG Data -: EKG Interpreted by Ok EKG shows normal: sinus rhythm Rate: normal - EKG Data 01/11/22 22:55 The EKG is interpreted at 22: 40 Bradycardia, sinus rhythm, with a rate of 56 bpm. Right bundle branch block. Normal axis. QTC 4 3 4 ms. Motion artifact. Abnormal EKG. Not a STEMI - Radiology Data Radiology results: pending, report reviewed, image reviewed CHEST 2 VIEWS INDICATION / CLINICAL INFORMATION: sob. COMPARISON: Chest x-ray 07/02/2021 FINDINGS: SUPPORT DEVICES: Venous stents left subclavian vein are stable in position. HEART / MEDIASTINUM: Borderline to mild cardiomegaly. LUNGS / PLEURA: Prominent central vasculature. Lungs are otherwise clear. BONES: No significant osseous abnormality. ADDITIONAL FINDINGS: No significant additional findings. IMPRESSION: 1. Appearance of the vasculature suggests volume overload or pulmonary vascular congestion. Otherwise no evidence of active cardiopulmonary disease. Signer Name: Jesse Starks II, MD Signed: 01/11/2022 1:41 AM Workstation Name: [id number] Critical care attestation.: If time is entered above; I have spent that time in minutes in the direct care of this critically ill patient, excluding procedure time. ED Disposition Clinical Impression: Left upper extremity swelling, End stage renal disease, Mild aortic stenosis, ESRD needing dialysis, Volume overload Disposition: ADMITTED INPATIENT Is pt being admited?: Yes Does the pt Need Aspirin: No Condition: Good Referrals: JOSE RAUL RON MD [Primary Care Provider] - 3-5 Days
[2022-01-11] MEDS ORDERED: ONDANSETRON 4 MG/2 ML INJ IV PRN (23:27)
[2022-01-11] MEDS ORDERED: ACETAMINOPHEN 325 MG TAB PO PRN (23:27)
[2022-01-11] MEDS ORDERED: MAGNESIUM HYDROXIDE (MOM) ORAL LIQD UDC PO PRN (23:35)
[2022-01-11] MEDS ORDERED: MORPHINE 4 MG/1 ML INJ IV PRN (23:35)
--- NOTE | 2022-01-11 23:41 | History and Physical Report ---
History of Present Illness Date of examination: 01/11/22 Date of admission: 01/11/2022 Chief complaint: Left upper Extremity Swelling History of present illness: 71-year-old female with known history of end-stage renal disease dialysisWednesdays presenting in the emergency room today with complaint of left upper extremity pain. Patient indicates that she has had left upper extremity pain over the past 2 weeks. Patient has an AV fistula in the l eft upper extremity. She did not get her dialysis today but she was informed that AV fistula may have been occluded. She denies any fever, chills, no nausea vomiting and no abdominal. Patient denies any headache or dizziness and denies any diaphoresis. Vascular surgeon has been consulted to evaluate the dialysis access site. Defensive Driving Instructor has also been consulted for possible dialysis. Work-up in the emergency room reveals a BUN of 58 and 10.1. Chest x-ray suggestive of volume overload. Patient otherwise denies any other medical problems today. Past History Past Medical History: arthritis, dialysis, ESRD, GERD, hypertension, migraines, other (Depression,membreno's palsy-right side) Past Surgical History: PTCA, Other (left A/V graft) Social history: no significant social history Family history: no significant family history Medications and Allergies Allergies Allergy/AdvReac Type Severity Reaction Status Date / Time iodine Allergy HIVES AND Verified 07/02/21 11:15 VOMITING lisinopril Allergy Angioedema Verified 07/02/21 11:15 shrimp Allergy Itching Verified 07/02/21 11:15 Sulfa (Sulfonamide Allergy HIVES AND Verified 07/02/21 11:15 Antibiotics) FACIAL SWELLING Home Medications Medication Instructions Recorded Confirmed Last Taken Type ALPRAZolam [Xanax TAB] 0.5 mg PO TID 11/10/15 08/04/21 1 Month Ago History ~07/04/21 Omeprazole [PriLOSEC] 40 mg PO QDAY 11/10/15 08/04/21 08/04/21 06:00 History amLODIPine 10 mg PO DAILY 01/06/21 08/04/21 08/04/21 06:00 History Meclizine [Antivert] 12.5 mg PO BID PRN 06/08/21 08/04/21 1 Week Ago History ~07/28/21 Cinacalcet [Sensipar] 30 mg PO QDAY #60 tablet 06/11/21 08/04/21 08/03/21 19:00 Rx Sevelamer Carbonate [Renvela] 800 mg PO DAILY PRN #30 tablet 06/11/21 08/04/21 08/03/21 19:00 Rx Active Meds: Active Medications Acetaminophen (Acetaminophen 325 Mg Tab) 650 mg PO Q4H PRN PRN Reason: Pain MILD(1-3)/Fever >100.5/IZAGUIRRE Magnesium Hydroxide (Magnesium Hydroxide (Mom) Oral Liqd Udc) 30 ml PO Q4H PRN PRN Reason: Constipation Morphine Sulfate (Morphine 2 Mg/1 Ml Inj) 2 mg IV Q4H PRN PRN Reason: Pain, Moderate (4-6) Morphine Sulfate (Morphine 4 Mg/1 Ml Inj) 4 mg IV Q4H PRN PRN Reason: Pain , Severe (7-10) Ondansetron HCl (Ondansetron 4 Mg/2 Ml Inj) 4 mg IV Q8H PRN PRN Reason: Nausea And Vomiting Sodium Chloride (Sodium Chloride 0.9% 10 Ml Flush Syringe) 10 ml IV BID MANPREET Sodium Chloride (Sodium Chloride 0.9% 10 Ml Flush Syringe) 10 ml IV PRN PRN PRN Reason: LINE FLUSH Review of Systems Constitutional: no fever, no chills Ears, nose, mouth and throat: no nasal congestion, no sore throat Cardiovascular: no chest pain, no palpitations Respiratory: no cough, no shortness of breath Gastrointestinal: no abdominal pain, no nausea, no vomiting, no diarrhea Musculoskeletal: no neck pain, no low back pain Integumentary: no rash, no pruritis Neurological: no headaches, no confusion Psychiatric: no anxiety, no depression Endocrine: no polyphagia, no polydipsia, no polyuria Exam - Constitutional Vitals: Temp Pulse Resp BP Pulse Ox 98.2 F 58 L 18 204/77 98 01/11/22 17:39 01/11/22 23:00 01/11/22 17:39 01/11/22 23:00 01/11/22 23:00 General appearance: Present: no acute distress, well-nourished - EENT Eyes: Present: PERRL, EOM intact. Absent: scleral icterus ENT: hearing intact, clear oral mucosa, dentition normal - Neck Neck: Present: supple, normal ROM - Respiratory Respiratory effort: normal Respiratory: bilateral: CTA - Cardiovascular Rhythm: regular Heart Sounds: Present: S1 & S2. Absent: gallop, systolic murmur, diastolic murmur, rub, click - Extremities Extremities: no ischemia, pulses intact, pulses symmetrical, No edema, normal temperature, normal color, Full ROM, abnormal (Left Upper extremity swelling , A-V Fistula in place ,tender to touch.) Peripheral Pulses: within normal limits - Abdominal General gastrointestinal: Present: soft, non-tender, non-distended, normal bowel sounds. Absent: mass - Integumentary Integumentary: Present: clear, warm, dry, normal turgor. Absent: rash - Musculoskeletal Musculoskeletal: strength equal bilaterally - Psychiatric Psychiatric: appropriate mood/affect, intact judgment & insight, memory intact, cooperative - Neurologic Neurologic: CNII-XII intact, no focal deficits, moves all extremities Results - Labs CBC & Chem 7: 01/12/22 04:00 01/12/22 04:00 Labs: Abnormal lab results 01/11/22 01/11/22 01/11/22 Range/Units 02:08 02:08 17:50 RBC 3.10 L (3.65-5.03) M/mm3 MCV 101 H (79-97) fl MCH 33 H (28-32) pg RDW 16.0 H (13.2-15.2) % [place] % (Auto) 12.7 H (0.0-7.3) % [place] # (Auto) 0.9 H (0.0-0.8) K/mm3 BUN 50 H 55 H (7-17) mg/dL Creatinine 8.4 H 9.1 H (0.6-1.2) mg/dL Assessment and Plan Assessment: 1. End-stage renal disease on dialysis. 2. Possible occlusion of vascular access Plan: 1. Patient admitted and will be evaluated by the vascular surgeon and licensed tax consultant. 2. We will resume routine home medications once reconciled. DVT prophylaxis: Subcutaneous heparin Code Status: Full code
[2022-01-12] MEDS ORDERED: hydrALAZINE 20 MG/1 ML INJ IV PRN (02:24)
[2022-01-12 04:40] LABS: Basophils # (Auto) 0.1 K/mm3 (0.0-0.1); Eosinophils # (Auto) 0.1 K/mm3 (0.0-0.4); Hematocrit 28.4 % (30.3-42.9); Hemoglobin 9.6 gm/dl (10.1-14.3); Lymphocytes # (Auto) 1.3 K/mm3 (1.2-5.4); Lymphocytes % (Auto) 20.4 % (13.4-35.0); Mean Corpuscular HGB Conc 34 % (30-34); Mean Corpuscular Volume 100 fl (79-97); Monocytes # (Auto) 0.7 K/mm3 (0.0-0.8); Monocytes % (Auto) 10.9 % (0.0-7.3); Platelet Count 204 K/mm3 (140-440); Red Blood Count 2.84 M/mm3 (3.65-5.03); Red Cell Distribution Width 15.9 % (13.2-15.2)
[2022-01-12 04:58] LABS: Calcium 8.3 mg/dL (8.4-10.2)
[2022-01-12] MEDS: MORPHINE 2 MG/1 ML INJ IV PRN (04:58)
[2022-01-12] MEDS ORDERED: MECLIZINE 12.5 MG TAB PO PRN (07:03)
[2022-01-12] MEDS ORDERED: SEVELAMER CARBONATE 800 MG TAB PO PRN (07:03)
[2022-01-12] MEDS ORDERED: SODIUM CHLORIDE 0.9% 100 ML IV PRN (08:25)
[2022-01-12] MEDS: amLODIPine 10 MG TAB PO SCH (09:12)
[2022-01-12] MEDS: SEVELAMER CARBONATE 800 MG TAB PO SCH ×3 (09:12→17:36)
[2022-01-12] MEDS: PANTOPRAZOLE 40 MG TAB PO SCH (09:12)
[2022-01-12] MEDS: CINACALCET 30 MG TAB PO SCH (09:13)
[2022-01-12] MEDS ORDERED: NON-FORMULARY EACH (Omeprazole [Prilosec] 20 MG Capsule.Dr) PO SCH (10:00)
--- NOTE | 2022-01-12 10:37 | Consultation ---
History of Present Illness - Reason for Consult Consult date: 01/12/22 end stage renal disease - History of Present Illness This is a 71-year-old woman with end-stage renal disease on hemodialysis, hypertension, arthritis and GERD who presented to the emergency department with 2-week history of left upper extremity swelling. She was unable to get dialysis yesterday as it appeared that her fistula was occluded. She presented to the ER for further management and was subsequently admitted. Nephrology was consulted for ESRD management. Patient denies chest pain, diaphoresis, presyncope and syncope. Past History Past Medical History: arthritis, dialysis, ESRD, GERD, hypertension, migraines, other (Depression,membreno's palsy-right side) Past Surgical History: PTCA, Other (left A/V graft) Social history: no significant social history Family history: no significant family history Medications and Allergies Allergies Allergy/AdvReac Type Severity Reaction Status Date / Time iodine Allergy HIVES AND Verified 07/02/21 11:15 VOMITING lisinopril Allergy Angioedema Verified 07/02/21 11:15 shrimp Allergy Itching Verified 07/02/21 11:15 Sulfa (Sulfonamide Allergy HIVES AND Verified 07/02/21 11:15 Antibiotics) FACIAL SWELLING Home Medications Medication Instructions Recorded Confirmed Last Taken Type ALPRAZolam [Xanax TAB] 0.5 mg PO TID 11/10/15 08/04/21 1 Month Ago History ~07/04/21 Omeprazole [PriLOSEC] 40 mg PO QDAY 11/10/15 08/04/21 08/04/21 06:00 History amLODIPine 10 mg PO DAILY 01/06/21 08/04/21 08/04/21 06:00 History Meclizine [Antivert] 12.5 mg PO BID PRN 06/08/21 08/04/21 1 Week Ago History ~07/28/21 Cinacalcet [Sensipar] 30 mg PO QDAY #60 tablet 06/11/21 08/04/21 08/03/21 19:00 Rx Sevelamer Carbonate [Renvela] 800 mg PO DAILY PRN #30 tablet 06/11/21 08/04/21 08/03/21 19:00 Rx Active Meds: Active Medications Acetaminophen (Acetaminophen 325 Mg Tab) 650 mg PO Q4H PRN PRN Reason: Pain MILD(1-3)/Fever >100.5/IZAGUIRRE Alprazolam (Alprazolam 0.5 Mg Tab) 0.5 mg PO TID@0800,1600,2200 [facility] Amlodipine Besylate (Amlodipine 10 Mg Tab) 10 mg PO DAILY [facility] Last Admin: 01/12/22 09:12 Dose: 10 mg Cinacalcet (Cinacalcet 30 Mg Tab) 30 mg PO QDAY [facility] Last Admin: 01/12/22 09:13 Dose: 30 mg Heparin Sodium (Porcine) (Heparin 5,000 Unit/1 Ml Vial) 5,000 unit SUB-Q Q8HR [facility] Hydralazine HCl (Hydralazine 20 Mg/1 Ml Inj) 10 mg IV Q4HR PRN PRN Reason: Hypertension Last Admin: 01/12/22 02:41 Dose: 10 mg Sodium Chloride (Nacl 0.9%) 100 mls @ 999 mls/hr IV BUSTER PRN PRN Reason: Hypotension Magnesium Hydroxide (Magnesium Hydroxide (Mom) Oral Liqd Udc) 30 ml PO Q4H PRN PRN Reason: Constipation Meclizine HCl (Meclizine 12.5 Mg Tab) 12.5 mg PO BID PRN PRN Reason: Vertigo Morphine Sulfate (Morphine 2 Mg/1 Ml Inj) 2 mg IV Q4H PRN PRN Reason: Pain, Moderate (4-6) Last Admin: 01/12/22 04:58 Dose: 2 mg Morphine Sulfate (Morphine 4 Mg/1 Ml Inj) 4 mg IV Q4H PRN PRN Reason: Pain , Severe (7-10) Ondansetron HCl (Ondansetron 4 Mg/2 Ml Inj) 4 mg IV Q8H PRN PRN Reason: Nausea And Vomiting Pantoprazole Sodium (Pantoprazole 40 Mg Tab) 40 mg PO QDAC [facility] Last Admin: 01/12/22 09:12 Dose: 40 mg Sevelamer Carbonate (Sevelamer Carbonate 800 Mg Tab) 800 mg PO BID PRN PRN Reason: TAKE WITH SNACKS Sevelamer Carbonate (Sevelamer Carbonate 800 Mg Tab) 800 mg PO TIDWM [facility] Last Admin: 01/12/22 09:12 Dose: Not Given Sodium Chloride (Sodium Chloride 0.9% 10 Ml Flush Syringe) 10 ml IV BID [facility] Last Admin: 01/12/22 09:18 Dose: 10 ml Sodium Chloride (Sodium Chloride 0.9% 10 Ml Flush Syringe) 10 ml IV PRN PRN PRN Reason: LINE FLUSH Review of Systems All systems: negative Cardiovascular: edema Musculoskeletal: arthritis Exam - Vital Signs Vital signs: Vital Signs Temp Pulse Resp BP Pulse Ox 98.7 F 68 22 220/88 100 01/11/22 01:48 01/11/22 01:48 01/11/22 01:48 01/11/22 01:48 01/11/22 01:48 - Physical Exam Narrative exam: Physical General: No acute distress HEENT: Head normocephalic, hearing normal, anicteric sclera Cardiovascular: RRR, normal pericardial rub Abdomen: Soft, nontender, no bruit Musculoskeletal: Normal joints Neurological: Cranial nerves grossly intact 2-12 Dermatology: No skin rash Extremities: No clubbing: Generalized edema Back: No CVA tenderness Results - Lab Results 01/12/22 04:00 01/12/22 04:00 Most recent lab results Calcium 8.3 mg/dL (8.4-10.2) L 01/12/22 04:00 Assessment and Plan End-stage renal disease on hemodialysis Access malfunction, status post fistulogram with venoplasty today Anemia of ESRD Hypertension Hyperphosphatemia Secondary hyperparathyroidism Status post hemodialysis today following vascular intervention Assess daily for need for additional session of dialysis Hold antihypertensives on dialysis days for systolics less than 160 Epogen as needed with HD Continue binders Renally dose medications ESRD diet with 1.2 to 1.4 g/kg/day protein intake
--- NOTE | 2022-01-12 11:00 | Vascular Lab Report ---
DUPLEX DOPPLER UPPER EXTREMITY VENOUS, LEFT INDICATION / CLINICAL INFORMATION: swelling. TECHNIQUE: Duplex doppler imaging was performed through the veins of the left upper extremity using venous compr ession and other maneuvers. COMPARISON: None available. FINDINGS: LEFT INTERNAL JUGULAR VEIN: Negative. LEFT SUBCLAVIAN VEIN: Negative. LEFT AXILLARY VEIN: Negative. LEFT BRACHIAL VEIN: Negative. LEFT FOREARM VEINS: Negative. LEFT BASILIC VEIN (SUPERFICIAL): Negative. ADDITIONAL FINDINGS: Incidental stenosis in the AV fistula close to the inflow side. IMPRESSION: 1. No sonographic evidence for DVT. Signer Name: Miguel A Garcia MD Signed: 01/12/2022 10:55 AM Workstation Name: [email or web address]
[2022-01-12] MEDS ORDERED: diphenhydrAMINE 50 MG/ML VIAL IV ONE (12:22)
[2022-01-12] MEDS ORDERED: ONDANSETRON 4 MG/2 ML INJ ONE (12:49)
[2022-01-12] MEDS ORDERED: FAMOTIDINE 20 MG/2 ML INJ IV SCH (13:00)
[2022-01-12] MEDS ORDERED: methylPREDNISolone Sod Succinate 125 MG/2 ML INJ IV NR (13:00)
[2022-01-12] MEDS ORDERED: SODIUM CHLORIDE 0.9% 500 ML 500 ML IV SCH (13:00)
[2022-01-12] MEDS ORDERED: HEPARIN/NS 5000 UNIT/500ML 1,000 ML IR ONE (14:05)
[2022-01-12] MEDS ORDERED: ceFAZolin/Water 2 GM/20 ML 2 GM/20 ML SYRINGE IV ONE (14:06)
[2022-01-12] MEDS ORDERED: LIDOCAINE 1%/EPINEPHRINE 1:100,000 VIAL (20 ML) INFILTRATI ONE (14:10)
[2022-01-12] MEDS: MIDAZOLAM 2 MG/2 ML INJ ONE ×2 (14:11→17:36)
[2022-01-12] MEDS: fentaNYL 100 MCG/2 ML INJ ONE ×2 (14:11→17:35)
[2022-01-12] MEDS: HEPARIN 10,000 UNITS/10 ML VIAL ONE ×2 (14:11→17:35)
[2022-01-12] MEDS: ALPRAZolam 0.5 MG TAB PO SCH ×3 (14:20→22:32)
--- NOTE | 2022-01-12 14:40 | Progress Note ---
Assessment and Plan -- End-stage renal disease on dialysis. -- Possible occlusion of vascular access -- Hypertension, moderately controlled -- Anemia of chronic disease Plan: -- Patient will be evaluated by the vascular surgeon and database architect. -- Plan for angiogram today -- Resume routine home medications -- Plan for hemodialysis after venoplasty DVT prophylaxis: Subcutaneous heparin Code Status: Full code Subjective Date of service: 01/12/22 Interval history: Patient seen and examined. Medical records and medication list reviewed. No acute event overnight noted by the RN. Patient denies any chest pain or difficulty breathing. Patient complains of left hand swelling Discussed plan of care at bedside with patient. Objective - Exam Narrative Exam: GENERAL: Elderly -Ivorian female sitting, appeared to be in no discomfort. HEENT: Normocephalic. Atraumatic. No conjunctival congestion or icterus. Patient has moist mucous membranes. NECK: Supple. Trachea midline. CHEST/LUNGS: Clear to auscultated bilaterally, breathing nonlabored. No wheezes crackles or rhonchi. HEART/CARDIOVASCULAR: Regular in rate and rhythm. S1 and S2 positive. ABDOMEN: Abdomen is soft, nontender. Patient has normal bowel sounds. SKIN: There is no rash. Warm and dry. NEURO: No focal motor deficit. Follows command. MUSCULOSKELETAL: Left upper extremity swelling EXTRIMITY: No edema, no cyanosis or clubbing. PSYCH: Cooperative. - Constitutional Vitals: Vital Signs - 12hr 01/12/22 01/12/22 01/12/22 02:41 05:43 09:12 Temperature 97.8 F Pulse Rate 69 71 Respiratory 18 Rate Blood Pressure 213/79 187/73 166/71 O2 Sat by Pulse 97 Oximetry 01/12/22 10:22 Temperature Pulse Rate Respiratory Rate Blood Pressure O2 Sat by Pulse 97 Oximetry - Labs CBC & Chem 7: 01/12/22 04:00 01/12/22 04:00 Labs: Abnormal lab results 01/11/22 01/12/22 01/12/22 Range/Units 17:50 04:00 04:00 RBC 2.84 L (3.65-5.03) M/mm3 Hgb 9.6 L (10.1-14.3) gm/dl Hct 28.4 L (30.3-42.9) % MCV 100 H (79-97) fl MCH 34 H (28-32) pg RDW 15.9 H (13.2-15.2) % Bennett % (Auto) 10.9 H (0.0-7.3) % BUN 55 H 58 H (7-17) mg/dL Creatinine 9.1 H 10.1 H (0.6-1.2) mg/dL Calcium 8.3 L (8.4-10.2) mg/dL
--- NOTE | 2022-01-12 15:21 | Consultation ---
History of Present Illness - Reason for Consult Consult date: 01/12/22 Swelling Requesting physician: DAKOTA JOSEPH - History of Present Illness 71-year-old woman with end-stage renal disease on hemodialysis, hypertension, arthritis and GERD who presented to the emergency department with 2-week history of left upper extremity pain. She was unable to get dialysis yesterday as it appeared that her fistula was occluded. She presented to the ER for further management and was subsequently admitted. Nephrology was consulted for ESRD management. Patient denies chest pain, diaphoresis, presyncope and syncope. Vascular consulted for evaluation. Patient has left upper extremity swelling, but also has swelling of her lower extremities and her face and neck and chest. Has pain of the left upper extremity. Plan for fistulogram with angioplasty. Risk, benefits, and alternatives discussed. Plan for procedure. Will also need work-up for cardiac issues as CHF may also explain the more diffuse nature of her swelling. Past History Past Medical History: arthritis, dialysis, ESRD, GERD, hypertension, migraines, other (Depression,membreno's palsy-right side) Past Surgical History: PTCA, Other (left A/V graft) Social history: no significant social history Family history: no significant family history Medications and Allergies Allergies Allergy/AdvReac Type Severity Reaction Status Date / Time iodine Allergy HIVES AND Verified 07/02/21 11:15 VOMITING lisinopril Allergy Angioedema Verified 07/02/21 11:15 shrimp Allergy Itching Verified 07/02/21 11:15 Sulfa (Sulfonamide Allergy HIVES AND Verified 07/02/21 11:15 Antibiotics) FACIAL SWELLING Home Medications Medication Instructions Recorded Confirmed Last Taken Type ALPRAZolam [Xanax TAB] 0.5 mg PO TID 11/10/15 08/04/21 1 Month Ago History ~07/04/21 Omeprazole [PriLOSEC] 40 mg PO QDAY 11/10/15 08/04/21 08/04/21 06:00 History amLODIPine 10 mg PO DAILY 01/06/21 08/04/21 08/04/21 06:00 History Meclizine [Antivert] 12.5 mg PO BID PRN 06/08/21 08/04/21 1 Week Ago History ~07/28/21 Cinacalcet [Sensipar] 30 mg PO QDAY #60 tablet 0208/04/21 08/03/21 19:00 Rx Sevelamer Carbonate [Renvela] 800 mg PO DAILY PRN #30 tablet 06/11/21 08/04/21 08/03/21 19:00 Rx Active Meds: Active Medications Acetaminophen (Acetaminophen 325 Mg Tab) 650 mg PO Q4H PRN PRN Reason: Pain MILD(1-3)/Fever >100.5/IZAGUIRRE Alprazolam (Alprazolam 0.5 Mg Tab) 0.5 mg PO TID@0800,1600,2200 [facility] Last Admin: 01/12/22 14:20 Dose: Not Given Amlodipine Besylate (Amlodipine 10 Mg Tab) 10 mg PO DAILY [facility] Last Admin: 01/12/22 09:12 Dose: 10 mg Cinacalcet (Cinacalcet 30 Mg Tab) 30 mg PO QDAY [facility] Last Admin: 01/12/22 09:13 Dose: 30 mg Famotidine (Famotidine 20 Mg/2 Ml Inj) 20 mg IV QDAY [facility] Stop: 01/12/22 23:59 Last Admin: 01/12/22 14:09 Dose: 20 mg Heparin Sodium (Porcine) (Heparin 5,000 Unit/1 Ml Vial) 5,000 unit SUB-Q Q8HR [facility] Hydralazine HCl (Hydralazine 20 Mg/1 Ml Inj) 10 mg IV Q4HR PRN PRN Reason: Hypertension Last Admin: 01/12/22 02:41 Dose: 10 mg Sodium Chloride (Nacl 0.9%) 100 mls @ 999 mls/hr IV BUSTER PRN PRN Reason: Hypotension Sodium Chloride (Nacl 0.9% 500 Ml) 500 mls @ 50 mls/hr IV DIRECT MANPREET Stop: 01/12/22 23:59 Last Admin: 01/12/22 14:11 Dose: 200 mls Magnesium Hydroxide (Magnesium Hydroxide (Mom) Oral Liqd Udc) 30 ml PO Q4H PRN PRN Reason: Constipation Meclizine HCl (Meclizine 12.5 Mg Tab) 12.5 mg PO BID PRN PRN Reason: Vertigo Methylprednisolone Sodium Succinate (Methylprednisolone Sod Succinate 125 Mg/2 Ml Inj) 125 mg IV PREOP NR Stop: 01/12/22 23:00 Last Admin: 01/12/22 14:10 Dose: 125 mg Morphine Sulfate (Morphine 2 Mg/1 Ml Inj) 2 mg IV Q4H PRN PRN Reason: Pain, Moderate (4-6) Last Admin: 01/12/22 04:58 Dose: 2 mg Morphine Sulfate (Morphine 4 Mg/1 Ml Inj) 4 mg IV Q4H PRN PRN Reason: Pain , Severe (7-10) Ondansetron HCl (Ondansetron 4 Mg/2 Ml Inj) 4 mg IV Q8H PRN PRN Reason: Nausea And Vomiting Pantoprazole Sodium (Pantoprazole 40 Mg Tab) 40 mg PO QDAC [facility] Last Admin: 01/12/22 09:12 Dose: 40 mg Sevelamer Carbonate (Sevelamer Carbonate 800 Mg Tab) 800 mg PO BID PRN PRN Reason: TAKE WITH SNACKS Sevelamer Carbonate (Sevelamer Carbonate 800 Mg Tab) 800 mg PO TIDWM [facility] Last Admin: 01/12/22 14:20 Dose: Not Given Sodium Chloride (Sodium Chloride 0.9% 10 Ml Flush Syringe) 10 ml IV BID [facility] Last Admin: 01/12/22 09:18 Dose: 10 ml Sodium Chloride (Sodium Chloride 0.9% 10 Ml Flush Syringe) 10 ml IV PRN PRN PRN Reason: LINE FLUSH Review of Systems All systems: negative (see HPI) Exam - Constitutional Vitals: Temp Pulse Resp BP Pulse Ox 97.8 F 71 18 166/71 97 01/12/22 05:43 01/12/22 05:43 01/12/22 05:43 01/12/22 09:12 01/12/22 10:22 General appearance: Present: mild distress (From swelling and left upper extremity pain) - EENT Eyes: Present: EOM intact ENT: hearing intact - Neck Neck: Present: supple - Respiratory Respiratory effort: normal - Cardiovascular Rhythm: regular - Extremities Extremities: pulses intact (Palpable left radial and ulnar pulse), normal temperature, normal color, abnormal (Swelling of the left upper extremity, bilateral lower extremities, and head neck and chest) - Abdominal General gastrointestinal: Present: soft, non-tender - Psychiatric Psychiatric: appropriate mood/affect, cooperative Results - Labs CBC & Chem 7: 01/12/22 04:00 01/12/22 04:00 Labs: Abnormal lab results 09/12/22 09/13/22 09/13/22 Range/Units 17:50 04:00 04:00 RBC 2.84 L (3.65-5.03) M/mm3 Hgb 9.6 L (10.1-14.3) gm/dl Hct 28.4 L (30.3-42.9) % MCV 100 H (79-97) fl MCH 34 H (28-32) pg RDW 15.9 H (13.2-15.2) % [place] % (Auto) 10.9 H (0.0-7.3) % BUN 55 H 58 H (7-17) mg/dL Creatinine 9.1 H 10.1 H (0.6-1.2) mg/dL Calcium 8.3 L (8.4-10.2) mg/dL Assessment and Plan 71-year-old female with end-stage renal disease, congestive heart failure, and AV fistula malfunction. For AV fistula malfunction with pain of the left upper extremity, plan for fistulogram with angioplasty. Risk, benefits, and alternatives discussed. Patient agrees with procedure. For more diffuse swelling, recommend CHF work-up.
--- NOTE | 2022-01-12 15:33 | Operative Report ---
Operative Report Operative Report: EXAM: Ultrasound guided access of the left arm AV graft Placement of a sheath towards the venous outflow Fistulogram Angioplasty of the left innominate vein, subclavian vein, and SVC with a 12 mm x 60 mm angioplasty balloon Angioplasty of the venous anastomosis with a 9 mm x 40 mm angioplasty balloon DATE: 01/12/2022 FORM BUILDING SUPERVISOR: JOSETTE MENDENHALL MD INDICATION: AV fistula malfunction with left upper extremity swelling and chest swelling. MEDICATIONS: Please see nursing report for full details. DEVICES: 12 mm x 60 mm angioplasty balloon 9 mm x 40 mm angioplasty balloon PROCEDURE: The risks, benefits, and alternatives of the procedure were discussed and written informed consent was obtained. The patient was transported in stable condition to the angiography suite. The patient's left arm AV graft was assessed by ultrasound and was patent. The patient was prepped and draped in a sterile fashion. Under ultrasound guidance, the left arm AV graft was accessed with a 21-gauge micropuncture needle. The area was anesthetized prior to access. 0.018 inch wire was advanced through the micropuncture needle into the fistula and then the needle was exchanged for a 5 Hungarian transitional dilator. The inner dilator and wire were removed and a 0.035 inch wire was advanced through the venous outflow. The transitional dilator was exchanged for a 7 Hungarian short sheath. Fistulogram was performed of the venous outflow and central veins. Reflux into the arterial anastomosis was performed. Digital subtraction angiography demonstrated 30% stenosis of the peripheral portion of the AV graft, 50% stenosis of the venous anastomosis, patency of the axillary vein, diffuse 40% stenosis of left subclavian vein, innominate vein, and upper portion of the SVC. The brachial artery proximal distal to the anastomosis is patent. 12 mm x 60 mm angioplasty balloon was used to perform angioplasty of the left innominate vein, subclavian vein, and upper portion of the SVC. 9 mm x 40 mm angioplasty balloon was used to perform angioplasty of the left venous anastomosis. Digital subtraction angiography was performed demonstrating less than 10% residual narrowing of the venous anastomosis and left innominate vein, subclavian vein, and upper portion of the SVC. The wire was removed and the site was closed with a 3-0 Vicryl suture. The sheath was then removed. Hemostasis was achieved with slight manual compression. The patient was transported from the angiography suite to the floor in stable condition. IMPRESSION: Successful fistulogram and venoplasty as descibed above.
[2022-01-12 16:39] LABS: Hepatitis B Surface Antigen Non-Reactive (Negative); Hepatitis C Virus Antibody Non-Reactive (NonReactive)
[2022-01-12] MEDS: HEPARIN 5,000 UNIT/1 ML VIAL SUB-Q SCH ×2 (17:34→22:32)
[2022-01-13] MEDS: HEPARIN 5,000 UNIT/1 ML VIAL SUB-Q SCH ×2 (06:08→13:53)
[2022-01-13] MEDS: MORPHINE 2 MG/1 ML INJ IV PRN (09:00)
[2022-01-13] MEDS: CINACALCET 30 MG TAB PO SCH (09:01)
[2022-01-13] MEDS: ALPRAZolam 0.5 MG TAB PO SCH (09:01)
[2022-01-13] MEDS: amLODIPine 10 MG TAB PO SCH (09:01)
[2022-01-13] MEDS: PANTOPRAZOLE 40 MG TAB PO SCH (09:03)
[2022-01-13] MEDS: SEVELAMER CARBONATE 800 MG TAB PO SCH ×2 (09:12→13:53)
--- NOTE | 2022-01-13 09:44 | Electrocardiograph Report ---
[facility] Test Date: 2022-01-11 Test Time: 22:40:38 Pat Name: PATRICIO HADLEY Department: Room: A392 1 Gender: F Scaffolder: CADEN : 1950 Requested By: YANETH HSU Order Number: [id number] Reading MD: Alexis Trotter Measurements Intervals Helen Rate: 56 P: 72 NC: 163 QRS: 81 QRSD: 138 T: 36 QT: 448 QTc: 434 Interpretive Statements Sinus bradycardia Right bundle branch block Compared to ECG 07/02/2021 11:26:42 No significant changes Electronically Signed On 01-13-2022 9:43:58 EDT by Alexis Trotter
[2022-01-13 13:14] VITALS: BP 177/67
--- NOTE | 2022-01-13 13:48 | Discharge Summary ---
Providers - Providers Date of Admission: 01/11/22 23:27 Date of discharge: 01/13/22 Attending physician: DAKOTA JOSEPH 01/11/22 22:36 Consult to Physician [CONS] Urgent Comment: Dr. Dao spoke with Dr. Newell @ [id number] Consulting Provider: HANY NEWELL Physician Instructions: Reason For Exam: esrd Primary care physician: JOSE RAUL RON Hospitalization Condition: Good Disposition: 01 HOME / SELF CARE / HOMELESS Final Discharge Diagnosis (Prints w/discharge instructions): -- End-stage renal disease on dialysis. -- Possible occlusion of vascular access. -- Hypertension, moderately controlled. -- Anemia of chronic disease Time spent for discharge: 34 minutes Core Measure Documentation - Palliative Care Palliative Care/ Comfort Measures: Not Applicable - Core Measures Any of the following diagnoses?: none Exam - Physical Exam Narrative exam: GENERAL: Elderly -Mauritian female sitting, appeared to be in no discomfort. HEENT: Normocephalic. Atraumatic. No conjunctival congestion or icterus. Patient has moist mucous membranes. NECK: Supple. Trachea midline. CHEST/LUNGS: Clear to auscultated bilaterally, breathing nonlabored. No wheezes crackles or rhonchi. HEART/CARDIOVASCULAR: Regular in rate and rhythm. S1 and S2 positive. ABDOMEN: Abdomen is soft, nontender. Patient has normal bowel sounds. SKIN: There is no rash. Warm and dry. NEURO: No focal motor deficit. Follows command. MUSCULOSKELETAL: Left upper extremity swelling EXTRIMITY: No edema, no cyanosis or clubbing. PSYCH: Cooperative. - Constitutional Vitals: Temp Pulse Resp BP Pulse Ox 98.8 F 60 16 177/67 97 01/13/22 11:13 01/13/22 11:13 01/13/22 11:13 01/13/22 11:13 01/13/22 12:21 Plan Activity: advance as tolerated Weight Bearing Status: Non-Weight Bearing Diet: renal Follow up with: JOSE RAUL RON MD [Primary Care Provider] - 3-5 Days
--- NOTE | 2022-01-13 19:19 | Progress Note ---
Assessment and Plan End-stage renal disease on hemodialysis Access malfunction, status post fistulogram with venoplasty today Anemia of ESRD Hypertension Hyperphosphatemia Secondary hyperparathyroidism Status post hemodialysis yesterday following vascular intervention No emergent medication for dialysis today Hold antihypertensives on dialysis days for systolics less than 160 Epogen as needed with HD Continue binders Renally dose medications ESRD diet with 1.2 to 1.4 g/kg/day protein intake Subjective Date of service: 01/13/22 Principal diagnosis: Arm swelling Interval history: Ambulating in room. Status post dialysis yesterday. Objective - Exam Narrative Exam: Physical General: No acute distress HEENT: Head normocephalic, hearing normal, anicteric sclera Cardiovascular: RRR, normal pericardial rub Abdomen: Soft, nontender, no bruit Musculoskeletal: Normal joints Neurological: Cranial nerves grossly intact 2-12 Dermatology: No skin rash Extremities: No clubbing: Generalized edema Back: No CVA tenderness - Vital Signs Vital signs: Vital Signs - 12hr 01/13/22 01/13/22 01/13/22 09:01 11:13 12:21 Temperature 98.8 F Pulse Rate 72 60 Respiratory 16 Rate Blood Pressure 177/67 O2 Sat by Pulse 94 97 Oximetry - Lab 01/12/22 04:00 01/12/22 04:00 Most recent lab results Calcium 8.3 mg/dL (8.4-10.2) L 01/12/22 04:00 Medications & Allergies - Medications Allergies/Adverse Reactions: Allergies iodine Allergy (Verified 07/02/21 11:15) HIVES AND VOMITING lisinopril Allergy (Verified 07/02/21 11:15) Angioedema shrimp Allergy (Verified 07/02/21 11:15) Itching Sulfa (Sulfonamide Antibiotics) Allergy (Verified 07/02/21 11:15) HIVES AND FACIAL SWELLING Home Medications: Home Medications Medication Instructions Recorded Confirmed Last Taken Type ALPRAZolam [Xanax TAB] 0.5 mg PO TID 11/10/15 01/12/22 1 Month Ago History ~07/04/21 Omeprazole [PriLOSEC] 40 mg PO QDAY 11/10/15 01/12/22 08/04/21 06:00 History amLODIPine 10 mg PO DAILY 01/06/21 01/12/22 08/04/21 06:00 History Meclizine [Antivert] 12.5 mg PO BID PRN 06/08/21 01/12/22 1 Week Ago History ~07/28/21 Cinacalcet [Sensipar] 30 mg PO QDAY #60 tablet 06/11/21 01/12/22 08/03/21 19:00 Rx Sevelamer Carbonate [Renvela] 800 mg PO DAILY PRN #30 tablet 06/11/21 01/12/22 08/03/21 19:00 Rx
== END 2022-01-13 15:00 | disposition home or self-care (01) | DRG 252 ==
LOC: ED 22:44 → 3A 01-11 23:27
PROVIDERS: ADMIT Internal Medicine Geriatric Medicine; ATTEND Internal Medicine
PROC: 05743ZZ Dilation of Left Innominate Vein, Percutaneous Approach (ICD-10-PCS; principal; 2022-01-12)
PROC: 05763ZZ Dilation of Left Subclavian Vein, Percutaneous Approach (ICD-10-PCS; 2022-01-12)
PROC: 027V3ZZ Dilation of Superior Vena Cava, Percutaneous Approach (ICD-10-PCS; 2022-01-12)
PROC: B51W1ZZ Fluoroscopy of Dialysis Shunt/Fistula using Low Osmolar Contrast (ICD-10-PCS; 2022-01-12)
PROC: 5A1D70Z Performance of Urinary Filtration, Intermittent, Less than 6 Hours Per Day (ICD-10-PCS; 2022-01-12)
DX: T82.590A Other mechanical complication of surgically created arteriovenous fistula, initial encounter (principal); N18.6 End stage renal disease; I13.2 Hypertensive heart and chronic kidney disease with heart failure and with stage 5 chronic kidney disease, or end stage renal disease; N25.81 Secondary hyperparathyroidism of renal origin; Z99.2 Dependence on renal dialysis; G43.909 Migraine, unspecified, not intractable, without status migrainosus; I50.9 Heart failure, unspecified; E83.39 Other disorders of phosphorus metabolism; D63.1 Anemia in chronic kidney disease; K21.9 Gastro-esophageal reflux disease without esophagitis; F32.A Depression, unspecified; I35.0 Nonrheumatic aortic (valve) stenosis; M19.90 Unspecified osteoarthritis, unspecified site; Y83.2 Surgical operation with anastomosis, bypass or graft as the cause of abnormal reaction of the patient, or of later complication, without mention of misadventure at the time of the procedure; Y92.89 Other specified places as the place of occurrence of the external cause; Z88.2 Allergy status to sulfonamides; Z88.8 Allergy status to other drugs, medicaments and biological substances; Z88.3 Allergy status to other anti-infective agents; Z91.013 Allergy to seafood
CPT/HCPCS: 36415; 36905; 71046; 80048; 80053; 80074; 82270; 85025; 93005; G0378; J3490; C1725; C1751; C1894; J0360; J0690; J1200; J1644; J2250; J2270; J2405; J2597; J2930; J3010; J7040; Q9967